=== PATIENT | female | born 1965 | race Caucasian/White ===

== ENCOUNTER → 2018-11-28 10:01 | Outpatient (CLI) | payer BC, SELFPAY ==
[2018-11-28 12:05] LABS: Hematocrit 43.1 % (37-47); Hemoglobin 14.2 g/dl (12.0-15.0); Mean Corp Hgb Conc 32.9 g/gl (32-36); Mean Corpuscular Hgb 28.4 pg (27.0-32.0); Mean Corpuscular Volume 86.2 fL (81-99); Platelet Count 450 K/mm3 (150-450); RBC Distribution Width CV 14.5 % (11.6-14.6); RBC Distribution Width SD 45.1 fl (35.1-43.9); White Blood Count 7.3 K/mm3 (4.4-11.0)
[2018-11-28 12:07] LABS: Scan Indicated on CBC? Y/N NO
[2018-11-28 12:13] LABS: Vitamin D,25 Hydroxy 22.5 ng/mL (29.95-100.01)
[2018-11-28 12:16] LABS: Anion Gap 9 (5-15); BUN 11 mg/dL (7-18); BUN/Creat Ratio 11.1 RATIO (10-20); Calcium,Total 8.6 mg/dL (8.5-10.1); Chloride 104 mmol/L (98-107); EST Glomerular Filtration Rate 62 mL/min (>60); Est Glom Filt Rate - Afr Amer 75 mL/min (>60); Glucose 98 mg/dL (74-106); Sodium Level 136 mmol/L (136-145)
--- OUTSIDE RECORDS SUMMARY | 2019-02-02 02:43 | XMS RPT_ITS ---
:1965 Author Organization OHIP Care Team Providers Name Role Phone CHAPARRITA GUTHRIE (INSURANCE PROCESSING CLERK) Attending Unavailable CHAPARRITA GTUHRIE (INSURANCE PROCESSING CLERK) Referring Unavailable CHAPARRITA GUTHRIE (INSURANCE PROCESSING CLERK) Referring Unavailable Tee Ramirez Attending Unavailable Tee Ramirez Referring Unavailable Tee Ramirez Primary Care Unavailable PROBLEMS PROBLEMS DATE TYPE CONDITION / CODE ATTENDING STATUS SOURCE 11/28/2018 Unknown 401.1 - Benign Tee Ramirez Active [place] essential [facility]ly [facility] hypertension / Hospital 401.1(ICD-9) Repository 11/28/2018 Unknown I10 - Essential Tee Ramirez Active [place] (primary) Formerly [facility] hypertension / Hospital I10(ICD-10) Repository 11/28/2018 Unknown 244.9 - Unspecified Tee Ramirez Active [place] acquired [facility] hypothyroidism / Hospital 244.9(ICD-9) Repository 11/28/2018 Unknown E03.9 - Tee Ramirez Active [place] Hypothyroidism, Community unspecified / Hospital E03.9(ICD-10) Repository 03/16/2018 Active Encounter for NA Active [place] screening [facility] Main for malignant [place] neoplasm of breast / Repository Z12.31(ICD-10) 03/16/2018 Active Unknown / CHAPARRITA GUTHRIE Active [place] UNK(Unknown) (INSURANCE PROCESSING CLERK) Clinic Main [place] Repository PROCEDURES PROCEDURES No Procedure Records FoundRESULTS RESULTS CBC-COMPLETE BLOOD CNT Collected: 11/28/2018 Status: F Source: [place] NO DIFF 10:05 AM [facility] HOSPITAL REPOSITORY TYPE CODE TESTS RESULT OUT OF RANGE REFERENCE UNITS LAB L100.1000 4.4-11.0 K/mm3 Normal WBC 7.3 LAB L100.1200 4.2-5.4 M/mm3 Normal RBC 5.00 LAB L100.1300 12.0-15.0 g/dl Normal HGB 14.2 LAB L100.1400 37-47 % Normal HCT 43.1 LAB L100.1500 81-99 fL Normal MCV 86.2 LAB L100.1600 27.0-32.0 pg Normal MCH 28.4 LAB L100.1700 32-36 g/gl Normal MCHC 32.9 LAB L100.1810 11.6-14.6 % Normal RDW CV 14.5 LAB L100.1820 35.1-43.9 fl High RDW SD 45.1 LAB L100.1900 150-450 K/mm3 Normal PLT 450 LAB L100.2000 6.2-12.0 fl Normal MPV 10.0 Performed By: #### L100.0500, L506.1000, L500.2500, L501.9520 #### [facility] [address] [place], [place], [id number] VITAMIN D,25 HYDROXY Collected: 11/28/2018 Status: F Source: [place] 10:05 AM [facility] TYPE CODE TESTS RESULT OUT OF REFERENCE UNITS RANGE LAB L506.1000 29.95-100.01 ng/mL Low Vitamin D 22.5 25-OH Result Comment: Vitamin D 25(OH) Status Range Deficiency <20 ng/mL (50nmol/L) Insuffciency 20 - 30 ng/mL (50 - 75 nmol/L) Sufficiency 30 - 100 ng/mL (75 - 250 nmol/L) Toxicity >100 ng/mL (>250 nmol/L) Performed By: #### L100.0500, L506.1000, L500.2500, L501.9520 #### [facility] [address] [place], [place], [address] BASIC METABOLIC Collected: 11/28/2018 Status: F Source: [place] PROFILE (BMP) 10:05 AM [facility] TYPE CODE TESTS RESULT OUT OF RANGE REFERENCE UNITS LAB L501.0100 74-106 mg/dL Normal GLU 98 Result Comment: Please note revised GLUCOSE reference range effective 2017. LAB L501.1000 7-18 mg/dL Normal BUN 11 LAB L501.1100 0.55-1.02 mg/dL Normal CREAT,SERUM 1.00 Result Comment: The validity of the calculated GFR AND GFRAA in patients over 70 years has not been determined. Clinical correlation is essential. LAB L501.1110 >60 mL/min Normal EST GFR 62 Result Comment: Non- GFR Calc LAB L501.1115 >60 mL/min Normal EST GFR - AA 75 Result Comment: GFR Calc LAB L501.1300 10-20 RATIO Normal BUN/CRE 11.1 LAB L501.2200 8.5-10.1 mg/dL CA Normal 8.6 LAB L501.5300 136-145 mmol/L NA Normal 136 LAB L501.5600 3.5-5.1 mmol/L K Normal 4.0 LAB L501.5900 98-107 mmol/L CL Normal 104 LAB L501.6100 21.0-32.0 mmol/L Normal CO2 23.0 LAB L501.6200 5-15 Normal GAP 9 Performed By: #### L100.0500, L506.1000, L500.2500, L501.9520 #### [facility] [address] [facility] [place], [place], [id number] THYROID STIM HORMONE Collected: 11/28/2018 Status: F Source: [place] (TSH) 10:05 AM [facility] [place] TYPE CODE TESTS RESULT OUT OF RANGE REFERENCE UNITS LAB L501.9520 0.358-3.74 uIU/mL Normal TSH 2.10 Performed By: #### L100.0500, L506.1000, L500.2500, L501.9520 #### [facility] [address] [facility] [place], [place], [address] PROGRESS Observed: 05/09/2018 Status: COMPLETED Source: PROSS[place] 3:31 PM [facility] REPOSITORY O ID: [id number] Author: Adamaris Lozoya Rt Service: (none) Author Type: (none) Type: Progress Notes Filed: 05/09/2018 3:32 PM Note Text: Radiology Service Progress Note PATIENT NAME: Selma Don DATE OF SERVICE: May 09, 2018 TIME: 3:31 PM PATIENT IDENTITY VERIFICATION COMPLETED USING TWO (2) METHODS: Patient confirmed name verbally and Date of . PATIENT GENDER DATA: Female. status: : No status: NO. PATIENT RELEVANT IMPLANT DATA REVIEWED: Not Applicable RADIOLOGY DEPARTMENT: [facility] bilateral diagnostic mammogram PERIPHERAL IV DATA: Not applicable SIGNED BY: Adamaris Lozoya May 09, 2018 3:31 PM [facility] Observed: 05/09/2018 Status: COMPLETED Source: PROSSER 3:29 PM [facility] REPOSITORY HNO ID: [id number] Author: Mammography Coordinator Service: (none) Author Type: Physician Type: Letter Filed: 05/10/2018 11:32 PM Note Text: May 09, 2018 PID: [id number] Selma Don [address] [place] [address] Dear Sis Don, We are pleased to inform you that the results of your recent breast imaging exam on 05/09/2018 are normal and we recommend that you return to your annual screening Mammography schedule. Early detection of cancer is very important. We also understand recommendations regarding breast cancer screening are controversial. Please discuss with your primary care provider which strategy is best for you and whether a mammogram is right for you. Your imaging studies and report will be kept on file at [facility] as part of your permanent medical record and are available for your continuing care. Thank you for allowing us to help in meeting your health care needs. Sincerely, Dr. Wesley Interpreting Radiologist [facility] (Return to Annual Mammogram schedule) [facility] DIAGNOSTIC NANI Observed: 05/09/2018 Status: F Source: PROSSER 3:22 PM [facility] REPOSITORY * * *Final Report* * * DATE OF EXAM: May 09 2018 3:22PM [facility] 0620 - [facility] DIAGNOSTIC NANI / PROCEDURE REASON: call back bilateral breast / abnormal mammogram * * * * Physician Interpretation * * * * RESULT: #[id number] - [facility] DIAGNOSTIC NANI BILATERAL DIGITAL DIAGNOSTIC MAMMOGRAM WITH CAD: 05/09/2018 HISTORY: Call Back Bilateral Breast / Abnormal Mammogram. RESULT: TECHNIQUE: The study was acquired using full field digital technology and interpreted from soft copy. Current study was also evaluated with a Computer Aided Detection (CAD). Comparison is made to exams dated: 03/16/2018 mammogram, 03/15/2017 mammogram - [facility], 04/12/2016 mammogram - [facility], 03/14/2016 mammogram, and 03/09/2015 mammogram - [facility]. The tissue of both breasts is heterogeneously dense. This may lower the sensitivity of mammography. The tiny left calcifications are widely scattered and appear stable since 2016. Additional imaging reveals area of interest in the right breast on prior exam is not reproduced and presumably represents superimposed breast tissue. The patient is status post reduction both breasts. No significant masses, calcifications, or other findings are seen in either breast. IMPRESSION: NEGATIVE There is no mammographic evidence of malignancy. Return to annual mammogram screening schedule is recommended. Marylou wiggins/jacy:05/09/2018 15:29:49 Event Planner: Adamaris ALVES (R)([place]), [facility] letter sent: Return to Annual Mammogram BI-RADS: 1 Negative Baggage Porter: Jacy Transcribe Date/Time: May 09 2018 2:54P Dictated by: MARYLOU WESLEY MD This examination was interpreted and the report reviewed and electronically signed by: MARYLOU WESLEY MD on May 09 2018 3:29PM EST [id number] [facility] Observed: 04/13/2018 Status: COMPLETED Source: PROSSER 12:00 AM [facility] REPOSITORY Letter Text [facility] [address] [address] Date: April 18, 2018 Sis Don [facility] [phone] Dear Ms. Don, Our records indicate that you are overdue for your diagnostic breast imaging exam as recommended from recent screening mammogram. Please call [phone], , or [phone] to schedule your additional imaging. If you've gone to an outside facility, please notify us. If you have already scheduled and appointment please disregard this letter. Thank you for choosing us for your health care needs. Sincerely, Dr. Flaca Quezada Interpreting Radiologist This is a copy of the letter sent to the patient through the Radiology Information System [facility] Observed: 03/19/2018 Status: COMPLETED Source: PROSS[place] 5:02 PM [facility] REPOSITORY HNO ID: [id number] Author: Coordinator, Mammography Service: (none) Author Type: Physician Type: Letter Filed: 03/20/2018 11:33 PM Note Text: March 19, 2018 PID: [id number] Selma Don [address] [place] [address] Dear Ms. Don, Your recent breast imaging exam on 03/16/2018 showed a possible finding that requires additional imaging studies for a complete evaluation. Most such findings are probably benign (not cancer). Please call [phone] or [phone] to schedule an appointment for your additional imaging if you have not already done so. Your mammogram demonstrates that you have dense breast tissue, which could hide abnormalities. Dense breast tissue, in and of itself, is a relatively common condition. Therefore, this information is not provided to cause undue concern; rather, it is to raise your awareness and promote discussion with your health care provider regarding the presence of dense breast tissue in addition to other risk factors. Your breast images and report will be kept on file here as part of your permanent medical record and are available for your continuing care. Thank you for allowing us to help in meeting your health care needs. Sincerely, Dr. Quezada Interpreting Radiologist [facility] (Additional imaging) [facility] SCREENING Observed: 03/16/2018 Status: F Source: PROSSER 4:18 PM [facility] REPOSITORY * * *Final Report* * * DATE OF EXAM: Mar 16 2018 4:18PM [facility] 0581 - [facility] SCREENING / PROCEDURE REASON: Encounter for screening mammogram for malignant neoplasm of breast * * * * Physician Interpretation * * * * RESULT: #[id number] - [facility] SCREENING BILATERAL DIGITAL SCREENING MAMMOGRAM WITH CAD: 03/16/2018 HISTORY: Screening Mammogram - patient reports NO breast symptoms /priors available for comparison. RESULT: TECHNIQUE: The study was acquired using full field digital technology and interpreted from soft copy. Current study was also evaluated with a Computer Aided Detection (CAD). Comparison is made to exams dated: 03/15/2017 mammogram - [facility], 04/12/2016 mammogram - [facility], 03/14/2016 mammogram, and 03/09/2015 mammogram - [facility]. The tissue of both breasts is heterogeneously dense. This may lower the sensitivity of mammography. Both breasts have post-operative findings. There is a focal asymmetry in the right breast. There are possible multiple calcifications in the left breast. There is a possible asymmetry associated with the calcifications. No other significant masses or calcifications are seen in either breast. IMPRESSION: INCOMPLETE: NEEDS ADDITIONAL IMAGING EVALUATION The focal asymmetry in the right breast is indeterminate. Additional views are recommended. The possible multiple calcifications in the left breast are indeterminate. There is a possible asymmetry associated with the calcifications. Spot magnification views are recommended. Flaca arthur/jacy:03/19/2018 17:02:08 Event Planner: Lacy SHAW)([place]), [facility] letter sent: Additional Imaging Needed Mammogram BI-RADS: 0 Incomplete: needs additional imaging evaluation Baggage Porter: Jacy Transcribe Date/Time: Mar 16 2018 3:43P Dictated by: FLACA QUEZADA MD This examination was interpreted and the report reviewed and electronically signed by: FLACA QUEZADA MD on Mar 19 2018 5:02PM EST [id number] Observed: 03/16/2018 Status: COMPLETED Source: PROSSER 3:05 PM [facility] REPOSITORY O ID: [id number] Author: Chaparrita Guthrie (Critical Care Physician Assistant) Service: (none) Author Type: Nurse Practitioner Type: Progress Notes Filed: 03/16/2018 3:38 PM Note Text: Mine Captain offered: Patient declines. Selma Don is a 53 year old who presents for her annual gynecologic exam without complaints. 10 yrs sober!!! Works at [employer] in [employer] Postmenopausal: Yes since 2007 HRT use: Yes, climara How lon. Last Pap: 2017 normal HPV: 2017 negative History of abnormal pap: No Last mammogram: 2018 pending History of abnormal mammogram: No Sexually active: Yes Pain with intercourse: No Postcoital bleeding: No Hot flashes: No Night sweats: No Vaginal dryness: No Obstetric History T2 L2 SAB0 TAB0 Ectopic0 Multiple0 Live Births0 PAST MEDICAL HISTORY Diagnosis Date - Depression - GERD (gastroesophageal reflux disease) - Hypertension - Hypothyroidism - Personal history of unspecified urinary disorder PAST SURGICAL HISTORY Procedure Laterality Date - PAST SURGICAL HISTORY OF 1992 Bladder suspension - PAST SURGICAL HISTORY OF 2011 Breast reduction - TOTAL ABDOM HYSTERECTOMY 09/25/2007 Hysterectomy, CARYL-BSO, cervix remains FAMILY HISTORY Problem Relation Age of Onset - Stroke Mother - Psychiatry Mother - Cancer Maternal Grandfather - Hypertension Paternal Grandfather - Heart Paternal Grandfather - Seizures Paternal Grandfather SOCIAL HISTORY Social History Substance Use Topics - Smoking status: Never Smoker - Smokeless tobacco: Never Used - Alcohol use No Comment: Recovering 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 No bloating, early satiety, indigestion, or increased flatulence. Bladder: No dysuria, gross hematuria, urinary frequency, urinary urgency. stress incontinence Breast: No breast lumps, nipple d/c, overlying skin changes, redness or skin retraction Allergies and current medication updated:Yes EXAM: BP 124/82 Ht 5' 2.598 (1.59m) Wt 220 lb (99.8kg) BMI 39.47 kg/(m2). GENERAL: pleasant, female in no apparent distress HEENT: Normocephalic, atraumatic, mucus membranes moist and no lesions NECK: Supple, full range of motion, no adenopathy and thyroid normal DERMATOLOGY: Normal, without lesions, non-icteric and non-hirsute BREAST: soft, non-tender, symmetric, no dominant mass, normal nipple-areolar complex, no lymphadenopathy and no nipple discharge CHEST: Normal inspiratory effort ABDOMEN: soft, non-tender and no masses PELVIC: external genitalia normal, normal Bartholin's glands, urethra, [place]'s glands, no cervical lesions, good vaginal support, physiologic discharge present, normal appearing perineal body and perianal region BIMANUAL: non-tender and uterus surgically absent RECTOVAGINAL: deferred. NEURO: alert and oriented x3,exam grossly non-focal EXTREMITIES: normal ASSESSMENT/PLAN: 1) Health maintenance: Pap/HPV up to date. Mammogram up to date Nutrition, exercise and routine health maintenance exams reviewed. Calcium/Vitamin D supplementation information provided. 2) Follow up one year or sooner as needed Chaparrita Guthrie) MARLON Observed: 03/16/2018 Status: COMPLETED Source: PROSSER 3:00 PM [facility] REPOSITORY Office Visit (WOOB) SELMA DON ([id number]) 1965 F Date Time Provider Department 03/16/18 3:00 PM CHAPARRITA GUTHRIE (JYOTSNA) WOOB During your visit today, we recorded the following information about you: Blood pressure Weight Height 124/82 99.8 kg 1.59 m Chaparrita Guthrie ([place]) 03/16/2018 3:38 PM Signed Mine Captain offered: Patient declines. Selma Don is a 53 year old who presents for her annual gynecologic exam without complaints. 10 yrs sober!!! Works at [employer] in [employer] Postmenopausal: Yes since 2007 HRT use: Yes, climara How lon. Last Pap: 2017 normal HPV: 2017 negative History of abnormal pap: No Last mammogram: 2018 pending History of abnormal mammogram: No Sexually active: Yes Pain with intercourse: No Postcoital bleeding: No Hot flashes: No Night sweats: No Vaginal dryness: No Obstetric History T2 L2 SAB0 TAB0 Ectopic0 Multiple0 Live Births0 PAST MEDICAL HISTORY Diagnosis Date - Depression - GERD (gastroesophageal reflux disease) - Hypertension - Hypothyroidism - Personal history of unspecified urinary disorder PAST SURGICAL HISTORY Procedure Laterality Date - PAST SURGICAL HISTORY OF 1992 Bladder suspension - PAST SURGICAL HISTORY OF 2011 Breast reduction - TOTAL ABDOM HYSTERECTOMY 09/25/2007 Hysterectomy, CARYL-BSO, cervix remains FAMILY HISTORY Problem Relation Age of Onset - Stroke Mother - Psychiatry Mother - Cancer Maternal Grandfather - Hypertension Paternal Grandfather - Heart Paternal Grandfather - Seizures Paternal Grandfather SOCIAL HISTORY Social History Substance Use Topics - Smoking status: Never Smoker - Smokeless tobacco: Never Used - Alcohol use No Comment: Recovering 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 No bloating, early satiety, indigestion, or increased flatulence. Bladder: No dysuria, gross hematuria, urinary frequency, urinary urgency. stress incontinence Breast: No breast lumps, nipple d/c, overlying skin changes, redness or skin retraction Allergies and current medication updated:Yes EXAM: BP 124/82 Ht 5' 2.598 (1.59m) Wt 220 lb (99.8kg) BMI 39.47 kg/(m2). GENERAL: pleasant, female in no apparent distress HEENT: Normocephalic, atraumatic, mucus membranes moist and no lesions NECK: Supple, full range of motion, no adenopathy and thyroid normal DERMATOLOGY: Normal, without lesions, non-icteric and non-hirsute BREAST: soft, non-tender, symmetric, no dominant mass, normal nipple-areolar complex, no lymphadenopathy and no nipple discharge CHEST: Normal inspiratory effort ABDOMEN: soft, non-tender and no masses PELVIC: external genitalia normal, normal Bartholin's glands, urethra, [place]'s glands, no cervical lesions, good vaginal support, physiologic discharge present, normal appearing perineal body and perianal region BIMANUAL: non-tender and uterus surgically absent RECTOVAGINAL: deferred. NEURO: alert and oriented x3,exam grossly non-focal EXTREMITIES: normal ASSESSMENT/PLAN: 1) Health maintenance: Pap/HPV up to date. Mammogram up to date Nutrition, exercise and routine health maintenance exams reviewed. Calcium/Vitamin D supplementation information provided. 2) Follow up one year or sooner as needed Chaparrita Guthrie ([facility]) Referring Provider: SELF [200] Allergies As of Date: 03/16/2018 Noted Allergy Reaction CODEINE 10/01/2007 SULFA (SULFONAMIDE ANTIBIOTICS) 10/01/2007 Date Reviewed: 03/16/2018 Reviewed by: Chaparrita Guthrie ([facility]) - Fully Assessed Primary Visit Diagnosis:Encounter for gynecological examination (general) (routine) without abnormal findings [Z01.419] Other Visit Diagnosis:Postmenopausal HRT (hormone replacement therapy) [Z79.890] Order(s):estradiol (CLIMARA) 0.05 mg/24 hrApply 1 Patch as directed once each week.Disp: 24 PatchRfl: 3 Prescriptions as of 03/16/2018 Sig: TRINTELLIX 10 MG TABLET ESTRADIOL 0.05 MG/24 HR WEEKL* Apply 1 Patch as directed onc* ARIPIPRAZOLE 5 MG TABLET Take 10 mg by mouth once althea* FUROSEMIDE 20 MG TABLET Take 20 mg by mouth once althea* LEVOTHYROXINE 50 MCG TABLET Take 50 mcg by mouth daily be* * PROTONIX ORAL Take by mouth once daily. * TRAZODONE 50 MG TABLET Take 1 tablet by mouth daily * * DAILY MULTIVITAMIN TABLET Take one(1) tablet daily. FLUOXETINE 40 MG CAPSULE Take 40 mg by mouth once althea* Problem List As Of Date 03/16/2018 Noted Resolved Internal hemorrhoids without mention of complic*INVALID FOR* H/O bilateral breast reduction surgery [Z98.890]INVALID FOR* Hypothyroid [E03.9] INVALID FOR* S/P subtotal hysterectomy [Z90.711] INVALID FOR* Prescriptions ordered this encounter Disp Refills Start End ESTRADIOL 0.05 MG/24 HR WEEKLY TRANS* 24 P* 3 03/16/2018 Route: TRANSDERM. Sig: Apply 1 Patch as directed once each week. Medications Discontinued During This Encounter estradiol (CLIMARA) 0.05 mg/24 hr 24 P* 3 03/15/2017 03/16/2018 Route: TRANSDERMAL Sig: Apply 1 Patch as directed once each week. Disc: Reason for discontinue is not on file. Disposition: Return in 1 year (on 03/16/2019) for Annual Exam. Follow-up and Disposition History Recorded Encounter Status:Closed by CHAPARRITA GUTHRIE on 03/16/18 PROGRESS Observed: 03/16/2018 Status: COMPLETED Source: PROSSER 2:58 PM [facility] REPOSITORY O ID: [id number] Author: Sera Neff Service: (none) Author Type: (none) Type: Progress Notes Filed: 03/16/2018 2:58 PM Note Text: Radiology Service Progress Note PATIENT NAME: Selma Don DATE OF SERVICE: March 16, 2018 TIME: 2:58 PM PATIENT IDENTITY VERIFICATION COMPLETED USING TWO (2) METHODS: Patient confirmed name verbally and Date of . PATIENT GENDER DATA: Female. status: : No status: NO. PATIENT RELEVANT IMPLANT DATA REVIEWED: Not Applicable RADIOLOGY DEPARTMENT: [facility] DATA: Not applicable SIGNED BY: Sera Alves March 16, 2018 2:58 PM ALLERGIES ALLERGIES DATE TYPE / CODE NAME / CODE REACTION SEVERITY SOURCE 10/01/2007 DRUG CODEINE [facility] INGREDI/[address] [place] [address](SNOMED Repository CT) 10/01/2007 Drug SULFA [facility] Class/853641 (SULFONAMIDE [address] [place] 003(SNOMED ANTIBIOTICS) Repository CT) ENCOUNTERS ENCOUNTERS ADMIT/DISCHARGE ACCOUNT ADMITTING ENCOUNTER LOCATION SOURCE NUMBER CLASS 11/28/2018 [id number] Ambulatory [facility] ing:[facility]LAB Repository 05/09/2018/05/09/20 [id number] Ambulatory [address] Repository 03/16/2018/03/16/20 [id number] Ambulatory [address] Repository 03/16/2018/03/20/20 [id number] Ambulatory [address] Repository PAYERS PAYERS ENCOUNTER GUARANTOR PAYER SUBSCRIBER SOURCE 11/28/2018 SELMA [id number] Primary SELMA MAY: Catrina GALINDO Insurance:[id number] Number: [place], [place] [id number] Repository [address]Ffx: [phone]) Date:[phone] () [id number], [place] [address]RZ: 11/28/2018 Secondary NOT GIVENUNK [place] Insurance:SELF PAY [facility] Number: Effective Repository Date:2018-11-28
== END ==
PROVIDERS: Family Provider Family Medicine; PCP Family Medicine; Referring Provider Family Medicine; Visit Provider Family Medicine
DX: I10 Essential (primary) hypertension (principal); E03.9 Hypothyroidism, unspecified
CPT/HCPCS: 36415; 80048; 82306; 84443; 85027

== ENCOUNTER → 2019-05-02 | Outpatient (CLI) | payer BC, SELFPAY ==
--- NOTE | 2019-05-02 11:32 | RAD_ITS ---
STUDY: X-RAY - ABDOMEN/PELVIS REASON FOR EXAM: Female, 54 years old. Constipation. TECHNIQUE: AP supine and upright views of the abdomen and pelvis. COMPARISON: None. FINDINGS: Normal visualized lung bases. There is a moderate amount of colonic fecal material. There is no demonstrated free abdominal air. The visualized liver, spleen and kidneys are grossly normal in size and morphology. Normal soft tissue structures. Normal visualized osseous structures. RAD/[employer] Decub and/or Erect IMPRESSION: Moderate amount of fecal material is seen in the colon. Electronically Signed: Eddie Aguila, at 12:12 EDT , Service support ,
[2019-05-02 14:36] LABS: Absolute Lymphocyte Count 2.01 X10^3/ul (0.83-4.51); Absolute Neutrophil Count 5.5 X10^3/uL (2.0-7.7); Basophil# 0.02 X10^3/uL; Basophil% 0.2 % (0-1); Eosinophil# 0.06 X10^3/uL; Eosinophils% 0.7 % (0-5); Hematocrit 44.3 % (37-47); Hemoglobin 14.6 g/dl (12.0-15.0); Lymphocyte # 2.01 X10^3/ul (4.0); Lymphocyte % 24.2 % (19-41); Mean Corpuscular Hgb 28.2 pg (27.0-32.0); Mean Corpuscular Volume 85.7 fL (81-99); Mean Platelet Vol. 9.6 fl (6.2-12.0); Monocyte# 0.72 X10^3/uL; Monocyte% 8.7 % (0-10); Neutrophil % 66.1 % (47-70); Platelet Count 423 K/mm3 (150-450); RBC Distribution Width CV 14.3 % (11.6-14.6); RBC Distribution Width SD 44.7 fl (35.1-43.9); Red Blood Count 5.17 M/mm3 (4.2-5.4); White Blood Count 8.3 K/mm3 (4.4-11.0)
[2019-05-02 14:38] LABS: POSITIVE COUNT NO; POSITIVE DIFFERENTIAL NO; POSITIVE MORPHOLOGY NO
[2019-05-02 14:41] LABS: ALB/GLOB Ratio 0.9 RATIO (0.9-2.4); AST(SGOT) 18 U/L (15-37); Alanine Aminotransfer ALT/SGPT 28 U/L (13-56); Albumin, Serum 3.9 g/dL (3.2-5.0); Alkaline Phosphatase 95 U/L (45-117); Amylase 67 U/L (25-115); Anion Gap 7 (5-15); BUN 14 mg/dL (7-18); BUN/Creat Ratio 14.8 RATIO (10-20); Calcium,Total 9.3 mg/dL (8.5-10.1); Chloride 104 mmol/L (98-107); Creatinine, Serum 0.95 mg/dL (0.55-1.02); EST Glomerular Filtration Rate 66 mL/min (>60); Est Glom Filt Rate - Afr Amer 79 mL/min (>60); Globulin 4.4 g/dL (2.2-4.2); Glucose 91 mg/dL (74-106); Lipase 76 U/L (73-393); Potassium 3.8 mmol/L (3.5-5.1); Protein, Total 8.3 g/dL (6.4-8.2); Sodium Level 136 mmol/L (136-145)
== END | disposition home or self-care (01) ==
LOC: MTLAB 11:30
PROVIDERS: Family Provider Family Medicine; PCP Family Medicine; Referring Provider Family Medicine; Visit Provider Family Medicine
DX: K59.00 Constipation, unspecified (principal); R10.10 Upper abdominal pain, unspecified
CPT/HCPCS: 36415; 74019; 80053; 82150; 83690; 85025

== ENCOUNTER → 2019-08-06 16:09 | Outpatient (CLI) | payer BC, SELFPAY ==
[2019-08-06 18:04] LABS: Thyroid Stim Hormone (TSH) 2.34 uIU/mL (0.358-3.74)
[2019-08-06 18:12] LABS: Vitamin D,25 Hydroxy 36.4 ng/mL (29.95-100.01)
== END ==
PROVIDERS: Family Provider Family Medicine; PCP Family Medicine; Referring Provider Family Medicine; Visit Provider Family Medicine
DX: E55.9 Vitamin D deficiency, unspecified (principal); E03.9 Hypothyroidism, unspecified
CPT/HCPCS: 36415; 82306; 84443

== ENCOUNTER 2019-08-22 09:00 | Outpatient (RCR) | payer BC, SELFPAY ==
--- NOTE | 2019-08-22 09:10 | BH.SGPN.GN ---
Behaviors/Verbalizations/Mental Status: [] Eye contact is poor. Motor activity is appropriate. Appearance is casual. Speech is Appropriate. Mood is depressed. Affect is flat. Thoughts are linear and logical. No evidence of psychosis. Reviewed daily check in sheet and no reports of suicidal ideations or intent Client Response/Progress/Benefit: [] Attentive. This was pt's first day in IOP and she only spoke when prompted. Shared that she is in IOP to work on her anxiety and depression. Sahred that she related to a great deal of what was said during the group discussion. Group was supportive and welcomed her to the program. Benefited from group support and encouragement. Will continue in [facility] to prevent decompensation, maintain safety, and increase healthy coping. Narrative Note: []
--- NOTE | 2019-08-22 10:10 | BH.SGPN.GN ---
Behaviors/Verbalizations/Mental Status: []Client alert and oriented, neatly dressed and groomed. Eye contact good. Motor activity appropriate. Speech within normal limits. Affect congruent, mood dysthymic, anxious. Thoughts linear, logical, no signs of hallucinations or delusions. Client Response/Progress/Benefit: []Client active participant as shown by client?s nodding during discussion and engagement in activity. Client agreed with peers that self-care is important because without it one cannot effectively give to others or function at baseline. Client agreed with peers that self-care is not always easy to do, but it is possible to make time for it. Client attentive in the discussion of the common myths about self-care including self-care is selfish, self-indulgent, take too much time, and is always fun. Client gave examples of self-care activities such as setting boundaries, taking medication, going to therapy, and admitting one needs help. Client engaged in activity and able to connect how sometimes to make self-care a priority, a person must set boundaries in other areas of their lives. Client seemed to benefit from increased awareness of the importance of self-care. Client?s first day in PHP. Will continue tx to prevent decompensation of depressive symptoms, increase daily functioning, and learn healthy coping skills.
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
--- NOTE | 2019-08-22 15:21 | BH.COMM ---
Communication Note - Communication with Client Communication Note: Completed intake paperwork with client today. Completed the [place] Suicide Severity Scale (CSSR-S) Lifetime Recent to assess for suicidal risk. Client has history of one suicide attempt via overdose 15 years ago. Client reported at the time she was very depressed and felt like a burden to her family. Client took ?a lot? of her pills and drank ?a bunch? of cough medicine. Client did not know an exact amount as it was many years ago. Client reported the squad was called to her house and they took her to the emergency room. Client?s stomach had to be pumped. Client denies any suicidal ideations, plan, or intent since this attempt. Client reported ?I felt so guilty after? and this made her realize how much she does not want to . Client reported in the past month she has had wishes of , but no thoughts of actually wanting to kill herself. Client reports in the past month she has wishes of about once a week, which is less frequent compared to her lifetime. Client reported her wishes of last less than an hour and she can control the thoughts. Client identified her family and wanting to get better as her reasons to live. Client denies current suicidal thoughts, intention and plan. Per the CSSR-S client is low to moderate risk for suicide as she currently does not present with any acute symptoms, but she has a history of one prior attempt. Client's suicidal lethality will continue to be monitored throughout the program. Client willing to plan for safety. Client reports her has guns, but they are locked up in a safe at home. Client feels able to maintain safety, agreeable to call 911 or go to nearest emergency room if feels unable to maintain safety.
--- NOTE | 2019-08-22 15:25 | BH.MDN ---
Multi-Disciplinary Note - Note 45-min Individual Time Started:: 12:15 Date: 08/22/19 Purpose of session/treatment goals addressed:: Purpose of session was to assess pt's current symptoms and stressors. Other topics included: identifying treatment goals while in [facility]. Eye Contact:: Good Motor Activity:: Appropriate Appearance:: Neat Speech:: Appropriate Mood:: Depressed Affect:: Full Thoughts:: Linear, Logical, No evidence of hallucinations/delusions noted Staff Interventions:: Therapist used open ended questions to elicit pt's curernt symptoms and stressors. Therapist explored what situations, stressors, and triggers led to pt seeking mental health treatment. Therapist collaborated with pt to identify treatment goals for [facility] level of care. Therapist provided psychoeducation about behavioral activation and skill of opposite action. Therapist provided support by using active listening and validating emotions. Client Response:: Pt reported she has been struggling with depressive and anxious symptoms over the past 6-9 months, but didn't realize she was doing so bad until she no longer could go to work due to her anxiety and depression. Pt shared she noticed she started to lose interest in her crafting, reading, and other hobbies about 6 months ago. Pt stated she hadn't realized that her loss of interest was a warning sign. Pt stated about 1-2 months ago is when she started isolating, not talking with friends, and starting to miss family events. Pt reported she hasn't been able to go to work in the past two weeks due to feeling anxious and difficulty getting out of bed. Pt shared while in [facility] she would like to foucs on getting back to myself. Pt elaborated that means she can manage her depressive symptoms, increase motivation, engage in activities she used to enjoy, and be social. Pt stated she'd also like to work on learning skills to be able to manage her anxious symptoms more effectively. Pt reported she could benefit from learning how to be assertive and setting boundaries with others. Pt connected with concept of behavioral activation, expressed understanding of how behavior, thoughts and emotions are all interconnected. Risks/Concerns:: Pt denies suicidal ideation, plan or intention to date. Progress Toward Goals/Plan:: No progress noted given this is pt's first day in PHP. Session focused on identifying treatment goals while in [facility] level of care. Pt to continue [facility] level of care to decrease depression, increase healthy coping, and prevent decompensation. Time Stopped:: 13:00
--- NOTE | 2019-08-22 18:47 | BH.MTP_ITS ---
Master Treatment Plan - Patient Information Program Physician:: Dr. Maya Primary Therapist:: Julia Carney - Psychiatric Diagnoses Psychiatric Diagnoses:: Bipolar 1 disorder most recent episode depressed, severe, without psychosis; alcohol use disorder in full remission for 11 years Diagnosis Code(s):: F 31.4 - Estimated LOS Estimated LOS (in weeks):: 2 Problem/Goal #1 - Problem/Goal #1 Stated Goal:: Client will reduce depression, feelings of hopelessness, and suicidal ideation due to Bipolar Disorder through Partial Hospitalization Program. Description of Barriers: Potential barriers could include distorted thought patterns, passive thoughts of , low motivation, desire to sleep throughout day, and anxious thought patterns. Functional Impact: Pt's depressive and anxious symptoms impacting pt socially and occupationally. Pt's mental healthy symptoms are impacting pt's desire to be around friends and family which has resulted in pt isolating herself from others. Pt's mental health symptoms are preventing pt from going to work for the past two weeks. Goal Relevant Strengths/Supports: Pt is intelligent, resilient, and expresses motivation to get better. Pt's and children serve as positive supports for pt to seek treatment. - Objectives Objective #1 Stated Objective: Work with client to develop a ?crisis plan? which includes emergency telephone numbers, 3-4 coping strategies for SI, lists of supports, positive aspects of life, and motivations. Work with client to identify 3-4 sources or triggers to suicidal ideations to increase insight. Identify 3 effe ctive thought-stopping skills to utilize. Interventions: Therapist will provide list of crisis phone numbers. Therapist will work with client to identify effective coping strategies and steps to take in time of mental health crisis. Discharge Criteria: Client will have achieved this goal once he completes his safety plan and is able to utilize coping and thought replacement strategies. Target Date: 09/05/19 Objective #2 Stated Objective: Client will learn and utilize 2-3 healthy coping strategies to manage depressive symptoms. Interventions: Through group and individual sessions, therapist will help client identify triggers and warning signs of depression and emotional dysregulation including emotional, physical, and behavioral changes. Therapist will teach client various coping skills to manage her symptoms and give client tangible resources to use to regulate emotions. Therapist will use cognitive restructuring techniques and help client gain awareness of negative thoughts that reinforce depressive cycles. Therapist will help client incorporate behav ioral activation and assist client in setting SMART goals. Discharge Criteria: Client will have achieved this goal when can verbalize and has consistently used at least 2 healthy coping strategies to help manage depressed symptoms. Target Date: 09/05/19 Problem/Goal #2 - Problem/Goal #2 Stated Goal:: Reduce overall frequency, intensity, and duration of the anxiety so that daily functioning is not impaired. Description of Barriers: Potential barriers could include distorted thought patterns, passive thoughts of , low motivation, desire to sleep throughout day, and anxious thought patterns. Functional Impact: Pt's depressive and anxious symptoms impacting pt socially and occupationally. Pt's mental healthy symptoms are impacting pt's desire to be around friends and family which has resulted in pt isolating herself from others. Pt's mental health symptoms are preventing pt from going to work for the past two weeks. Goal Relevant Strengths/Supports: Pt is intelligent, resilient, and expresses motivation to get better. Pt's and children serve as positive supports for pt to seek treatment. - Objectives Objective #1 Stated Objective: Client will identify 2-3 anxious thinking patterns and be able to challenge and replace anxious thoughts. Interventions: Therapist will assist client in identifying anxious thinking patterns and provide client with resources to help teach client strategies in defeating or reframing anxious thoughts. Discharge Criteria: Client will have met this objective when can identify at least two anxious thinking patterns and be able to defeat or reframe anxious thoughts. Target Date: 09/05/19
--- NOTE | 2019-08-23 09:02 | BH.SGPN.GN ---
Behaviors/Verbalizations/Mental Status: []Client alert and oriented, neatly dressed, hygiene tended to. Eye contact good. Motor activity appropriate. Speech within normal limits. Affect congruent, mood anxious and positive. Thoughts linear, logical, no signs of hallucinations or delusions. Reviewed client?s symptom tracker, no signs of suicidal ideation, plan, or intent as of today. Client Response/Progress/Benefit: []Pt was an engaged participant in group discussion, providing input and attentively to others. Emotion for today is hopeful. Pt stated her stressor was getting a text message from a co-worker this morning asking her work questions. Pt reported she initially became anxious when received the text because felt guilty she's not at work. 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 Pt noted progress as going home after IOP yesterday and didn't go back to bed. Pt stated instead of going to bed right away she chose to do chores outside, sit on the porch, and cafeteria cook with her . Additional positive as coming back to IOP today despite feeling anxious. Progress noted in application of behavior activation skills outside of treatment environment. Continued IOP tx recommended to increase healthy coping, decrease depressive symptoms, and prevent decompensation. Narrative Note: []
--- NOTE | 2019-08-23 11:15 | BH.SGPN.GN ---
Behaviors/Verbalizations/Mental Status: []Client alert and oriented, neatly dressed and groomed. Eye contact good. Motor activity appropriate. Speech within normal limits. Affect flat, mood depressed. Thoughts linear, logical, no signs of hallucinations or delusions. Client Response/Progress/Benefit: []Client responded well to session, attentive and participating in discussion. Group discussed the mental health benefits of recognizing strengths which included; improved self-esteem, better relationships, and increased resilience. Client reported knowing her strengths has helped client ?laugh instead of cry? and try different things. Group identified the barriers that have prevented them from acknowledging their strengths and successes. These barriers included; negative thoughts, self-depreciation, mistaken beliefs, and not feeling allowed to acknowledge strengths. Group identified strategies to overcome barriers that prevent them from seeing strengths. These strategies included; keeping track of progress, practicing self-compassion, and challenging distortions. Client able to identify personal strengths she possesses which included; kindness, flexibility, humor, and open-mindedness. Appeared to benefit from recognizing personal strengths and identifying strategies to overcome barriers. Will continue PHP tx to promote use of healthy coping skills and to further decrease intensity of mental health symptoms.
--- NOTE | 2019-08-23 13:36 | BH.MDN ---
Multi-Disciplinary Note - Note 30-min Individual Time Started:: 12:30 Date: 08/23/19 Purpose of session/treatment goals addressed:: Purpose of session was to assess pt's current symptoms and stressors. Other topics included: create weekend plan and identify strategies to decrease isolative behaviors. Eye Contact:: Fair Motor Activity:: Appropriate Appearance:: Casual Speech:: Appropriate Mood:: Anxious Affect:: Full Thoughts:: Linear, Logical, No evidence of hallucinations/delusions noted Staff Interventions:: Therapist used open ended questions to elicit pt's current symptoms and stressors. Therapist collaborated with pt to identify weekend plan to help decrease isolative behaviors, increase self-care, and prevent decompensation. Client Response:: Pt reported she had an overall good day yesterday after she left [facility]. Pt stated she had the desire to lay in bed and take a nap, but chose to do something different. Pt reported instead of napping or laying around she did chores around the house and sat outside to relax. Pt reported she noticed she felt more accomplished for being able to do things versus sleep. Pt stated she did have some racing thoughts yesterday about not being at work, but she was able to use positive self-talk to manage the thoughts. Pt reported for the weekend she plans to have lunch with her , try to read, watch halloween movies, and spend time with her sister. Pt stated on Monday she will make a homemade meal and she will call her best friend that lives in [place] to catch up. Pt reported she is going to focus on not taking any naps this weekend and increasing her socialization. Risks/Concerns:: Pt denies current suicidal ideation, plan or intention to date. Progress Toward Goals/Plan:: Progress noted with pt applying opposite action skill yesterday by doing chores and relaxing outside instead of taking a nap. Pt continues to struggle with anxious and negative thoughts. Pt to continue [facility] level of care to maintain safety, increase healthy coping, challenge negative thoughts and prevent decompensation. Time Stopped:: 13:04
--- NOTE | 2019-08-26 09:10 | BH.SGPN.GN ---
Behaviors/Verbalizations/Mental Status: [] Eye contact is good. Motor activity is appropriate. Appearance is casual. Speech is Appropriate. Mood is anxious. Affect is congruent. Thoughts are linear and logical. No evidence of psychosis. Reviewed daily check in sheet and no reports of suicidal ideations or intent. Client Response/Progress/Benefit: [] Pt was an active participant in group discussion. Reports that she is starting to feel more optimistic and hopeful due to PHP. Daily symptoms tracker shows 3/5 for anxiety and agitation. She had significant anxiety related to a family event this past weekend. She utilized skills such as thought challenging to combat cognitive distortions which helped her attend family event. Reports that the event was fun and she is glad that she went. Beginning to increase socialization as she responded to text which she had ignored from several weeks. Notes improved mood however continues to struggle with mood on a daily basis. Ruminations regarding work. Progress noted. Will continue in PHP to maintain safety, prevent decompensation, and increase functioning to return to work. Narrative Note: []
--- NOTE | 2019-08-26 10:07 | BH.SGPN.GN ---
Behaviors/Verbalizations/Mental Status: []Client alert and oriented, neatly dressed and groomed. Eye contact good. Motor activity appropriate. Speech within normal limits. Affect congruent, mood dysthymic. Thoughts linear, logical, no signs of hallucinations or delusions. Client Response/Progress/Benefit: []Client active participant during group discussion AEB client contributing to discussion. Client commented on the quote and shared ?safety nets help us bounce back, but we can?t live on the net.? Client reported one can have unrealistic expectations for their supports which can cause more distress and negative thinking. Client helped group brainstorm potential consequences of not having a support system. Group identified benefits of social support as building trust, less anxiety, less loneliness, different perspective, sense of purpose, resources, hope, and accountability. Client shared it is also important to have internal coping skills so one does not only rely on others. Client was engaged during the group activity and was providing positive encouragement. Appeared to benefit from gaining awareness of barriers that keep people from seeking social support as well as identifying the benefits of increasing support. Client progressing AEB her increased self-awareness and report of improved perspective. Will continue PHP to prevent decompensation of depressive symptoms and reduce negative thinking.
--- NOTE | 2019-08-26 11:08 | BH.SGPN.GN ---
Behaviors/Verbalizations/Mental Status: [Pt alert and oriented, eye contact good, neat and casually dressed, motor activity appropriate, speech normal rate and tone, mood anxious, euthymic, congruent affect, thoughts linear and intact, no evidence of delusions or hallucinations.] Client Response/Progress/Benefit: [Client active participant AEB client contributing to discussion, listened attentively to others, and taking notes. Client worked with the group to make connections between barriers faced in the challenge activity and strategies for managing these barriers with utilizing social supports in daily life. Client reflected that a personal barrier in using her current supports is shutting down when becoming agitated or overwhelmed. Client contributed to discussion about the different types of support and benefits different types of support can provide. Client worked with the group to identify strategies for improving development of new supports and better utilization of current supports. Client identified she would like to improve occupational support by finding ways to improve communication and set healthy boundaries in the work place because she would be able to decrease anxiety and depression as a result. Client seemed to benefit from identifying a type of support she would like to improve upon and creating actionable steps to promote follow-through. Client to continue IOP level of care to prevent decompensation, increase use of healthy supports, and improve anxiety management skills.] Narrative Note: []
--- NOTE | 2019-08-26 14:28 | BH.MDN_ITS ---
Multi-Disciplinary Note - Note 30-min Individual Time Started:: 12:15 Date: 08/26/19 Purpose of session/treatment goals addressed:: The purpose of this session was to address current symptoms, stressors, and experience with homework. Other topics included; behavioral activation, psychoeducation, and thought challenging. Eye Contact:: Good Motor Activity:: Appropriate Appearance:: Neat Speech:: Appropriate Mood:: Dysthymic Affect:: Congruent Thoughts:: Linear, Logical, No evidence of hallucinations/delusions noted Staff Interventions:: Therapist used active listening and open-ended questions to explore client's current symptoms and stressors. Therapist reviewed client's homework and processed it with client. Therapist provided further psychoeducation on maintenance cycles and how to break unhelpful cycles. Therapist used cognitive restructuring to combat distortions that reinforce anxiety and depression. Therapist used strengths perspective to empower client on her application of coping skills. Therapist gave client homework to practice verbally identifying mental health wins each day. Client Response:: Client responded well to session, open to meeting with therapist. Client completed homework over the weekend and reported it went well. Client shared keeping track of the things she does throughout the day helps client stay motivated and want to do more. Client reported she used opposite action over the weekend as well. Client stated she did not want to be social on Monday night, but she challenged herself to go to an event with her family and it was a blast. Client able to recognize that when she acts opposite of what her depression wants her to do she is able to break unhealthy maintenance cycles. Client filled out her personal vicious cycle and was able to identify behaviors and thoughts that keep her in a depressive cycle. Behaviors include; staying in bed, avoiding work, and avoiding supports. Client reported she wants to stop avoiding supports and she wants to get better with verbalizing she needs help. Client identified thoughts that could prevent her from reaching out to supports. Client challenged the thought of I shouldn't need help by writing down that she deserves the help she gives to others. Client reported she felt anxious one night over the weekend, but she was able to tell herself stop and use positive self-talk. Client was encouraged to journal her small mental health wins each day, but she reported ?I?m not a journaler.? Client willing to share her wins verbally with her daily. Client recognizes this will help client not mental filter and her will help remind client of wins when she has a bad day. Risks/Concerns:: Client denies any suicidal ideations, plan, or intent as of 08/26/19. Positive and future oriented throughout session. Progress Toward Goals/Plan:: Client is demonstrating progress towards her treatment goals as shown by her report of utilizing behavioral activation and op posite action over the weekend to prevent isolation. Client reported she has learned so much since starting the program and the accountability has helped client stay motivated with homework. Client shared over the weekend she started to ruminate which increased depression and anxiety, but it did not last as long as usual. Client continues to endorse a depressed mood, negative thinking, anhedonia, isolation, avoidance behaviors, and rumination. Will continue PHP level of care to promote utilization of coping skills, improve daily functioning, and further reduce intensity of symptoms. Time Stopped:: 12:46
--- NOTE | 2019-08-27 09:02 | BH.SGPN.GN ---
Behaviors/Verbalizations/Mental Status: []Client alert and oriented, neatly dressed and groomed. Eye contact good. Motor activity appropriate. Speech within normal limits. Affect congruent, mood euthymic. Thoughts linear, logical, no signs of hallucinations or delusions. Reviewed client?s symptom tracker, no risk for suicidal ideation, plan, or intent as of 08/27/19. Client Response/Progress/Benefit: []Client responded well to session, providing supportive statements to peers. Client reports feeling ?thankful? today. Client stated she is thankful to be in the PHP program because she continues to ?learn so much.? Client reported yesterday she was able to prevent herself from catastrophizing by using positive self-talk and calming skills. Client also did not isolate and sleep after group yesterday which was another mental health win for client. Client reported she is currently stressed about her insurance coverage and FMLA. Client stated she is trying to practice telling herself ?everything will work out? which helps client to calm down. Client appeared to benefit from connecting with peers and reflecting on her application of coping skills. Will continue PHP tx to promote generalization of healthy coping skills and to further decrease depressive symptoms.?
--- NOTE | 2019-08-27 10:10 | BH.SGPN.GN ---
Behaviors/Verbalizations/Mental Status: [] Eye contact is good. Motor activity is appropriate. Appearance is casual. Speech is Appropriate. Mood is anxious. Affect is congruent. Thoughts are linear and logical. No evidence of psychosis. Client Response/Progress/Benefit: [] Pt was an active participant in group activity and discussion. Provided insight on the quote of the day. Worked with peers to come up with a definition for coping which was how we deal with problems that we encounter. Group noted that coping skills can be healthy and unhealthy. Group worked together to identify unhealthy coping skills which included; substance abuse, avoiding, isolating, lashing out, self-harm, over-thinking, spending money, eating, and escaping reality through TV/games. Group began to identify ways to break the cycle of unhealthy coping skills which included; awareness, addressing issues, and learning healthy ways to cope. Pt was an active participant in her small group. Narrative Note: []
--- NOTE | 2019-08-27 11:15 | BH.SGPN.GN ---
Behaviors/Verbalizations/Mental Status: []Pt alert and oriented, eye contact good, casually dressed, motor activity appropriate, speech normal rate and tone, mood dysthymic, congruent affect, thoughts linear and intact, no evidence of delusions or hallucinations. Client Response/Progress/Benefit: []Client listened attentively to peers and contributed thoughts during discussion. Client appeared to connect with the activity from second group and helped the group identify benefits of having a strong foundation of internal and external coping skills. Client helped the group discuss the different categories of coping skills and provided examples. Client agreed with peers it's important to use variety of coping skills. Client created a coping skills ?menu? from the five categories of coping skills. Client selected dancing, self-love, and thought challenge as her coping skills to try. Client appeared to benefit from increasing her repertoire of healthy coping skills. Progress noted in client?s ability to challenge negative perspective. Will continue IOP to increase healthy coping, identify and challenge distorted thoughts and prevent decompensation. Narrative Note: []
--- NOTE | 2019-08-27 13:42 | BH.MDN ---
Multi-Disciplinary Note - Note 30-min Individual Time Started:: 12:28 Date: 08/27/19 Purpose of session/treatment goals addressed:: Purpose of session was to assess pt's current symptoms and stressors. Other topics included: reviewing homework from last individual session, psychoeducation about behavioral activation, and start discussion about personal values. Eye Contact:: Good Appearance:: Neat Speech:: Appropriate Mood:: Dysthymic Affect:: Congruent Thoughts:: Linear, Logical, No evidence of hallucinations/delusions noted Staff Interventions:: Therapist used open ended questions to elicit pt's current symptoms and stressors. Therapist reviewed homework from last individual session in which pt was to identify her first and second cycle of depression. Therapist educated pt about imporance of having awareness of personal values and ensuring pt is engaging in activities that match her values. Provided homework for pt to identify activites for the three values she believes are the most important to her. Client Response:: Pt stated she completed the first and second vicious cycles of depression. pt reported an event was not getting the promotion, which led pt to feel sad, embarassed, adn depressed. Pt stated she then shut down and isolated. Pt stated the her isolation in her first cycle reinforced her depressed and sad feelings and has maintained her depressed symptoms. Pt stated she recognizes the impact her behavior has on her mental health. Pt connected witht he concept of behavioral activiation in which she has to do the opposite action in order to elicit positive emotions. When reviewing various values, pt connected that she needs to be engaging in activities that are congruent with her values. Pt agreeable to complete homework of identifying values most important to her and identifying activites she can engage in to meet value. Risks/Concerns:: denies current suicidal ideation, plan or intention to date. Progress Toward Goals/Plan:: Pt progressing with decreased isolative behaviors, using oppositve action, and no longer napping. Pt continues to struggle with loss of interest, distorted thought patterns, and anxious thoughts. Pt to continue PHP level of care to increase healthy coping, challenge distorted thoughts, and prevent decompensation. Time Stopped:: 12:56
--- NOTE | 2019-08-28 09:03 | BH.SGPN.GN ---
Behaviors/Verbalizations/Mental Status: [Eye contact is fair to good. Motor activity is appropriate. Appearance is casual. Speech is Appropriate rate and tone. Mood is anxious. Affect is congruent. Thoughts are linear and logical. No evidence of psychosis. Reviewed daily check in sheet and pt denies any active SI, plan, or intent.] Client Response/Progress/Benefit: [Pt responded well to session, actively engaged throughout and providing supportive feedback. Pt indicated current emotion as ?anxious? and discussed various stressors contributing to her current anxiety such as physical health issues and meeting with the psychiatrist to discuss psychiatric needs. Noted feeling she is ?being sent to the principal office?. Appeared to benefit from the support of the group and identifying the progress she has made. Pt did well to identify mental health wins which included completing homework from individual session and practicing positive self-talk. Progress in reports of improving anxiety regulation. Pt recommended continued IOP tx to prevent decompensation, decrease anxiety, and promote ongoing application of healthy coping skills.] Narrative Note: []
--- NOTE | 2019-08-28 11:14 | BH.NA ---
Physical Data - Vital Signs Pulse Rate: 84 Respiratory Rate: 14 - Height/Weight Height: 1.6 m Weight:: 108.862 kg Weight in Pounds: 240.0 lbs Current Medication Compliance - Medication Compliance Do you take your medication as prescribed?: Yes Do you need assistance with taking medication?: No Have you had side effects from medication?: No Nutritional History - Appetite Nutritional Instructions:: If client shows signs of a swallowing problem, weight change of 10 pounds or more in the last month, or is on a diabetic diet, the physician will review and request a dietitian consult, as appropriate. All unintentional weight loss will be referred to the physician for decision on need for dietitian consult. Describe your appetite:: Good Have you noticed a change in your eating habits lately?: Yes - increased emotional eating with 100# weight gain in the past year Functional Assessment - Sleep Pattern Describe any problems with sleeping: Difficulty falling asleep related to rumination. - Activities Motor Activity:: Functional Sensory/Communication Assess - Hearing Problems Do you have any hearing problems?: Adequate - Communication Problems Do you have difficulty understanding what people are saying?: No Do you have trouble putting your thoughts into words or expressing what you want to say?: No Do people ever have trouble understanding what you say?: No What is your primary language?: Frisian Medical Problems/History - Pain Assessment Do you have acute or chronic pain?: No - Female Reproductive Do you think you may be ?: No Number of pregnancies:: 2 Number of children:: 2 Have you reached menopause?: No Do you have any history of breast disease?: No Surgical History - Surgical History Have you had any surgeries? If so, list type and date:: Yes - breast reduction, bladder suspention Substance Abuse - Substance Abuse Please describe substance abuse in the last 30 days:: Denies tobacco use. Former ETOH abuse, 11 years sober. Past marijuana use. Mental Status Summary - Mental Status Significant Findings/Observations on Appearance and Mood:: Selma is A&Ox4, cooperative with interview, and makes good eye contact. Grooming and hygiene appropriate, casually dressed. Speech is clear and of normal rate and volume. Mild anxiety and anhedonia. Appropriate affect. Logical associations. Normal process. No symptoms of delusions. Denies hallucinations, HI, and SI. Suicide Assessment - Suicidal Ideation Are you currently or have you been suicidal in the past?: Yes Suicidal Intentional Rating Scale (SIRS): Suicidal thoughts (past) Physician Notification: If Active suicidal thoughts/Will not contract for safety is checked, contact physician and document in the Physician Notification section below. Past Psychiatric History - MH Treatment Hx ECT Therapy Details:: N/A Fall Risk Assessment - Age Age: Less than 60 - Mental Status Mental Status: Willing & able to ask for assistance when needed - Physical Status Physical Status: No problems - Impairments Impairments: None - Elimination Elimination: Continent AND independent - Gait or Balance Gait or Balance: Walks independently - Hx of Falls History of falls in the past 6 months: No known history - Medications/Substances Psychotropics:: Antidepressants, Antipsychotics, Sedatives, Antihistamines (e.g. Benadryl) Others:: Antihypertensives, Diuretics Medications/substances used within the past 24 hours or ordered to administer: 3 or more of the medications/substances listed above - Total Score Total Points:: 2 RN Summary of Impressions - Impressions Recommendations: Include psychiatric and medical issues, treatment planning recommendations, and discharge planning needs. Impression: General Medical Conditions: hypothyroid, HTN, GERD Impressions: Discharge Planning Needs: has PCP - Dr. Denny. needs new community counselor - Level of Care How do the client's current symptoms and functional deficits support need for this level of care?: Selma notes a decompensation in her mental health symptoms for the last 3 weeks after being passed up for a promotion that she was promised at work. She endorses increased anxiety, panic attacks, isolation, fatigue, and depression. Client denies outright feelings of SI, but has had passive thoughts of and not caring if I wake up. IOP will provide social support and skills training to promote gains and prevent further decompensation.
--- NOTE | 2019-08-28 11:20 | BH.SGPN.GN ---
Behaviors/Verbalizations/Mental Status: []Client alert and oriented, neatly dressed and groomed. Eye contact good. Motor activity appropriate. Speech within normal limits. Affect congruent, mood anxious. Thoughts linear, logical, no signs of hallucinations or delusions. Client Response/Progress/Benefit: []Client responded well to session, providing to discussion and activity. Contributed to ongoing discussion of the different conflict resolution styles, drawbacks, and appropriate times of use. Client indicated connecting most with the ?avoiding? approach when dealing with conflict.? Client reported avoiding conflict has not had positive outcomes for client. Client shared when she avoids it leads to worse problems, isolation, and not getting her needs met. Client engaged in the activity and did well to practice using a collaborative approach as shown by her willingness to share ideas with peers rather than avoiding sharing her ideas. Client attentive during psychoeducation on effective conflict resolution strategies. Client appeared to benefit from increasing awareness of her personal conflict resolution style and from learning ways to increase healthy conflict resolution. Progress noted as client reports reduced duration of symptoms and generalization of coping skills. Will continue PHP tx to promote gains made in generalizing coping skills and to further decrease intensity of symptoms.
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
--- NOTE | 2019-08-28 12:05 | BH.DR.ITP ---
Initial Treatment Plan - Patient Information Visit Information: ADMISSION DATE: EXPECTED LOS: 4-6 weeks - Problems/Symptoms Problem #1:: Depression Symptom:: sadness, anhedonia, guilt, passive thoughts of Problem #2:: Anxiety Symptom:: Worry, jittery, panic attacks
--- NOTE | 2019-08-28 13:43 | BH.MDN ---
Multi-Disciplinary Note - Note 45-min Individual Time Started:: 12:28 Date: 08/28/19 Purpose of session/treatment goals addressed:: Purpose of session was to assess pt's current symptoms and stressors. Other topics included: reviewing homework from last individual session and working on a safety plan. Eye Contact:: Good Motor Activity:: Appropriate Appearance:: Neat Speech:: Appropriate Mood:: Euthymic Affect:: Full Thoughts:: Linear, Logical, No evidence of hallucinations/delusions noted Staff Interventions:: Therapist used open ended questions to elicit pt's current symptoms and stressors. Therapist reviewed homework from last session about most important values to pt. Therapist worked with pt to start safety plan assisting pt with identifying warning signs and coping skills. Provided homework for pt to complete safety plan. Client Response:: Pt reviewed her homework from last session reporting the values she identified as most important include: physical health, family relationships, intimate relationship, and mental health. Pt stated she would like to focus on engaging in an activity that meets her value of physical health. Pt reported her goal is to walk or ride stationary bike for one mile at least 3 times a week. Pt reported she believes she is meeting the values of mental health, family relationships and intimate relationships. Pt worked collaboratively with therapist to complete part of the safety plan. Pt identifeid avoiding people, ruminating, isolating, and negative self-talk to be warning signs that she is starting to struggle. Pt identified negative thoughts that she experiences when in crisis. Pt stated internal coping strategies she can use when struggling to include: relaxation, humor, calling a friend, getting out of house, doing something for at least 20 minutes, playing with her pet, taking a walk, and looking at IOP binder. Pt agreeable to finish rest of safety plan for homework. Risks/Concerns:: Pt denies current suicidal ideation, plan or intention to date. Progress Toward Goals/Plan:: Pt progressing with engaging in opposite action, reporting improved mood, and increased self-awareness of negative thought patterns. Pt continues to struggle with feelings of guilt for going on leave from work, anxious symptoms about returning to work, and distorted thought patterns. Pt to continue PHP to increase healthy coping, challenge distorted thoughts, and prevent decompensation. Time Stopped:: 13:06
--- NOTE | 2019-08-29 09:10 | BH.SGPN.GN ---
Behaviors/Verbalizations/Mental Status: [] Eye contact is good. Motor activity is appropriate. Appearance is neat. Speech is Appropriate. Mood is depressed. Affect is flat. Thoughts are linear and logical. No evidence of psychosis. Reviewed daily check in sheet and no reports of suicidal ideations or intent. Client Response/Progress/Benefit: [] Pt was an active participant in group discussion. Attentive. Emotion for today is sad. Noted decrease in motivation however is utilizing the skill of opposite-action which has been beneficial. Noted that she was feeling depression and had the urge to isolation however went out with a friend which was very fun. Pt reports that her MH symptoms have been slowly improving however she continues to struggle on a daily basis. Benefited from group support, encouragement, and feedback. Progress noted per pt report. Will continue in [facility] to maintain safety, prevent decompensation, and improve functioning to return to work. Narrative Note: []
--- NOTE | 2019-08-29 10:10 | BH.SGPN.GN ---
Behaviors/Verbalizations/Mental Status: []Client alert and oriented, neatly dressed and groomed. Eye contact good. Motor activity appropriate. Speech within normal limits. Affect congruent, mood dysthymic. Thoughts linear, logical, no signs of hallucinations or delusions. Client Response/Progress/Benefit: []Client responded well to session, active and providing good insight to discussion. Client connected with the group topic of crisis and did well to work with group to define crisis. Client identified examples of potential crisis to include emergencies, hardships, and . Connected with discussion on how coping with external crisis by using unhealthy coping skills could lead to personal crisis. Client shared ?you can?t control others, but you can control you.? Group identified unhealthy coping skills to include; substances, isolation, impulsive behaviors, yelling, and pushing people away. Client shared her typical crisis response is to sleep, but she now knows why that is not helpful. Group identified warning signs for crisis which included; increased sleep, irritability, decreased appetite, and negative thoughts. Client completed the personal warning signs worksheet and identified crisis warning signs to include; increased sleep, negative self-talk, and no pleasure in doing things. Benefited from group by increasing awareness of crisis and personal warning signs. Progress noted as client reports reduced isolative behaviors and she has been applying coping skills outside of group. Will continue PHP tx to promote gains and to further decrease the intensity of symptoms.? Narrative Note: []
--- NOTE | 2019-08-29 11:11 | BH.SGPN.GN ---
Behaviors/Verbalizations/Mental Status: []Client alert and oriented, neatly dressed and groomed. Eye contact good. Motor activity appropriate. Speech within normal limits. Affect congruent, mood dysthymic. Thoughts linear, logical, no signs of hallucinations or delusions. Client Response/Progress/Benefit: []Client responded well to session as evidenced by client listening attentively to others and sharing when prompted. Client identified her warning signs for crisis and gained further awareness of her earliest warning signs. Client recognized that awareness of these warning signs can prevent further crisis and help client utilize healthy coping skills to break the cycle. Client created a crisis action plan to help client better manage earliest warning signs for crisis of negative self-talk, loss of pleasure in activities, and sleeping more. Client?s personal crisis prevention plan included coping skills such as: opposite action, scheduling activities with others, journaling negative thoughts and challenging thoughts, yoga, and self-care. Client appeared to benefit from creating a crisis action plan and increasing self-awareness. Client to continue IOP level of care to stabilize moods, increase healthy coping, and prevent decompensation. Narrative Note: []
--- NOTE | 2019-08-29 12:12 | BH.NOTE ---
BH: Inpatient Note - Notes Behavioral Health Inpatient Note: Per written order from Dr. Marquis, the following prescription was called into [facility] pharmacy ([facility]) in [place], [place]: Prozac 20mg PO daily, #30, NO refills Zeina Mendoza, MSN, RN
--- NOTE | 2019-08-29 13:44 | BH.MDN_ITS ---
Multi-Disciplinary Note - Note 30-min Individual Time Started:: 12:25 Date: 08/29/19 Purpose of session/treatment goals addressed:: Purpose of session was to assess pt's current stressors and symptoms. Other topics: reviewed homework from last session, challenged distorted thoughts, and identified plan for rest of day. Eye Contact:: Good Motor Activity:: Appropriate Speech:: Appropriate Mood:: Anxious Affect:: Congruent Thoughts:: Linear, Logical, No evidence of hallucinations/delusions noted Staff Interventions:: Therapist used open ended questions to elicit pt's current symptoms and stressors. Therapist reviewed homework from last session of pt finishing safety plan. Therapist challenged pt's distorted thought patterns. Therapist worked with pt to identify plan for rest of day. Client Response:: Pt reported she just found out a family member that is in the hopsital has cancer. Pt stated she plans to drive herself to the hospital to visit her friend, but is feeling guility. Pt reported she is feeling guilty because she feels like if she is able to go visit a family member then she should be able to go to work. With assistance pt able to reframe distorted thought that she is on leave from work in order to take care of herself so by go ing to visit a sick family member she is decreasing isolation. Pt identified to reduce her feelings of being overwhelmed she is going to try the strategy of making a small to-do list for today. Pt stated after visiting her family member she will take a one mile walk, eat dinner with , read one chapter of her book, and pick out outfit at night for tomorrow. Risks/Concerns:: pt denies current suicidal ideation, plan or intention to date. Progress Toward Goals/Plan:: Progressing with utilizing healthy coping skills, using opposite action, increased awarenss of unhealthy thought patterns, and decreased isolative behaviors. Pt to continue PHP level of care to identify and challenge distorted thoughts, continue use of healthy coping skills, and prevent decompensation. Time Stopped:: 12:58
--- NOTE | 2019-08-30 09:03 | BH.SGPN.GN ---
Behaviors/Verbalizations/Mental Status: []Client alert and oriented, neatly dressed and groomed. Eye contact good. Motor activity appropriate. Speech within normal limits. Affect congruent, mood euthymic. Thoughts linear, logical, no signs of hallucinations or delusions. Reviewed client?s symptom tracker, no risk for suicidal ideation, plan, or intent as of 08/30/19. Client Response/Progress/Benefit: []Client responded well to session, providing supportive statements to peers. Client reports feeling ?excited? today as client shared, she has a friend coming to visit her this weekend. Client shared she used to keep her mental health from people, but she ?actually got deep? with her friend and they had a good conversation about client?s mental wellness. Client identified another mental health win today which was that client went to go visit a friend who was in the hospital. Client shared she motivated herself to go by reminding herself of how client would feel if she did not go visit. Client?s current stressor is that she continues to worry about insurance coverage. Client reported instead of ruminating, client has a plan to call her insurance copy today. Appeared to benefit from connecting with peers and reflecting on gains. Will continue PHP to further reduce depression and anxiety symptoms while increasing her ability to function at her baseline.
--- NOTE | 2019-08-30 10:17 | BH.SGPN.GN ---
Behaviors/Verbalizations/Mental Status: []Client alert and oriented, casually dressed and groomed. Eye contact fair. Motor activity appropriate. Speech within normal limits. Affect congruent to topic being discussed, mood euthymic. Thoughts linear, logical, no signs of hallucinations or delusions. Client Response/Progress/Benefit: []Client responded well to session, attentive and participating in small group discussion. Group identified the benefits to setting boundaries as well as the consequences of not setting healthy boundaries. Client stated not setting boundaries with others gives other permission it's okay to do certain things you don't really like. Client reported she believes it is hard to set boundaries if you don't love yourself because then start to believe others needs matter more than your own. Client engaged during discussion of the different types of boundaries and engaged in the self-assessment activity. Client seemed to benefit from increased awareness how poor boundaries can negatively impact mental health. Client to continue IOP tx to continue use of healthy coping skills, prevent decompensation, and challenge distorted thoughts. Narrative Note: []
--- NOTE | 2019-08-30 11:22 | BH.SGPN.GN ---
Behaviors/Verbalizations/Mental Status: [Client alert and oriented, neat and casual dress, hygiene appropriate. Eye contact good. Motor activity appropriate. Speech within normal limits. Affect congruent and bright, mood euthymic. Thoughts linear, logical, no signs of hallucinations or delusions. ] Client Response/Progress/Benefit: [Pt responded well to session, active participant and willing to provide insight throughout. Pt did well to engage in the boundary self-assessment activity and worked with group to further process. Pt discussed that she has been becoming much more aware of how fear and low self-esteem has impacted personal ability to set boundaries in the workplace. Pt appeared to benefit from group discussion on strategies for further improving personal boundaries. Identified wanting to improve her ability to set and maintain healthy professional and emotional boundaries, specifically in regard to being able to say ?no? to others requests in order to prevent burnout or compromising own needs. Progress noted in pt ability to identify impact of current boundaries on mental health progress and relationships. Client recommended to continue IOP treatment in order to maintain gains made, improve anxiety management, and continue to promote healthy change behaviors.] Narrative Note: []
--- NOTE | 2019-08-30 13:44 | BH.MDN ---
Multi-Disciplinary Note - Note 45-min Individual Time Started:: 12:33 Date: 08/30/19 Purpose of session/treatment goals addressed:: Purpose of session was to assess pt's current symptoms and stressors. Other topics include: reviewing use of behavioral activation skills, boundary setting, and plan for weekend. Eye Contact:: Good Motor Activity:: Appropriate Appearance:: Neat Speech:: Appropriate Mood:: Anxious Affect:: Full Thoughts:: Linear, Logical, No evidence of hallucinations/delusions noted Staff Interventions:: Therapist used open ended questions to elicit pt's current symptoms and stressors. Therapist reviewed pt's utilization of healthy coping skills and behavioral activation. Therapist further processed setting healthy emotional boundaries, discussing importance of verbalizing thoughts. Therapist assisted pt with challenging negative thoughts. Reviewed plan for weekend. Client Response:: Pt reported she has been focused on utilizing behavioral activation skills throughout the week by reminding herself sitting around or taking a nap is not going to make her feel any better. Pt stated she has noticed improved mood and feels more accomplished since no longer napping and laying around throughout the day. Pt stated she really enjoyed the group topic today about boundaries because she recognizes she has a hard time setting boundaries with others. Pt reported she doesn't want to upset others, which has prevented her from setting boundaries with others. Pt stated she wants to work on setting firm boundaries with others because she recognizes I am worth it. Pt reported this weekend her best friend is coming home from [place] and pt can practice setting boundareis with her friend. Pt stated sometimes her friend makes comments when they are in public together that make pt feel uncomfortable. Pt reported if her friend does that in public this weekend pt will set a boundary by communicatng how it makes her feel. Pt stated this weekend she plans to relax and spend majority of her time with her best friend to catch up. Risks/Concerns:: Denies current suicidal ideation, plan or intention to date. Progress Toward Goals/Plan:: Progressing with improved awareness of distorted thoughts, utilizing behavioral activiation skills, decreasing isolation, and applying healthy skills outside treatment environment. Continues to struggle with intense anxiety when talks about returning to work. Recommend continued PHP level of care to maintain gains, continue to utilize healthy coping skills, and prevent decompensation. Time Stopped:: 13:17
--- NOTE | 2019-09-02 09:03 | BH.SGPN.GN ---
Behaviors/Verbalizations/Mental Status: [Eye contact is good. Motor activity is appropriate. Appearance is neat and casual. Speech is Appropriate. Mood is anxious. Affect is congruent Thoughts are linear and logical. No evidence of psychosis. Reviewed daily check in sheet and no reports of suicidal ideations or intent.] Client Response/Progress/Benefit: [Pt was receptive of session, actively listening throughout, though remaining a mostly passive participant in group discussion. She provided some input and supportive feedback throughout. Emotion for today is ?anxious? and she indicated that this was due to beginning to worry about what people will say when she returns to work and whether she will be able to maintain gains made when doing so. Pt appeared to benefit from the supportive feedback and suggestions for coping provided by fellow participants. Pt shared that despite current anxiety, she has been able to experience some mental health wins. Identified current wins as: using positive self-talk to remind herself ?you need this and will feel so much better if you go? when wanting to remain in bed this morning. Additional win as reaching out to a support to discuss her mental health which has been difficult for her to do in the past. Indicated this had been a positive experience and that her support was able to relate to some of the stressors she is struggling with. Pt displaying progress in overall levels of engagement and willingness to actively practice utilizing anxiety management skills outside tx environment. Recommended continued tx to prevent decompensation, continue to increase healthy communication with supports, and further improve anxiety management.] Narrative Note: []
--- NOTE | 2019-09-02 10:20 | BH.SGPN.GN ---
Behaviors/Verbalizations/Mental Status: [] Eye contact is good. Motor activity is appropriate. Appearance is casual. Speech is Appropriate. Mood is anxious. Affect is congruent. Thoughts are linear and logical. No evidence of psychosis Client Response/Progress/Benefit: [] Pt was an active participant in group discussion and activity. Engaged and provided insight on today's quote. Worked with group to define pitfalls in mental health which group identified were; hidden or unsuspected obstacles, emotional traps, when we defeat ourselves, and unforeseen obstacles which impact progress. Group discussed the impacts of pitfalls which can cause one to; give up, revert back to unhealthy coping, isolate, define oneself as a failure. Group briefly discussed the emotions and pitfalls which occurred during the activity noting that it caused anxiety, anger, fear, and at times they wanted to give up. Pt was able to relate the activity to her own MH and emotions when she has encountered a pitfall which was beneficial in in terms of insight and awareness. Narrative Note: []
--- NOTE | 2019-09-02 11:21 | BH.SGPN.GN ---
Behaviors/Verbalizations/Mental Status: []Client alert and oriented, neatly dressed and groomed. Eye contact good. Motor activity appropriate. Speech within normal limits. Affect congruent, mood euthymic. Thoughts linear, logical, no signs of hallucinations or delusions. Client Response/Progress/Benefit: []Client receptive of session, engaged throughout AEB client providing positive input to group discussion. Processed activity with group and connected it to overcoming personal pitfalls in life. Client completed a worksheet where she identified personal pitfalls impacting mental health progress. Identified pitfalls as: ruminating, seeking reassurance from others, and self-sabotaging by sleeping too much. Client identified she wants to focus on taking small steps to reduce client?s vulnerability of falling into pitfalls. Client stated she will work on preventing pitfalls by spending more time each day self-reflecting. Client reported this will help because it gives her time to check in with her emotions, stress levels, and boundaries. Benefited from identifying personal pitfalls and strategies to overcome these pitfalls. Progress noted as client reports reduced intensity of anxiety symptoms and application of coping skills. Will continue PHP tx to promote gains and further reduce depressive symptoms. Narrative Note: []
--- NOTE | 2019-09-02 13:46 | BH.MDN ---
Multi-Disciplinary Note - Note 30-min Individual Time Started:: 12:25 Date: 09/02/19 Purpose of session/treatment goals addressed:: Purpose of session was to review current symptoms and stressors. Other topics included discussing PHP progress thus far, identifying tentative discharge plan from PHP, and increasing awareness of cognitive distortions. Eye Contact:: Good Motor Activity:: Appropriate Appearance:: Neat Speech:: Appropriate Mood:: Euthymic, Anxious Affect:: Congruent Thoughts:: Linear, Logical, No evidence of hallucinations/delusions noted Staff Interventions:: Therapist used open ended questions to elicit pt's current symptoms and stessors. Therapist elicited pt's thoughts about PHP treatment progress and discussed tomorrow as tentative day of PHP discharge and transitioning to IOP. Therpaist provided psychoedcuation about cognitive distortions and gave homework for pt to complete a thought log to increase awareness of negative and distorted thoughts. Client Response:: Pt reported she had an overall positive weekend spending time with her best friend. Pt stated she was able to set a boundary with her best friend over the weekend, explaining how some of her friends comments make pt feel uncomfortable. Pt reported her best friend was respectful of the boundary set. Pt stated since starting PHP she has made progress with decreased isolation, using opposite action, increased awareness of negative perspective, and setting small goals. Pt stated she feels ready to discharge from PHP level of care tomorrow and transition to IOP level of care on 09/04/19. Pt connected with review of cognitive distortions and willing to complete thought log. Risks/Concerns:: Denies current suicidal ideation, plan or intention to date. Progress Toward Goals/Plan:: Progressing with reporting decreased depressive symptoms, increased use of healthy skills, and decreased isolation. Continues to experience anxious thoughts and symptoms when thinks about returning to work. Recommend pt to continue PHP to maintani gains, continue use of healthy skills, and prevent decompensation. Time Stopped:: 12:55
--- NOTE | 2019-09-03 10:08 | BH.SGPN.GN ---
Behaviors/Verbalizations/Mental Status: []Client alert and oriented, neatly dressed and groomed. Eye contact good. Motor activity appropriate. Speech within normal limits. Affect congruent, mood euthymic. Thoughts linear, logical, no signs of hallucinations or delusions. Client Response/Progress/Benefit: []Client was an active participant and positively contributed to discussion. Client appeared to connect with the quote as evidenced by frequent nodding and statement that ?small baby steps are better than laying down flat.? Client worked together with group to define goals and identify the benefits of developing goals which included; improving self-confidence, gaining a sense of accomplishment, gaining a sense of purpose, increased motivated/productivity, and better mental health. Group also identified barriers to setting and accomplishing goals which include; fear, unrealistic expectations, lack of follow through, and not knowing where to start. Attentive during education on developing SMART goals. Benefited from increase awareness of goal-setting methods and practicing goal setting. Will discharge from [facility] today as she has made significant gains. Will drop down to IOP level of care to promote gains made in PHP and further improve symptom management. Narrative Note: []
--- NOTE | 2019-09-03 11:13 | BH.SGPN.GN ---
Behaviors/Verbalizations/Mental Status: [Client alert and oriented, casually dressed and neatly groomed. Eye contact good. Motor activity appropriate. Speech within normal limits. Affect congruent, mood anxious and euthymic. Thoughts linear, logical, no signs of hallucinations or delusions. ] Client Response/Progress/Benefit: [Pt attentive throughout and actively participated in discussion regarding SMART goal setting AEB providing input and taking notes throughout. Pt engaged in creating own mental health SMART goal. Identified goal as: ?Decrease negative self-talk by saying 2 positive affirmations out loud each day?. Pt reported this goal will benefit her by improving her positive outlook and decrease depression. Pt identified potential barriers to accomplishing goal to include: difficulties finding positives, forgetting to do so in the moment, lack of motivation, and lack of experience. Pt reported she will overcome barriers by ?referring to emotions and feelings list?, ?confirm goal each morning by saying it out loud?, ?use supports to encourage me?, and ?practicing daily?. Pt seemed to benefit from identifying a SMART goal and coming up with strategies to overcome potential barriers. Progress noted in pt ability to create a small relevant goal aimed at improving mental health symptoms and challenging negative perspective. Pt to continue IOP to increase healthy coping skills, improve self-esteem, and prevent decompensation.] Narrative Note: []
--- NOTE | 2019-09-03 14:36 | BH.MDN_ITS ---
Multi-Disciplinary Note - Note 45-min Individual Time Started:: 12:15 Date: 09/03/19 Purpose of session/treatment goals addressed:: Reviewed current symptoms and progress in IOP. Discussed discharge from [facility] and transition to IOP. Eye Contact:: Good Motor Activity:: Appropriate Appearance:: Casual Speech:: Appropriate Mood:: Euthymic Affect:: Full Thoughts:: Linear, Logical, No evidence of hallucinations/delusions noted Staff Interventions:: Utilized ID techniques to elicit change behaviors. Provided psychoeducation on cognitive distortions and thought-stopping. Client Response:: Pt reviewed homework assignments from last night. She discussed at length the importance of increased awareness of her thoughts as well as some strategies that she utilized to challenge or stop negative thoughts. Admits that isolation and sleep were unhealthy coping skills meant to escape. Currently she is challenging her desire to sleep or isolate by asking herself Do I want to sleep b/c I'm tired or b/c I'm depressed If sleeping to cope is doing opposite action. Recently set up boundaries with family. Insight that this is not selfish and reviewed the short and meterman consequences if she did not set up boundary. She also discussed progress in PHP noting that she took a depression scale this AM at her PCP her reported that her scores dropped over 50% since her last visit prior to [facility]. Support have also reported improvement. She is agreeable with dropping down to IOP. Risks/Concerns:: none noted. Progress Toward Goals/Plan:: Progress noted. Pt reports decreased intensity, severity, and duration of depression and anxiety. Reports being more hopeful. Denies suicidal ideations. Improved functioning. Treatment team discussed progress with plan to discharge from [facility] today. Plan to step-down to IOP. Refer to d/c summary for more information. Time Stopped:: 13:00
--- NOTE | 2019-09-03 15:20 | BH.DS_ITS ---
Discharge Summary - Demographics Date of Admission:: 08/22/19 Discharge Date: 09/03/19 Presenting Problems at Admission:: Patient was referred to [facility] program by her primary care doctor due to worsening depression anxiety and passive thoughts of . The patient has a history of bipolar disorder and anxiety. At admission pt?s depression was impacting her ability to go to work for 2 weeks. Patient?s symptoms were worsening for about 6 months and got tremendously worse one month prior to admission. She described her mood as very anxious and down. Metal health symptoms impacted ability to function at home and work. At admission struggled with anhedonia and has not enjoyed anything. Also reported isolation, panic attacks, rumination, decreased appetite, low energy, difficulty concentrating, and passive thoughts of . Discharge Diagnoses:: Bipolar 1 disorder most recent episode depressed, severe, without psychosis (F 31.4) ; alcohol use disorder in full remission for 11 years Reason for Discharge:: Pt made significant progress while in [facility] and is ready to step down to [facility] level of care. - Treatment Progress During Treatment & Response: Progress noted with decreased isolation, no longer reporting passive thoughts of , increased awareness of distorted thoughts, and increased use of healthy coping skills. Pt engaged throughout group and individual therapy sessions AEB pt sharing thoughts during discussions, engaging in activities, and completing homework given during individual sessions. Issues Still to be Addressed:: Pt could benefit from continued focus on decreasing distorted and negative thoughts, getting back involved in activities used to enjoy, maintaining progress, decreasing anxious symptoms and thoughts about returning to work, and preventing decompensation. Discharge Recommendations/Instructions:: Pt is to discharge from [facility] level of care today and start [facility] level of care tomorrow. Discharge Handout: Complete Discharge Handout with client on aftercare options and continuity of care.
[2019-10-15 15:08] VITALS: PULSE 84; RESP 14
== END 2019-09-03 14:37 | disposition home or self-care (01) ==
LOC: BHPHP 09:00
PROVIDERS: Family Provider Family Medicine; PCP Family Medicine; Referring Provider Psychiatry & Neurology Psychiatry; Visit Provider Psychiatry & Neurology Psychiatry
DX: F31.4 Bipolar disorder, current episode depressed, severe, without psychotic features (principal); Z72.89 Other problems related to lifestyle
CPT/HCPCS: H0035; 90832; 90834; G0410

== ENCOUNTER 2019-09-04 09:00 | Outpatient (RCR) | payer BC, SELFPAY ==
--- NOTE | 2019-08-22 11:15 | BH.SGPN.GN ---
Behaviors/Verbalizations/Mental Status: [Client alert and oriented, casually and neatly dressed and appropriately groomed. Eye contact good. Motor activity appropriate. Speech within normal limits. Affect congruent, mood anxious, euthymic. Thoughts linear, logical, no signs of hallucinations or delusions. ] Client Response/Progress/Benefit: [Pt responded well to session, actively listening and willing participant in both discussion and worksheet activity. Worked with the group to further process the activity and discussion on the importance of self-care in management mental health and preventing burnout. Pt engaged in the discussion and self-assessment of the different areas of self-care, noting she has struggled with recognizing when she is in need of self-care time. Pt reports connecting with discussion on the mental health effects of not making self-care a priority. Pt set a goal to improve in the area of professional self-care by increasing assertive communication and setting boundaries to prevent unnecessary responsibilities or stressors. Pt appeared to benefit from increasing awareness of how she can improve her self-care balance. Pt progress noted in her ability to identify impact current lack of self-care activities has had on mental health and maintaining anxiety. Recommended continued IOP to continue to reduce depression and anxiety, increase boundary setting and communication skills, and prevent decompensation.] Narrative Note: []
--- NOTE | 2019-08-23 10:18 | BH.SGPN.GN ---
Behaviors/Verbalizations/Mental Status: [Client alert and oriented, neat and casual dress, hygiene tended to. Eye contact good. Motor activity appropriate. Speech within normal limits. Affect congruent, mood euthymic. Thoughts linear, logical, no signs of hallucinations or delusions. ] Client Response/Progress/Benefit: [Pt receptive of session, engaged throughout. She did well to work with the group to reflect on the quote and discussed the ways in which perspective can impact mental health and ability to make personal progress in life. Pt indicated that ?if we are already feeling negative, we are more likely to pick out negative nuances rather than positive?. Shared this can lead to remaining stagnant.. Expressed that a positive perspective can reduce anxiety and promote personal growth. Pt did well to engage in the challenge activity and was an active participant in identifying how perspective impacted ability to complete the task at hand. Pt appeared to benefit from increasing understanding of mental health benefits of a positive perspective and potential consequences to progress when perspective is negative or pessimistic. Pt progress noted in her ability to better manage stressors and report of decreased depression. Recommended continued IOP tx to promote continued progress, further promote application of skills learned, and prevent decompensation.] Narrative Note: []
--- NOTE | 2019-09-04 09:10 | BH.SGPN.GN ---
Behaviors/Verbalizations/Mental Status: [] Eye contact is good. Motor activity is appropriate. Appearance is casual. Speech is Appropriate. Mood is depressed. Affect is congruent. Thoughts are linear and logical. No evidence of psychosis. Reviewed daily check in sheet and no reports of suicidal ideations or intent. Client Response/Progress/Benefit: [] Pt participated at time during group discussion. Emotion for today is molly. This morning she allotted time for self-reflection stating I have to me the one to make me happy. Discussed how relying on others is ineffective and can cause more distress. Talked at length on the importance of self-reflection for her and what is accomplishes. 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 Progress noted per pt report. Will continue in IOP to maintain gains, prevent decompensation, and transition back to work. Narrative Note: []
--- NOTE | 2019-09-04 10:20 | BH.SGPN.GN ---
Behaviors/Verbalizations/Mental Status: []Eye contact good. Motor activity is appropriate. Appearance is casual. Speech is appropriate rate and tone. Mood is euthymic. Affect is congruent with mood. Thoughts are linear and logical. No evidence of psychosis. Client Response/Progress/Benefit: []Client was an active participant in group activity and discussion, providing insight throughout. Client connected with the topic and worked with group to identify common internal barriers that keep people stuck. Client identified her current reality is coming out of a black hole of depression and is moving forward, but not where she wants to be yet. Client shared her realistic, desired reality would be using healthy coping skills, improved mood, being around people, and being able to manage stressors that arise. Benefited from group as client was able to identify current and desired mental health state. Will continue IOP to prevent decompensation, continue utilization of healthy coping skills, and challenge distorted thoughts. Narrative Note: []
--- NOTE | 2019-09-04 11:15 | BH.SGPN.GN ---
Behaviors/Verbalizations/Mental Status: [] Eye contact is good. Motor activity is appropriate. Appearance is casual. Speech is Appropriate. Mood is anxious. Affect is congruent. Thoughts are linear and logical. No evidence of psychosis. Client Response/Progress/Benefit: [] Pt was an active participant in group discussion and activity. Able to identify obstacles and challenges which are preventing her from achieving her desired reality which included; sleeping too much as an escape, isolating, avoiding, and poor boundaries. Active during activity. Pt along with peers identified 7 obstacles during the activity and developed 3 strategies to overcome those 7 obstacles to wellness and desired reality. Group wrote down the strategies and added them to their program binder. Benefited from group by identifying obstacles and solutions to desired reality. Narrative Note: []
--- NOTE | 2019-09-04 13:41 | PCM.BH.PN_ITS ---
Progress Note Progress Note: History of Present Illness/Interim History: [Patient is a 54-year-old female who is seen in follow-up at the [facility] PHP program. I last saw the patient 1 week ago when she was admitted to the PHP program. Patient has progressed in the staff and patient feels she is ready to be placed in IOP. The patient states that she has a better mood and her anxiety is better this week. She still is depressed but she feels she is improving slowly. She denies any panic attacks in the past week. She is forcing herself to ride bikes and is enjoying this with her . She is enjoying reading again. She feels the IOP is really benefiting her and she is learning helpful tools to help with managing her depression and anxiety. The patient will continue decreasing her Effexor and increasing her Prozac since she is tolerating the changes made well.] Current Psychiatric Medications: Abilify 10 mg p.o. daily, trazodone 50 mg p.o. nightly Effexor Exar 150 mg p.o. daily (decreased 1 week ago); Prozac 20 mg p.o. daily (x1 week). Mental Status Examination: [Patient is a 54-year-old female who appears normal for stated age. She is casually dressed and groomed with good hygiene. She is cooperative during the interview with no psychomotor agitation or retardation. Eye contact is good and speech is normal rate and rhythm with no pressure. Mood remains depressed but improved. Affect is constricted. Thought processes are organized and goal-directed. Thought content: She is having much rare or passive thoughts that she would not care if she . No evidence of suicidal or homicidal ideation. No evidence of hallucinations or delusions. Judgment is intact. Insight some present. Impulsivity low. Diagnoses: [] [place] I: [Bipolar 1 disorder most recent episode depressed, severe, without psychosis (F 31.4); alcohol use disorder in full remission for 11 years.] [place] II: [Deferred] [place]brook III: [] Hypothyroidism [place] IV:[] Work and primary support issues] Plan: [] The patient will step down to the IOP program at [facility] as the structure, education, support, group and individual therapy will continue to benefit the patient and prevent worsening of her condition. The risks options and possible complications and side effects of the medications were discussed with the patient and she understands and accepts these. She felt safe today during the interview and if any time she does not feel safe she will contact us at the [facility] or go to the emergency room. Patient is doing well in the weaning process. She will decrease her Effexor XR to 75 mg p.o. daily. She will increase her Prozac to 40 mg p.o. daily. The rest of her medication will stay the same. If she is unable to tolerate the weaning of the Effexor then she will go to 150 mg Effexor 1 day and every other day 75 mg of Effexor for a week or so and then go back to the current wean. I will see the patient in follow- up in 3 weeks
--- NOTE | 2019-09-04 13:47 | BH.DR.ITP ---
Initial Treatment Plan - Patient Information Visit Information: ADMISSION DATE: EXPECTED LOS: 4-6 weeks - Problems/Symptoms Problem #1:: Depression Symptom:: Sadness, guilt, anhedonia Problem #2:: Anxiety Symptom:: worry, jittery, panic attacks
--- NOTE | 2019-09-04 14:31 | BH.PSA ---
Source of Information - Presenting Problems/Circumstances Problems, Referral Source, Mental Status, Client: Refer to pt's complete psychosocial dated 08/22/19. This is an update to her 08/22/19 psychosocial. Pt completed Partial Hospitalization Program with improved mood, decreased suicidal ideation, and improved outlook on life. Pt is stepping down to Intensive Outpatient Program due to continued depressive symptoms, high anxiety about returning to work, and not functioning at baseline. Pt endorses depressed mood, poor concentration, anhedonia, low motivation, and anxiety about returning to work.
--- NOTE | 2019-09-04 16:01 | BH.MTP ---
Master Treatment Plan - Patient Information Program Physician:: Dr. Maya Primary Therapist:: Julia Carney, [facility] - Psychiatric Diagnoses Psychiatric Diagnoses:: Bipolar 1 disorder most recent episode depressed, severe, without psychosis; alcohol use disorder in full remission for 11 years Diagnosis Code(s):: F31.4 - Estimated LOS Estimated LOS (in weeks):: 6 Problem/Goal #1 - Problem/Goal #1 Stated Goal:: Client will reduce depression, feelings of hopelessness, and anhedonia due to Bipolar Disorder through Intensive Outpatient Program. Description of Barriers: Potential barriers could include distorted thought patterns, passive thoughts of , low motivation, desire to sleep throughout day, and anxious thought patterns. Functional Impact: Pt's depressive and anxious symptoms impacting pt socially and occupationally. Pt's mental healthy symptoms are impacting pt's desire to be around friends and family which has resulted in pt isolating herself from others. Pt's mental health symptoms have prevented pt from going to work and is currently on FMLA. Goal Relevant Strengths/Supports: Pt is intelligent, resilient, and expresses motivation to get better. Pt's and children serve as positive supports for pt to seek treatment. - Objectives Objective #1 Stated Objective: Identify and replace 3-4 distorted thought patterns that reinforce depressive symptoms. Interventions: Therapist will help client identify distorted, negative beliefs about self and world and replace those messages with positive, affirmative messages. Discharge Criteria: Client will have achieved this goal when can identify at least 3 distorted thoughts and replace those messages with rational affirmative messages. Target Date: 10/16/19 Review Date: 10/02/19 Objective #2 Stated Objective: Pt will decrease depressive symptoms AEB pt?s score on the DSM 5 cross-cutting measure and improve pt?s daily functioning. Interventions: Through groups and individual therapy, pt will be provided with education on cognitive distortions, mistaken beliefs, and identifying and combating negative self-talk. Therapist will assist pt with getting back into the activities she once enjoyed as well as increasing healthy coping strategies. Discharge Criteria: Pt will have met this goal when pt?s score on the DSM 5 cross cutting measure for depression has been decreased and per pt?s report daily functioning has improved Target Date: 10/16/19 Review Date: 10/02/19 Problem/Goal #2 - Problem/Goal #2 Stated Goal:: Reduce overall frequency, intensity, and duration of the anxiety so that daily functioning is not impaired. Description of Barriers: Potential barriers could include distorted thought patterns, passive thoughts of , low motivation, desire to sleep throughout day, and anxious thought patterns. Functional Impact: Pt's depressive and anxious symptoms impacting pt socially and occupationally. Pt's mental healthy symptoms are impacting pt's desire to be around friends and family which has resulted in pt isolating herself from others. Pt's mental health symptoms have prevented pt from going to work and is currently on FMLA. Goal Relevant Strengths/Supports: Pt is intelligent, resilient, and expresses motivation to get better. Pt's and children serve as positive supports for pt to seek treatment. - Objectives Objective #1 Stated Objective: Client will learn and utilize 2-3 healthy coping strategies to manage anxious symptoms. Interventions: Through group and individual sessions, therapist will help client identify triggers and warning signs of anxiety and emotional dysregulation including emotional, physical, and behavioral changes. Therapist will teach client various coping skills to manage her symptoms and give client tangible resources to use to regulate emotions. Therapist will use cognitive restructuring techniques and help client gain awareness of negative thoughts that reinforce depressive cycles. Therapist will help client incorporate behavioral activation and assist client in setting SMART goals. Discharge Criteria: Client will have achieved this goal when can verbalize and has consistently used at least 2 healthy coping strategies to help manage anxious symptoms. Target Date: 10/16/19 Review Date: 10/02/19 Objective #2 Stated Objective: Pt will decrease anxious symptoms AEB pt?s score on the DSM 5 cross-cutting measure improve pt?s daily functioning. Interventions: Through groups and individual therapy, pt will be provided education about anxiety?s impact on body and common physiological reaction to anxiety. Therapist will teach pt appropriate breathing techniques and build healthy coping skills to manage daily anxieties. Discharge Criteria: Pt will have met this goal when pt?s score on the DSM 5 cross cutting measure for anxiety has been decreased and per pt?s report daily functioning has improved. Target Date: 10/16/19 Review Date: 10/02/19
--- NOTE | 2019-09-05 09:06 | BH.SGPN.GN ---
Behaviors/Verbalizations/Mental Status: [Client alert and oriented, casual and neat dress, hygiene appropriate. Eye contact good. Motor activity appropriate. Speech within normal limits. Affect congruent, mood euthymic and anxious. Thoughts linear, logical, no signs of hallucinations or delusions. Reviewed client?s symptom tracker, no signs of suicidal ideation, plan, or intent as of today. ] Client Response/Progress/Benefit: [Pt was an active participant in group discussion, providing input and openly processing with the group. Emotion for today is apprehensive. Pt indicated that she has some anxiety about getting her short-term disability approved now that she is in the IOP rather than [facility] level of care. Able to challenge these thoughts with the group and identify ways to reduce anxiety as she completes steps necessary for approval. Did well to identify two mental health wins occurring over past day. Reports primary mental health win as allowing herself to engage in self-care following group on previous date. Shared taking a nap but that she made sure to set an alarm and check-in with herself so as to prevent her nap from turning into isolation and avoidance. Additional mental health win identified as setting a boundary on how much she is willing to take on responsibility [place] when asked for help by her sister. Discussed agreeing to one thing but not saying yes to it all which felt both empowering and reassuring. Progress noted in pt ability to actively apply self-advocacy and self-care skills outside of tx environment. Continued IOP tx recommended to improve anxiety management skills, increase consistent skill application, and prevent decompensation. ] Narrative Note: []
--- NOTE | 2019-09-05 10:12 | BH.SGPN.GN ---
Behaviors/Verbalizations/Mental Status: []Client alert and oriented, neatly dressed and groomed. Eye contact good. Motor activity appropriate. Speech within normal limits. Affect congruent, mood euthymic. Thoughts linear, logical, no signs of hallucinations or delusions. Client Response/Progress/Benefit: []Client was an active participant during session, connecting to the quote and peers. Group discussed the MH benefits to having open and clear communication with support and providers. Client reported effective communication positivity impacts one?s mental health and relationships. Client stated she has not been the best communicator, especially at work. Client reported she often holds in her emotions and then becomes angry and depressed. Group discussed the barriers that tend to impact clear and open communication which include: fear, negative thinking, unregulated emotions, poor body-language, and tone of voice. Client was attentive during psycho-education on communications styles (aggressive, passive, passive-aggressive, and assertive). Also contributed to the pros and cons to each communication style. Client seemed to benefit from increased insight on how the way she communicates impacts her mental health. Progress noted as client reports reduced isolative behaviors. Will continue IOP to decrease anxiety related to work. Narrative Note: []
--- NOTE | 2019-09-05 11:16 | BH.SGPN.GN ---
Behaviors/Verbalizations/Mental Status: []Client alert and oriented, neatly dressed and groomed. Eye contact good. Motor activity appropriate. Speech within normal limits. Affect congruent, mood euthymic. Thoughts linear, logical, no signs of hallucinations or delusions. Client Response/Progress/Benefit: []Client active participant AEB her attentiveness during discussion and engagement in activity. Client reported she is mostly a passive-aggressive communicator. Client reported this communication style causes negative consequences ?because I?m not clear and my needs don?t get met.? Client also acknowledges this style tends to make her problems worse. Client participating during the activity and able to connect how ineffective communication negatively impacts mental health and relationships. Client identified her communication goal which is to practice asserting her needs with her supports and employers rather than beating around the aguilar. Client seemed to benefit from increased insight into how her communication style impacts her mental health and relationships. Client progressing as shown by her report of reduced depression. Will continue IOP tx to further reduce anxiety symptoms to improve occupational functioning. Narrative Note: []
--- NOTE | 2019-09-05 13:01 | BH.MDN ---
Multi-Disciplinary Note - Note 45-min Individual Time Started:: 12:35 Date: 09/05/19 Purpose of session/treatment goals addressed:: Purpose of session was to assess pt's current symptoms and stressors. Other topics: return to work plan and establishing goals for IOP. Eye Contact:: Good Motor Activity:: Appropriate Appearance:: Neat Speech:: Appropriate Mood:: Anxious Affect:: Congruent Thoughts:: Linear, Logical, No evidence of hallucinations/delusions noted Staff Interventions:: Therapist used open ended qeustions to elicit pt's current symptoms and sterssors. Therapist worked with pt to identify return to work plan. Elicited pt's thoughts about treatment goals while in IOP. Provided support by using active listening and validating emotions. Client Response:: Pt reported she has been anxious because has to communicate with her short-term disability agency about when she will return to work. Pt stated she believes she could benefit from another week of not returning to work so she can reinforce skills she has learned in PHP and prepare to go back to work. Pt stated she will return to work starting September 09 and will go to work twice a week while attending IOP three times a week. Pt stated while in IOP she would like to focus on increasing assertiveness, setting boundaries with others, increasing positive self talk, improve ability to identify distorted thoughts and reframe thoughts, and increased engagement in activities she used to enjoy. Risks/Concerns:: Denies current suicidal ideation, plan or intention to date. Progress Toward Goals/Plan:: Pt's first day in IOP. Session focused on establishing goals while in IOP. Progress noted with continued use of healthy coping skills learned in PHP. Pt to continue IOP to continue use of healthy skills, challenge distorted thoughts, decrease anxiety, and prevent decompensation. Time Stopped:: 13:14
--- NOTE | 2019-09-06 09:05 | BH.SGPN.GN ---
Behaviors/Verbalizations/Mental Status: [Client alert and oriented, neat and casual dress, hygiene tended to. Eye contact good. Motor activity appropriate. Speech within normal limits. Affect congruent, mood euthymic and positive. Thoughts linear, logical, no signs of hallucinations or delusions. Reviewed client?s symptom tracker, no signs of suicidal ideation, plan, or intent as of today. ] Client Response/Progress/Benefit: [Pt was receptive of session, actively listening throughout and at times providing input to the group. Emotion for today is ?happy? as she has been continuing to challenge negative mindset and anxious thoughts which has resulted in an increased positive outlook. Reported current win as catching use of self-deprecation and challenging herself to reframe. Additional win noted as applying assertive communication to ask for what she needs to prepare for return to work. Expressed reduced rumination as a result, though indicated anticipation about returning to work continues ton be a stressor. Pt appeared to benefit from the supportive feedback and encouragement provided by the group. Pt progress noted in reported application of skills learned outside tx environment to further improve anxiety management. Recommended continued tx to prevent decompensation, continue to reduce anxiety and depression, as well as promote healthy change behaviors.] Narrative Note: []
--- NOTE | 2019-09-06 10:30 | BH.SGPN.GN ---
Behaviors/Verbalizations/Mental Status: []Client alert and oriented, casual dress, hygiene tended to. Eye contact good. Motor activity appropriate. Speech within normal limits. Affect congruent, mood euthymic. Thoughts linear, logical, no signs of hallucinations or delusions. Client Response/Progress/Benefit: []Pt receptive to session, provided input and remained an active listener throughout discussion on stress. Able to brainstorm with the group positive and negative aspects of stress on physical and mental health. She participated in identifying current stressors impacting mental health. Pt's current stressors include: work, relationship with brother, low self-esteem, weight gain, low motivation, negative thoughts, difficulty concentrating, and health issues. Appeared to benefit from gaining awareness of own current stressors and learning about the impact stress has on overall wellbeing. Progress noted in improved ability to identify impact of stressors on maintaining her mental health and wellbeing. Recommended continued IOP tx to improve healthy coping skills, improve boundary setting, and prevent decompensation. Narrative Note: []
--- NOTE | 2019-09-06 11:27 | BH.SGPN.GN ---
Behaviors/Verbalizations/Mental Status: []Client alert and oriented, neatly dressed and groomed. Eye contact good. Motor activity appropriate. Speech within normal limits. Affect congruent, mood euthymic. Thoughts linear, logical, no signs of hallucinations or delusions. Client Response/Progress/Benefit: []Client was an active participant throughout session, providing good feedback and encouragement during the activity. Client worked with the group to complete the challenge activity and was providing positive feedback. Client often reminded the group to be positive and ?use the full resource.? Client was able to identify barriers encountered that may also impact managing stress in daily life. Group identified barriers of stress management to include taking on the biggest stressor at once, not asking for help, and avoidance. Client actively listening and taking notes during discussion about the 4 A's of managing stress. Expressed wanting to increase awareness of which strategies would be best for improving each of her identified stressors. Client seemed to benefit from increased awareness of the impact of stress on mental health and increasing repertoire of stress management strategies. Progress noted as client reports generalizing healthy coping skills outside of IOP and states reduced isolation. Will continue IOP tx to promote gains in symptom management and improve daily functioning. Narrative Note: []
--- NOTE | 2019-09-09 09:02 | BH.SGPN.GN ---
Behaviors/Verbalizations/Mental Status: []Client alert and oriented, neatly dressed and groomed. Eye contact good. Motor activity appropriate. Speech within normal limits. Affect congruent, mood anxious. Thoughts linear, logical, no signs of hallucinations or delusions. Reviewed client?s symptom tracker, no risk for suicidal ideation, plan, or intent as of 09/09/19. Client Response/Progress/Benefit: []Client responded well to session, attentive and engaged throughout session. Client reports feeling ?apprehensive? today due to her plans to return to work this week. Client shared although she is anxious, she recognizes that she has made significant growth and now has the coping skills to benefit manage her symptoms at work. Client reported she and her individual IOP counselor created a return to work plan and client has been reminding herself ?no matter what happens I can do it.? Client reported her weekend was good and that client attended an AA meeting with her sister. Client receptive to supportive feedback from peers and additional ideas to help client cope with anxiety at work. Appeared to benefit from connecting with peers and reflecting on her personal strengths. Will continue IOP tx to promote gains and to further decrease anxiety symptoms to improve work-related functioning. Narrative Note: []
--- NOTE | 2019-09-09 10:16 | BH.SGPN.GN ---
Behaviors/Verbalizations/Mental Status: []Client alert and oriented, casually dressed and groomed. Eye contact good. Motor activity appropriate. Speech within normal limits. Affect congruent to topic being discussed, mood euthymic. Thoughts linear, logical, no signs of hallucinations or delusions. Client Response/Progress/Benefit: []Pt responded well to session, attentive and providing input throughout. Pt connected with discussion on different types of anxiety, as well as the difference between ?normal? anxiety and anxiety disorders. She helped the group identify examples of the various ways anxiety manifests and symptoms associated with thoughts, physical symptoms, and safety behaviors. Pt gained awareness of personal physical symptoms which included: headache, dry mouth, tense shoulders, and racing heart. Pt identified sleeping, isolation, and seeking reassurance as safety behaviors she has engaged in that provide short term relief but increase anxiety over time. Client appeared to benefit from gaining insight to safety behaviors and how anxiety manifests itself, as well as harmful impact of safety behaviors on mental health. Client appears to be progressing with increasing awareness of her symptoms and ability to use healthy coping skills in those moments. Will continue IOP to promote continued skill application, continue to challenge distorted thoughts, and prevent decompensation. Narrative Note: []
--- NOTE | 2019-09-09 11:22 | BH.SGPN.GN ---
Behaviors/Verbalizations/Mental Status: [Client alert and oriented, neat and casual in appearance. Eye contact good. Motor activity appropriate. Speech within normal limits. Affect congruent, mood euthymic. Thoughts linear, logical, no signs of hallucinations or delusions.] Client Response/Progress/Benefit: [Pt attentive and actively engaged during discussion, taking notes and providing supportive feedback throughout. Pt able to connect with the discussion reviewing three categories of skills for managing anxiety which included mind-based, body-based, and self-soothing. Pt did well to brainstorm with the group various skills within the different categories. She expressed interest in learning how to correctly use diaphragmic breathing . Pt completed worksheet identifying what relaxation skills she currently uses to manage anxiety and identified what skills she would be willing to begin trying to help manage symptoms of anxiety. Pt identified she is willing to try the following relaxation skills: slowing her responses down, positive affirmations, yoga, and diaphragmic breathing. Pt seemed to benefit from increased awareness of healthy skills to manage anxious symptoms and identifying skills she is willing to practice outside treatment environment. Pt progress continues to increase in her ability to apply emotion regulation and healthy coping skills outside tx environment. Recommended to continue IOP level of care to continue to promote use of healthy coping skills, reduce mental health sx, as well as prevent decompensation.] Narrative Note: []
--- NOTE | 2019-09-11 09:06 | BH.SGPN.GN ---
Behaviors/Verbalizations/Mental Status: [Client alert and oriented, casual and neat dress, hygiene tended to. Eye contact good. Motor activity appropriate. Speech within normal limits. Affect congruent, mood anxious and dysthymic. Thoughts linear, logical, no signs of hallucinations or delusions. Reviewed client?s symptom tracker, no signs of suicidal ideation, plan, or intent as of today.?] Client Response/Progress/Benefit: [Pt was an active participant in group discussion, providing input and willing to process with the group. Emotion for today is heavy as she noted struggling with the thought of having to return to work and decrease days she attends the IOP program. Pt able to reframe and identify this as a positive as it means she is making progress. Able to identify two current mental health ?wins? or positives which included advocating for herself by saying no to taking on an additional responsibility. Additional win identified as challenging ?what if? thoughts and referring back to her binder to remind herself of skills she has learned. Pt noted that she has been struggling to maintain positive when thinking about returning to work, however continues to apply positive self-talk in those moments. She was receptive of supportive feedback provided by the group and appeared to benefit from the structured environment. Progress noted in pt ability to begin applying CBT skills for reducing distorted thought patterns. Pt recommended continued IOP tx to continue to promote change behaviors, increase consistent skill application and anxiety management, as well as prevent decompensation.] Narrative Note: []
--- NOTE | 2019-09-11 10:20 | BH.SGPN.GN ---
Behaviors/Verbalizations/Mental Status: []Eye contact is good. Motor activity is appropriate. Appearance is casual. Speech is Appropriate. Mood is euthymic, affect is congruent. Thoughts are linear and logical. No evidence of psychosis. Client Response/Progress/Benefit: []Participated throughout group discussions providing input and listening attentively to peers comments. Pt connected with quote reporting she has been able to see more opportunities in her life because she has been challenging her negative mindset. Attentive during psychoeducation about fixed mindset. Worked with group to identify how a fixed mindset can impact our mental health which included: not trying new things, believing can't get better, keeping us stuck, decreasing motivation, and avoiding challenges. Pt identified one fixed thought she has had is,This is as good as it gets, which pt stated resulted in her quitting. Pt reported another fixed thought she has is I'm worthless, which pt stated resulted in her not trying because didn't see a point. Benefited from group by increasing awareness of how one's mindset impacts our mental health. Pt to continue IOP level of care to continue use of healthy coping skills, continue challenging distorted thoughts, and prevent decompensation. Narrative Note: []
--- NOTE | 2019-09-11 11:23 | BH.SGPN.GN ---
Behaviors/Verbalizations/Mental Status: []Client alert and oriented, neatly dressed and groomed. Eye contact good. Motor activity appropriate. Speech within normal limits. Affect congruent, mood euthymic. Thoughts linear, logical, no signs of hallucinations or delusions Client Response/Progress/Benefit: []Client attentive, engaged during discussion and activity. Contributed to discussion on how the group was successful in the activity because they were encouraging and had growth-mindset thoughts. Client did well to apply cognitive restructuring to reframe previously identified fixed thoughts, transforming her fixed thought from previous group to a growth thought of ?the best is yet to come and I?m open to growth.? Client shared she has been trying to be more positive with her thinking which helps client move forward. Client participated as the group brainstormed strategies to promote growth-mindset thinking. Client selected the strategy of not seeking approval from others to improve her growth-mindset thinking. Benefitted from discussing benefits of growth mindset and brainstorming strategies for prompting growth-mindset. Client displaying progress as her mood has improved and she reports less avoidance behaviors. Will continue IOP tx to promote gains and to reduce anxiety related to work. Narrative Note: []
--- NOTE | 2019-09-11 15:05 | BH.MDN_ITS ---
Multi-Disciplinary Note - Note 30-min Individual Time Started:: 12:24 Date: 09/12/19 Purpose of session/treatment goals addressed:: Purpose of session was to assess pt's current symptoms and stressors. Other topics included: return to work plan and addressing worries about going back to work on a reduced schedule. Eye Contact:: Good Motor Activity:: Appropriate Appearance:: Neat Speech:: Appropriate Mood:: Euthymic Affect:: Congruent Thoughts:: Linear, Logical, No evidence of hallucinations/delusions noted Staff Interventions:: Therapist used open questions to elicit pt's current symptoms and stressors. Therapist processed pt's current worries about returning to work next week. Assisted pt with challenging her worries. Identified self- care plan for tomorrow while she is not at IOP tomorrow. Provided support by using active listening and validating emotions. Client Response:: Pt reported yesterday she had a good day spending time with her grandson and getting other tasks and chores done around the house. Pt stated she has been experiencing increased anxiety the past couple of days because she knows next week is when she returns to work. Pt reported she is worrying about what people will say to her on her first day back. Stated she is also worried about a certain co-worker's comments because in the past this specific co-worker has made insensitive comments to her. Pt reported another worry she has is what if they don't need me anymore? With assistance from therapist pt able to challenge her anxious thoughts. Pt stated she knows that she is hardworking and adds value to her workplace. Pt reported she will come up with a structured statement to tell others if they ask where she has been. Pt worked with therapist to identify strategies on how to communicate with the co-worker who makes insensitive comments. Pt reported tomorrow her self-care plan is to spend time reading a book, getting her nails done, and pick out a piece of furniture she can refinish. Risks/Concerns:: denies current suicidal ideation, plan or intention to date. future focused. Progress Toward Goals/Plan:: Progress noted with pt's increased awareness of distorted thought patterns, increased use of healthy coping skills, engaging in self-care activities, and improved mood. Pt reporting increased anxious symptoms due to returning to work next week. Pt to continue IOP to maintain gains, decrease anxiety, and prevent decompensation. Time Stopped:: 12:52
== END 2019-09-12 23:59 ==
LOC: BHIOP 09:00
PROVIDERS: Family Provider Family Medicine; PCP Family Medicine; Referring Provider Psychiatry & Neurology Psychiatry; Visit Provider Psychiatry & Neurology Psychiatry
DX: F31.4 Bipolar disorder, current episode depressed, severe, without psychotic features (principal); F10.11 Alcohol abuse, in remission
CPT/HCPCS: H0035; 90832; 90834; 90853

== ENCOUNTER 2019-09-13 09:00 | Outpatient (RCR) | payer BC, SELFPAY ==
--- NOTE | 2019-09-13 09:05 | BH.SGPN.GN ---
Behaviors/Verbalizations/Mental Status: []Client alert and oriented, casually dressed and groomed. Eye contact good. Motor activity appropriate. Speech within normal limits. Affect full, mood euthymic. Thoughts linear, logical, no signs of hallucinations or delusions. Reviewed client?s symptom tracker, no risk for suicidal ideation, plan, or intent as of today. Client Response/Progress/Benefit: []Pt was an engaged participant in group discussion, providing input and openly processing with the group. Emotion for today is quiet. Pt identified a mental health positive as taking time to engage in self-care by going to get her nails done and completing errands. Pt identified additional positive as managing her anxiety yesterday after she received a work phone call yesterday from [employer]. Pt stated she used positive self-talk to help manage her anxious symptoms by telling herself this is okay and I'm getting the help I need. Pt identified current stressor is returning to work next week. Pt stated she is feeling anxious, but is starting to feel more ready to go back to work on a reduced schedule. Progress noted in pt ability to actively using healthy coping skills to manage emotions in the moment. Continued IOP tx recommended to continue application of healthy coping skills, reframe distorted thought patterns, and prevent decompensation. Narrative Note: []
--- NOTE | 2019-09-13 10:15 | BH.SGPN.GN ---
Behaviors/Verbalizations/Mental Status: [Client alert and oriented, neat and casually dressed and appropriately groomed. Eye contact good. Motor activity appropriate. Speech within normal limits. Affect congruent, mood anxious and euthymic. Thoughts linear, logical, no signs of hallucinations or delusions] Client Response/Progress/Benefit: [Client active participant in group AEB providing some input and nodding in agreement as fellow participants shared, actively listening, as well as taking notes throughout. Group worked together to identify barriers to making changes or taking action in their lives which included: fear of the unknown, guilt, catastrophizing, shame, fear of leaving comfort zone, denial of need to change, and lack of motivation. Group also identified the benefits of change which included; improved relationships, hope, increased confidence, improved ability to manage anxiety, and personal growth. Client identified areas she would like to take back control over to include: anxiety management, advocating for herself, increased confidence, and setting personal boundaries. Benefited from group through increased awareness of personal areas she wants to improve and benefits to taking action towards mental wellness. Progress noted in personal reflection of areas she would benefit from making changes for her mental health. Pt is recommended continued IOP level of care to improve anxiety management and ability to cope with work related stressors, promote effective communication and boundary setting skills, and prevent decompensation.] Narrative Note: []
--- NOTE | 2019-09-13 11:18 | BH.SGPN.GN ---
Behaviors/Verbalizations/Mental Status: []Client alert and oriented, neatly dressed and groomed. Eye contact good. Motor activity appropriate. Speech within normal limits. Affect congruent, mood euthymic. Thoughts linear, logical, no signs of hallucinations or delusions. Client Response/Progress/Benefit: []Client was an active participant AEB client participating in discussion and working well in her small group. Client attentive and providing input to discussion of the different zones of taking action as well as the pros and cons of each. Client agreed with peers that it best to push oneself, but to have unrealistic expectations for oneself. Client completed worksheet in which she identified a problem area to focus on, a SMART goal to help work on problem area, and identify additional supports needed to be successful. Client identified she wants to work on reducing guilt she has about past mistakes. Client identified a small goal which is to write down two things she has forgiven herself for before and to read them out loud once a day. Client stated additional supports needed to be successful with goal include: setting aside specific time and setting a reminder. Appeared to benefit from creating a small goal to help client overcome her guilt about past mistakes. Will continue IOP tx to promote mood stability and to further increase the use of healthy coping skills. Narrative Note: []
--- NOTE | 2019-09-13 14:25 | BH.MDN_ITS ---
Multi-Disciplinary Note - Note 30-min Individual Time Started:: 12:30 Date: 09/13/19 Purpose of session/treatment goals addressed:: Purpose of session was to assess pt's current symptoms and stressors. also reviewed homework from last session, addressed worries about returning to work next week and reviewed healthy coping skills. Eye Contact:: Good Motor Activity:: Appropriate Appearance:: Neat Speech:: Appropriate Mood:: Anxious Affect:: Full Thoughts:: Linear, Logical, No evidence of hallucinations/delusions noted Staff Interventions:: Therapist used open ended questions to elicit pt's current symptoms and stressors. Therapist reviewed homework from last session about pt engaging in self-care activities. Therapist assisted pt with challenge distorted and anxious thoughts about returning to work. Reviewed healthy coping skills to help pt manage anxiety while at work. Client Response:: Pt reported she was able to complete her homework yesterday by engaging in self-care activities. Pt stated she spent time reading a book, got her nails done, and picked out a table for her [employer] project. Pt stated it was really nice to have a day to focus on caring for self. Pt reported feeling anxious about returning to work on Monday, but yesterday she was able to catch her anxious and negative thoughts and challenge the thoughts. Pt stated she is little worried about returning to work because some of her co-workers can be a little bossy. Pt challenged her worry that she will focus on what she needs to get accomplished and not allow the behavior of others to ruin her mood. Pt reported on Monday morning she plans to spend time her , eat a good breakfast, and listen to uplifting music while she drives into work. Pt stated she will focus on getting through certain chunks of her day and recognize her positives. Pt reported although she is anxious about going to work she is confident she can get through the day. Risks/Concerns:: denies suicidal ideation, plan or intention to date. future focused. Progress Toward Goals/Plan:: Progress noted with pt engaging in self-care activities, challenging her anxious thought patterns, utilizing healthy coping s kills, and plans to return to work next week. Pt cotninues to struggle with anxious thoughts and negative self-talk. Pt to continue IOP to continue using healthy coping skills, identify and challenge distorted thoughts, and prevent decompensation. Time Stopped:: 12:55
--- NOTE | 2019-09-16 09:06 | BH.SGPN.GN ---
Behaviors/Verbalizations/Mental Status: [Client alert and oriented, neat and casual dress, hygiene tended to. Eye contact good. Motor activity appropriate. Speech within normal limits. Affect congruent, mood euthymic and anxious. Thoughts linear, logical, no signs of hallucinations or delusions. Reviewed client?s symptom tracker, no signs of suicidal ideation, plan, or intent as of today.?] Client Response/Progress/Benefit: [Pt receptive of session, engaged in group discussion and willing to process with the group. Emotion for today is optimistic, as Pt explained she has been able to see the progress she is making and had a positive weekend as a result of increased focus on battling negative thoughts. She went on to describe this as a mental health ?win? and area in which she plans to continue to focus on. Additional win identified as maintaining a boundary with her sister by asserting her need to attend AA despite her sister wanting her to do otherwise. Pt reflected that this actually encouraged her sister to respect the boundary and go to the AA meeting with pt. Noted current stressor as the upcoming return to work on Monday. Pt appeared to benefit from the support of the group and did well to identify positive self-talk statements to help better prepare herself. Pt recommended continued IOP tx to continue to promote change behaviors, increase consistent skill application to anxiety management, and prevent decompensation.] Narrative Note: []
--- NOTE | 2019-09-16 10:20 | BH.SGPN.GN ---
Behaviors/Verbalizations/Mental Status: []Client alert and oriented, neatly dressed and groomed. Eye contact good. Motor activity appropriate. Speech within normal limits. Affect full, mood euthymic. Thoughts linear, logical, no signs of hallucinations or delusions. Client Response/Progress/Benefit: []Client was an active participant in group discussion and activity. Attentive during psychoeducation and commenting on the quote. Client shared in order to change, ?you have to take your poop-stained glasses off.? Worked with the group to identify benefits to making changes in our lives which included: improving one?s mental health, increasing confidence, breaking out of one?s comfort zone, and reducing unhealthy coping skills. Group then identified barriers to change or what keeps us from making changes which included: it is easier to not change, lack of trust, lack of resources, lack of courage to change, lack follow through, negative thinking, and fear. Client participated along with group in activity where they identified and discussed the emotions related to change. Client was attentive during psychoeducation on the change process. Benefited from increased awareness and understating of emotions, benefits, and barriers related to change. Progress noted as shown by client?s plan to return to work this week. Will continue IOP tx to promote gains and reinforce healthy coping skills. Narrative Note: []
--- NOTE | 2019-09-16 11:20 | BH.SGPN.GN ---
Behaviors/Verbalizations/Mental Status: []Client alert and oriented, casually dressed and groomed. Eye contact good. Motor activity appropriate. Speech within normal limits. Affect congruent, mood euthymic. Thoughts linear, logical, no signs of hallucinations or delusions. Client Response/Progress/Benefit: []Client engaged participant AEB pt listening attentively to others, provided input during discussion and engaging in group activity. Client participated in the activity and processed emotions and barriers associated with making change. Client appeared to connect with discussion on weighing the pros and cons associated with change and benefited from learning to do so through use of decisional balance sheet. Identified she is currently in action stage of change. Pt stated she has been making positive changes with challenging distorted thoughts, using healthy coping skills, and increasing socialization. Progress noted in ability to identify which stage of change she is currently in. Recommended continued IOP to promote gains, continue to challenge distorted thoughts and prevent decompensation. Narrative Note: []
--- NOTE | 2019-09-17 09:07 | BH.SGPN.GN ---
Behaviors/Verbalizations/Mental Status: []Client alert and oriented, neatly dressed and groomed. Eye contact good. Motor activity appropriate. Speech within normal limits. Affect constricted, mood anxious. Thoughts linear, logical, no signs of hallucinations or delusions. Reviewed client?s symptom tracker, no risk for suicidal ideation, plan, or intent as of 09/17/19. Client Response/Progress/Benefit: []Client responded well to session, receptive to feedback and attentive throughout session. Client reports feeling ?scared? today as client returns to work this week. Client shared although she is anxious, she has been able to stop herself when having anxious thoughts and challenge them. Client stated she has been reminding herself that she can get through this and that ?I can only control my emotions.? Client reported the support she has received from peers has helped client feel more confident in her ability to return to work. Client reported her mental health win today is that she got a lot out of group yesterday and she has been reflecting on how she can implement it into her daily life. Client also shared she has been communicating with her about what she learns in group. Appeared to benefit from reflecting on coping skills she has that will help client cope during work tomorrow. Progress noted as shown by client?s reduced depressive symptoms. Will continue IOP tx to promote gains and further decrease intensity of symptoms. Narrative Note: []
--- NOTE | 2019-09-17 10:20 | BH.SGPN.GN ---
Behaviors/Verbalizations/Mental Status: []Client alert and oriented, casually dressed and groomed. Eye contact good. Motor activity appropriate. Speech within normal limits. Affect congruent to topic being discussed, mood euthymic, anxious, positive. Thoughts linear, logical, no signs of hallucinations or delusions. Client Response/Progress/Benefit: []Pt engaged participant AEB pt providing input during discussion and appeared to listen attentively to peers. Pt appeared to connect with others comments about the negative impact of defining self by mental illness. Group identified social stigma can come from how the media, society, and upbringing portray mental illness. Group identified media and society portray mental health as: dangerous, negative, not good enough, abnormal, and romanticize it. Pt stated societal stigma has made her hide her mental illness to others. Pt reported she has been working on being more open about her mental health because hiding her mental illness increases her feelings of shame. Pt seemed to benefit from increased awareness of how societal and internal mental health stigma can impact functioning. Pt progressing with reporting decreased depression and improved utilization of healthy coping skills outside treatment environment. Pt to continue IOP level of care to maintain gains, continue use of healthy skills and prevent decompensation. Narrative Note: []
--- NOTE | 2019-09-17 11:25 | BH.SGPN.GN ---
Behaviors/Verbalizations/Mental Status: [Client alert and oriented, casually and neatly dressed and appropriately groomed. Eye contact good. Motor activity appropriate. Speech within normal limits. Affect congruent, mood euthymic. Thoughts linear, logical, no signs of hallucinations or delusions.] Client Response/Progress/Benefit: [Client responded well to session, engaged in activity and actively listening as well as providing input to discussion. Group identified the benefits of addressing stigma which included; increased self-confidence, decreasing anxiety, increasing self-acceptance and willingness to ask for help improved relationships, and less self-deprecation. Client helped the group identify thoughts and behaviors people engage in that reinforce stigma. Client reported she has struggled with using self-deprecating talk and labeling language which reinforces stigma in her life. Group brainstormed strategies to combat social and perceived stigma which included; changing personal language used, sharing positive mental health related media, communicating with supports, and increasing psychoeducation of self and others to reduce labeling behaviors. Client reported she will practice increasing self-awareness and replacing negative self-talk which reinforce shame regarding her mental health as a means to combat stigma. Appeared to benefit from increasing awareness of ways he reinforces stigma and how to combat stigma. Will continue IOP tx to further reduce anxiety and use of avoidance behaviors, as well as increase the use of calming skills.] Narrative Note: []
--- NOTE | 2019-09-19 09:10 | BH.SGPN.GN ---
Behaviors/Verbalizations/Mental Status: [] Eye contact is good. Motor activity is appropriate. Appearance is neat. Speech is Appropriate. Mood is euthymic. Affect is congruent. Thoughts are linear and logical. No evidence of psychosis. Reviewed daily check in sheet and no reports of suicidal ideations or intent. Client Response/Progress/Benefit: [] Pt participated at times during group discussion. Emotion for today is relieved. Notes that she returned to work yesterday which was a very emotional day. Stated that she would not been able to make it through without utilizing her skills. Talked about the skills and thought challenging she utilized throughout the day. Feels proud and accomplished. Progress noted. Group provided support, encouragement, and praise for her efforts which was beneficial. Will continue in IOP to prevent decompensation, maintain gains, and provide support during transition back to full-time work. Narrative Note: []
--- NOTE | 2019-09-19 10:20 | BH.SGPN.GN ---
Behaviors/Verbalizations/Mental Status: []Client alert and oriented, neatly dressed and groomed. Eye contact good. Motor activity appropriate. Speech within normal limits. Affect congruent, mood euthymic. Thoughts linear, logical, no signs of hallucinations or delusions. Client Response/Progress/Benefit: []Client responded well to session, attentive and participating in discussion. Client commented on quote and shared certain ?pal? in life are placed by external circumstances or by one?s upbringing, while other ?pal? are put up by how one duong with those circumstances. Participated in discussion of things that can keep people feeling trapped or stuck in life including; fixed thinking, not letting people in, alcohol and drugs, lack support, and lack of confidence. Group discussed the connection between thoughts, emotions, and behaviors as well as how negative thinking can keep a person stuck. Client reported being stuck in ?poop-stained glasses? keeps one?s pal up. Client attentive during psychoeducation on maintenance cycles and reports relating to the maintenance cycles. Client able to identify negative thoughts that have reinforced depression and kept client feeling trapped. Client shared negative thoughts that have kept her stuck which included: ?I am worthless, I am a burden, I am a failure, I deserve what I get.? Appeared to benefit from gaining awareness of how negative thoughts reinforce mental health symptoms and keep people stuck. Progress noted in client?s report of improved mood and ability to return to work this week. Client will continue IOP tx to promote gains and help with client?s transition back to work. Narrative Note: []
--- NOTE | 2019-09-19 11:22 | BH.SGPN.GN ---
Behaviors/Verbalizations/Mental Status: []Client alert and oriented, neat in appearance. Eye contact good. Motor activity appropriate. Speech within normal limits. Affect congruent, mood euthymic. Thoughts linear, logical, no signs of hallucinations or delusions. Client Response/Progress/Benefit: []Client responded well to session, quiet, participating when prompted. Client appeared to connect with how negative thinking can keep a person stuck. Client identified a negative thought that has kept her stuck. Client?s thought was ?I am worthless.? Client stated when she has these thoughts she isolates, shuts down, and feels more lonely. Client able to reframe the thought to ?I am worthwhile because I have things to bring to the libertarian like humor and positivity.? Client shared this thought would improve her mental health because she would be more willing to ask for help, decrease isolation, and increase self-esteem. Client appeared to benefit from practicing challenging negative thinking. Client progressing with decreased anxious symptoms, improved awareness of unhealthy thought patterns and applying healthy skills outside treatment environment. Client to continue IOP to maintain gains, continue utilization of healthy coping, and prevent decompensation. Narrative Note: []
--- NOTE | 2019-09-19 13:46 | BH.MDN ---
Multi-Disciplinary Note - Note 30-min Individual Time Started:: 12:29 Date: 09/19/19 Purpose of session/treatment goals addressed:: Purpose of session was to review and process first day back to work and create weekend plan to help maintain treatment progress. Eye Contact:: Good Motor Activity:: Appropriate Appearance:: Neat Speech:: Appropriate Mood:: Euthymic, Anxious Affect:: Congruent Thoughts:: Linear, Logical, No evidence of hallucinations/delusions noted Staff Interventions:: Therapist used open ended questions to elicit pt's thoughts and emotions about her first day back to work yesterday. Therapist assisted pt with identifying skills utilized to overcome various small stressors throughout work day. Therapist reviewed skill to help pt manage anxiety while at work tomorrow. Therapist collaborated with pt to discuss weekend plans to help pt maintain treatment progress. Assisted pt with making a goal to help pt continue to focus on incorporating self-care activities in her life. Client Response:: Pt reported she is feeling relieved that her first day back to work is finally over. Pt stated work did not go as bad as she had expected it would go. Pt reported she reconnected with several co-workers who were happy to see her back at work. Pt stated she focused on completing her task of clearing out her e-mails. Pt reported she used her healthy skills of thought challenge, positive self-talk, breathing, and focusing on what is in her control. Pt reported she asked two friends to go to lunch, but both people were busy. Pt stated in the past she would have slept in her car, but instead went and at lunch then talked with people once she got back to the office. Pt reported she is feeling less anxious about returning to work tomorrow and is confident she will do okay tomorrow. Pt stated over the weekend she plans to hang out with her best friend at a birthday constitution party and will hang out with her . 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 Risks/Concerns:: Pt denies suicidal ideation, plan or intention to date. Progress Toward Goals/Plan:: Pt demonstrating treatment progress AEB pt returning back to work successfully yesterday. Pt reporting decrease in depression and anxious symptoms. Pt able to recognize and challenge anxious and depressed thoughts. Utilizing healthy coping skills outside treatment environment. Denies suicidal ideations. Time Stopped:: 12:46
--- NOTE | 2019-09-23 09:08 | BH.SGPN.GN ---
Behaviors/Verbalizations/Mental Status: [Client alert and oriented, casual dress, hygiene tended to. Eye contact good. Motor activity appropriate. Speech within normal limits. Affect congruent, mood euthymic. Thoughts linear, logical, no signs of hallucinations or delusions. Reviewed client?s symptom tracker, no signs of suicidal ideation, plan, or intent as of today. ] Client Response/Progress/Benefit: [Pt was an attentive participant in group discussion, providing some input to discussion and appearing to connect with fellow participants in group. Emotion for today is comfortable as pt indicated having a personal victory at work on Monday when she was able to catch herself when becoming negative and intentionally find positives to focus on instead. Additional mental health win identified as taking the initiative to step outside her comfort zone and spend the weekend with friends and family rather than isolate and stay at home. She discussed that she has been able to progress in her levels of confidence and is more capable of challenging herself to use the skills she has learned to effectively manage stressors as they arise. Identified work as an ongoing stressor, however pt did well to identify small things throughout the workday that she can look forward to rather than focusing on frustrations. Pt appeared to benefit from identifying progress, as well as receiving supportive feedback from the group. Continued IOP tx recommended to improve consistent use of anxiety management skills, continue to promote healthy change behaviors, and prevent decompensation.?] Narrative Note: []
--- NOTE | 2019-09-23 10:25 | BH.SGPN.GN ---
Behaviors/Verbalizations/Mental Status: []Client alert and oriented, neat in appearance. Eye contact good. Motor activity appropriate. Speech within normal limits. Affect congruent, mood euthymic. Thoughts linear, logical, no signs of hallucinations or delusions. Client Response/Progress/Benefit: []Client active participant as evidenced by client providing input throughout discussion and appeared to listen attentively to others. Client agreed with others that she experiences automatic negative thoughts. Client connected with the discussion about how distorted thought patterns can reinforce mental health symptoms. Client stated when she catastrophizes situations I feel more on edge. Client reported she can also use mental filter by solely focusing on the negatives of a situation, which client stated she now realizes how much distortions have impacted her mental health. Appeared to benefit from increasing awareness of cognitive distortions and how they can impact emotions and behaviors. Client to continue IOP to maintain gains, continue to identify and challenge negative thoughts, and prevent decompensation. Narrative Note: []
--- NOTE | 2019-09-23 11:25 | BH.SGPN.GN ---
Behaviors/Verbalizations/Mental Status: []Client alert and oriented, neatly dressed and groomed. Eye contact good. Motor activity appropriate. Speech within normal limits. Affect congruent, mood euthymic. Thoughts linear, logical, no signs of hallucinations or delusions. Client Response/Progress/Benefit: []Client responded well to session AEB participating in activity and contributing in group discussion. Client connected with the discussion about how distorted thought patterns can reinforce mental health symptoms. Client did well to work with the group on defining the various types of cognitive distortions and identifying how each distortion can negatively impact mental health. Client reported that she struggles most with catastrophizing which increases her anxiety. Client worked with her small group as they practiced thought challenging by identifying distortions and replacing them with more realistic statements. Client attentive during psychoeducation on strategies to combat distortions. Client selected using the strategy [id number] to help client challenge negative thoughts. Progress noted as client continues to report applying coping skills and improved mood. Appeared to benefit from increasing awareness of cognitive distortions and practicing thought challenging. Client to continue IOP to further improve work-related functioning by reducing anxiety. Narrative Note: []
--- NOTE | 2019-09-23 14:31 | BH.MDN ---
Multi-Disciplinary Note - Note 30-min Individual Time Started:: 12:30 Date: 09/23/19 Purpose of session/treatment goals addressed:: Purpose of session was to assess pt's current symptoms and stressors. Processed second day back to work. Identified healthy coping skills that have helped manage mental health symptoms. Eye Contact:: Good Motor Activity:: Appropriate Appearance:: Neat Speech:: Appropriate Mood:: Euthymic, Anxious Affect:: Congruent Thoughts:: Linear, Logical, No evidence of hallucinations/delusions noted Staff Interventions:: Therapist used open ended questions to elicit pt's currrent symptoms and stressors. Processed second day back to work. Assisted pt with identifying healthy coping skills to used during work day to help manage emotions. Identified plan for weekend. Assisted with identifying and challenging distorted thoughts. Client Response:: Pt reported her second day back to work was overwhelming because her boss called off work and several other staff members were off work as well. Pt stated when she first found out her boss called off work she thought Thanks for your help, which made her feel annoyed and irriated. Pt reported she recognized that thought was unhelpful so she reframed the thought to I can do the best I can do. Pt stated she also reminded herself she doesn't have to go above and beyond because other people took off the day. Pt reported she recognized by reframing and challenge her negative thought she was able to have improved attitude throughout the work day. Pt stated she did not freak out while at work and completed the work she could get done. Pt reported she had a positive weekend spending time with friends and family. Pt stated she feels anxious about upcoming performance review this . Pt reported she is reminding herself that she is good at her job and in the past has always recieved great reviews. Pt stated she feels ready to address her issues about how her bosses handled not following through with the promise of her promotion 6 months ago. Pt reported she doesn't expect anything to change, but believes it's important for her to express her feelings. Risks/Concerns:: Pt denies suicidal ideation, plan or intention to date. Progress Toward Goals/Plan:: Pt progressing with reporting decreased anxious and depressed symptoms. Pt albe to identify and challenge distorted and negative thoughts more consistently. Pt has successfully made it back to work two times and has managed her mental health symptoms while at work. Pt continues to struggle with worries that she won't be able to maintain her treatment progress once discharges from IOP. Pt to continue IOP level of care to maintain gains, continue to utilize healthy coping skills and prevent decompensation. Time Stopped:: 13:00
--- NOTE | 2019-09-25 09:04 | BH.SGPN.GN ---
Behaviors/Verbalizations/Mental Status: []Client alert and oriented, neatly dressed and groomed. Eye contact good. Motor activity appropriate. Speech within normal limits. Affect congruent, mood euthymic. Thoughts linear, logical, no signs of hallucinations or delusions. Reviewed client?s symptom tracker, no risk for suicidal ideation, plan, or intent as of 09/25/19. Client Response/Progress/Benefit: []Client responded well to session, attentive and providing supportive statements. Client reports feeling ?happy? today. Client shared she went to work yesterday and ?it wasn?t half bad.? Client stated ?taking off the poop-stained glasses? has helped client respond better at work and have an optimistic mindset. Client reported after work she did not isolate, and she has been setting boundaries at work as well. Client stated she is proud of herself for being able to manage her emotions at work and client reported she does not have any major stressors. Client appeared to benefit from reflecting on her progress and ability to manage stress at work. Will continue IOP tx to promote gains and further decrease the intensity and duration of her symptoms.? Narrative Note: []
--- NOTE | 2019-09-25 10:08 | BH.SGPN.GN ---
Behaviors/Verbalizations/Mental Status: []Eye contact is good. Motor activity is appropriate. Appearance is casual. Speech is Appropriate. Mood is anxious. Affect is full. Thoughts are linear and logical. No evidence of psychosis. Client Response/Progress/Benefit: []Pt was an active participant in activity as evidenced by pt providing input throughout and attentively listened to others. Group worked together to come up with common negative forces in their lives which can hold them back from growth. Negative forces included: toxic relationships, negative thoughts, low motivation, and unhealthy environment. Group then worked together to identify common positive forces which help us grow. Theses included: Healthy coping skills, positive support, self-care, patience, realistic and positive thinking, and following treatment suggestions. Pt stated personal growth takes a lot of work and you have to use your skills and supports. Pt stated she has been working on challenging her negative thoughts. Pt was attentive during psychoeducation on the importance of utilizing many aspects of positive forces to help one grow. Benefited from group with increased insight and awareness on the impact of negative and positive forces on mental wellness. Narrative Note: []
--- NOTE | 2019-09-25 11:07 | BH.SGPN.GN ---
Behaviors/Verbalizations/Mental Status: [Client alert and oriented, casually and neatly dressed and groomed. Eye contact good. Motor activity appropriate. Speech within normal limits. Affect congruent and mood euthymic. Thoughts linear, logical, no signs of hallucinations or delusions.] Client Response/Progress/Benefit: [Client willing to participate in activity, provided input at during discussion, and listened attentively to peers. Client completed reflection worksheet identifying positive and negative forces impacting life and mental wellness. Client identified positive forces that aid in progressing toward mental health goals include: willingness to ask for help, flexibility, determination, positive self-talk, and reframing negative thoughts. Client indicated negative forces include: self-doubt, negative self-talk, isolating, fear of unknown, and being ?stuck in old ways?. Client reported she believes she is moving forward towards her goals. Identified positive self-talk and reframing negative thoughts as most influential positive forces. Client seemed to benefit from increased awareness of personal positive and negative forces in life and impact they have on mental health and wellness. Client to continue IOP level of care to maintain gains, continue to challenge distorted thought patterns and prevent decompensation.] Narrative Note: []
--- NOTE | 2019-09-27 09:10 | BH.SGPN.GN ---
Behaviors/Verbalizations/Mental Status: [] Eye contact is good. Motor activity is appropriate. Appearance is casual. Speech is Appropriate. Mood is euthymic. Affect is full. Thoughts are linear and logical. No evidence of psychosis. Reviewed daily check in sheet and no reports of suicidal ideations or intent. Client Response/Progress/Benefit: [] Pt participated at times during group discussion. Emotion for today is empowered. Talked at length about being assertive at work. States I stuck up for myself. She called a meeting with her supervisors and communicated assertively regarding her concerns. 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 Believes that she was firm and fair. Co-workers responded well and verbalized that they understood. Notes that this was a huge stress relief. Progress noted. Will continue in IOP to maintain gains, prevent decompensation, and provided support during transition back to full-time work. Narrative Note: []
--- NOTE | 2019-09-27 10:18 | BH.SGPN.GN ---
Behaviors/Verbalizations/Mental Status: [Client alert and oriented, neatly dressed and groomed. Eye contact good. Motor activity appropriate. Speech within normal limits. Affect congruent, mood euthymic. Thoughts linear, logical, no signs of hallucinations or delusions. ] Client Response/Progress/Benefit: [Client active semi-participant AEB active engagement in group activity, taking notes, and listening attentively to peers; however, remained passive during discussion portion of session. Client reported agreement with group definition of resilience as the ?ability to bounce back from difficulties?. She shared that resilience can be hard when we are too rigid in thinking. Client attentive during discussion on connections between activity and barriers/supports to development of a resilient lifestyle. Client agreed with peers that one can learn to become more resilient throughout life. Client benefitted from brainstorming benefits of being resilient which included: increased self-confidence and motivation, willingness to keep trying, and increased ability to find different solutions to setbacks. Client is progressing with increased application of internal coping skills to manage sx of anxiety outside treatment environment and continues to apply positive self-talk in moments she would benefit from reminding herself of own personal resilience. Recommended continued IOP tx to promote healthy change behaviors, improve self-care skills and anxiety management, as well as maintain gains.] Narrative Note: []
--- NOTE | 2019-09-27 11:20 | BH.SGPN.GN ---
Behaviors/Verbalizations/Mental Status: []Client alert and oriented, neatly dressed and groomed. Eye contact good. Motor activity appropriate. Speech within normal limits. Affect congruent to topic being discussed, mood euthymic, positive. Thoughts linear, logical, no signs of hallucinations or delusions. Client Response/Progress/Benefit: []Client engaged participant as evidenced by client providing input throughout discussion and listening attentively to peers. Client worked cooperatively with peers to identify how each resiliency factor can help increase personal resiliency. Client reported she wants to work on the resiliency component of taking care of herself. Client stated she will work on increasing personal resilience by improving her self-awareness. Client stated she will work on improving self-awareness by reviewing her warning signs of personal crisis. Client appeared to benefit from identifying goal to improve personal resilience factors. Client to continue IOP to continue use of healthy coping skills, continue to identify and challenge distorted thoughts and prevent decompensation. Narrative Note: []
--- NOTE | 2019-09-27 21:21 | BH.MDN ---
Multi-Disciplinary Note - Note 30-min Individual Time Started:: 09:01 Date: 09/27/19 Purpose of session/treatment goals addressed:: Purpose of session was to assess pt's current symptoms and stressors. Other topics included: Process work review meeting, Review healthy coping skills, and create weekend plan. Eye Contact:: Good Motor Activity:: Appropriate Appearance:: Neat Speech:: Appropriate Mood:: Euthymic Affect:: Full, Bright Thoughts:: Linear, Logical, No evidence of hallucinations/delusions noted Staff Interventions:: Therapist utilized open ended questions to elicit pt's current symptoms and stressors. Processed work meeting, eliciting what skills pt utilized to help manage her anxious symptoms. Reviewed healthy coping skills and assisted with thought challenge. Elicited pt's thoughts about treatment progress. Identified weekend plan to help with maintainence of progress. Client Response:: Pt reported her work review meeting went great. 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 Pt stated she told her bosses how she felt like they treated her like a number and not a person. Pt reported her bosses responded positively to the feedback she provided about how the situation was handled six months ago. Pt stated she felt like a big weight was lifted off my chest following the meeting. Pt reported she is so proud of herself for being open and honest with her bosses instead of stuffing how she has been feeling. Pt reported she used thought challenge and positive self-talk to help her manage anxiety prior to the meeting at work. Pt stated this weekend she has plans to spend time wtih friends and family. Pt reported she will work on her [employer] project so the table will be ready for a craft show in two weeks. Pt stated she can note treatment progress with overall reduction in depressive and anxious symptoms. Pt stated she is more social and has increased awareness of her distorted thought pattenrs. Pt reported she continues to struggle with anxious thoughts, anhedonia, and poor concentration. Pt reported she believes she is positively progressing with her treatment and finds it helpful to have combination of work and IOP so she has a safe place to go after work to process how the day went. Risks/Concerns:: Pt denies current suicidal ideation, plan or intention to date. Progress Toward Goals/Plan:: Progress noted with pt reporting overall reduction in anxious and depressive symptoms. Pt has increased awareness of distorted thought pattenrs, able to reframe thoughts, increase use of healthy coping, and decrease in isolative behavior. Pt continues to struggle with anxious thought patterns, loss of pleasure, and poor concentration. Pt to continue IOP level of care to maintain gains, continue use of healthy coping skills and prevent decompensation. Time Stopped:: 09:28
--- NOTE | 2019-09-30 09:02 | BH.SGPN.GN ---
Behaviors/Verbalizations/Mental Status: []Client alert and oriented, neatly dressed and groomed. Eye contact good. Motor activity appropriate. Speech within normal limits. Affect constricted, mood dysthymic. Thoughts linear, logical, no signs of hallucinations or delusions. Reviewed client?s symptom tracker, no risk for suicidal ideation, plan, or intent as of 09/30/19. Client Response/Progress/Benefit: []Client responded well to session, attentive and engaged throughout. Client reports feeling ?melancholy? today. Client shared she had a full weekend which was positive, but it was also exhausting. Client was unable to identify at first what was making her feel more down today, but with further exploration client recognized that even positive stress can make one feel overwhelmed. Client stated she can help herself today by focusing on self-care and continuing to ?suit up and show up.? Client shared she got coffee with a friend over the weekend and attended an AA meeting with her sister which were both mental health wins. Appeared to benefit from processing her stressor and reflecting on her positives. Progress noted as client reports reduced anxiety and depression on a daily basis. Will continue IOP to promote gains and further decrease work-related anxiety. Narrative Note: []
--- NOTE | 2019-09-30 10:14 | BH.SGPN.GN ---
Behaviors/Verbalizations/Mental Status: []Client alert and oriented, neatly dressed and groomed. Eye contact good. Motor activity appropriate. Speech within normal limits. Affect constricted, mood dysthymic. Thoughts linear, logical, no signs of hallucinations or delusions. Client Response/Progress/Benefit: []Pt was an active participant in group discussion and listened attentively to peers. Pt stated effective communication is mcmillan to have connected and healthy relationships. Group discussed the MH benefits to having open and clear communication with support and providers. Group discussed the barriers that tend to impact clear and open communication which include: making assumptions, communicating with behavior, non-verbal communication, tone of voice, and misinterpretation. Pt stated another barrier to effective communication is not asking for clarification which can lead to making assumptions. Pt was attentive during psycho-education on communications styles (aggressive, passive, passive-aggressive, and assertive). Also provided input on the pros and cons to each communication style. Pt seemed to benefit from increased insight on how the way she communicates impacts her mental health. Pt to continue IOP level of care to continue utilization of healthy coping skills, challenge distorted thoughts and prevent decompensation. Narrative Note: []
--- NOTE | 2019-09-30 11:17 | BH.SGPN.GN ---
Behaviors/Verbalizations/Mental Status: [Client alert and oriented, casually and neatly dressed and appropriately groomed. Eye contact good. Motor activity appropriate. Speech within normal limits. Affect congruent, mood euthymic. Thoughts linear, logical, no signs of hallucinations or delusions] Client Response/Progress/Benefit: [Client active participant AEB her positive contributions and engagement throughout, nodding throughout discussion. Client reported she can range from passive to passive-aggressive communication styles depending on the person and situation. She discussed that this is often due to wanting to avoid conflict or not hurt someone else?s feelings. Noted a desire to begin moving closer towards assertive communication styles. Agreed with fellow participants that ineffective communication can result in misinterpretations and relationship tension as a result. Client took an active role during the discussion reviewing different communication styles and why each may be used, as well as how ineffective communication negatively impacts mental health and relationships. Client identified her communication goal which is to practice ?delay, distract, decide? prior to responding to a situation so as to ensure she is thinking calm and rationally. Client seemed to benefit from increased insight into how her communication style impacts mental health and identifying strategies for increasing effective communication skills. Client progressing as shown by her report of improved use of anxiety management skills and increased self-confidence. Will continue IOP tx to promote mood stability and anxiety management, further improve daily functioning, and prevent decompensation.] Narrative Note: []
--- NOTE | 2019-10-02 09:07 | BH.SGPN.GN ---
Behaviors/Verbalizations/Mental Status: [Client alert and oriented, neat and casual dress, hygiene tended to. Eye contact good. Motor activity appropriate. Speech within normal limits. Affect congruent, mood euthymic, positive, and anxious. Thoughts linear, logical, no signs of hallucinations or delusions. Reviewed client?s symptom tracker, no signs of suicidal ideation, plan, or intent as of today. ] Client Response/Progress/Benefit: [Pt receptive of session and actively engaged throughout. She did well to provide supportive feedback to the group as well as openly discuss her own thoughts, feelings, and stressors. Pt reports her current emotion is ?encouraged? as she has been spending more time focusing on positives at work which has made the transition back more bearable for her. She went on to indicate that her current mental health wins include meeting with her boss to discuss priorities and expectations for her role in the workplace as well as setting a boundary regarding how much she is able to take on at once. Pt went on to share that this had been an empowering and positive experience as her boss was receptive of the suggested adjustments. Shared that work continues to be a stressor but that she continues to feel more capable of coping with the work environment each day. Pt progress noted in her ability to use anxiety management skills during times of increased stress as she readjusts to transition back to work. Pt recommended continued IOP tx to continue to prevent decompensation, continue to decrease anxiety, and promote healthy change behaviors.] Narrative Note: []
--- NOTE | 2019-10-02 10:25 | BH.SGPN.GN ---
Behaviors/Verbalizations/Mental Status: []Client alert and oriented, neatly dressed and groomed. Eye contact good. Motor activity appropriate. Speech within normal limits. Affect congruent, mood euthymic. Thoughts linear, logical, no signs of hallucinations or delusions. Client Response/Progress/Benefit: []Client attentive and engaged throughout session. Worked together with the group to define and identify differences between internal and external conflict. Client stated despite conflict being difficult it can be positive because it helps one get their needs met and improves self-esteem. Group identified and discussed consequences of not address conflict in healthy ways which included: guilt, negative consequences, poor relationships, worsening problems, and rumination. Client stated avoiding conflict is unhelpful because ?if we stuff and stuff then we blow up.? Attentive during psychoeducation on different conflict styles such as avoiding, accommodating, competing, and collaborative. Client took notes and provided input during the discussion of the different types. Benefited as she was able to identify and define conflict as well as increase awareness of how conflict style impacts mental health. Will continue IOP tx to promote gains and further improve mood stability. Narrative Note: []
--- NOTE | 2019-10-02 12:25 | BH.SGPN.GN ---
Behaviors/Verbalizations/Mental Status: []Client alert and oriented, casually dressed and groomed. Eye contact good. Motor activity appropriate. Speech within normal limits. Affect constricted, mood euthymic. Thoughts linear, logical, no signs of hallucinations or delusions. Client Response/Progress/Benefit: []Client responded well to session, providing to discussion and activity. Contributed to ongoing discussion of the different conflict resolution styles, drawbacks, and appropriate times of use. Client indicated when she first started the program her conflict resolution style was avoidance. pt stated having an avoidance conflict resolution style resulted in her needs not getting met because didn't convey her thoughts and feelings. Client reported she has moved towards a more collaborative conflict resolution style. Client stated she now is able to get her needs met because she is using direct and assertive communication. Client attentive during psychoeducation on effective conflict resolution strategies. Client appeared to benefit from increasing awareness of her personal conflict resolution style and from learning ways to increase healthy conflict resolution. Progress noted as client is able to note progress with making positive changes in her conflict resolution style when compared to when she started PHP. Will continue IOP tx to maintain gains, continue use of healthy coping skills and prevent decompensation. Narrative Note: []
--- NOTE | 2019-10-02 12:48 | PCM.BH.PN ---
Progress Note Progress Note: History of Present Illness/Interim History: [] It is a 54-year-old female who is seen in follow-up at the [facility] IOP program. I last saw the patient 3 weeks ago and at that time we continue to slowly wean her Effexor XR down to 75 mg p.o. daily. We also increased her Prozac to 40 mg p.o. daily at that time. Patient states that she feels she is doing quite well. She says she has had a few down moods but they do not last very long and are few and far between now. She has not had any panic attacks since I last saw her. She feels her anxiety and her depression have really improved greatly. He is back at work and functioning well at work. Her sleep is good. She denies any thoughts of , suicidal or homicidal thoughts. She feels she has really learned useful skills in the IOP program. She is interested in continuing to wean off of the Effexor XR. Current Psychiatric Medications: [] Abilify 10 mg p.o. daily, trazodone 50 mg p.o. nightly, Effexor XR 75 mg p.o. daily (decreased 3 weeks ago), Prozac 40 mg p.o. daily (increased 3 weeks ago). Mental Status Examination: [] Patient is a 54-year-old female who appears normal for stated age and is casually dressed and groomed with good hygiene. She is cooperative and pleasant during the interview. She has no psychomotor agitation or retardation. Eye contact is good and speech is normal rate and rhythm with no pressure. Mood is euthymic today. Affect is full and normal and consistent with euthymia. Thought processes are organized and goal-directed. Thought content: No evidence of suicidal or homicidal ideation. No evidence of any thoughts of . Judgment is intact. Insight is good. Impulsivity low. Diagnoses: [] [place] I: [] Bipolar 1 disorder most recent episode depressed, severe, without psychosis (F 31.4), resolving. Alcohol use disorder in full remission for 11 years [place] II: [] Deferred [place] III: [] What is [place] IV:[]] Primary support issues Plan: [] The patient will continue the IOP program and will be discharged soon if she continues to make progress. She felt safe during the interview and if it any time she does not feel safe she will let us know or go to the emergency room. She agrees to continue to wean the Effexor XR by going to 75 mg every other day for 1 week and then stopping it. She will continue her Prozac at 40 mg p.o. daily and her other medications at their current doses. She has an appointment with her outpatient provider in 2 weeks and they will be able to assess how she is doing after being off the Effexor for 1 week at that time. Patient understands it during a weaning you can experience many symptoms that have been discussed with her during this wean. She has tolerated the weaning of Effexor quite well and has not experienced any adverse side effects. If she does she will contact us or her outpatient provider.
--- NOTE | 2019-10-04 09:05 | BH.SGPN.GN ---
Behaviors/Verbalizations/Mental Status: [] Eye contact is good. Motor activity is appropriate. Appearance is neat. Speech is Appropriate. Mood is euthymic. Affect is full. Thoughts are linear and logical. No evidence of psychosis. Reviewed daily check in sheet and no reports of suicidal ideations or intent. Client Response/Progress/Benefit: [] Pt participated at times during group discussion. Emotion for today is pleased. Shared that she continues to transition well back to work. She was [id number] on her work life previous to IOP program and the extreme difficulties she had managing her stress as well as her negative thoughts and poor perception. More assertive, different and more beneficial perspective of her job and its role in her life, decreased stress as the result of improved coping skills. Progress noted. Benefited from group support, feedback, and encouragement. Provided appropriate feedback to peers. Will continue in IOP to prevent decompensation. Narrative Note: []
--- NOTE | 2019-10-04 11:25 | BH.SGPN.GN ---
Behaviors/Verbalizations/Mental Status: []Client alert and oriented, neatly dressed and groomed. Eye contact good. Motor activity appropriate. Speech within normal limits. Affect full, mood euthymic. Thoughts linear, logical, no signs of hallucinations or delusions. Client Response/Progress/Benefit: []Client responded well to session, engaged throughout and providing ideas during group brainstorming. Client appeared to connect with the activity from second group and helped the group identify benefits of having a strong foundation of internal and external coping skills. Client shared she came to IOP because her internal coping skills ?were not working? and she needed external support. Client helped the group discuss the different categories of coping skills and provided examples. Client reported it is important to have a variety of coping skills. Client created a coping skills ?menu? for the five categories of coping skills. Client selected crafts and spending time on hobbies, singing and dancing, walking her dog and being outside, positive self-talk, and using opposite action. Client appeared to benefit from increasing her repertoire of healthy coping skills. Progress noted in client?s improved mood and report of reduced intensity of symptoms. Client to continue IOP to promote gains and improve work-related functioning. Narrative Note: []
--- NOTE | 2019-10-04 15:43 | BH.TPR ---
Treatment Plan Review Date of Admission:: 09/04/19 Date of Treatment Plan Review:: 10/04/19 Admitting Diagnoses:: Bipolar 1 disorder most recent episode depressed, severe, without psychosis; alcohol use disorder in full remission for 11 years. Diagnosis Code(s):: F31.4 Current Diagnoses:: Bipolar 1 disorder most recent episode depressed, severe, without psychosis; alcohol use disorder in full remission for 11 years. Diagnosis Code(s):: F31.4 Patient's Response to Treatment:: Attending program consistently. Active participant. Completed DSM-5 cross cutting scales which indicates a 50% reduction in symptoms since starting the program. Notes 50% reduction in depression scores and 64% reduction in anxiety scores. She continues to utilize skills. Significant progress noted. DSM5 cross-cutting scales indicate reduced symptoms at 4 weeks. Utilizing skills. Continues with AA. Work transition has been going well. We discussed discharge. Plan is to discharge in 2 weeks. Encouraged pt to set up appointment with her outpatient MH therapist and PCP for medication management the week after discharge. Will continue in IOP to maintain gains and prevent decompensation. Treatment plan goals still left to accomplish Status of Current Problems and Symptoms: Struggles at times with work anxiety, anhedonia and dysthymia however much improved. Problem #1 Problem Name:: Depression Status of Goals:: Pt is making progress on objectives 1 and 2. Obj 1- Able to identify a couple negative self-talk messages however struggles to replace w/o guidance. Obj 2- Notes 50% reduction in depression in DSM5 questionnaire. Team Recommendations:: continue with IOP as she has been responding well. Problem #2 Problem Name:: Anxiety Status of Goals:: Obj1- Pt is able to identify several healthy coping skills to manage anxious symptoms. Could benefit from continuing to reinforce healthy coping skills. obj2- 64% reduction in anxiety scores on DSM 5 questionnaire. Will maintain goal to keep current reduction of anxiety or decrease anxiety further. Team Recommendations:: Continue with IOP as she is responding well. Plan to discharge in 2 weeks.
--- NOTE | 2019-10-04 20:00 | BH.SGPN.GN ---
Behaviors/Verbalizations/Mental Status: [] Eye contact is good. Motor activity is appropriate. Appearance is neat. Speech is Appropriate. Mood is anxious. Affect is congruent. Thoughts are linear and logical. No evidence of psychosis. Client Response/Progress/Benefit: [] Pt was an active participant in group activity and discussion.. Attentive during psycho-education. Worked with peers to define coping skills which included; skills to use to get us through difficult times, techniques to manage emotions, and reactions to lessen an emotional state. Group also worked together to identify how we learn our coping skills through up-bringing, habits, watching our support, trial/error, TV, and counseling. Group discussed that not all coping skills are healthy and identified common unhealthy coping skills such as; isolating, avoidance, substance abuse, using anger as a release, self-harm, reassurance-seeking, sleep, eating, and negative self-talk. Pt participated in group activity with peers. After the group they related the activity to coping skills stating that when developing coping skills it is important to have both internal and external coping skills to help. Pt benefited from increased insight and education on healthy vs unhealthy coping and internal vs external coping skills. Narrative Note: []
--- NOTE | 2019-10-09 09:00 | BH.SGPN.GN ---
Behaviors/Verbalizations/Mental Status: [] Eye contact is good. Motor activity is appropriate. Appearance is neat. Speech is Appropriate. Mood is euthymic. Affect is full. Thoughts are linear and logical. No evidence of psychosis. Reviewed daily check in sheet and no reports of suicidal ideations or intent. Client Response/Progress/Benefit: [] Pt participated at time during group discussion. Noted some stressors at work this week in which she felt herself getting overwhelmed. Began to utilize skills and then set some boundaries. Admits that she is anxious about d/c from IOP and is fearful that she will regress. Group was able to reframe her thoughts and pt was able to verbalize that she has a strong base of skills and a strong aftercare plan. Benefited from group support, encouragement, and feedback. Will continue in IOP to prevent decompensation, maintain gains, and transition back to full-time work. Narrative Note: []
--- NOTE | 2019-10-09 10:02 | BH.SGPN.GN ---
Behaviors/Verbalizations/Mental Status: []Client alert and oriented, casually dressed and groomed. Eye contact good. Motor activity appropriate. Speech within normal limits. Affect congruent to topic being discussed, mood euthymic, positive. Thoughts linear, logical, no signs of hallucinations or delusions. Client Response/Progress/Benefit: []Pt receptive of session, engaged throughout. She did well to work with the group to reflect on the quote and discussed the ways in which perspective can impact mental health and ability to make personal progress in life. Pt worked with group to identify how negative perspective can impact mental health which included: unrealistic expectations, self-sabotage, maintain depression and anxiety, overgeneralizing, increased distorted thoughts, and decreased self-confidence. Pt did well to engage in the challenge activity. Pt stated if have a negative perspective then all you will is the negative in situations. Pt reported she has been able to challenge her negative perspective which has helped her when she goes to work. Pt appeared to benefit from increasing understanding of mental health benefits of a positive perspective and potential consequences to progress when perspective is negative. Progress noted with improved mood and ability to challenge negative thought patterns. Recommended continued IOP tx to maintain gains and prevent decompensation. Narrative Note: []
--- NOTE | 2019-10-09 11:00 | BH.SGPN.GN ---
Behaviors/Verbalizations/Mental Status: []Client alert and oriented, neatly dressed and groomed. Eye contact good. Motor activity appropriate. Speech within normal limits. Affect congruent, mood euthymic. Thoughts linear, logical, no signs of hallucinations or delusions. Client Response/Progress/Benefit: []Client responded well to session, attentive and contributing positively to discussion. Group discussed the mental health benefits of recognizing strengths which included; improved self-esteem, better coping skills, more willingness to change, and increased resilience. Group identified the barriers that have prevented them from acknowledging their strengths and successes. These barriers included; negative thoughts, minimization, invalidation, and a negative environment. Group identified strategies to overcome barriers that prevent them from seeing strengths. These strategies included; keeping track of progress, practicing self-reflection, practicing self-compassion, and challenging distortions. Client able to identify personal strengths she possesses which included; discipline, flexibility, forgiveness, persistence, and optimism. Client shared she did this group previously, and she can now identify more strengths. Appeared to benefit from recognizing personal strengths and identifying strategies to overcome barriers. Client will continue IOP tx to promote gains and further improve work-related functioning. Narrative Note: []
--- NOTE | 2019-10-11 09:05 | BH.SGPN.GN ---
Behaviors/Verbalizations/Mental Status: []Client alert and oriented, neatly dressed and groomed. Eye contact good. Motor activity appropriate. Speech within normal limits. Affect congruent, mood euthymic. Thoughts linear, logical, no signs of hallucinations or delusions. Reviewed client?s symptom tracker, no risk for suicidal ideation, plan, or intent as of 10/11/19. Client Response/Progress/Benefit: []Client responded well to session, providing supportive statements to peers. Client reports feeling ?comfortable? today. Client shared she had a good Thanksgiving yesterday with her family. Client reported she set boundaries with her sister which is something she would not have been able to do in the past. Client shared she finds herself actively using coping skills more habitually now and reported her gratitude for IOP tx. Client?s stressor today is that next week is her last week in the program and part of client feels anxious about leaving. Client able to challenge her anxious thoughts and remind herself that she does know the coping skills and she has the internal resources available to maintain progress. Client appeared to benefit from reflecting on her growth and reduction of mental health symptoms. Will continue IOP tx and discharge next week. Client can benefit from one more IOP session to reinforce healthy coping skills and establish aftercare. Narrative Note: []
--- NOTE | 2019-10-11 10:10 | BH.SGPN.GN ---
Behaviors/Verbalizations/Mental Status: []Client alert and oriented, neatly dressed and groomed. Eye contact good. Motor activity appropriate. Speech within normal limits. Affect congruent, affect euthymic, positive. Thoughts linear, logical, no signs of hallucinations or delusions. Client Response/Progress/Benefit: []Pt was an active participant in group activity and discussion. Shared insight on quote of the day. Group worked together to define goals and identify the benefits of developing goals which included: sense of purpose, can measure progress, learn from goals, keeps you moving forward, increases confidence, and increases motivation. Group also identified barriers to setting and accomplishing goals which include: no motivation, self-doubt, depression, feeling lost, and unrealistic expectations. Attentive during education on developing SMART goals. Pt stated she believes goals are important because without goals you have nothing to look forward to, which can result in decreased motivation. Benefited from increase awareness of goal-setting methods. Will continue in IOP to prevent decompensation, maintain gains, and continuing using healthy coping skills. Narrative Note: []
--- NOTE | 2019-10-11 11:11 | BH.SGPN.GN ---
Behaviors/Verbalizations/Mental Status: [Client alert and oriented, neat and casually dressed and groomed. Eye contact good. Motor activity appropriate. Speech within normal limits. Affect congruent, mood euthymic. Thoughts linear, logical, no signs of hallucinations or delusions. ] Client Response/Progress/Benefit: [Pt attentive throughout, contributed thoughts to discussion at times and willing to ask for clarification when needed. Engaged in creating own mental health SMART goal. Pt identified goal is to decrease negative thoughts by using opposite action and gratitude lists daily over the next week. Pt reported this goal will benefit her by increasing self-worth, positivity, and confidence. Pt identified potential barriers to accomplishing goal to include: intrusive thoughts, old maladaptive habits, and limited time. Pt reported she will overcome barriers by setting a reminder alarm, scheduling ahead, continued practice, and challenging perspective. Seemed to benefit from identifying a SMART goal and coming up with strategies to overcome potential barriers. Pt to continue IOP to increase consistent application of healthy coping skills, decrease anxiety, and prevent decompensation.] Narrative Note: []
== END 2019-10-12 23:59 ==
LOC: BHIOP 09:00
PROVIDERS: Family Provider Family Medicine; PCP Family Medicine; Referring Provider Psychiatry & Neurology Psychiatry; Visit Provider Psychiatry & Neurology Psychiatry
DX: F31.4 Bipolar disorder, current episode depressed, severe, without psychotic features (principal); Z72.89 Other problems related to lifestyle; Z79.899 Other long term (current) drug therapy
CPT/HCPCS: H0035; 90832; 90853

== ENCOUNTER 2019-10-14 09:00 | Outpatient (RCR) | payer BC, SELFPAY ==
--- NOTE | 2019-10-14 09:04 | BH.SGPN.GN ---
Behaviors/Verbalizations/Mental Status: [Eye contact is good. Motor activity is appropriate. Appearance is casual and neat. Speech is Appropriate rate and tone. Mood is euthymic. Affect is congruent, bright. Thoughts are linear and logical. No evidence of psychosis. Reviewed daily check in sheet and pt denies any active SI, plan, or intent. ] Client Response/Progress/Benefit: [Pt responded well to session, actively engaged throughout and open to processing with the group. Pt indicated current emotion as ?excited but nervous? and discussed that this is due to being excited about her last day in IOP program but nervous about ability to sustain progress. Pt did well to identify mental health wins which included using continuing to use healthy boundary setting skills to ensure she has time for self-care. Went on to express this will continue to be important for her to maintain gains following IOP discharge. Receptive of feedback provided by group and appearing to benefit from support and structure of group environment. Additional win identified as practicing saying her two mental health wins and one stressor outside of tx environment as a means of focusing on a positive perspective. Receptive of feedback provided by group and appearing to benefit from support and structure of group environment. Pt has made significant progress in IOP AEB self-report of decreased anxiety, returning to work, and improved ability to challenge anxious thoughts. Given stability and progress, pt is to discharge from IOP tx on this date and recommended continued outpatient therapy to maintain gains and prevent decompensation.] Narrative Note: []
--- NOTE | 2019-10-14 10:15 | BH.SGPN.GN ---
Behaviors/Verbalizations/Mental Status: [] Eye contact is good. Motor activity is appropriate. Appearance is casual. Speech is Appropriate. Mood is euthymic. Affect is full. Thoughts are linear and logical. No evidence of psychosis. Client Response/Progress/Benefit: [] Pt was an active participant in group discussion and activity. Worked with peers to identify and define pitfalls in mental health. Group identified several definitions which included; something that you continuously fall into, engaging in choices that keep us stuck, unexpected dangers, and unforeseen difficulty. Attentive on psycho-education on the impact of how one duong with or manages pitfalls in regards to mental health. Group worked together to identify what keeps us stuck or vulnerable to pitfalls which included; decreased self-awareness, poor self-esteem, unhealthy coping, negative thoughts, being comfortable in the pitfall, fear of change, and self-sabotage. Benefited from increased awareness on the impact that pitfalls can have on mental health. Narrative Note: []
--- NOTE | 2019-10-14 11:18 | BH.SGPN.GN ---
Behaviors/Verbalizations/Mental Status: []Client alert and oriented, neatly dressed and groomed. Eye contact good. Motor activity appropriate. Speech within normal limits. Affect congruent, mood euthymic, anxious. Thoughts linear, logical, no signs of hallucinations or delusions. Client Response/Progress/Benefit: []Client receptive of session, engaged throughout AEB client contributing to discussion and providing coping strategies. Processed activity with group and connected it to overcoming personal pitfalls in life. Client completed a worksheet where she identified personal pitfalls impacting mental health progress. Identified pitfalls as: isolation, avoidance, negative self-talk, and sleeping. Client reflected on her growth and reported she has been able to overcome ?so many? pitfalls that now she no longer struggles with isolation or avoidance. Client shared it takes awareness and self-reflection in order to overcome pitfalls. Attentive during psychoeducation on strategies to overcome pitfalls. Client stated she will work on preventing pitfalls by continuing to practice opposite action. Benefited from identifying personal pitfalls and strategies to overcome these pitfalls. Progress noted as client reports a significant reduction in mental health symptoms and increased self-confidence. Will discharge from [facility] as she has made significant progress and no longer meets criteria for IOP level of care. Narrative Note: []
--- NOTE | 2019-10-14 14:02 | BH.DS ---
Discharge Summary - Demographics Date of Admission:: 09/04/19 Discharge Date: 10/14/19 Presenting Problems at Admission:: Patient just completed [facility] program and is stepping down to [facility] level of care. Pt was orginially referred for treatment by her primary care doctor due to worsening depression anxiety and passive thoughts of . The patient has a history of bipolar disorder and anxiety. At admission pt?s depression was impacting her ability to go to work for 2 weeks. Patient?s symptoms were worsening for about 6 months and got tremendously worse one month prior to admission. She described her mood as very anxious and down. Metal health symptoms impacted ability to function at home and work. At admission struggled with anhedonia and has not enjoyed anything. Also reported isolation, panic attacks, rumination, decreased appetite, low energy, difficulty concentrating, and passive thoughts of . Discharge Diagnoses:: Bipolar 1 disorder most recent episode depressed, severe, without psychosis (F 31.4), resolving. Alcohol use disorder in full remission for 11 years Reason for Discharge:: Pt has made significant treatment progress since starting [facility] and no longer meets criteria for this level of care. - Treatment Progress During Treatment & Response: Pt has made significant tratment progress since starting IOP. According to pt's self-report scores on DSM 5 cross-cutting measure pt has made an overall 82% symptom reduction compared to intake scores. Pt also make a 75% decrease in depressive symptoms and 91% reduction in anxious symptoms. Pt also has shown a decrease in negative thoughts, increased awareness of triggers and warning signs and improved mood. Pt responded well to treatment AEB pt providing input during group sessions, being open to discussion during sessions and consistently completing assigned homework. Issues Still to be Addressed:: Pt could benefit from continued reinforcement of healthy coping skills, challenging negative thoughts and engaging in self-care activities. Pt also would benefit from focusing on setting firm boundaries with others. Discharge Recommendations/Instructions:: 1. October 23 with Chloe Larose. 2. December 05 with PCP for medication management Discharge Handout: Complete Discharge Handout with client on aftercare options and continuity of care.
--- NOTE | 2019-10-14 15:02 | BH.IGGP_ITS ---
Aftercare Plan - Demographics Treatment End Date:: 10/14/19 Psychiatrist:: Chloe Marquis Psychiatrist Office #:: [phone] [facility]/IOP Therapist:: Julia Carney Therapist Phone #:: [phone] - Medications Home Medications: Home Medications Aripiprazole [Abilify] 10 mg PO DAILY 08/28/19 Estradiol/Levonorgestrel [Climara Pro Patch] 1 patch.wk TD QWEEK 08/28/19 Furosemide [Lasix] 40 mg PO DAILY 08/28/19 Pantoprazole Sodium [Protonix] 40 mg PO DAILY 08/28/19 busPIRone [Buspar] 15 mg PO DAILY 08/28/19 hydrOXYzine pamoate capsule [Vistaril pamoate capsule] 25 mg PO TID PRN PRN 08/28/19 traZODone [Desyrel] 50 mg PO QHS 08/28/19 Fluoxetine [Prozac] 40 mg PO DAILY 30 Days #60 cap 09/25/19 - Plan Details Progress/Aftercare Plan Details:: Pt has made significant tratment progress since starting IOP. According to pt's self-report scores on DSM 5 cross-cutting measure pt has made an overall 82% symptom reduction compared to intake scores. Pt also make a 75% decrease in depressive symptoms and 91% reduction in anxious symptoms. Pt also has shown a decrease in negative thoughts, increased awareness of triggers and warning signs and improved mood. Pt's plan is to follow up with outpatient therapist Chloe Larose and her PCP for medication management. Strategies for Success:: 1. Opposite Action!!! ? do what will help you, even when your brain is saying don?t do it. 2. Setting and following through with boundaries ? no more ?door mat [place]?. 3. Challenge negative and distorted thought patterns. 4. Daily and weekly SMART goal setting. 5. Continue to craft. 6. Reading. 7. Self-care is mcmillan! 8. Get out of the house and be a social. 9. Identify 2 mental health positives every night. 10. Follow through with aftercare, even when feeling ?good? - Appointments Appointments/Referrals to Other Services:: 1. October 23 with Chloe Larose. 2. December 05 with PCP for medication management
== END 2019-10-14 13:00 | disposition home or self-care (01) ==
LOC: BHIOP 09:00
PROVIDERS: Family Provider Family Medicine; PCP Family Medicine; Referring Provider Psychiatry & Neurology Psychiatry; Visit Provider Psychiatry & Neurology Psychiatry
DX: F31.4 Bipolar disorder, current episode depressed, severe, without psychotic features (principal); Z72.89 Other problems related to lifestyle
CPT/HCPCS: H0035; 90853

== ENCOUNTER → 2020-05-22 08:07 | Outpatient (CLI) | payer OTHER, SELFPAY ==
[2020-05-22 09:57] LABS: Absolute Lymphocyte Count 1.39 X10^3/uL (0.83-4.51); Absolute Neutrophil Count 4.3 X10^3/uL (2.0-7.7); Basophil# 0.03 X10^3/uL; Basophil% 0.5 % (0-1); Eosinophil# 0.08 X10^3/uL; Eosinophils% 1.3 % (0-5); Hematocrit 43.2 % (37-47); Hemoglobin 13.5 g/dL (12.0-15.0); Lymphocyte # 1.39 X10^3/ul (4.0); Lymphocyte % 21.8 % (19-41); Mean Corp Hgb Conc 31.3 g/dL (32-36); Mean Corpuscular Hgb 27.5 pg (27.0-32.0); Mean Platelet Vol. 10.2 fl (6.2-12.0); Monocyte% 9.4 % (0-10); NRBC Flagged by Analyzer 0 % (0-5); Neutrophil # 4.25 X10^3/uL (2.7-7.7); Neutrophil % 66.7 % (47-70); Platelet Count 430 K/mm3 (150-450); RBC Distribution Width CV 14.4 % (11.6-14.6); Red Blood Count 4.91 M/mm3 (4.2-5.4); White Blood Count 6.4 K/mm3 (4.4-11.0)
[2020-05-22 10:25] LABS: ALB/GLOB Ratio 0.9 RATIO (0.9-2.4); AST(SGOT) 15 U/L (15-37); Alanine Aminotransfer ALT/SGPT 25 U/L (13-56); Albumin, Serum 3.7 g/dL (3.2-5.0); Alkaline Phosphatase 89 U/L (45-117); Anion Gap 7 (5-15); BUN 10 mg/dL (7-18); BUN/Creat Ratio 10.2 RATIO (10-20); Calcium,Total 8.7 mg/dL (8.5-10.1); Chloride 106 mmol/L (98-107); Cholesterol 240 mg/dL (200); Creatinine, Serum 0.98 mg/dL (0.55-1.02); EST Glomerular Filtration Rate 63 mL/min (>60); Est Glom Filt Rate - Afr Amer 76 mL/min (>60); Globulin 3.9 g/dL (2.2-4.2); Glucose 106 mg/dL (74-106); High Density Lipoprotein 53 mg/dL; Potassium 3.8 mmol/L (3.5-5.1); Protein, Total 7.6 g/dL (6.4-8.2); Sodium Level 138 mmol/L (136-145); Thyroid Stim Hormone (TSH) 1.79 uIU/mL (0.358-3.74); Triglycerides 132 mg/dL; Very Low Density Lipoprotein 26 mg/dL (5-40)
== END ==
PROVIDERS: PCP Family Medicine; Referring Provider Family Medicine; Visit Provider Family Medicine
DX: E78.00 Pure hypercholesterolemia, unspecified (principal); E03.9 Hypothyroidism, unspecified; Z79.899 Other long term (current) drug therapy
CPT/HCPCS: 36415; 80053; 80061; 84443; 85025

== ENCOUNTER → 2020-10-01 15:49 | Outpatient (CLI) | payer OTHER, SELFPAY | PROVIDERS: PCP Family Medicine; Visit Provider Family Medicine | DX: Z20.828 Contact with and (suspected) exposure to other viral communicable diseases (principal) | CPT/HCPCS: 87635; U0003 ==

== ENCOUNTER 2021-01-29 08:43 | Outpatient (RCR) | payer OTHER, SELFPAY ==
[2021-01-29] MEDS: COVID-19 VACC, MRNA(PFIZER)/PF 30 MCG/0.3 ML SYRINGE IM (12:00)
[2021-02-19] MEDS: COVID-19 VACC, MRNA(PFIZER)/PF 30 MCG/0.3 ML SYRINGE IM (13:16)
== END 2021-04-20 23:59 ==
LOC: IMMUN 08:43
PROVIDERS: PCP Family Medicine; Referring Provider Family Medicine; Visit Provider Family Medicine
DX: Z23 Encounter for immunization (principal)
CPT/HCPCS: 0001A; 0002A; 91300

== ENCOUNTER → 2021-06-18 08:10 | Outpatient (CLI) | payer OTHER, SELFPAY ==
[2021-06-18 10:18] LABS: Absolute Lymphocyte Count 1.72 X10^3/uL (0.83-4.51); Absolute Neutrophil Count 4.2 X10^3/uL (2.0-7.7); Basophil# 0.03 X10^3/uL; Basophil% 0.5 % (0-1); Eosinophil# 0.11 X10^3/uL; Eosinophils% 1.7 % (0-5); Hematocrit 44.2 % (37-47); Hemoglobin 14.2 g/dL (12.0-15.0); Lymphocyte # 1.72 X10^3/ul (0.83-4.51); Lymphocyte % 26.2 % (19-41); Mean Corp Hgb Conc 32.1 g/dL (32-36); Mean Corpuscular Hgb 27.4 pg (27.0-32.0); Mean Corpuscular Volume 85.3 fL (81-99); Monocyte# 0.51 X10^3/uL; Monocyte% 7.8 % (0-10); NRBC Flagged by Analyzer 0 % (0-5); Neutrophil # 4.18 X10^3/uL (2.7-7.7); Neutrophil % 63.6 % (47-70); Platelet Count 462 K/mm3 (150-450); RBC Distribution Width CV 14.4 % (11.6-14.6); RBC Distribution Width SD 45.1 fl (35.1-43.9); Red Blood Count 5.18 M/mm3 (4.2-5.4); White Blood Count 6.6 K/mm3 (4.4-11.0)
[2021-06-18 10:45] LABS: ALB/GLOB Ratio 0.9 RATIO (0.9-2.4); AST(SGOT) 21 U/L (15-37); Alanine Aminotransfer ALT/SGPT 34 U/L (13-56); Albumin, Serum 3.6 g/dL (3.2-5.0); Alkaline Phosphatase 91 U/L (45-117); Anion Gap 4 (5-15); BUN 15 mg/dL (7-18); BUN/Creat Ratio 15.1 RATIO (10-20); Chloride 107 mmol/L (98-107); Cholesterol 245 mg/dL (200); Creatinine, Serum 0.99 mg/dL (0.55-1.02); EST Glomerular Filtration Rate 62 mL/min (>60); Est Glom Filt Rate - Afr Amer 74 mL/min (>60); Globulin 4.1 g/dL (2.2-4.2); Glucose 101 mg/dL (74-106); High Density Lipoprotein 62 mg/dL; Potassium 4.2 mmol/L (3.5-5.1); Protein, Total 7.7 g/dL (6.4-8.2); Sodium Level 138 mmol/L (136-145); Triglycerides 127 mg/dL; Very Low Density Lipoprotein 25 mg/dL (5-40)
== END ==
PROVIDERS: PCP Family Medicine; Visit Provider Family Medicine
DX: E78.00 Pure hypercholesterolemia, unspecified (principal); E03.9 Hypothyroidism, unspecified; I10 Essential (primary) hypertension
CPT/HCPCS: 36415; 80053; 80061; 84443; 85025

== ENCOUNTER 2021-12-31 09:21 | Outpatient (CLI) | payer OTHER, SELFPAY ==
[2021-12-31 10:01] LABS: Absolute Lymphocyte Count 1.95 X10^3/uL (0.83-4.51); Absolute Neutrophil Count 4.8 X10^3/uL (2.0-7.7); Basophil# 0.04 X10^3/uL; Basophil% 0.5 % (0-1); Eosinophils% 1.3 % (0-5); Hematocrit 45.3 % (37-47); Hemoglobin 14.6 g/dL (12.0-15.0); Lymphocyte # 1.95 X10^3/ul (0.83-4.51); Mean Corp Hgb Conc 32.2 g/dL (32-36); Mean Corpuscular Hgb 27.2 pg (27.0-32.0); Mean Corpuscular Volume 84.5 fL (81-99); Mean Platelet Vol. 9.5 fl (6.2-12.0); Monocyte# 0.57 X10^3/uL; Monocyte% 7.6 % (0-10); NRBC Flagged by Analyzer 0 % (0-5); Neutrophil # 4.83 X10^3/uL (2.7-7.7); Neutrophil % 64.3 % (47-70); Platelet Count 440 K/mm3 (150-450); RBC Distribution Width CV 14.4 % (11.6-14.6); RBC Distribution Width SD 43.9 fl (35.1-43.9); Red Blood Count 5.36 M/mm3 (4.2-5.4); White Blood Count 7.5 K/mm3 (4.4-11.0)
[2021-12-31 10:48] LABS: ALB/GLOB Ratio 0.9 RATIO (0.9-2.4); AST(SGOT) 24 U/L (15-37); Alanine Aminotransfer ALT/SGPT 37 U/L (13-56); Albumin, Serum 3.8 g/dL (3.2-5.0); Alkaline Phosphatase 102 U/L (45-117); Anion Gap 6 (5-15); BUN 12 mg/dL (7-18); BUN/Creat Ratio 10.4 RATIO (10-20); Calcium,Total 9.3 mg/dL (8.5-10.1); Chloride 105 mmol/L (98-107); Cholesterol 278 mg/dL (200); Creatinine, Serum 1.15 mg/dL (0.55-1.02); EST Glomerular Filtration Rate 52 mL/min (>60); Est Glom Filt Rate - Afr Amer 63 mL/min (>60); Globulin 4.3 g/dL (2.2-4.2); Glucose 103 mg/dL (74-106); High Density Lipoprotein 70 mg/dL; Potassium 3.7 mmol/L (3.5-5.1); Protein, Total 8.1 g/dL (6.4-8.2); Sodium Level 138 mmol/L (136-145); T4 Free Direct 1.33 ng/dL (0.76-1.46); Thyroid Stim Hormone (TSH) 1.52 uIU/mL (0.358-3.74); Triglycerides 132 mg/dL; Very Low Density Lipoprotein 26 mg/dL (5-40); Vitamin B12 406 pg/mL (211-911); Vitamin D,25 Hydroxy 57.7 ng/mL
[2021-12-31 15:33] LABS: Hemoglobin A1c 5.6 % (3.8-5.6)
[2022-01-03 16:09] LABS: Thyroid Stim Immunoglob <0.10 IU/L (0.00-0.55)
[2022-01-03 18:02] LABS: Anti-Thyroglobulin AB < 1.0 IU/mL (0.0-0.9); Thyroglobulin, Serum Qt. 10.1 ng/mL (1.5-38.5); Thyroid Peroxidase AB < 8 IU/mL (0-34)
== END 2021-12-31 23:59 | disposition home or self-care (01) ==
LOC: MFPLAB 09:22
PROVIDERS: PCP Family Medicine; Referring Provider Family Medicine; Visit Provider Family Medicine
DX: R53.83 Other fatigue (principal); E78.00 Pure hypercholesterolemia, unspecified; E55.9 Vitamin D deficiency, unspecified; E01.0 Iodine-deficiency related diffuse (endemic) goiter; R73.09 Other abnormal glucose
CPT/HCPCS: 36415; 80053; 80061; 82306; 82607; 83036; 84432; 84439; 84443; 84445; 85025; 86376; 86800

== ENCOUNTER 2022-01-07 10:06 | Outpatient (CLI) | payer OTHER, SELFPAY ==
[2022-01-07 12:42] LABS: Anion Gap 6 (5-15); BUN 11 mg/dL (7-18); BUN/Creat Ratio 10.7 RATIO (10-20); Calcium,Total 9.4 mg/dL (8.5-10.1); Chloride 107 mmol/L (98-107); Creatinine, Serum 1.03 mg/dL (0.55-1.02); EST Glomerular Filtration Rate 59 mL/min (>60); Est Glom Filt Rate - Afr Amer 71 mL/min (>60); Glucose 99 mg/dL (74-106); Potassium 4.1 mmol/L (3.5-5.1); Sodium Level 138 mmol/L (136-145)
== END 2022-01-07 23:59 | disposition home or self-care (01) ==
LOC: MFPLAB 10:08
PROVIDERS: PCP Family Medicine; Referring Provider Family Medicine; Visit Provider Family Medicine
DX: R94.4 Abnormal results of kidney function studies (principal)
CPT/HCPCS: 36415; 80048

== ENCOUNTER 2022-01-07 11:05 | Outpatient (CLI) | payer OTHER, SELFPAY ==
--- NOTE | 2022-01-07 11:10 | US_ITS ---
INDICATION: THYROMEGALY EXAMINATION: Ultrasound US Thyroid (eg thyroid, parathyroid, parotid) TECHNIQUE: Escalante scale and color doppler imaging was performed of the thyroid gland. COMPARISON: None. FINDINGS: RIGHT THYROID LOBE: 4.6 x 1.2 x 1.4 cm. Homogeneous echotexture with normal vascularity. [4 x 3 x 3 mm nodule with dense peripheral calcifications resulting in shadowing and limited assessment of the nodule. LEFT THYROID LOBE: 4.5 x 1.2 x 1.2 cm. Homogeneous echotexture with normal vascularity. [No thyroid nodules are present. ISTHMUS: 0.2 cm in thickness. No thyroid nodules are present. US/Thyroid IMPRESSION: Normal size thyroid gland. Dense peripheral calcification, 4 mm nodule right thyroid lobe, benign finding. Electronically Signed: Mynor Lopez DO at 0:20 EST ,
== END 2022-01-07 23:59 | disposition home or self-care (01) ==
LOC: US 11:10
PROVIDERS: PCP Family Medicine; Referring Provider Family Medicine; Visit Provider Family Medicine
DX: E01.0 Iodine-deficiency related diffuse (endemic) goiter (principal)
CPT/HCPCS: 76536

== ENCOUNTER 2022-02-10 10:32 | Outpatient (CLI) | payer OTHER, SELFPAY ==
[2022-02-10 12:43] LABS: Anion Gap 6 (5-15); BUN 11 mg/dL (7-18); BUN/Creat Ratio 9.9 RATIO (10-20); Calcium,Total 9.5 mg/dL (8.5-10.1); Chloride 107 mmol/L (98-107); Creatinine, Serum 1.11 mg/dL (0.55-1.02); EST Glomerular Filtration Rate 54 mL/min (>60); Est Glom Filt Rate - Afr Amer 65 mL/min (>60); Glucose 90 mg/dL (74-106); Potassium 4.4 mmol/L (3.5-5.1); Sodium Level 140 mmol/L (136-145)
== END 2022-02-10 23:59 | disposition home or self-care (01) ==
LOC: MFPLAB 10:34
PROVIDERS: PCP Family Medicine; Referring Provider Family Medicine; Visit Provider Family Medicine
DX: R94.4 Abnormal results of kidney function studies (principal)
CPT/HCPCS: 36415; 80048

== ENCOUNTER 2022-03-03 10:13 | Outpatient (CLI) | payer OTHER, SELFPAY ==
[2022-03-03 12:46] LABS: Anion Gap 5 (5-15); BUN 13 mg/dL (7-18); BUN/Creat Ratio 12.4 RATIO (10-20); Calcium,Total 8.9 mg/dL (8.5-10.1); Chloride 105 mmol/L (98-107); Creatinine, Serum 1.05 mg/dL (0.55-1.02); EST Glomerular Filtration Rate 58 mL/min (>60); Est Glom Filt Rate - Afr Amer 70 mL/min (>60); Glucose 91 mg/dL (74-106); Potassium 4.5 mmol/L (3.5-5.1); Sodium Level 137 mmol/L (136-145)
== END 2022-03-03 23:59 | disposition home or self-care (01) ==
LOC: MFPLAB 10:16
PROVIDERS: PCP Family Medicine; Referring Provider Family Medicine; Visit Provider Family Medicine
DX: R94.4 Abnormal results of kidney function studies (principal)
CPT/HCPCS: 36415; 80048

== ENCOUNTER → 2022-05-06 | Outpatient (CLI) | payer OTHER, SELFPAY ==
[2022-05-06 09:58] LABS: Absolute Lymphocyte Count 1.63 X10^3/uL (0.83-4.51); Absolute Neutrophil Count 4.4 X10^3/uL (2.0-7.7); Basophil# 0.04 X10^3/uL; Basophil% 0.6 % (0-1); Eosinophil# 0.11 X10^3/uL; Eosinophils% 1.6 % (0-5); Hematocrit 40.7 % (37-47); Hemoglobin 13.3 g/dL (12.0-15.0); Lymphocyte # 1.63 X10^3/ul (0.83-4.51); Lymphocyte % 23.7 % (19-41); Mean Corp Hgb Conc 32.7 g/dL (32-36); Mean Corpuscular Hgb 27.8 pg (27.0-32.0); Monocyte# 0.65 X10^3/uL; Monocyte% 9.5 % (0-10); NRBC Flagged by Analyzer 0 % (0-5); Neutrophil # 4.41 X10^3/uL (2.7-7.7); Neutrophil % 64.2 % (47-70); Platelet Count 409 K/mm3 (150-450); RBC Distribution Width CV 14.8 % (11.6-14.6); RBC Distribution Width SD 45.9 fl (35.1-43.9); Red Blood Count 4.79 M/mm3 (4.2-5.4); White Blood Count 6.9 K/mm3 (4.4-11.0)
[2022-05-06 10:16] LABS: ALB/GLOB Ratio 0.8 RATIO (0.9-2.4); AST(SGOT) 15 U/L (15-37); Alanine Aminotransfer ALT/SGPT 22 U/L (13-56); Albumin, Serum 3.3 g/dL (3.2-5.0); Alkaline Phosphatase 95 U/L (45-117); Anion Gap 7 (5-15); BUN 16 mg/dL (7-18); BUN/Creat Ratio 15.2 RATIO (10-20); Chloride 107 mmol/L (98-107); Cholesterol 232 mg/dL (200); Creatinine, Serum 1.05 mg/dL (0.55-1.02); EST Glomerular Filtration Rate 58 mL/min (>60); Est Glom Filt Rate - Afr Amer 70 mL/min (>60); Globulin 3.9 g/dL (2.2-4.2); Glucose 99 mg/dL (74-106); High Density Lipoprotein 67 mg/dL; Potassium 4.2 mmol/L (3.5-5.1); Protein, Total 7.2 g/dL (6.4-8.2); Sodium Level 137 mmol/L (136-145); T4 Free Direct 1.21 ng/dL (0.76-1.46); Thyroid Stim Hormone (TSH) 1.36 uIU/mL (0.358-3.74); Triglycerides 85 mg/dL; Very Low Density Lipoprotein 17 mg/dL (5-40)
== END | disposition home or self-care (01) ==
LOC: MFPLAB 08:06
PROVIDERS: PCP Family Medicine; Referring Provider Family Medicine; Visit Provider Family Medicine
DX: K21.9 Gastro-esophageal reflux disease without esophagitis (principal); E03.9 Hypothyroidism, unspecified; E78.5 Hyperlipidemia, unspecified
CPT/HCPCS: 36415; 80053; 80061; 84439; 84443; 85025

== ENCOUNTER 2022-07-07 07:20 | Outpatient (RCR) | payer SELFPAY | END 2022-07-13 23:59 | LOC: NS 07:20 | PROVIDERS: PCP Family Medicine; Referring Provider Family Medicine; Visit Provider Family Medicine | DX: Z71.3 Dietary counseling and surveillance (principal); N18.30 Chronic kidney disease, stage 3 unspecified; E03.9 Hypothyroidism, unspecified; E78.5 Hyperlipidemia, unspecified; Z68.42 Body mass index [BMI] 45.0-49.9, adult | CPT/HCPCS: 97802 ==

== ENCOUNTER 2022-08-11 10:30 | Outpatient (RCR) | payer SELFPAY | END 2022-08-12 23:59 | LOC: NS 10:30 | PROVIDERS: PCP Family Medicine; Referring Provider Family Medicine; Visit Provider Family Medicine | DX: Z71.3 Dietary counseling and surveillance (principal); N18.30 Chronic kidney disease, stage 3 unspecified; E03.9 Hypothyroidism, unspecified; E78.5 Hyperlipidemia, unspecified | CPT/HCPCS: 97803 ==

== ENCOUNTER 2022-09-01 07:49 | Outpatient (RCR) | payer SELFPAY | END 2022-09-12 23:59 | LOC: NS 07:49 | PROVIDERS: PCP Family Medicine; Referring Provider Family Medicine; Visit Provider Family Medicine | DX: Z71.3 Dietary counseling and surveillance (principal); N18.30 Chronic kidney disease, stage 3 unspecified; E03.9 Hypothyroidism, unspecified; E78.5 Hyperlipidemia, unspecified | CPT/HCPCS: 97803 ==

== ENCOUNTER → 2022-09-02 | Outpatient (CLI) | payer OTHER, SELFPAY ==
[2022-09-02 09:58] LABS: Absolute Lymphocyte Count 1.71 X10^3/uL (0.83-4.51); Absolute Neutrophil Count 3.4 X10^3/uL (2.0-7.7); Basophil# 0.05 X10^3/uL; Basophil% 0.9 % (0-1); Eosinophils% 1.7 % (0-5); Hematocrit 44.7 % (37-47); Hemoglobin 13.8 g/dL (12.0-15.0); Lymphocyte # 1.71 X10^3/ul (0.83-4.51); Lymphocyte % 29.5 % (19-41); Mean Corp Hgb Conc 30.9 g/dL (32-36); Mean Corpuscular Hgb 26.6 pg (27.0-32.0); Mean Corpuscular Volume 86.1 fL (81-99); Mean Platelet Vol. 10.3 fl (6.2-12.0); Monocyte# 0.55 X10^3/uL; Monocyte% 9.5 % (0-10); NRBC Flagged by Analyzer 0 % (0-5); Neutrophil # 3.37 X10^3/uL (2.7-7.7); Neutrophil % 58.1 % (47-70); Platelet Count 438 K/mm3 (150-450); RBC Distribution Width CV 14.3 % (11.6-14.6); RBC Distribution Width SD 45.1 fl (35.1-43.9); Red Blood Count 5.19 M/mm3 (4.2-5.4); White Blood Count 5.8 K/mm3 (4.4-11.0)
[2022-09-02 10:21] LABS: PTHIN 92.8 pg/mL (18.4-80.1)
[2022-09-02 10:47] LABS: ALB/GLOB Ratio 0.9 RATIO (0.9-2.4); AST(SGOT) 23 U/L (15-37); Alanine Aminotransfer ALT/SGPT 32 U/L (13-56); Albumin, Serum 3.8 g/dL (3.2-5.0); Alkaline Phosphatase 84 U/L (45-117); Anion Gap 8 (5-15); BUN 11 mg/dL (7-18); BUN/Creat Ratio 11.2 RATIO (10-20); Calcium,Total 9.3 mg/dL (8.5-10.1); Chloride 104 mmol/L (98-107); Creatinine, Serum 0.98 mg/dL (0.55-1.02); EST Glomerular Filtration Rate 62 mL/min (>60); Est Glom Filt Rate - Afr Amer 75 mL/min (>60); Globulin 4.2 g/dL (2.2-4.2); Glucose 99 mg/dL (74-106); Phosphorus 3.1 mg/dL (2.5-4.9); Potassium 4.5 mmol/L (3.5-5.1); Sodium Level 136 mmol/L (136-145); T4 Free Direct 1.31 ng/dL (0.76-1.46); Thyroid Stim Hormone (TSH) 1.84 uIU/mL (0.358-3.74)
== END | disposition home or self-care (01) ==
LOC: MFPLAB 08:25
PROVIDERS: PCP Family Medicine; Referring Provider Family Medicine; Visit Provider Family Medicine
DX: N18.30 Chronic kidney disease, stage 3 unspecified (principal); E03.9 Hypothyroidism, unspecified
CPT/HCPCS: 36415; 80053; 83970; 84100; 84439; 84443; 85025

== ENCOUNTER 2022-09-29 12:09 | Outpatient (RCR) | payer SELFPAY | END 2022-10-12 23:59 | LOC: NS 12:09 | PROVIDERS: PCP Family Medicine; Visit Provider Family Medicine | DX: Z71.3 Dietary counseling and surveillance (principal); E66.01 Morbid (severe) obesity due to excess calories | CPT/HCPCS: 97803 ==

== ENCOUNTER 2022-10-25 13:45 | Outpatient (RCR) | payer SELFPAY | END 2022-11-12 23:59 | LOC: NS 13:45 | PROVIDERS: PCP Family Medicine; Visit Provider Family Medicine | DX: Z71.3 Dietary counseling and surveillance (principal); E66.01 Morbid (severe) obesity due to excess calories | CPT/HCPCS: 97803 ==

== ENCOUNTER 2022-11-18 06:28 | Day surgery (SDC) | payer OTHER, SELFPAY ==
[2022-11-18 06:56] VITALS: BP 150/87; PULSE 81; RESP 16; TEMP 36.6; O2SAT 98; BMI 42.0
--- NOTE | 2022-11-18 06:58 | PCM.HP.BLA ---
History and Physical Date of Admission: 11/18/22 Visit Reasons:?ENDOSCOPY Chief Complaint: GERD/EGD [employer] Required: No Is patient in pain?: No Allergies codeine Allergy (Verified 09/29/22 13:44) HivesSulfa (Sulfonamide Antibiotics) Allergy (Verified 09/29/22 13:44) Nausea/Vom/Diarrhea Medications hydroxyzine pamoate 25 mg capsule 25 mg PO TID PRN PRN Anxiety/Agitation 08/28/19 [History Confirmed 09/29/22] trazodone 50 mg tablet 50 mg PO QHS 08/28/19 [History Confirmed 09/29/22] fluoxetine 20 mg capsule 40 mg PO DAILY 30 days #60 caps 09/25/19 [Rx Confirmed 09/29/22] levothyroxine 75 mcg tablet (Synthroid) 75 mcg PO DAILY 09/29/22 [History Confirmed 09/29/22] multivitamin 1 tab PO DAILY 09/29/22 [History Confirmed 09/29/22] oxybutynin chloride 5 mg tablet 15 mg PO DAILY 09/29/22 [History Confirmed 09/29/22] pantoprazole 40 mg tablet,delayed release 20 mg PO DAILY 09/29/22 [History Confirmed 09/29/22] PFSH Medical History? Alcohol dependence in sustained full remission Bipolar 1 disorder, depressed, moderate GERD (gastroesophageal reflux disease) HTN (hypertension) Hypothyroid Surgical History?(Updated 09/29/22 @ 13:39 by Luna Millard) History of bilateral breast reduction surgery History of bladder suspension procedure History of hysterectomy Family History?(Updated 09/29/22 @ 13:42 by Luna Millard) Grandfather Heart disease Hypertension High blood cholesterol Cancer ?? ? skin cancerBrother DiabetesSon SeizuresMother CVA (cerebral vascular accident) Stomach ulcerGrandmother Thyroid disorder Social History Smoking Status:? Never smoker HPI HPI HPI: 57-year-old female who is referred by Dr Tee Bernstein for surgical consultation regarding gastroesophageal reflux disease.? A written copy of my surgical consult recommendations will return to Dr. Bernstein.? By report her GERD symptoms started approximately the year 1999.? Complains of epigastric and retrosternal burning feeling of regurgitation and sour brash.? An attempt was made to taper her omeprazole from 20 mg daily to every other day but her symptoms recurred.? She has had a remote upper endoscopy.? By report the patient struggles with obesity.? Current recorded weight is 240 pounds with a BMI of 43.2.? This is a complicating factor for her reflux symptoms.? The patient CBC and complete metabolic profile of September 02, 2022 was generally within normal limits except for PTH intact at 92.8 with high normal being 80 The patient apparently has had reflux for no less than 17 years.? She thinks that is when she had a previous upper endoscopy.? She is medication dependent.? She has had no previous abdominal operations.? She has what sounds like a superficial thrombophlebitis of a leg remotely but never had to be on anticoagulation. Under the direction of Dr Tee Bernstein the patient has recently been dieting and taking advantage of [facility] dietitian.? She has been able to lose approximately 18 pounds in weight over 3 months.? She is feeling very good about herself.? She states she has been able to have several of her medications ceased. ROS General General: Yes weight change; No appetite, fatigue, colon cancer, breast cancer or weakness HEENT HEENT: No difficulty swallowing, eye injury, eye surgery, swollen glands or hoarseness Endo Endocrine: Yes thyroid disease; No diabetes mellitus, thyroid cancer, Hair loss, heat intolerance or cold intolerance Skin Skin: No rash or changing moles Breast Breast: No left breast lump, right breast lump, nipple discharge, breast pain, abnormal mammogram, abnormal US or breast enlargement Musc Musculoskeletal: Yes back problems and gout; No arthritis, rheumatoid arthritis or joint pain Cardio Cardiovascular: No murmur, pacemaker, heart disease, atrial fibrillation, high blood pressure, heart attack, heart stent, palpitations, shortness of breat with exertion or chest pain Psych Psychiatric: Yes depression and anxiety; No hearing voices Resp Respiratory: No shortness of breath, No sleep apnea, No cough, No COPD, No asthma, No emphysema and No wheezing Gastro Gastrointestinal: No abdominal pain, No nausea or vomiting, No diarrhea, No constipation, No blood in stool, Yes acid reflux, No hemorrhoids, Yes ulcers, No gallbladder problem and No black,tarry stools Te Hematologic: No blood thinners, No blood disorders, No bleeding, No anemia and No blood clots Neuro Neurologic: No system reviewed and no additional complaints, except as documented, No as per HPI, No abnormal gait, No abnormal hearing, No abnormal movements, No abnormal speech, No behavioral changes, No burning sensations, No confusion, No convulsions, No disequilibrium, No dizziness, No localized weakness, No frequent falls, No headache(s), No lack of coordination, No loss of vision, No memory loss, No numbness, No other visual disturbances, No radicular pain, No restless legs, No sensory deficit, No syncope, No tingling, No tremor(s), No weakness and No other Exam Const General: cooperative, healthy appearing, comfortable and no acute distress HENAL Head: normal to inspection Eyes General: appearance normal, both eyes and all related structures Neck Neck: normal visual inspection Chest Chest palpation & inspection: normal inspection of the chest Resp Effort & Inspection: normal respiratory effort Auscultation: clear to auscultation bilaterally Cardio Rate: regular rate Rhythm: regular rhythm GI Inspection: normal to inspection Palpation: no hepatosplenomegaly Auscultation: normal bowel sounds Musc Cervical Spine: normal cervical lordosis Skin Hair: normal Neuro General: patient alert, patient awake and patient oriented x3 Extrem General: no calf tenderness Psych Appearance: grossly normal Assessment and Plan Assessment and Plan (1) GERD (gastroesophageal reflux disease): ?Status:?Acute ?Plan: I recommended the patient a esophagogastroduodenoscopy with possible biopsy or polypectomy as indicated.? Very careful inspection for the potential for Orr's esophagus will be pursued.? She is aware of the technique, benefit, risk, alternatives. I congratulated her on her dieting and weight loss.? I did describe to her that her current body habitus would preclude simple traditional reflux surgery.? I suggested that if she continues to be proactive with her dieting weight loss she may actually get to the point where she could be converted from a proton pump inhibitor to an H2 candida.? If that is not feasible then she could benefit from future referral to bariatrics for gastric bypass procedure for control of weight and reflux simultaneously. She has had an opportunity to ask and have questions answered.? I very much appreciate the kind opportunity of assisting with the surgical care.? We will schedule and expedite her care. Copy: Dr Tee Mulligan M.D., F.A.C.S. I have examined the patient and the H&P has been reviewed. There are no clinical changes since date of exam. Benson Mulligan M.D., F.A.C.S.
[2022-11-18] MEDS: Lactated Ringers 1,000 ML 15 ML IV (07:03)
--- NOTE | 2022-11-18 07:30 | EGD_PTH ---
PATIENT: LISE DON LOC: EN U#:[id number] AGE/SX: 57/F ROOM: RE11/18/[address]: Dr. Benson Mulligan MD : 1965 BED: DIS: 11/18/2022 SPEC #: [id number] RECD: 11/18/22 11:20 STATUS: FELIZ RICH #: [id number] MARTI: 11/18/22 07:[address]: Benson Mulligan DEPT: SURGICAL PATHOLOGY RECD BY: Apryl Roger ENTERED: 11/18/22 13:42 SP TYPE: EGD BIOPSY OT DR: Dr. Tee Bernstein MD Tissues: A - Gastric mucous membrane B - Esophagus, NOS C - Esophagus, NOS D - Esophagus, NOS Procedures: Surgery Specimen Level IV HEADER OPERATION: EGD ([facility] [place]) and biopsy PRE-OP DIAGNOSIS: GERD TISSUE SUBMITTED: A ? Antral biopsy, H. pylori, B ? Greater curvature polyp, C ? Distal esophagus biopsy, D ? Mid esophagus biopsy MICROSCOPIC DIAGNOSIS A. Gastric antrum, biopsy: Chronic gastritis. See comment. B. Greater curvature of stomach polyp, biopsy: Consistent with fundic gland polyp. C. Distal esophagus, biopsy: Fragments of benign squamous mucosa with focal changes of reflux. D. Mid esophagus, biopsy: Fragments of benign squamous mucosa. AM:shubham 11/21/2022 COMMENT A. The results of immunohistochemistry for Helicobacter pylori will be reported separately ([id number]). MICROSCOPIC DESCRIPTION Slides are reviewed. GROSS DESCRIPTION A - Received in fixative is one container labeled with the patient's name and designated antrum biopsy. The specimen consists of one irregular fragment of light teran soft tissue that measures 0.5 x 0.3 x 0.1 cm. The specimen is totally submitted in one cassette. B - Received in fixative is one container labeled with the patient's name and designated greater curvature polyp. The specimen consists of one irregular fragment of light teran soft tissue that measures 0.6 x 0.5 x 0.1 cm. The specimen is totally submitted in one cassette. C - Received in fixative is one container labeled with the patient's name and designated distal esophagus biopsy. The specimen consists of two irregular fragments of light teran soft tissue that in aggregate measure 1 x 0.5 x 0.1 cm. The specimen is totally submitted in one cassette. D - Received in fixative is one container labeled with the patient's name and designated mid esophagus biopsy. The specimen consists of one irregular fragment of light teran soft tissue that measures 0.5 x 0.3 x 0.1 cm. The specimen is totally submitted in one cassette. / AM:shubham 11/18/2022 TC:3 CPT: 62953 x4
--- NOTE | 2022-11-18 07:30 | IMM_PTH ---
PATIENT: LISE DON LOC: EN U#:[id number] AGE/SX: 57/F ROOM: RE11/18/[address]: Dr. Benson Mulligan MD : 1965 BED: DIS: 11/18/2022 SPEC #: [id number] RECD: 11/18/22 14:18 STATUS: FELIZ REQ #: [id number] MARTI: 11/18/22 07:[address]: Benson Mulligan DEPT: IMMUNOHISTOCHEMISTRY RECD BY: Colleen Leary ENTERED: 11/18/22 14:18 SP TYPE: IMMUNO OTHR DR: Dr. Tee Bernstein MD Tissues: A - Stomach, NOS Procedures: H Pylori (initial) PHYSICIAN & INSTITUTION [place] [id number] SPECIMEN INFORMATION: Tissue Source: A ? Antral biopsy Clinical Info: GERD Specimen Number: [id number] CPT code: 93645 METHODOLOGY: Deparaffinized sections of prefer/formalin-fixed tissue or PAP/DQ stained slides are incubated with monoclonal/polyclonal antibodies/oligonucleotide probes. Localization is made via biotin free immunoperoxidase method. Appropriate controls are performed and reacted as expected. Results on target cell population are indicated in the following table: RESULTS: ANTIBODY / CLONE RESULT Block A H Pylori (polyclonal) negative These tests were developed and their performance characteristics determined by [facility]. They may not have been cleared or approved by the [place]. Food and Drug Administration. The FDA has determined that such clearance or approval is not necessary. The above immunohistochemical/dualISH markers are ordered and reviewed by the Pathologist. INTERPRETATION: A. Antral biopsy: Negative for Helicobacter pylori organisms. AM:shubham 11/21/2022
--- NOTE | 2022-11-18 08:03 | OP.EGD_ITS ---
Patient Name: Selma Pittman Procedure Date: 11/18/2022 7:44 AM Date of : 1965 Age: 57 Procedure: Upper GI endoscopy Indications: Indigestion Providers: Benson Mulligan MD Referring MD: Benson Mulligan MD Medicines: See the Anesthesia note for documentation of the administered medications Complications: No immediate complications. Procedure: Pre-Anesthesia Assessment: - Prior to the procedure, a History and Physical was performed, and patient medications and allergies were reviewed. The patient's tolerance of previous anesthesia was also reviewed. The risks and benefits of the procedure and the sedation options and risks were discussed with the patient. All questions were answered, and informed consent was obtained. Prior Anticoagulants: The patient has taken no previous anticoagulant or antiplatelet agents. ASA Grade Assessment: III - A patient with severe systemic disease. After reviewing the risks and benefits, the patient was deemed in satisfactory condition to undergo the procedure. After obtaining informed consent, the endoscope was passed under direct vision. Throughout the procedure, the patient's blood pressure, pulse, and oxygen saturations were monitored continuously. The Endoscope was introduced through the mouth, and advanced to the second part of duodenum. The upper GI endoscopy was accomplished without difficulty. The patient tolerated the procedure well. Scope In: 7:51:30 AM Scope Out: 7:57:03 AM Total Procedure Duration Time 0 hours 5 minutes 33 seconds Findings: A 1 cm hiatal hernia was present. The middle third of the esophagus was normal. Biopsies were taken with a cold forceps for histology. The distal esophagus was normal. Biopsies were taken with a cold forceps for histology. Multiple pedunculated and sessile polyps with no bleeding and no stigmata of recent bleeding were found on the greater curvature of the stomach. The polyp was removed with a cold biopsy forceps. Resection and retrieval were complete. Diffuse mildly erythematous mucosa without bleeding was found in the gastric antrum. Biopsies were taken with a cold forceps for histology. The examined duodenum was normal. Impression: - 1 cm hiatal hernia. - Normal middle third of esophagus. Biopsied. - Normal distal esophagus. Biopsied. - Multiple gastric polyps. Resected and retrieved. - Erythematous mucosa in the antrum. Biopsied. - Normal examined duodenum. Recommendation: - Discharge patient to home. - Resume previous diet. - Continue present medications. - Telephone my office for pathology results in 1 week. Procedure Code(s): --- Professional --- 50100, Esophagogastroduodenoscopy, flexible, transoral; with biopsy, single or multiple Diagnosis Code(s): --- Professional --- K44.9, Diaphragmatic hernia without obstruction or gangrene K31.7, Polyp of stomach and duodenum K31.89, Other diseases of stomach and duodenum K30, Functional dyspepsia CPT copyright 2017 [employer]. All rights reserved. The codes documented in this report are preliminary and upon wire mesh filter fabricator review may be revised to meet current compliance requirements. Benson Mulligan MD 11/18/2022 8:02:37 AM This report has been signed electronically. Number of Addenda: 0 Note Initiated On: 11/18/2022 7:44 AM
[2022-11-18 08:04] VITALS: BP 128/83; BP 150/87; PULSE 68; RESP 18; TEMP 36.2; O2SAT 98
--- NOTE | 2022-11-18 08:04 | OP.CCLET_ITS ---
11/18/2022 Tee Bernstein [address] [place] [address] Re : Upper GI endoscopy procedure for Selma Pittman Dear Dr. Bernstein This procedure was performed on Friday, November 18, 2022. My impressions and recommendations are as follows: Impressions : - 1 cm hiatal hernia. - Normal middle third of esophagus. Biopsied. - Normal distal esophagus. Biopsied. - Multiple gastric polyps. Resected and retrieved. - Erythematous mucosa in the antrum. Biopsied. - Normal examined duodenum. Recommendations : - Discharge patient to home. - Resume previous diet. - Continue present medications. - Telephone my office for pathology results in 1 week. My findings are described in the full procedure note, which is enclosed. If I can be of further assistance, please feel free to contact me at Doctor phone number(s): Work: . Sincerely, Benson Mulligan MD 11/18/2022 8:02:37 AM This report has been signed electronically.
[2022-11-18 08:05] VITALS: BP 125/92; BP 150/87; PULSE 69; RESP 18; O2SAT 100
[2022-11-18 08:10] VITALS: BP 131/78; BP 150/87; PULSE 57; RESP 18; O2SAT 99
[2022-11-18 08:16] VITALS: BP 141/84; BP 150/87; PULSE 66; RESP 18; TEMP 36.8; O2SAT 98
[2022-11-18 08:29] VITALS: BP 150/87
== END 2022-11-18 08:40 | disposition home or self-care (01) ==
LOC: EN 06:29 → AC 06:33
PROVIDERS: PCP Family Medicine; Referring Provider Surgery; Visit Provider Surgery
PROC: 0DJ08ZZ Inspection of Upper Intestinal Tract, Via Natural or Artificial Opening Endoscopic (ICD-10-PCS; CPT 43235; principal; 2022-11-18 07:25)
DX: K29.50 Unspecified chronic gastritis without bleeding (principal); Z68.41 Body mass index [BMI] 40.0-44.9, adult; K44.9 Diaphragmatic hernia without obstruction or gangrene; K31.7 Polyp of stomach and duodenum; K31.89 Other diseases of stomach and duodenum; E66.9 Obesity, unspecified; K21.00 Gastro-esophageal reflux disease with esophagitis, without bleeding; F41.9 Anxiety disorder, unspecified; F32.A Depression, unspecified; E03.9 Hypothyroidism, unspecified; Z79.899 Other long term (current) drug therapy
CPT/HCPCS: 43239; 88305; 88342; J7120; J2405

== ENCOUNTER 2022-11-24 13:24 | Outpatient (RCR) | payer SELFPAY | END 2022-12-13 23:59 | LOC: NS 13:24 | PROVIDERS: PCP Family Medicine; Visit Provider Family Medicine | DX: R69 Illness, unspecified (principal) ==

== ENCOUNTER → 2022-11-28 | Outpatient (CLI) | payer OTHER, SELFPAY ==
[2022-11-28 10:31] LABS: ALB/GLOB Ratio 1.1 RATIO (0.9-2.4); AST(SGOT) 17 U/L (15-37); Alanine Aminotransfer ALT/SGPT 23 U/L (13-56); Albumin, Serum 3.8 g/dL (3.2-5.0); Alkaline Phosphatase 90 U/L (45-117); BUN 15 mg/dL (7-18); BUN/Creat Ratio 15.5 RATIO (10-20); Calcium,Total 9.3 mg/dL (8.5-10.1); Chloride 104 mmol/L (98-107); Creatinine, Serum 0.96 mg/dL (0.55-1.02); EST Glomerular Filtration Rate 63 mL/min (>60); Est Glom Filt Rate - Afr Amer 77 mL/min (>60); Globulin 3.5 g/dL (2.2-4.2); Glucose 94 mg/dL (74-106); Potassium 4.5 mmol/L (3.5-5.1); Protein, Total 7.3 g/dL (6.4-8.2); Sodium Level 138 mmol/L (136-145)
[2022-11-28 10:32] LABS: Anion Gap 7 (5-15)
== END | disposition home or self-care (01) ==
LOC: MFPLAB 08:05
PROVIDERS: PCP Family Medicine; Visit Provider Family Medicine
DX: B35.1 Tinea unguium (principal)
CPT/HCPCS: 36415; 80053

== ENCOUNTER → 2023-01-05 | Outpatient (CLI) | payer OTHER, SELFPAY ==
[2023-01-05 08:50] LABS: Mucous, Urine 0 SEEN /hpf (<or=2+); Red Blood Cells-Urine 0 SEEN /hpf (0-5)
[2023-01-05 10:33] LABS: Absolute Lymphocyte Count 1.65 X10^3/uL (0.83-4.51); Absolute Neutrophil Count 3.5 X10^3/uL (2.0-7.7); Basophil# 0.03 X10^3/uL; Basophil% 0.5 % (0-1); Eosinophil# 0.08 X10^3/uL; Eosinophils% 1.4 % (0-5); Hematocrit 41.8 % (37-47); Lymphocyte # 1.65 X10^3/ul (0.83-4.51); Lymphocyte % 28.9 % (19-41); Mean Corp Hgb Conc 31.1 g/dL (32-36); Mean Corpuscular Hgb 26.7 pg (27.0-32.0); Mean Platelet Vol. 9.9 fl (6.2-12.0); Monocyte# 0.47 X10^3/uL; Monocyte% 8.2 % (0-10); NRBC Flagged by Analyzer 0 % (0-5); Neutrophil # 3.45 X10^3/uL (2.7-7.7); Neutrophil % 60.6 % (47-70); Platelet Count 428 K/mm3 (150-450); RBC Distribution Width CV 14.7 % (11.6-14.6); RBC Distribution Width SD 46.5 fl (35.1-43.9); Red Blood Count 4.86 M/mm3 (4.2-5.4); White Blood Count 5.7 K/mm3 (4.4-11.0)
[2023-01-05 10:38] LABS: Color, Urine Yellow (Yellow); Glucose, Dipstick Normal (Normal); Ketone-Dipstick Negative (Negative); Leukocyte Esterase-Dipstick 100 /ul (Negative); Nitrite-Dipstick Negative (Negative); Occult Blood-Urine Negative /ul (Negative); Protein-Dipstick Negative (Negative); Urine Bilirubin Dipstick Negative (Negative); Urine Clarity Sl. Cloudy (Clear); Urine Urobilinogen Normal (Normal); Urine pH 6.5 (5.0 - 8.0)
[2023-01-05 10:49] LABS: Bacteria 1+ /hpf (None Seen); Squamous Epithelial Cells - UA 10-25 SEEN /hpf (5-10); White Blood Cells 0-5 SEEN /hpf (0-5)
[2023-01-05 10:55] LABS: PTHIN 68.3 pg/mL (18.4-80.1)
[2023-01-05 11:19] LABS: ALB/GLOB Ratio 0.9 RATIO (0.9-2.4); AST(SGOT) 19 U/L (15-37); Alanine Aminotransfer ALT/SGPT 23 U/L (13-56); Albumin, Serum 3.7 g/dL (3.2-5.0); Alkaline Phosphatase 87 U/L (45-117); Anion Gap 8 (5-15); BUN 12 mg/dL (7-18); BUN/Creat Ratio 12.7 RATIO (10-20); Calcium,Total 9.2 mg/dL (8.5-10.1); Chloride 106 mmol/L (98-107); Cholesterol 239 mg/dL (200); Creatinine, Serum 0.94 mg/dL (0.55-1.02); EST Glomerular Filtration Rate 65 mL/min (>60); Est Glom Filt Rate - Afr Amer 79 mL/min (>60); Globulin 3.9 g/dL (2.2-4.2); Glucose 83 mg/dL (74-106); High Density Lipoprotein 67 mg/dL; Potassium 4.2 mmol/L (3.5-5.1); Protein, Total 7.6 g/dL (6.4-8.2); Sodium Level 138 mmol/L (136-145); T4 Free Direct 1.29 ng/dL (0.76-1.46); Thyroid Stim Hormone (TSH) 1.62 uIU/mL (0.358-3.74); Triglycerides 93 mg/dL; Very Low Density Lipoprotein 19 mg/dL (5-40)
[2023-01-05 11:25] LABS: Protein, Urine (Random) 14.2 mg/dL (<11.9); Protein:Creat Ratio 118 mg/g CRE (0-200)
[2023-01-05 13:55] LABS: Vitamin D,25 Hydroxy 71.5 ng/mL
== END | disposition home or self-care (01) ==
LOC: MFPLAB 08:48
PROVIDERS: PCP Family Medicine; Referring Provider Family Medicine; Visit Provider Family Medicine
DX: K21.9 Gastro-esophageal reflux disease without esophagitis (principal); N18.30 Chronic kidney disease, stage 3 unspecified; E03.9 Hypothyroidism, unspecified; E78.00 Pure hypercholesterolemia, unspecified
CPT/HCPCS: 36415; 80053; 80061; 81001; 82306; 82570; 83970; 84156; 84439; 84443; 85025

== ENCOUNTER → 2023-03-07 | Outpatient (CLI) | payer OTHER, SELFPAY ==
[2023-03-07 10:22] LABS: AST(SGOT) 18 U/L (15-37); Alanine Aminotransfer ALT/SGPT 26 U/L (13-56); Albumin, Serum 3.6 g/dL (3.2-5.0); Alkaline Phosphatase 94 U/L (45-117); Anion Gap 5 (5-15); BUN 16 mg/dL (7-18); BUN/Creat Ratio 16.9 RATIO (10-20); Calcium,Total 9.1 mg/dL (8.5-10.1); Chloride 105 mmol/L (98-107); Creatinine, Serum 0.95 mg/dL (0.55-1.02); EST Glomerular Filtration Rate 65 mL/min (>60); Est Glom Filt Rate - Afr Amer 78 mL/min (>60); Globulin 3.6 g/dL (2.2-4.2); Glucose 91 mg/dL (74-106); Potassium 4.4 mmol/L (3.5-5.1); Protein, Total 7.2 g/dL (6.4-8.2); Sodium Level 135 mmol/L (136-145)
== END | disposition home or self-care (01) ==
LOC: MFPLAB 08:49
PROVIDERS: PCP Family Medicine; Referring Provider Family Medicine; Visit Provider Family Medicine
DX: B35.1 Tinea unguium (principal)
CPT/HCPCS: 36415; 80053

== ENCOUNTER → 2023-05-11 | Outpatient (CLI) | payer OTHER, SELFPAY ==
[2023-05-11 12:24] LABS: Absolute Lymphocyte Count 1.51 X10^3/uL (0.83-4.51); Absolute Neutrophil Count 3.3 X10^3/uL (2.0-7.7); Basophil# 0.04 X10^3/uL; Basophil% 0.7 % (0-1); Eosinophils% 1.8 % (0-5); Hematocrit 42.4 % (37-47); Hemoglobin 13.5 g/dL (12.0-15.0); Lymphocyte # 1.51 X10^3/ul (0.83-4.51); Lymphocyte % 27.4 % (19-41); Mean Corp Hgb Conc 31.8 g/dL (32-36); Mean Corpuscular Hgb 27.7 pg (27.0-32.0); Mean Corpuscular Volume 87.1 fL (81-99); Mean Platelet Vol. 9.9 fl (6.2-12.0); Monocyte# 0.56 X10^3/uL; Monocyte% 10.1 % (0-10); NRBC Flagged by Analyzer 0 % (0-5); Neutrophil % 59.8 % (47-70); Platelet Count 418 K/mm3 (150-450); RBC Distribution Width CV 14.7 % (11.6-14.6); RBC Distribution Width SD 47.5 fl (35.1-43.9); Red Blood Count 4.87 M/mm3 (4.2-5.4); White Blood Count 5.5 K/mm3 (4.4-11.0)
[2023-05-11 12:45] LABS: Protein, Urine (Random) 17.1 mg/dL (<11.9); Protein:Creat Ratio 133 mg/g CRE (0-200)
[2023-05-11 12:48] LABS: PTHIN 52.9 pg/mL (18.4-80.1)
[2023-05-11 13:01] LABS: ALB/GLOB Ratio 0.9 RATIO (0.9-2.4); AST(SGOT) 20 U/L (15-37); Alanine Aminotransfer ALT/SGPT 26 U/L (13-56); Albumin, Serum 3.5 g/dL (3.2-5.0); Alkaline Phosphatase 88 U/L (45-117); Anion Gap 6 (5-15); BUN 12 mg/dL (7-18); BUN/Creat Ratio 12.6 RATIO (10-20); Calcium,Total 9.1 mg/dL (8.5-10.1); Chloride 104 mmol/L (98-107); Creatinine, Serum 0.95 mg/dL (0.55-1.02); EST Glomerular Filtration Rate 65 mL/min (>60); Est Glom Filt Rate - Afr Amer 78 mL/min (>60); Globulin 3.9 g/dL (2.2-4.2); Glucose 83 mg/dL (74-106); Phosphorus 3.1 mg/dL (2.5-4.9); Potassium 4.6 mmol/L (3.5-5.1); Protein, Total 7.4 g/dL (6.4-8.2); Sodium Level 135 mmol/L (136-145); T4 Free Direct 1.12 ng/dL (0.76-1.46); Thyroid Stim Hormone (TSH) 1.82 uIU/mL (0.358-3.74)
== END | disposition home or self-care (01) ==
LOC: MFPLAB 09:36
PROVIDERS: PCP Family Medicine; Visit Provider Family Medicine
DX: E03.9 Hypothyroidism, unspecified (principal); N18.30 Chronic kidney disease, stage 3 unspecified
CPT/HCPCS: 36415; 80053; 82570; 83970; 84100; 84156; 84439; 84443; 85025

== ENCOUNTER → 2023-05-18 | Outpatient (CLI) | payer OTHER, SELFPAY ==
--- NOTE | 2023-05-18 08:56 | RAD_ITS ---
STUDY: X-RAY - SOFT TISSUE NECK REASON FOR EXAM: Female, 58 years old. Headache, neck pain TECHNIQUE: 2 view(s) of the neck were obtained. COMPARISON: None. FINDINGS: Normal visualized nasopharynx, oropharynx, hypopharynx. Normal epiglottis. Normal visualized subglottic tracheal air column. Normal prevertebral soft tissue structures. Mild degree of spondylosis at the C4-C5 and C5-C6 levels. The soft tissue structures are unremarkable. RAD/Neck for Soft Tissue IMPRESSION: Mild degree of spondylosis at the C4-C5 and C5-C6 levels. Electronically Signed: Eddie Aguila MD at 12:44 EDT ,
== END | disposition home or self-care (01) ==
LOC: MTRAD 08:37
PROVIDERS: PCP Family Medicine; Referring Provider Family Medicine; Visit Provider Family Medicine
DX: G44.86 Cervicogenic headache (principal); M54.2 Cervicalgia
CPT/HCPCS: 70360

== ENCOUNTER → 2023-06-01 | Outpatient (CLI) | payer OTHER, SELFPAY ==
[2023-06-01 13:00] LABS: ALB/GLOB Ratio 0.9 RATIO (0.9-2.4); AST(SGOT) 18 U/L (15-37); Alanine Aminotransfer ALT/SGPT 21 U/L (13-56); Albumin, Serum 3.5 g/dL (3.2-5.0); Alkaline Phosphatase 97 U/L (45-117); Anion Gap 4 (5-15); BUN 10 mg/dL (7-18); BUN/Creat Ratio 11.2 RATIO (10-20); Calcium,Total 8.9 mg/dL (8.5-10.1); Chloride 104 mmol/L (98-107); Creatinine, Serum 0.89 mg/dL (0.55-1.02); EST Glomerular Filtration Rate 69 mL/min (>60); Est Glom Filt Rate - Afr Amer 84 mL/min (>60); Globulin 3.8 g/dL (2.2-4.2); Glucose 99 mg/dL (74-106); Magnesium 2.4 mg/dL (1.6-2.6); Potassium 4.3 mmol/L (3.5-5.1); Protein, Total 7.3 g/dL (6.4-8.2); Sodium Level 134 mmol/L (136-145)
== END | disposition home or self-care (01) ==
LOC: MFPLAB 11:10
PROVIDERS: PCP Family Medicine; Visit Provider Family Medicine
DX: R19.7 Diarrhea, unspecified (principal)
CPT/HCPCS: 36415; 80053; 83735

== ENCOUNTER → 2023-06-09 | Outpatient (CLI) | payer OTHER, SELFPAY ==
--- NOTE | 2023-06-09 09:49 | US_ITS ---
EXAM: US SOFT TISSUES HEAD AND NECK, THYROID CLINICAL INDICATION: THYROID NODULE TECHNIQUE: Escalante scale and color doppler imaging was performed of the thyroid gland. COMPARISON: US Thyroid dated 01/07/2022 FINDINGS: LEFT THYROID LOBE: Left thyroid lobe measures 3.8 x 1.2 x 1.3 cm. Normal echogenicity. No thyroid nodules are present. RIGHT THYROID LOBE: Right thyroid lobe measures 4.1 x 1.1 x 1.4 cm. 3.5 mm focus of calcification with acoustic shadowing again seen, unchanged from prior exam. Echogenicity is otherwise normal and homogeneous. ISTHMUS: Isthmus measures 3.0 mm in AP dimension. No thyroid nodules are present. US/Thyroid IMPRESSION: Stable thyroid ultrasound. Stable 3.5 mm right thyroid calcification Electronically Signed: Stef Benitez MD at 15:14 EDT ,
== END | disposition home or self-care (01) ==
PROVIDERS: PCP Family Medicine; Referring Provider Family Medicine; Visit Provider Family Medicine
DX: E04.1 Nontoxic single thyroid nodule (principal)
CPT/HCPCS: 76536

== ENCOUNTER → 2023-06-30 | Outpatient (CLI) | payer OTHER, SELFPAY ==
[2023-06-30 12:55] LABS: ALB/GLOB Ratio 1.1 RATIO (0.9-2.4); AST(SGOT) 18 U/L (15-37); Alanine Aminotransfer ALT/SGPT 23 U/L (13-56); Albumin, Serum 3.8 g/dL (3.2-5.0); Alkaline Phosphatase 89 U/L (45-117); Anion Gap 8 (5-15); BUN 13 mg/dL (7-18); BUN/Creat Ratio 15.3 RATIO (10-20); Calcium,Total 8.8 mg/dL (8.5-10.1); Chloride 103 mmol/L (98-107); Creatinine, Serum 0.85 mg/dL (0.55-1.02); EST Glomerular Filtration Rate 73 mL/min (>60); Est Glom Filt Rate - Afr Amer 88 mL/min (>60); Globulin 3.4 g/dL (2.2-4.2); Glucose 81 mg/dL (74-106); Magnesium 2.3 mg/dL (1.6-2.6); Potassium 4.4 mmol/L (3.5-5.1); Protein, Total 7.2 g/dL (6.4-8.2); Sodium Level 137 mmol/L (136-145)
== END | disposition home or self-care (01) ==
LOC: MFPLAB 11:14
PROVIDERS: PCP Family Medicine; Visit Provider Family Medicine
DX: R19.7 Diarrhea, unspecified (principal)
CPT/HCPCS: 36415; 80053; 83630; 83735; 87177; 87209; 87506

== ENCOUNTER 2023-08-22 14:26 | Outpatient (CLI) | payer OTHER, SELFPAY ==
[2023-08-22 17:26] LABS: Absolute Lymphocyte Count 2.34 X10^3/uL (0.83-4.51); Absolute Neutrophil Count 4.7 X10^3/uL (2.0-7.7); Basophil# 0.04 X10^3/uL; Basophil% 0.5 % (0-1); Eosinophils% 1.3 % (0-5); Hematocrit 42.9 % (37-47); Hemoglobin 13.1 g/dL (12.0-15.0); Lymphocyte # 2.34 X10^3/ul (0.83-4.51); Lymphocyte % 30.1 % (19-41); Mean Corp Hgb Conc 30.5 g/dL (32-36); Mean Corpuscular Volume 88.3 fL (81-99); Monocyte# 0.64 X10^3/uL; Monocyte% 8.2 % (0-10); NRBC Flagged by Analyzer 0 % (0-5); Neutrophil # 4.65 X10^3/uL (2.7-7.7); Neutrophil % 59.8 % (47-70); Platelet Count 449 K/mm3 (150-450); RBC Distribution Width CV 13.9 % (11.6-14.6); RBC Distribution Width SD 44.8 fl (35.1-43.9); Red Blood Count 4.86 M/mm3 (4.2-5.4); White Blood Count 7.8 K/mm3 (4.4-11.0)
[2023-08-22 18:02] LABS: ALB/GLOB Ratio 0.9 RATIO (0.9-2.4); AST(SGOT) 14 U/L (15-37); Alanine Aminotransfer ALT/SGPT 24 U/L (13-56); Albumin, Serum 3.7 g/dL (3.2-5.0); Alkaline Phosphatase 97 U/L (45-117); Anion Gap 7 (5-15); BUN 13 mg/dL (7-18); BUN/Creat Ratio 13.4 RATIO (10-20); Chloride 103 mmol/L (98-107); Creatinine, Serum 0.97 mg/dL (0.55-1.02); EST Glomerular Filtration Rate 63 mL/min (>60); Est Glom Filt Rate - Afr Amer 76 mL/min (>60); Globulin 3.9 g/dL (2.2-4.2); Glucose 99 mg/dL (74-106); Protein, Total 7.6 g/dL (6.4-8.2); Sodium Level 134 mmol/L (136-145)
[2023-08-27 18:07] LABS: Serotonin, Serum 9 ng/mL (31-207)
== END 2023-08-22 23:59 | disposition home or self-care (01) ==
LOC: MFPLAB 14:26
PROVIDERS: PCP Family Medicine; Visit Provider Family Medicine
DX: R19.7 Diarrhea, unspecified (principal)
CPT/HCPCS: 36415; 80053; 84260; 85025

== ENCOUNTER → 2023-09-28 | Outpatient (CLI) | payer OTHER, SELFPAY ==
[2023-09-28 10:51] LABS: Bacteria 0 SEEN /hpf (None Seen); Mucous, Urine 0 SEEN /hpf (<or=2+); Red Blood Cells-Urine 0 SEEN /hpf (0-5); Squamous Epithelial Cells - UA 0 SEEN /hpf (5-10)
[2023-09-28 12:18] LABS: Color, Urine Yellow (Yellow); Glucose, Dipstick Normal (Normal); Ketone-Dipstick Negative (Negative); Leukocyte Esterase-Dipstick 25 /ul (Negative); Nitrite-Dipstick Negative (Negative); Occult Blood-Urine Negative /ul (Negative); Protein-Dipstick Negative (Negative); Urine Bilirubin Dipstick Negative (Negative); Urine Clarity Clear (Clear); Urine Urobilinogen Normal (Normal)
[2023-09-28 12:21] LABS: Absolute Lymphocyte Count 1.82 X10^3/uL (0.83-4.51); Basophil# 0.04 X10^3/uL; Basophil% 0.6 % (0-1); Eosinophil# 0.12 X10^3/uL; Eosinophils% 1.8 % (0-5); Hemoglobin 12.7 g/dL (12.0-15.0); Lymphocyte # 1.82 X10^3/ul (0.83-4.51); Lymphocyte % 27.9 % (19-41); Mean Corp Hgb Conc 30.2 g/dL (32-36); Mean Corpuscular Hgb 26.8 pg (27.0-32.0); Mean Corpuscular Volume 88.8 fL (81-99); Mean Platelet Vol. 10.1 fl (6.2-12.0); Monocyte# 0.48 X10^3/uL; Monocyte% 7.4 % (0-10); NRBC Flagged by Analyzer 0 % (0-5); Neutrophil # 4.03 X10^3/uL (2.7-7.7); Neutrophil % 61.8 % (47-70); Platelet Count 418 K/mm3 (150-450); RBC Distribution Width CV 14.3 % (11.6-14.6); Red Blood Count 4.73 M/mm3 (4.2-5.4); White Blood Count 6.5 K/mm3 (4.4-11.0)
[2023-09-28 12:33] LABS: White Blood Cells 0-5 SEEN /hpf (0-5)
[2023-09-28 12:40] LABS: Protein:Creat Ratio 123 mg/g CRE (0-200)
[2023-09-28 12:42] LABS: ALB/GLOB Ratio 0.8 RATIO (0.9-2.4); AST(SGOT) 23 U/L (15-37); Alanine Aminotransfer ALT/SGPT 28 U/L (13-56); Albumin, Serum 3.4 g/dL (3.2-5.0); Alkaline Phosphatase 96 U/L (45-117); Anion Gap 5 (5-15); BUN 15 mg/dL (7-18); BUN/Creat Ratio 16.9 RATIO (10-20); Chloride 105 mmol/L (98-107); Cholesterol 234 mg/dL (200); Creatinine, Serum 0.89 mg/dL (0.55-1.02); EST Glomerular Filtration Rate 70 mL/min (>60); Est Glom Filt Rate - Afr Amer 84 mL/min (>60); Glucose 90 mg/dL (74-106); High Density Lipoprotein 64 mg/dL; Phosphorus 3.3 mg/dL (2.5-4.9); Potassium 4.4 mmol/L (3.5-5.1); Protein, Total 7.4 g/dL (6.4-8.2); Sodium Level 136 mmol/L (136-145); T4 Free Direct 1.06 ng/dL (0.76-1.46); Thyroid Stim Hormone (TSH) 1.64 uIU/mL (0.358-3.74); Triglycerides 98 mg/dL; Very Low Density Lipoprotein 20 mg/dL (5-40)
[2023-09-28 13:08] LABS: PTHIN 63.6 pg/mL (18.4-80.1)
== END | disposition home or self-care (01) ==
LOC: MFPLAB 10:45
PROVIDERS: PCP Family Medicine; Visit Provider Family Medicine
DX: N18.30 Chronic kidney disease, stage 3 unspecified (principal); E03.9 Hypothyroidism, unspecified
CPT/HCPCS: 36415; 80053; 80061; 81001; 82306; 82570; 83970; 84100; 84156; 84439; 84443; 85025

== ENCOUNTER → 2023-10-11 | Outpatient (CLI) | payer OTHER, SELFPAY ==
[2023-10-11 10:32] LABS: Erythrocyte Sedimentation Rate 23 mm/hr (0-30)
[2023-10-11 10:34] LABS: Rheumatoid Factor < 10.0 IU/mL (<15)
[2023-10-12 14:09] LABS: ANTINUCLEAR ANTIBODIES DIRECT Negative (Negative)
== END | disposition home or self-care (01) ==
LOC: MFPLAB 08:52
PROVIDERS: PCP Family Medicine; Visit Provider Family Medicine
DX: M25.50 Pain in unspecified joint (principal)
CPT/HCPCS: 36415; 85652; 86038; 86431

== ENCOUNTER → 2023-12-29 | Outpatient (CLI) | payer OTHER, SELFPAY ==
[2023-12-29 10:08] LABS: Absolute Lymphocyte Count 1.66 X10^3/uL (0.83-4.51); Absolute Neutrophil Count 3.2 X10^3/uL (2.0-7.7); Basophil# 0.02 X10^3/uL; Basophil% 0.4 % (0-1); Eosinophil# 0.11 X10^3/uL; Hematocrit 40.9 % (37-47); Hemoglobin 12.7 g/dL (12.0-15.0); Lymphocyte # 1.66 X10^3/ul (0.83-4.51); Lymphocyte % 29.9 % (19-41); Mean Corp Hgb Conc 31.1 g/dL (32-36); Mean Corpuscular Hgb 26.9 pg (27.0-32.0); Mean Corpuscular Volume 86.7 fL (81-99); Mean Platelet Vol. 10.5 fl (6.2-12.0); Monocyte# 0.53 X10^3/uL; Monocyte% 9.5 % (0-10); NRBC Flagged by Analyzer 0 % (0-5); Neutrophil # 3.22 X10^3/uL (2.7-7.7); Neutrophil % 57.8 % (47-70); Platelet Count 337 K/mm3 (150-450); RBC Distribution Width CV 14.2 % (11.6-14.6); RBC Distribution Width SD 45.2 fl (35.1-43.9); Red Blood Count 4.72 M/mm3 (4.2-5.4); White Blood Count 5.6 K/mm3 (4.4-11.0)
[2023-12-29 11:08] LABS: ALB/GLOB Ratio 0.9 RATIO (0.9-2.4); AST(SGOT) 19 U/L (15-37); Alanine Aminotransfer ALT/SGPT 19 U/L (13-56); Albumin, Serum 3.5 g/dL (3.2-5.0); Alkaline Phosphatase 96 U/L (45-117); Anion Gap 5 (5-15); BUN 13 mg/dL (7-18); BUN/Creat Ratio 14.1 RATIO (10-20); Calcium,Total 9.2 mg/dL (8.5-10.1); Chloride 110 mmol/L (98-107); Creatinine, Serum 0.92 mg/dL (0.55-1.02); EST Glomerular Filtration Rate 67 mL/min (>60); Est Glom Filt Rate - Afr Amer 81 mL/min (>60); Globulin 3.8 g/dL (2.2-4.2); Glucose 99 mg/dL (74-106); Potassium 4.2 mmol/L (3.5-5.1); Protein, Total 7.3 g/dL (6.4-8.2); Sodium Level 140 mmol/L (136-145)
[2024-01-03 05:07] LABS: Serotonin, Serum 69 ng/mL (31-207)
== END | disposition home or self-care (01) ==
PROVIDERS: PCP Family Medicine; Visit Provider Family Medicine
DX: R19.7 Diarrhea, unspecified (principal)
CPT/HCPCS: 36415; 80053; 84260; 85025

== ENCOUNTER → 2024-01-22 | Outpatient (CLI) | payer OTHER, SELFPAY ==
--- OUTSIDE RECORDS SUMMARY | 2024-01-22 08:47 | XMS RPT_ITS | CCD ---
Author Name Unknown Address [id number] [place] [address] Organization [facility] Care Team Providers Care Fermenter Champagne Name Role Phone LEDA MIRANDA Unavailable Unavailable LEDA MIRANDA Unavailable Unavailable VIRY GARCIA Unavailable Viry Bhatia MD Primary Care Provider [phone] PHYSICIAN, NOT RECORDED Primary Care Physician U navailable PHYSICIAN, PATIENT UNSURE Primary Care UnaELIAS Morris MD Attending Unavailable PHYSICIAN, NOT RECORDED Primary Care Unavailalie DALTON MD, DR CHETNA Rothman Attending UnavailViry Lake MD Primary Care Provider VIRY GARCIA Primary Care Unavailable CHAPARRITA GUTHREI Referring Unavailable CHAPARRITA GUTHRIE Attending Unavailable VIRY GARCIA Primary Care Unavailable CHAPARRITA GUTHRIE Referring Unavailable Allergies Allergy Classification Reported Allergen(s) Allergy Type Date of Onset Reaction(s) Facility (8 sources) Codeine; Translations: [codeine] Drug Allergy 7 [facility] Work Phone: (8 sources) Sulfonamides (Antibiotic); Translations: [sulfa drugs] Propensity to adverse reactions 7 [facility] Work Phone: Medications Current Medications Medication Drug Class(es) Dates Sig (Normalized) Sig (Original) acetaminophen 325 mg / HYDROcodone bitartrate 5 mg oral tablet (1 source) Opioid Agonist Start: 11-24-2022 End: 11-27-2022 take 1 tablet by mouth every six hours as needed for pain Mobile 325- 5 mg oral tablet Dose = 1 tab(s), Oral, q6h, PRN for pain, # 12 tab(s), 0 Refill(s), Wrist sprain, 109.1 Start Date: 11/24/22 Stop Date: 11/27/22 Status: Ordered ARIPiprazole 10 mg oral tablet (2 sources) Atypical Antipsychotic Start: 05-12-2017 Abilify 10 mg oral tablet Dose : 10 mg = 1 tab(s), Oral, qDay, 0 Refill(s) Start Date: 05/12/17 Status: Ordered Completed/Discontinued Medications Medication Drug Class(es) Dates Sig (Normalized) Sig (Original) cholecalciferol 0.125 mg oral tablet (2 sources) Vitamin D take 1 tablet by mouth once daily cholecalciferol (VITAMIN D-3) 5,000 unit tab Take 5,000 Units by mouth once daily. 0 Active Problems Active Problems Problem Classification Problem Date Documented Date Episodic/Chronic Chronic kidney disease (3 sources) Chronic kidney disease stage 3; Translations: [Stage 3 chronic kidney disease] Onset: 09-13-2022 09-08-2023 Chronic Esophageal disorders (4 sources) Acid reflux; Translations: [Gastroesophageal reflux disease] Onset: 01-12-2023 02-04-2015 Chronic Essential hypertension (1 source) Hypertensive disorder 02-04-2015 Chronic Immunizations and screening for infectious disease (6 sources) Patient encounter status; Translations: [Encounter for screening for human papillomavirus (HPV)] Episodic Mood disorders (1 source) Depressive disorder 02-04-2015 Chronic Other screening for suspected conditions (not mental disorders or infectious disease) (1 source) Encounter for screening mammogram for malignant neoplasm of breast; Translations: [Encounter for screening mammogram for breast cancer] Onset: 09-08-2023 Episodic Sprains and strains (2 sources) Sprain of wrist; Translations: [Unspecified sprain of unspecified wrist, initial encounter] Onset: 11-24-2022 Episodic Thyroid disorders (6 sources) Hypothyroidism; Translations: [Hypothyroidism, unspecified] Onset: 01-21-2013 01-21-2013 Chronic Unclassified (1 source) Unknown / UNK(Unknown) Onset: 05-15-2017 Past or Other Problems Problem Classification Problem Date Documented Da te Episodic/Chronic Hemorrhoids (6 sources) Internal hemorrhoids; Translations: [Other hemorrhoids] Onset: 07-23-2012 07-23-2012 Episodic Unclassified (1 source) SCREENING Onset: 05-15-2017 Results Test Name Value Interpretation Reference Range Facil ity Vital Signs Date Time Vital Sign Value Performing Clinician Erwin banks 09-08-2023 07:37-0400 Body height 159.4 cm Chaparrita Jerri PROCESS ARTIST.MIDDLE SCHOOL ASSISTANT PRINCIPAL Work Phone: [facility] 09-08-2023 07:37-0400 Body weight 110.5 kg Chaparrita Jerri PROCESS ARTIST.MIDDLE SCHOOL ASSISTANT PRINCIPAL Work Phone: [facility] 09-08-2023 07:37-0400 Diastolic blood pressure 70 mm[Hg] Chaparrita Frankewing PROCESS ARTIST.MIDDLE SCHOOL ASSISTANT PRINCIPAL Work Phone: [facility] 09-08-2023 07:37-0400 Systolic blood pressure 130 mm[Hg] Chaparrita Frankewing PROCESS ARTIST.MIDDLE SCHOOL ASSISTANT PRINCIPAL Work Phone: [facility] 11-24-2022 15:50-0500 Body temperature 98.6 [degF] DR CHETNA DALTON MD [place] 11-24-2022 15:50-0500 Diastolic Blood Pressure Non-Invasive [address] CHETNA DALTON MD [place] 11-24-2022 15:50-0500 Heart rate 87 /min DR CHETNA DALTON MD [place] 11-24-2022 15:50-0500 Respiratory rate 16 /min DR CHETNA DALTON MD [place] 11-24-2022 15:50-0500 Systolic Blood Pressure Non-Invasive [address] CHETNA DALTON MD [place] 09-02-2022 07:09-0400 Body height 160 cm Chaparrita Jerri PROCESS ARTIST.MIDDLE SCHOOL ASSISTANT PRINCIPAL Work Phone: [facility] 09-02-2022 07:09-0400 Body weight 108.86 kg Chaparrita Jerri PROCESS ARTIST.MIDDLE SCHOOL ASSISTANT PRINCIPAL Work Phone: [facility] 09-02-2022 07:09-0400 Diastolic blood pressure 80 mm[Hg] Chaparrita Frankewing PROCESS ARTIST.MIDDLE SCHOOL ASSISTANT PRINCIPAL Work Phone: [facility] 09-02-2022 07:09-0400 Systolic blood pressure 132 mm[Hg] Chaparrita Jerri PROCESS ARTIST.MIDDLE SCHOOL ASSISTANT PRINCIPAL Work Phone: [facility] Encounters Encounter Date Encounter Type Care Provider Facility Start: 09-11-2023 Documentation procedure Mammog john Coordinator [facility] Start: 09-11-2023 Letter encounter Mammography Coordinator [facility] Department Start: 09-08-2023 End: 09-08-2023 ambulatory [facility] Facility:[facility] Start: 09-08-2023 End: 09-08-2023 Patient encounter procedure Chaparrita Jerri PROCESS ARTIST.M[employer] SCHO[employer] ASSISTANT PRINCIPAL Work Phone: OB/Gynecology Procedures Date Procedure Procedure Detail Performing Clinician Start: 09-08-2023 Screening mammography bi 2-view breast inc cad Chaparrita Frankewing PROCESS ARTIST.MIDDLE SCHOOL ASSISTANT PRINCIPAL Work Phone: Start: 09-02-2022 End: 09-02-2022 Screening mammography bi 2-view breast inc cad Chaparrita Jerri PROCESS ARTIST.MIDD[employer] SCHOOL ASSISTANT PRINCIPAL Work Phone: Start: 08-06-2021 Mammography Chaparrita Jerri PROCESS ARTIST.MIDDLE SCHOOL ASSISTANT PRINCIPAL Work Phone: Start: 03-15-2017 Colonoscopy Chaparrita Jerri PROCESS ARTIST.M[employer] SCHOOL ASSISTANT PRINCIPAL Work Phone: Start: 03-09-2015 Lipid 1996 panel - Serum or Plasma Chaparrita Jerri PROCESS ARTIST.MIDDLE SCHOOL ASSISTANT PRINCIPAL Work Phone: Start: 01-21-2013 H/O: hysterectomy S/P subtotal hysterectomy Chaparrita Jerri PROCESS ARTIST.MIDD[employer] SCHOOL ASSISTANT PRINCIPAL Work Phone: Start: 01-21-2013 History of reduction of breast H/O bilateral breast reduction surgery Chaparrita Jerri PROCESS ARTIST.MIDDLE SCHOOL ASSISTANT PRINCIPAL Work Phone: Start: 11-13-[address] CHETNA DALTON MD Abdominal hysterectomy DR KYLE DALTON MD Colonoscopy DR CHETNA DALTON MD Plan of Treatment Date Care Activity Detail Author Start: 07-03-2030 Urine microalbumin profile DTaP,Tdap,Td Vaccine (2 - Td or Tdap) [facility] Start: 09-02-2027 HPV Testing HPV Testing [facility] Start: 09-02-2027 Pap Testing Pap Testing [facility] Start: 09-08-2024 Mammography Mammogram Screening [facility] Start: 09-02-2023 Mammography [facility] Start: 07-14-2023 Covid-19 Vaccine () Covid-19 Vaccine () [facility] Start: 07-14-2023 Influenza vaccination Influenza Vaccine (#1) [facility] Start: 11-25-2022 Shingrix Vaccine (2 of 2) Shingrix Vaccine (2 of 2) [facility] Start: 11-13-2022 Depression Assessment Depression Assessment [facility] Start: 08-06-2022 Mammography MAMMOGRAM [facility] Start: 03-15-2022 HPV TESTING HPV TESTING [facility] Start: 03-15-2022 PAP TESTING PAP TESTING [facility] Start: 12-07-2021 COVID-19 VACCINE (4 - Booster for Pfizer series) COVID-19 VACCINE (4 - Booster for Pfizer series) [facility] Start: 11-13-2021 DEPRESSION ASSESSMENT DEPRESSION ASSESSMENT [facility] Start: 03-09-2020 Lipid 1996 panel - Serum or Plasma Lipid Screening [facility] Start: 03-09-2020 LIPID SCREEN LIPID SCREEN [facility] Start: 03-15-2018 Colonoscopy COLONOSCOPY [facility] Start: 03-15-2018 COLORECTAL CANCER SCREENING COLORECTAL CANCER SCREENING [facility] Start: 01-27-2016 SHINGRIX VACCINE (1 of 2) SHINGRIX VACCINE (1 of 2) [facility] Start: 05-11-2015 DIABETES SCREEN DIABETES SCREEN [facility] Start: 05-11-2015 Diabetes Screening Diabetes Screening [facility] Start: 05-11-2013 Hemoglobin/Hematocrit Hemoglobin/Hematocrit [facility] Start: 05-11-2013 Serum Creatinine Serum Creatinine [facility] Start: 2011 COLOGUARD (FIT-DNA) COLOGUARD (FIT-DNA) [facility] Start: [address] COLONOGRAPHY [facility] Start: 2011 FECAL OCCULT BLOOD FECAL OCCULT BLOOD [facility] Start: 2011 SIGMOIDOSCOPY SIGMOIDOSCOPY [facility] Start: 1985 Urine microalbumin profile DTAP,TDAP,TD (1 - Tdap) [facility] Start: 01-27-1984 ANNUAL PCP TEAM CHRONIC DISEASE VISIT ANNUAL PCP TEAM CHRONIC DISEASE VISIT [facility] Start: 01-27-1984 HEPATITIS C SCREENING HEPATITIS C SCREENING [facility] Start: 01-27-1984 HIV SCREENING HIV SCREENING [facility] Start: 1966 HEPATITIS B (1 of 3 - 3-dose series) HEPATITIS B (1 of 3 - 3-dose series) [facility] Start: 1966 Hepatitis B Vaccine (1 of 3 - 3-dose series) Hepatitis B Vaccine (1 of 3 - 3-dose series) [facility] End: 10-07-2024 RYLEE SCREENING RYLEE SCREENING Radiology Routine Encounter for screening mammogram for breast cancer 1 Occurrences starting 09/08/2023 until 10/07/2024 [facility] Work Phone: Immunizations Immunization Date Immunization Notes Care Provider Pura quevedo 07-07-2022 influenza virus vacc ine, unspecified formulation Chaparrita Guthrie APRN.CNP Work Phone: [facility] Payers Date Payer Category Payer Unknown [employer] PPO [id number] 2020-Present [phone] [address] [place] [address] PPO [id number] 2020 Unknown [id number] 2017 Unknown [id number] 1966 Unknown [id number] 1966 Unknown [id number] Social History Date Type Detail Facility Start: 09-02-2022 End: 09-08-2023 Tobacco smoking status NHIS Never smoked tobacco [facility] Work Phone: Start: 09-02-2022 End: 09-08-2023 Tobacco use and exposure Smokeless tobacco non-user [facility] Work Phone: Start: 09-02-2022 End: 09-08-2023 Alcohol intake Current non-drinker of alcohol (finding) [facility] Start: 05-29-2020 History SDOH Social Connections Phone 5 [facility] Start: 05-29-2020 History SDOH Social Connections Get Together 2 [facility] Start: 05-29-2020 History SDOH Social Connections [facility] 3 [facility] Start: 05-29-2020 History SDOH Social Connections Meetings 1 [facility] Start: 05-29-2020 History SDOH Physica l Activity DPW 0 [facility] Start: 05-29-2020 Education 21 [facility] Start: 07-23-2012 Alcohol Comment Recovering ETO H abuse- last drink 12/25/2007 - None since [facility] Start: 1965 Sex Assigned At Female [facility] Start: 07-25-2022 End: 09-02-2022 Exposure to SARS-CoV-2 (event) Not sure [facility] Sex Assigned At Sex [facility] Start: 05-29-2020 End: 12-08-2022 History of Social function [facility] Work Phone: Start: 05-29-2020 End: 12-08-2022 Social connection and isolation panel [facility] Work Phone: Do you belong to any clubs or organizations such as yarsani groups, unions, fraternal or athletic groups, or school groups? No [facility] Work Phone: Are you now , , , , never or living with a partner? [facility] Work Phone: How hard is it for y ou to pay for the very basics like food, housing, medical care, and heating Not hard at all [facility] Work Phone: Do you feel stress - tense, restless, nervous, or anxious, or unable to sleep at night because your mind is troubled all the time - these days [OSQ] Only a little [facility] Work Phone: (I/We) worried tracy er (my/our) food would run out before (I/we) got money to buy more. Never true [facility] Work Phone: Start: 09-01-2022 Gender identity Identifies as female gender (finding) [facility] Start: 09-01-2022 Sexual orientation Heterosexual (khushi brionna) [facility] NEGATED: Highlighted rowStart: NINF History of tobacco use Passive smoker [facility] Work Phone: Functional Status Date Assessment Result Facility 11-24-2022 Functional Status Activity Roxana ellis Independent [place] 11-24-2022 Functional Status Standard Safet y ID band on, Call device within reach, Bed in low position, Wheels locked, Upper/Half-Length side-rails up, Bedside Cart Locked, Visitor at bedside, Safety level maintained [place] Mental Status Date Assessment Result Facility 11-24-2022 Mental Status Orientation Oriented x 4 [facility] 11-24-2022 Mental Status [facility] Clinical Notes 09-02-2022 to 09-11-2023 Letter - Coordinator, Mammography - 09/11/2023 7:52 AM Chaparrita Fajardo APRN.MIDDLE SCHOOL ASSISTANT PRINCIPAL - 09/08/2023 7:37 AM Isabell Mayes Mammo Tech - 09/08/2023 7:30 AM EDT Note Date & Type Note Facility 09-11-2023 Miscellaneous Notes September 11, 2023 PID: [id number] Selma Don [address] [place] [address] Dear Ms. Don, We are pleased to inform you that the results of your recent breast imaging exam on 09/08/2023 are normal. Early detection of cancer is very important. We also understand recommendations regarding breast cancer screening are controversial. Please discuss with your primary care provider which strategy is best for you and whether a mammogram is right for you. Your imaging studies and report will be kept on file at [facility] as part of your permanent medical record and are available for your continuing care. Thank you for allowing us to help in meeting your health care needs. Sincerely, Dr. Lobo Interpreting Radiologist [facility] (Normal over 40) documented in this encounter [facility] 09-08-2023 Note HNO ID: [id number] Author: Chaparrita Guthrie APRN.MIDDLE SCHOOL ASSISTANT PRINCIPAL Service: ? Author Type: Nurse Practitioner Type: Progress Notes Filed: 09/08/2023 8:29 AM Note Text: Selma is a 58 year old who presents for an annual gynecologic exam without complaints. 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 History Comments: Sexual Activity: Yes; Male; Pt has had a hysterectomy Contraception: Surgical PAST MEDICAL HISTORY Diagnosis Date Depression GERD (gastroesophageal reflux disease) Hypothyroidism Personal history of unspecified urinary disorder PAST SURGICAL HISTORY Procedure Laterality Date CYSTOSCOPY 02/19/2019 PAST SURGICAL HISTORY OF 1993 Bladder suspension PAST SURGICAL HISTORY OF 2011 Breast reduction TOTAL ABDOMINAL HYSTERECT W/WO RMVL TUBE OVARY 09/25/2007 Hysterectomy, CARYL-BSO, cervix remains FAMILY HISTORY Problem Relation Age of Onset Stroke Mother Psychiatry Mother Cancer Father Stomach No Known Problems Sister Diabetes Brother No Known Problems Brother No Known Problems Maternal Grandmother Cancer Maternal Grandfather No Known Problems Paternal Grandmother Hypertension Paternal Grandfather Heart Paternal Grandfather Seizures Paternal Grandfather other (Epilepsy) Son SOCIAL HISTORY Social History Tobacco Use Smoking status: Never Passive exposure: Never Smokeless tobacco: Never Vaping Use Vaping Use: Never used Substance Use Topics Alcohol use: No Comment: Recovering 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 No bloating, early satiety, indigestion, or increased flatulence. Bladder: No dysuria, gross hematuria, urinary frequency, urinary urgency, or incontinence Breast: No breast lumps, nipple d/c, overlying skin changes, redness or skin retraction Allergies and current medication updated:Yes EXAM: Ht 5' 2.75 (1.59m) Wt 243 lb 9.6 oz (110.5kg) BMI 43.49 kg/(m2). GENERAL: pleasant, female in no apparent distress HEENT: Normocephalic, atraumatic, mucus membranes moist, and no lesions NECK: Supple, full range of motion, no adenopathy, and thyroid normal DERMATOLOGY: Normal, without lesions, non-icteric, and non-hirsute BREAST: soft, non-tender, symmetric, no dominant mass, normal nipple-areolar complex, no lymphadenopathy, and no nipple discharge CHEST: Normal inspiratory effort ABDOMEN: soft, non-tender, and no masses PELVIC: external genitalia normal, normal Bartholin's glands, urethra, Pettus's glands, no vulvar lesions, no cervical lesions, physiologic discharge present, normal appearing perineal body and perianal region BIMANUAL: no adnexal masses, non-tender, and uterus surgically absent RECTOVAGINAL: deferred. NEURO: alert and oriented x3,exam grossly non-focal EXTREMITIES: normal ASSESSMENT/PLAN: 1) Health maintenance: Pap/HPV up to date. Mammogram ordered Mammogram up to date Nutrition, exercise and routine health maintenance exams reviewed. Calcium/Vitamin D supplementation information provided. Colon cancer screening: up to date with screening due at 60 2) Follow up one year or sooner as needed Chaparrita Guthrie APRN.[facility] 09-08-2023 Note HNO ID: [id number] Author: Isabell Willoughby [employer] Service: ? Author Type: Extrusion Manager Type: Progress Notes Filed: 09/08/2023 7:36 AM Note Text: Radiology Service Progress Note PATIENT NAME: Selma Don DATE OF SERVICE: September 08, 2023 TIME: 7:21 AM PATIENT IDENTITY VERIFICATION COMPLETED USING TWO (2) IDENTIFIERS: Name and Date of confirmed by patient verbally. FALL SCREENING: Has the patient had 2 falls in the last year or 1 fall with injury or currently using an Ambulatory Assistive Device (Walker, Cane, Wheelchair, Crutches, etc.)? No PATIENT GENDER DATA: Female. status: : No status: NO. PATIENT RELEVANT IMPLANT DATA REVIEWED: Not Applicable RADIOLOGY DEPARTMENT: Mammography PERIPHERAL IV DATA: Not applicable SIGNED BY: Isabell Willoughby [employer] September 08, 2023 7:21 AM [facility] 09-08-2023 History of Presen t illness Narrative Selma is a 58 year old who presents for an annual gynecologic exam without complaints. 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 History Comments: Sexual Activity: Yes; Male; Pt has had a hysterectomy Contraception: Surgical PAST MEDICAL HISTORY Diagnosis Date Depression GERD (gastroesophageal reflux disease) Hypothyroidism Personal history of unspecified urinary disorder PAST SURGICAL HISTORY Procedure Laterality Date CYSTOSCOPY 02/19/2019 PAST SURGICAL HISTORY OF 1993 Bladder suspension PAST SURGICAL HISTORY OF 2011 Breast reduction TOTAL ABDOMINAL HYSTERECT W/WO RMVL TUBE OVARY 09/25/2007 Hysterectomy, CARYL-BSO, cervix remains FAMILY HISTORY Problem Relation Age of Onset Stroke Mother Psychiatry Mother Cancer Father Stomach No Known Problems Sister Diabetes Brother No Known Problems Brother No Known Problems Maternal Grandmother Cancer Maternal Grandfather No Known Problems Paternal Grandmother Hypertension Paternal Grandfather Heart Paternal Grandfather Seizures Paternal Grandfather other (Epilepsy) Son SOCIAL HISTORY Social History Tobacco Use Smoking status: Never Passive exposure: Never Smokeless tobacco: Never Vaping Use Vaping Use: Never used Substance Use Topics Alcohol use: No Comment: Recovering 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 No bloating, early satiety, indigestion, or increased flatulence. Bladder: No dysuria, gross hematuria, urinary frequency, urinary urgency, or incontinence Breast: No breast lumps, nipple d/c, overlying skin changes, redness or skin retraction Allergies and current medication updated:Yes EXAM: Ht 5' 2.75 (1.59m) Wt 243 lb 9.6 oz (110.5kg) BMI 43.49 kg/(m^2). GENERAL: pleasant, female in no apparent distress HEENT: Normocephalic, atraumatic, mucus membranes moist, and no lesions NECK: Supple, full range of motion, no adenopathy, and thyroid normal DERMATOLOGY: Normal, without lesions, non-icteric, and non-hirsute BREAST: soft, non-tender, symmetric, no dominant mass, normal nipple-areolar complex, no lymphadenopathy, and no nipple discharge CHEST: Normal inspiratory effort ABDOMEN: soft, non-tender, and no masses PELVIC: external genitalia normal, normal Bartholin's glands, urethra, Pettus's glands, no vulvar lesions, no cervical lesions, physiologic discharge present, normal appearing perineal body and perianal region BIMANUAL: no adnexal masses, non-tender, and uterus surgically absent RECTOVAGINAL: deferred. NEURO: alert and oriented x3,exam grossly non-focal EXTREMITIES: normal ASSESSMENT/PLAN: 1) Health maintenance: Pap/HPV up to date. Mammogram ordered Mammogram up to date Nutrition, exercise and routine health maintenance exams reviewed. Calcium/Vitamin D supplementation information provided. Colon cancer screening: up to date with screening due at 60 2) Follow up one year or sooner as needed Chaparrita Guthrie APRN.CNP documented in this encounter [facility] 09-08-2023 History of Presen t illness Narrative Radiology Service Progress Note PATIENT NAME: Selma Don DATE OF SERVICE: September 08, 2023 TIME: 7:21 AM PATIENT IDENTITY VERIFICATION COMPLETED USING TWO (2) IDENTIFIERS: Name and Date of confirmed by patient verbally. FALL SCREENING: Has the patient had 2 falls in the last year or 1 fall with injury or currently using an Ambulatory Assistive Device (Walker, Cane, Wheelchair, Crutches, etc.)? No PATIENT GENDER DATA: Female. status: : No status: NO. PATIENT RELEVANT IMPLANT DATA REVIEWED: Not Applicable RADIOLOGY DEPARTMENT: Mammography PERIPHERAL IV DATA: Not applicable SIGNED BY: Yong Díaz September 08, 2023 7:21 AM documented in this encounter [facility] 11-24-2022 Hospital Discharg e instructions Patient Education 11/24/2022 17:15:44 Wrist Sprain Wrist Sprain A sprain is an injury to the ligaments or capsule that holds a joint together. There are no broken bones. Most sprains take about 3 to 6 weeks to heal. If it a severe sprain where the ligament is completely torn, it can take months to recover. Most wrist sprains are treated with a splint, wrist brace, or elastic wrap for support. Severe sprains may require surgery. Home care Keep your arm elevated to reduce pain and swelling. This is very important during the first 48 hours. Apply an ice pack over the injured area for 15 to 20 minutes every 3 to 6 hours. You should do this for the first 24 to 48 hours. You can make an ice pack by filling a plastic bag that seals at the top with ice cubes and then wrapping it with a thin towel. Continue to use ice packs for relief of pain and swelling as needed. As the ice melts, be careful to avoid getting your wrap, splint, or cast wet. After 48 hours, apply heat (warm shower or warm bath) for 15 to 20 minutes several times a day, or alternate ice and heat. You may use xamf-qvx-zdyyqoz pain medicine to control pain, unless another pain medicine was prescribed. If you have chronic liver or kidney disease or ever had a stomach ulcer or gastrointestinal bleeding, talk with your doctor before using these medicines. If you were given a splint or brace, wear it for the time advised by your doctor. Follow-up care Follow up with your healthcare provider, or as advised. Any X-rays you had today don t show any broken bones, breaks, or fractures. Sometimes fractures don t show up on the first X-ray. Bruises and sprains can sometimes hurt as much as a fracture. These injuries can take time to heal completely. If your symptoms don t improve or they get worse, talk with your doctor. You may need a repeat X-ray. If X-rays were taken, you will be told of any new findings that may affect your care. When to seek medical advice Call your healthcare provider right away if any of these occur: Pain or swelling increases Fingers or hand becomes cold, blue, numb, or tingly [phone] [employer]. [address] [place] [address]. All rights reserved. This information is not intended as a substitute for professional medical care. Always follow your healthcare professional's instructions. Follow Up Care 11/24/2022 15:46:36 With:DO WON SMILEY DO Address: [address] [place] [address] [address] [place] [address] When:2-4 days [place] 11-24-2022 Emergency department Discharge summary Discharge Instructions Thank you for allowing [facility] to assist you with your healthcare needs. The following is important discharge information regarding your hospital visit. Diagnosis from Today's Visit Wrist sprain Wrist pain-swelling What to Do Next Instructions from Your Care Team Discharge Home Equipment - Ordered -- Splint, wrist & thumb, 99 month(s), 11/24/22 17:13:00 EST Post Acute Orders No qualifying data available. You Need to Schedule the Following Appointments Follow Up with DO WON SMILEY DO When Within 2-4 days Where: [address] [place] [address] [address] [place] [address] Allergies codeine sulfa drug Medications Please ask your primary doctor or pharmacist before taking any other medication not listed, including over the counter drugs, herbal medications, vitamins and or supplements as they may interact with your home medications. What How Much When Why Instructions Last Dose New acetaminophen-hydrocodone (Mobile 325- 5 mg oral tablet) 1 tab(s) by mouth Every 6 hours as needed for for pain Wrist sprain Duration: 3 Days Printed Prescription Unchanged ARIPiprazole (Abilify 10 mg oral tablet) 1 tab(s) by mouth Once a day Unchanged busPIRone (busPIRone 7.5 mg oral tablet) 1 tab(s) take 1 tablet by mouth twice a day Unchanged estradiol (Estradiol Patch) Topical 2 times a week Unchanged famotidine (Pepcid 20 mg oral tablet) 1 tab(s) by mouth Two (2) times a day Duration: 14 Days Unchanged furosemide (Lasix 40 mg oral tablet) 1 tab(s) by mouth Once a day Unchanged hydrOXYzine (Vistaril 25 mg oral capsule) 1 cap by mouth Four (4) times a day Unchanged levothyroxine (levothyroxine 75 mcg (0.075 mg) oral tablet) 1 tab(s) by mouth Once a day Unchanged oxybutynin (oxybutynin 10 mg/ 24 hr oral tablet, extended release) 1 tab(s) take 1 tablet by mouth once daily Unchanged pantoprazole (Protonix 40 mg oral enteric coated tablet) 1 tab(s) by mouth Once a day before a meal Unchanged promethazine (promethazine 25 mg oral tablet) 1 tab(s) by mouth Every 6 hours as needed for Nausea Duration: 5 Days Unchanged traZODone (traZODone 50 mg oral tablet) 1 tab(s) by mouth Three (3) times a day Unchanged venlafaxine (Effexor use venlafaxine) by mouth Please take this list to your next doctor s visit. Bring all medications you take, including over the counter medications, herbals and other supplements with you to your doctor s visit. Patients and families are reminded to discard old lists and to update any records with all medication providers or retail pharmacies. Education Materials Wrist Sprain A sprain is an injury to the ligaments or capsule that holds a joint together. There are no broken bones. Most sprains take about 3 to 6 weeks to heal. If it a severe sprain where the ligament is completely torn, it can take months to recover. Most wrist sprains are treated with a splint, wrist brace, or elastic wrap for support. Severe sprains may require surgery. Home care Keep your arm elevated to reduce pain and swelling. This is very important during the first 48 hours. Apply an ice pack over the injured area for 15 to 20 minutes every 3 to 6 hours. You should do this for the first 24 to 48 hours. You can make an ice pack by filling a plastic bag that seals at the top with ice cubes and then wrapping it with a thin towel. Continue to use ice packs for relief of pain and swelling as needed. As the ice melts, be careful to avoid getting your wrap, splint, or cast wet. After 48 hours, apply heat (warm shower or warm bath) for 15 to 20 minutes several times a day, or alternate ice and heat. You may use dhlb-jyx-mtozqfp pain medicine to control pain, unless another pain medicine was prescribed. If you have chronic liver or kidney disease or ever had a stomach ulcer or gastrointestinal bleeding, talk with your doctor before using these medicines. If you were given a splint or brace, wear it for the time advised by your doctor. Follow-up care Follow up with your healthcare provider, or as advised. Any X-rays you had today don t show any broken bones, breaks, or fractures. Sometimes fractures don t show up on the first X-ray. Bruises and sprains can sometimes hurt as much as a fracture. These injuries can take time to heal completely. If your symptoms don t improve or they get worse, talk with your doctor. You may need a repeat X-ray. If X-rays were taken, you will be told of any new findings that may affect your care. When to seek medical advice Call your healthcare provider right away if any of these occur: Pain or swelling increases Fingers or hand becomes cold, blue, numb, or tingly [phone] [employer]. [address] [place] [address]. All rights reserved. This information is not intended as a substitute for professional medical care. Always follow your healthcare professional's instructions. Additional Information VACCINATE! IT SAVES LIVES! Members of the community who have not yet received the COVID-19 vaccine and would like to receive it can visit one of [facility] vaccine clinics. There are many vaccine clinic locations within the [facility]. For locations and available times, please visit [email or web address]. It is important to note that some COVID mobile vaccine clinics are held outdoors and may be canceled in rainy or stormy conditions. To learn more about pediatric vaccinations (ages 5-11), we invite you to visit the [facility] webpage. [email or web address]-[email or web address]-Freq [email or web address].[email or web address] To learn more about the COVID-19 vaccine, we invite you to visit the [facility] website for a list of frequently asked questions. [email or web address] [facility] Patient [facility] Access Instructions: Stay connected with your healthcare team and access your personal medical information anytime with the [facility] Patient Portal. If you would like a full copy of your medical records please contact the [facility] Medical Records Department Monday through Monday between 8a.m. and 4:30p.m. Please follow the directions below to access the portal: 1.Access the email account you provided upon registration to the [facility].2.Look for an invitation email from [facility].3.Open the email and access the invitation link: Accept Invitation to [facility].Fill in the required fontaine to create your account. Sign into [email or web address] with your username and password that you created in the above steps to stay up to date. You can then view a summary of results, a summary of your visits, and the ability to download your summaries to your computer or send the information securely to a physician. Remember that your healthcare information is confidential, so carefully consider who you will allow to register on the [facility] Patient Portal for access to your information. You can also access the [employer] Patient Portal on the [employer]. Simply click on Health Records under Health Data and then click on the [employer] logo. HOW TO SAFELY DISPOSE OF PRESCRIPTION MEDICATIONS Please use one of the following methods to safely dispose of your unused medications. 1.Use a drug disposal kit: the drug disposal pouch allows you to safely discard your old and unused drugs. Ask your nurse to give you one when you are discharged.2.Visit a local take-back location: Many local pharmacies and police departments have programs that collect old and unwanted prescription drugs. Call your local pharmacy or go to http://WebEvents.[employer]/1A4Pc9a to find one close to you.3.Make use of household items: Use cat litter or old coffee grounds to dispose medications if other options are not available. Mix your drugs with these household products, seal them in an airtight container and throw it into the garbage. Call [facility]: [phone] to be sure your drugs can be disposed of in this way. Some medicines may require a different approach.4.Never flush your medications down the toilet. IF YOU HAVE BEEN PRESCRIBED AN OPIOIDS FOR PAIN If you have been prescribed an opioid (such as hydrocodone, oxycodone or morphine), it is critical to understand the possible side effects and risks of opioid pain medications. Even when taken as directed, opioids can have several side effects including: Tolerance, meaning you might need to take more of a medication for the same pain relief. Nausea, vomiting and/or constipation. Sleepiness, dizziness, dry mouth, confusion, depression or itching. Physical dependence, meaning you have withdrawal symptoms when a medication is stopped ? this can develop within a few days. KNOW YOUR RESPONSIBILITIES It is important to know exactly how much and how often to take the opioid pain medications you are prescribed. Never take opioids in higher amounts or more often than prescribed. Do not combine opioids with alcohol or other drugs that cause drowsiness, such as benzodiazepines, also known as benzos, including diazepam and alprazolam, muscle relaxants or sleep aids. Never sell or share prescription opioids. This is illegal. Store opioids in a secure place and out of reach of others (including children, family, friends and visitors). The last page(s) of this document has been signed and retained as a CHART COPY Signatures Patient Education Materials Wrist Sprain Medication Leaflets My discharge plan and instructions have been reviewed and explained to me and I,SELMA DON understand my current condition and have read and understand these discharge instructions. I have received a written copy of the plan/instructions. If I have questions, I am aware that I should contact my doctor. 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 HISTORY: ORDERING SYSTEM PROVIDED HISTORY: Reason for Exam: fall FINDINGS: No acute fracture or dislocation. An os lunula is identified adjacent to the styloid process. Carpal arcs are maintained. No retained radiopaque foreign body. IMPRESSION: No acute osseous abnormality I have personally reviewed the images of this examination and agree with the resident's findings and interpretation. Interpreted by: Adrian Rhoades MD Preliminary Report By: Garo Palmer Electronically signed By Adrian Rhoades MD Dictated Date: 11/24/2022 4:38:30 PM Prelim Date: 11/24/2022 4:42:41 PM Sign Date: 11/24/2022 4:53:49 PM Ordering Provider: [facility] 11-24-2022 Note ORIGINAL EXAMINATION: 4 XRAY VIEWS OF THE RIGHT WRIST 11/24/2022 4:32 pm COMPARISON: None. HISTORY: ORDERING SYSTEM PROVIDED HISTORY: Reason for Exam: fall FINDINGS: No acute fracture or dislocation. An os lunula is identified adjacent to the styloid process. Carpal arcs are maintained. No retained radiopaque foreign body. IMPRESSION: No acute osseous abnormality I have personally reviewed the images of this examination and agree with the resident's findings and interpretation. Interpreted by: Adrian Rhoades MD Preliminary Report By: Garo Palmer Electronically signed By Adrian Rhoades MD Dictated Date: 11/24/2022 4:38:30 PM Prelim Date: 11/24/2022 4:42:41 PM Sign Date: 11/24/2022 4:53:49 PM Ordering Provider: [facility] 09-02-2022 Miscellaneous Notes September 02, 2022 PID: [id number] Selma Don [address] [place] [address] Dear Ms. Don, We are pleased to inform you that the results of your recent breast imaging exam on 09/02/2022 are normal. Early detection of cancer is very important. We also understand recommendations regarding breast cancer screening are controversial. Please discuss with your primary care provider which strategy is best for you and whether a mammogram is right for you. Your imaging studies and report will be kept on file at [facility] as part of your permanent medical record and are available for your continuing care. Thank you for allowing us to help in meeting your health care needs. Sincerely, Dr. Russell Interpreting Radiologist [facility] (Normal over 40) documented in this encounter [facility] 09-02-2022 History of Presen t illness Narrative Radiology Service Progress Note PATIENT NAME: Selma Don DATE OF SERVICE: September 02, 2022 TIME: 7:54 AM PATIENT IDENTITY VERIFICATION COMPLETED USING TWO (2) IDENTIFIERS: Name and Date of confirmed by patient verbally. FALL SCREENING: Has the patient had 2 falls in the last year or 1 fall with injury or currently using an Ambulatory Assistive Device (Walker, Cane, Wheelchair, Crutches, etc.)? No PATIENT GENDER DATA: Female. status: : No status: NO. 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 Selma is a 57 year old who presents for an annual gynecologic exam without complaints. Postmenopausal: Yes since 2007-hysterectomy cervix remains HRT use: Yes, climara How [id number] Last Pap: 2016 normal HPV: 2017 negative History of abnormal pap: No Last mammogram: 2021 pending History of abnormal mammogram: Yes benign Sexually active: Yes Patient concerns for STD exposure: No. 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 History Comments: Sexual Activity: Yes; Male; Pt has had a hysterectomy Contraception: Surgical PAST MEDICAL HISTORY Diagnosis Date Depression GERD (gastroesophageal reflux disease) Hypertension Hypothyroidism Personal history of unspecified urinary disorder PAST SURGICAL HISTORY Procedure Laterality Date CYSTOSCOPY 02/19/2019 PAST SURGICAL HISTORY OF 1992 Bladder suspension PAST SURGICAL HISTORY OF 2011 Breast reduction TOTAL ABDOM HYSTERECTOMY 09/25/2007 Hysterectomy, CARYL-BSO, cervix remains FAMILY HISTORY Problem Relation Age of Onset Stroke Mother Psychiatry Mother Cancer Father Stomach No Known Problems Sister No Known Problems Brother No Known Problems Brother No Known Problems Maternal Grandmother No Known Problems Paternal Grandmother Cancer Maternal Grandfather Hypertension Paternal Grandfather Heart Paternal Grandfather Seizures Paternal Grandfather other (Epilepsy) Son SOCIAL HISTORY Social History Tobacco Use Smoking status: Never Smokeless tobacco: Never Vaping Use Vaping Use: Never used Substance Use Topics Alcohol use: No Comment: Recovering 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 No bloating, early satiety, indigestion, or increased flatulence. Bladder: No dysuria, gross hematuria, urinary frequency, urinary urgency, or incontinence Breast: No breast lumps, nipple d/c, overlying skin changes, redness or skin retraction Allergies and current medication updated:Yes EXAM: There were no vitals taken for this visit. GENERAL: pleasant, female in no apparent distress HEENT: Normocephalic, atraumatic, mucus membranes moist, and no lesions NECK: Supple, full range of motion, no adenopathy, and thyroid normal DERMATOLOGY: Normal, without lesions, non-icteric, and non-hirsute BREAST: soft, non-tender, symmetric, no dominant mass, normal nipple-areolar complex, no lymphadenopathy, and no nipple discharge CHEST: Normal inspiratory effort ABDOMEN: soft, non-tender, and no masses PELVIC: external genitalia normal, normal Bartholin's glands, urethra, Pettus's glands, no vulvar lesions, no cervical lesions, physiologic discharge present, normal appearing perineal body and perianal region BIMANUAL: no adnexal masses, non-tender, and uterus surgically absent RECTOVAGINAL: deferred. NEURO: alert and oriented x3,exam grossly non-focal EXTREMITIES: normal ASSESSMENT/PLAN: 1) Health maintenance: Pap done with HPV. Mammogram ordered Mammogram up to date Nutrition, exercise and routine health maintenance exams reviewed. Calcium/Vitamin D supplementation information provided. Colon cancer screening: up to date with screening due at age 60 2) Follow up one year or sooner as needed Chaparrita Guthrie APRN.CNP documented in this encounter [facility] Evaluation + Plan note No data available for this section [place] [facility] Diagnosis Encounter for screening mammogram for breast cancer documented in this encounter [facility] note* Diagnosis Encounter for gynecological examination (general) (routine) without abnormal findings- Primary Encounter for screening mammogram for breast cancer [facility] Diagnosis Encounter for screening mammogram for breast cancer [facility] Diagnostic Procedure Only (Routine) - Pending Review Specialty Diagnoses / Procedures Referred By Geoffrey negron Referred To Contact [facility] Diagnoses Encounter for screening mammogram for breast cancer Procedures RYLEE SCREENING SCREENING MAMMOGRAPHY BI 2-VIEW BREAST INC Chaparrita More APRN.M[employer]DLE SCHO[employer] ASSISTANT PRINCIPAL [address] [place] [address] [facility] [address] [place] [id number] Referral ID Status Reason Start Date Expiration Date Visits Requested Visits Authorized [id number] Pending Review Auto-Generat ed Referral 2 10/02/2023 1 1 [facility] Diagnostic Procedure Only (Routine) - Closed Specialty Diagnoses / Procedures Referred By Geoffrey negron Referred To Contact [facility] Diagnoses Encounter for screening mammogram for breast cancer Procedures RYLEE SCREENING SCREENING MAMMOGRAPHY BI 2-VIEW BREAST INC CAD Chaparrita Guthrie APRN.CNP [address] [place] [address] [facility] [address] [place] [address] Referral ID Status Reason Start Date Expiration Date V isits Requested Visits Authorized Closed Auto-Generate d Referral 11/13/2021 09/05/2022 1 1 [facility] for referral (narrative)* Diagnostic Procedure Only (Routine) - Pending Review Specialty Diagnoses / Procedures Referred By Contac t Referred To Contact [facility] Diagnoses Encounter for screening mammogram for breast cancer Procedures RYLEE SCREENING SCREENING MAMMOGRAPHY BI 2-VIEW BREAST INC CAD Chaparrita Guhtrie APRN.[employer] ASSISTANT PRINCIPAL [address] [place] [address] [facility] [address] [place] [address] Referral ID Status Reason Start Date Expiration Date Visits Requested Visits Authorized [id number] Pending Review Auto-Generat ed Referral 10/07/2024 1 1 [facility] for visit Narrative* Diagnostic Procedure Only (Routine) - Closed Specialty Diagnoses / Procedures Referred By Contac t Referred To Contact [facility] Diagnoses Encounter for screening mammogram for breast cancer Procedures RYLEE SCREENING SCREENING MAMMOGRAPHY BI 2-VIEW BREAST INC CAD Chaparrita Guthrie APRN.MIDD[employer] SCHO[employer] ASSISTANT PRINCIPAL [address] [place] [address] [facility] [address] [place] [address] Referral ID Status Reason Start Date Expiration Date V isits Requested Visits Authorized Closed Auto-Generate d Referral 11/13/2021 09/05/2022 1 1 [facility] Summary Purpose Family History No Family History Records FoundNo Family History Records FoundNo Family History Records Found Advance Directives No Advanced Directives Records FoundNo Advanced Directives Records FoundNo Advanced Directives Records Found Reason for Referral Specialty Diagnoses / Procedures Referred By Contac t Referred To Contact [facility] Diagnoses Encounter for screening mammogram for breast cancer Procedures RYLEE SCREENING SCREENING MAMMOGRAPHY BI 2-VIEW BREAST INC Chaparrita More, JEROME.MIDDLE SCHOOL ASSISTANT PRINCIPAL [address] [place] [address] [facility] [address] [place] [address] Referral ID Status Reason Start Date Expiration Date V isits Requested Visits Authorized [id number] Closed Auto-Generate d Referral 09/08/2023 11/12/2023 1 1 Additional Source Comments INFORMATION SOURCE (unrecogn ized section and content) DATE CREATED AUTHOR AUTHOR'S ORGANIZ ATION 05/27/2023 [facility] ([place]) DATE CREATED AUTHOR AUTHOR'S ORGANIZ ATION 09/14/2023 [facility] Source Comments (unrecognize d section and content) In the event this informatio n is protected by the Federal Confidentiality of Alcohol and Drug Abuse Patient Records regulations: The Federal rules restrict any use of the information to criminally investigate or prosecute any alcohol or drug abuse patient.[facility] Center[facility] the event this information is protected by the Federal Confidentiality of Alcohol and Drug Abuse Patient Records regulations: The Federal rules restrict any use of the information to criminally investigate or prosecute any alcohol or drug abuse patient.[facility] CenterIn the event this information is protected by the Federal Confidentiality of Alcohol and Drug Abuse Patient Records regulations: The Federal rules restrict any use of the information to criminally investigate or prosecute any alcohol or drug abuse patient.[facility] Center[facility] the event this information is protected by the Federal Confidentiality of Alcohol and Drug Abuse Patient Records regulations: The Federal rules restrict any use of the information to criminally investigate or prosecute any alcohol or drug abuse patient.[facility] CenterIn the event this information is protected by the Federal Confidentiality of Alcohol and Drug Abuse Patient Records regulations: The Federal rules restrict any use of the information to criminally investigate or prosecute any alcohol or drug abuse patient.[facility] CenterIn the event this information is protected by the Federal Confidentiality of Alcohol and Drug Abuse Patient Records regulations: The Federal rules restrict any use of the information to criminally investigate or prosecute any alcohol or drug abuse patient.[facility] Reason for Visit (unrecogniz ed section and content) Specialty Diagnoses / Procedures Referred By Geoffrey t Referred To Contact Gynecology / 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 [address] Referral ID Status Reason Start Date Expiration Date Visits Re quested Visits Authorized [id number] Closed 11/13/2021 11/12/2022 1 1 Reason Comments Yearly Exam Specialty Diagnoses / Procedures Referred By Geoffrey t Referred To Contact [facility] Diagnoses Encounter for screening mammogram for breast cancer Procedures RYLEE SCREENING SCREENING MAMMOGRAPHY BI 2-VIEW BREAST INC CAD Chaparrita Guthrie, PROCESS ARTIST.[employer] ASSIST[employer]INCIPAL [address] [place] [address] [facility] [address] [place] [address] Referral ID Status Reason Start Date Expiration Date V isits Requested Visits Authorized [id number] Closed Auto-Generate d Referral 09/08/2023 11/12/2023 1 1 Care Teams (unrecognized sec tion and content) [employer] Relationship Specialty Start Date End Date Viry Garcia MD PCP - General 09/28/07 Fer[employer]er Champagne Relationship Specialty Start Date End Date Viry Garcia MD PCP - General 09/28/07 Fer[employer]er [employer] Relationship Specialty Start Date End Date Viry aGrcia MD PCP - General 09/28/07 [employer] Relationship Specialty Start Date End Date Viry Garcia MD PCP - General 09/28/07 Fer[employer]er [employer]agne Relationship Specialty Start Date End Date Viry Garcia MD PCP - General 09/28/07 Care Team (unrecognized sect ion and content) Care Team Personnel Name: PHYSICIAN, NOT RECORDED Member Role: Primary Care Physician Care Team Related Persons Name: ADRIAN DON Address: Home [address] FOR RECORDS PERTAINING TO PATIENTS WHO ARE OR HAVE BEEN ENROLLED IN A CHEMICAL DEPENDENCY/SUBSTANCEABUSE PROGRAM, SOME INFORMATION MAY BE OMITTED. This clinical summary was aggregated from multiple sources. Caution should be exercised in using it in the provision of clinical care. This summary normalizes information from multiple sources, and as a consequence, information in this document may materially change the coding, format and clinical context of patient data. In addition, data may be omitted in some cases. CLINICAL DECISIONS SHOULD BE BASED ON THE PRIMARY CLINICAL RECORDS. [facility] [employer] [facility]. provides no warranty or guarantee of the accuracy or completeness of information in this document.
== END | disposition home or self-care (01) ==
LOC: MFPLAB 08:22
PROVIDERS: PCP Family Medicine; Visit Provider Family Medicine
DX: Z00.00 Encounter for general adult medical examination without abnormal findings (principal)

== ENCOUNTER → 2024-01-30 | Outpatient (CLI) | payer OTHER, SELFPAY ==
[2024-01-30 08:36] LABS: Mucous, Urine 0 SEEN /hpf (<or=2+); Red Blood Cells-Urine 0 SEEN /hpf (0-5)
[2024-01-30 10:01] LABS: Color, Urine Yellow (Yellow); Glucose, Dipstick Normal (Normal); Ketone-Dipstick Negative (Negative); Leukocyte Esterase-Dipstick 25 /ul (Negative); Nitrite-Dipstick Negative (Negative); Occult Blood-Urine Negative /ul (Negative); Protein-Dipstick Negative (Negative); Urine Bilirubin Dipstick Negative (Negative); Urine Clarity Sl. Cloudy (Clear); Urine Urobilinogen Normal (Normal)
[2024-01-30 10:02] LABS: Absolute Lymphocyte Count 1.34 X10^3/uL (0.83-4.51); Absolute Neutrophil Count 4.3 X10^3/uL (2.0-7.7); Basophil# 0.04 X10^3/uL; Basophil% 0.6 % (0-1); Eosinophil# 0.21 X10^3/uL; Eosinophils% 3.2 % (0-5); Hematocrit 41.5 % (37-47); Hemoglobin 13.3 g/dL (12.0-15.0); Lymphocyte # 1.34 X10^3/ul (0.83-4.51); Lymphocyte % 20.4 % (19-41); Mean Corpuscular Hgb 27.1 pg (27.0-32.0); Mean Corpuscular Volume 84.7 fL (81-99); Monocyte# 0.63 X10^3/uL; Monocyte% 9.6 % (0-10); NRBC Flagged by Analyzer 0 % (0-5); Neutrophil # 4.34 X10^3/uL (2.7-7.7); Neutrophil % 65.9 % (47-70); Platelet Count 403 K/mm3 (150-450); RBC Distribution Width CV 14.3 % (11.6-14.6); RBC Distribution Width SD 44.1 fl (35.1-43.9); White Blood Count 6.6 K/mm3 (4.4-11.0)
[2024-01-30 10:16] LABS: Bacteria RARE /hpf (None Seen); Squamous Epithelial Cells - UA 5-10 SEEN /hpf (5-10); White Blood Cells 0-5 SEEN /hpf (0-5)
[2024-01-30 10:20] LABS: Protein, Urine (Random) < 6.0 mg/dL (<11.9)
[2024-01-30 10:29] LABS: PTHIN 45.2 pg/mL (18.4-80.1)
[2024-01-30 10:31] LABS: Vitamin D,25 Hydroxy 81.1 ng/mL
[2024-01-30 10:44] LABS: ALB/GLOB Ratio 0.9 RATIO (0.9-2.4); AST(SGOT) 23 U/L (15-37); Alanine Aminotransfer ALT/SGPT 25 U/L (13-56); Albumin, Serum 3.7 g/dL (3.2-5.0); Alkaline Phosphatase 93 U/L (45-117); Anion Gap 5 (5-15); BUN 13 mg/dL (7-18); BUN/Creat Ratio 14.9 RATIO (10-20); Calcium,Total 9.2 mg/dL (8.5-10.1); Chloride 108 mmol/L (98-107); Cholesterol 251 mg/dL (200); Creatinine, Serum 0.87 mg/dL (0.55-1.02); EST Glomerular Filtration Rate 71 mL/min (>60); Est Glom Filt Rate - Afr Amer 86 mL/min (>60); Globulin 4.1 g/dL (2.2-4.2); Glucose 99 mg/dL (74-106); High Density Lipoprotein 58 mg/dL; Phosphorus 2.8 mg/dL (2.5-4.9); Potassium 4.2 mmol/L (3.5-5.1); Protein, Total 7.8 g/dL (6.4-8.2); Sodium Level 137 mmol/L (136-145); T4 Free Direct 1.12 ng/dL (0.76-1.46); Thyroid Stim Hormone (TSH) 2.22 uIU/mL (0.358-3.74); Triglycerides 155 mg/dL; Very Low Density Lipoprotein 31 mg/dL (5-40)
== END | disposition home or self-care (01) ==
LOC: MFPLAB 08:35
PROVIDERS: PCP Family Medicine; Visit Provider Family Medicine
DX: E03.9 Hypothyroidism, unspecified (principal); E55.9 Vitamin D deficiency, unspecified
CPT/HCPCS: 36415; 80053; 80061; 81001; 82306; 82570; 83970; 84100; 84156; 84439; 84443; 85025

== ENCOUNTER → 2024-03-22 | Outpatient (CLI) | payer OTHER, SELFPAY ==
--- NOTE | 2024-03-22 12:41 | ECHOCS_ITS ---
Reason For Study: SOB Procedure This was a 2D Doppler, Color Flow transthoracic echocardiogram. Contrast injection was performed. Exam performed in department. Left Ventricle Mild concentric left ventricular hypertrophy. Normal LV size. Left ventricular systolic function is hyperdynamic. The left ventricular ejection fraction is 70 %. Diastolic function is indeterminate. Right Ventricle Normal right ventricle. Atria The left and right atria are normal. Mitral Valve Trivial mitral valve insufficiency. Tricuspid Valve Trivial tricuspid valve insufficiency. Unable to estimate RV systolic pressure due to insufficient tricuspid regurgitant envelope. Aortic Valve Trisinus/trileaflet aortic valve. Pulmonic Valve The pulmonic valve is not well visualized. Trivial pulmonic valve insufficiency. Great Vessels Mildly dilated aortic root. Pericardium/Pleural No pericardial effusion. Medication 22 gauge I.V. with prn adaptor inserted into right arm. Diluted definity 2ml given slow IV push to enhance endocardial definition. MMode/2D Measurements & Calculations LVIDd: 4.1 cm IVSd: 1.3 cm Ao root diam: 3.8 cm LVIDs: 2.4 cm LVPWd: 0.79 cm LA dimension: 3.7 cm RVDd: 3.4 cm FS: 41.4 % LAV(MOD-bp): 44.1 ml LVAd ap4: 32.5 cm2 SV(MOD-sp4): 67.8 ml LAV(MOD-bp) Indexed: 20.7 ml/m2 LVLd ap4: 8.7 cm LAV(MOD-sp2): 47.3 ml EDV(MOD-sp4): 100.9 ml LAV(MOD-sp4): 35.1 ml EDV(sp4-el): 103.6 ml LVAs ap4: 16.0 cm2 LVLs ap4: 6.8 cm ESV(MOD-sp4): 33.0 ml ESV(sp4-el): 32.2 ml EF(MOD-sp4): 67.3 % EF(sp4-el): 69.0 % SV(sp4-el): 71.5 ml LA A4 area: 14.1 cm2 RA A4 area: 14.1 cm2 Time Measurements MV dec time: 0.21 sec Doppler Measurements & Calculations MV E max vaibhav: 70.3 cm/sec Lat Peak E' Vaibhav: 7.4 cm/sec Med Peak E' Vaibhav: 5.6 cm/sec MV A max vaibhav: 103.7 cm/sec E/E' lat: 9.5 E/E' med: 12.6 MV E/A: 0.68 MV V2 max: 128.6 cm/sec MV P1/2t max vaibhav: 101.8 cm/sec Ao V2 max: 153.0 cm/sec MV max P.6 mmHg MV P1/2t: 81.4 msec Ao max P.4 mmHg MV V2 mean: 69.7 cm/sec MV mean P.4 mmHg MV dec slope: 366.1 cm/sec2 MV V2 VTI: 25.3 cm MVA(P1/2t): 2.7 cm2 LV V1 max: 136.5 cm/sec PA V2 max: 100.9 cm/sec LV V1 max P.5 mmHg PA V2 mean: 75.4 cm/sec ECHO/Echo Complete W/ Contrast Interpretation Summary Mild concentric left ventricular hypertrophy. The left ventricular ejection fraction is 70 %. Mildly dilated aortic root. Ordering Physician: Tee Bernstein Referring Physician: Tee Bernstein Performed By: Kar Russell RCS
== END | disposition home or self-care (01) ==
LOC: CVS 12:40
PROVIDERS: PCP Family Medicine; Referring Provider Family Medicine; Visit Provider Family Medicine
DX: R06.02 Shortness of breath (principal)
CPT/HCPCS: 93306; Q9957; A4216; C8929

== ENCOUNTER 2024-08-05 08:13 | Emergency (ER) | payer OTHER, SELFPAY ==
[2024-08-05 08:14] VITALS: BP 160/93; PULSE 73; RESP 20; TEMP 36.7; O2SAT 99; BMI 44.6
--- NOTE | 2024-08-05 08:46 | EKG12_ITS ---
Test Reason : Blood Pressure : / mmHG Vent. Rate : 073 BPM Atrial Rate : 073 BPM P-R Int : 174 ms QRS Dur : 086 ms QT Int : 420 ms P-R-T Axes : 005 -08 041 degrees QTc Int : 462 ms Normal sinus rhythm Normal ECG Confirmed by Mynor Dumont ([id number]), associate editor AGUSTO RODRIGUEZ ([id number]) on 08/06/2024 10:06:10 AM Referred By: Confirmed By:Mynor Dumont
--- NOTE | 2024-08-05 08:50 | NURSING ---
NO OLD EKGS
--- NOTE | 2024-08-05 09:03 | EDS_ITS ---
HPI History of Present Illness Chief Complaint: Anxiety Informant: patient and spouse/S.O. Narrative Narrative: 59-year-old female presenting to the emergency room with panic attack. Patient states that for years she has battled with anxiety. She states I cannot do this anymore. She states that she is going crazy. In the past couple weeks she has seen primary care, emergency at outside facility, and psychiatry. She has had her medications adjusted. She notes problems in the past with alcohol and benzodiazepines. She notes that she just wants to go to sleep and to make it stop but she does not wish to commit suicide. She states she is not eating and has lost 11 pounds in the past month. She states that she cannot function in her normal life currently particularly over the weekend was very difficult for her. She has had recent increase in her buspirone and started on Prozac. She has been taking hydroxyzine. She notes a history of hypothyroidism. She states she has done an IOP program in the past. She has recently saw a nurse practitioner through [facility] last . [facility] Medical History Wears glasses Depression Anxiety History of renal disease Low iron Superfic phlebitis-leg Back pain Injury of back History of ulceration Gastric reflux Non-smoker Shortness of breath on exertion History of stress test Alcohol dependence in sustained full remission GERD (gastroesophageal reflux disease) HTN (hypertension) Hypothyroid Bipolar 1 disorder, depressed, moderate Home Medications ?Medication ?Instructions ?Recorded ?Last Taken ?Type levothyroxine 75 mcg tablet 75 mcg PO DAILY 09/29/22 Unknown History (Synthroid) pantoprazole 40 mg tablet,delayed 20 mg PO DAILY 09/29/22 Unknown History release buspirone 7.5 mg tablet 7.5 mg PO TID #90 tabs 08/01/24 Unknown Rx fluoxetine 20 mg capsule 20 mg PO QDAY #30 caps 08/01/24 Unknown Rx hydroxyzine HCl 25 mg tablet 25 mg PO TID PRN 08/01/24 Unknown History losartan 50 mg tablet 50 mg PO QDAY 08/01/24 Unknown History trazodone 50 mg tablet 100 mg PO QHS PRN 08/01/24 Unknown History Allergy/AdvReac Type Severity Reaction Status Date / Time codeine Allergy Hives Verified 08/05/24 08:17 Sulfa (Sulfonamide Allergy Nausea/Vom/ Verified 08/05/24 08:17 Antibiotics) Diarrhea Family History Grandfather Heart disease Hypertension High blood cholesterol Cancer skin cancer Brother Diabetes Son Seizures Mother CVA (cerebral vascular accident) Stomach ulcer Grandmother Thyroid disorder Surgical History History of bladder suspension procedure History of bilateral breast reduction surgery History of hysterectomy Social History Smoking Status: Never smoker ROS ROS ED ROS Narrative Difficulty performing ADLs due to anxiety Constitutional Constitutional ED: Reports weight loss; Denies chills or fever(s) Eyes Eyes: Denies change in vision or diplopia ENT ENT ED: Denies ear pain, rhinorrhea or sore throat Cardiovascular Cardiovascular: Denies chest pain, orthopnea, palpitations or racing heartbeat Respiratory/Chest Respiratory/Chest: Reports dyspnea; Denies cough or orthopnea Gastrointestinal Gastrointestinal: Reports other Details: Lack of appetite ; Denies abdominal pain, diarrhea, nausea or vomiting Genitourinary Genitourinary ED: Denies dysuria, hematuria or urinary frequency Musculoskeletal Musculoskeletal: Denies arthralgias or myalgias Integumentary Denies abscess or rash Neurologic Neurologic: Reports paresthesias; Denies headache(s) or weakness Psychiatric Psychiatric: Reports anxiety and depression; Denies suicidal ideation or s uicidal thoughts Endocrine Endocrinology: Denies polydipsia, polyphagia or polyuria Allergic/Immunologic Allergic/Immunologic ED: Denies mouth swelling, tongue swelling or urticaria EXAM Physical Exam Const Vital Signs: 08/05/24 08:14 08/05/24 10:14 08/05/24 12:00 Temperature 98.1 F Temperature Source Oral Pulse Rate 73 73 72 Respiratory Rate 20 H 16 16 Blood Pressure 160/93 H 158/88 H 150/84 H Blood Pressure Mean 115 111 106 Pulse Ox 99 99 99 Oxygen Delivery Method Room Air Room Air Room Air 08/05/24 14:00 Temperature Temperature Source Pulse Rate 82 Respiratory Rate 17 Blood Pressure Blood Pressure Mean Pulse Ox 96 Oxygen Delivery Method Room Air Positive well nourished, well developed and obese General Appearance ED: well developed Nutritional Appearance: obese HEENT Reports normocephalic, head/scalp atraumatic and moist mucous membranes Eyes PERRL and EOMs intact bilaterally Neck no lymphadenopathy, supple and no JVD Resp normal respiratory effort and clear to auscultation bilaterally Cardio regular rate, regular rhythm and no murmurs GI normal to inspection, nondistended, normoactive bowel sounds and non-tender Palpation: soft Back/Spine no CVA tenderness and normal ROM Extremity normal to inspection General Extremety ED: Negative for edema General Extremity: Negative for edema Neuro oriented x3 and CN's II-XII intact bilaterally Sensorium / Orientation: alert Motor Exam: strength 5/5 throughout Psych Psych Narrative: Patient appears very anxious and intermittently panicky. She is tearful at times. Mood & Affect: anxious and tearful; Negative for depressed Skin no rashes or lesions noted and no wounds MDM MDM MDM Narrative Medical decision making narrative: Differential diagnosis includes but to anxiety disorder depression schizophrenia suicidality thyroid disorder electrolyte abnormality ingestion Basic blood work was obtained essentially negative TSH 1.02. Glucose is normal at 104. Toxicology is negative. Patient received a dose of Geodon and has been resting and feels significantly better. I asked social work to evaluate the patient. She is due to start IOP tomorrow. She is comfortable going home and doing self techniques and continuing her medications. Please see their notes for further details plan. History & Record Review Discussion w/independent historian: Patient Lab Data Attestation: I reviewed the patient's lab results. Labs: Laboratory Results - last 24 hr 08/05/24 08/05/24 09:00 09:05 WBC 8.5 RBC 5.18 Hgb 13.7 Hct 42.6 MCV 82.2 MCH 26.4 L MCHC 32.2 RDW Std Deviation 42.7 RDW Coeff of Aaliyah 14.3 Plt Count 413 MPV 9.5 Immature Gran % (Auto) 0.400 Neut % (Auto) 72.2 H Lymph % (Auto) 20.6 [place] % (Auto) 6.4 Eos % (Auto) 0.2 Baso % (Auto) 0.2 Absolute Neuts (auto) 6.2 Absolute Lymphs (auto) 1.76 Nucleated RBC % 0 Sodium 140 Potassium 3.8 Chloride 109 H Carbon Dioxide 20.0 L Anion Gap 11 BUN 6 L Creatinine 0.97 Estim Creat Clear Calc 77.06 Est GFR (MDRD) Af Amer 76 Est GFR (MDRD) Non-Af 63 BUN/Creatinine Ratio 6.2 L Glucose 104 Calcium 9.9 Total Bilirubin 0.60 AST 22 ALT 34 Alkaline Phosphatase 93 Total Protein 7.6 Albumin 3.9 Globulin 3.7 Albumin/Globulin Ratio 1.1 TSH 1.020 Urine Color Yellow Urine Clarity Clear Urine pH 7.0 Ur Specific Alfred 1.005 Urine Protein Negative Urine Glucose (UA) Normal Urine Ketones 15 H Urine Occult Blood Negative Urine Nitrite Negative Urine Bilirubin Negative Urine Urobilinogen Normal Ur Leukocyte Esterase Negative Urine RBC 0 SEEN Urine WBC 0-5 SEEN Ur Squamous Epith Cells 0-5 SEEN Urine Bacteria RARE Urine Mucus 0 SEEN Urine Opiates Screen NEGATIVE Urine Methadone Screen NEGATIVE Ur Barbiturates Screen NEGATIVE Ur Phencyclidine Scrn NEGATIVE Ur Amphetamines Screen NEGATIVE MDMA (Ecstasy) Screen NEGATIVE U Benzodiazepines Scrn NEGATIVE Urine Cocaine Screen NEGATIVE U Cannabinoids Screen NEGATIVE Ur Drug Screen Comment Ethyl Alcohol < 3.0 EKG Initial EKG: Attestation: I personally reviewed and interpreted this EKG as follows: Comments: Normal sinus rhythm ventricular rate of 73 bpm Discharge Plan Triage Chief Complaint: Anxiety ED Provider: Jae Cazares Dx/Rx/DC Orders Clinical Impression: Generalized anxiety disorder Instructions: ED Anxiety Reaction Prescriptions: No Action levothyroxine [Synthroid] 75 mcg tablet 75 mcg PO DAILY losartan 50 mg tablet 50 mg PO QDAY trazodone 50 mg tablet 100 mg PO QHS PRN hydroxyzine HCl 25 mg tablet 25 mg PO TID PRN fluoxetine 20 mg capsule 20 mg PO QDAY Qty: 30 1RF buspirone 7.5 mg tablet 7.5 mg PO TID Qty: 90 1RF pantoprazole 40 mg tablet,delayed release (DR/EC) 20 mg PO DAILY Primary Care Provider: Tee Bernstein Referrals: Tee Bernstein MD [Primary Care Provider] - Keep Josse appointment Activity Restrictions/Additional Instructions: Please keep your IOP appointment tomorrow as well as follow-up with primary care and psychiatry. Print Language: Greenlandic Disposition Disposition: Home, Self Care
[2024-08-05 09:18] LABS: Absolute Lymphocyte Count 1.76 X10^3/uL (0.83-4.51); Absolute Neutrophil Count 6.2 X10^3/uL (2.0-7.7); Basophil# 0.02 X10^3/uL; Basophil% 0.2 % (0-1); Eosinophil# 0.02 X10^3/uL; Eosinophils% 0.2 % (0-5); Hematocrit 42.6 % (37-47); Hemoglobin 13.7 g/dL (12.0-15.0); Lymphocyte # 1.76 X10^3/ul (0.83-4.51); Lymphocyte % 20.6 % (19-41); Mean Corp Hgb Conc 32.2 g/dL (32-36); Mean Corpuscular Hgb 26.4 pg (27.0-32.0); Mean Corpuscular Volume 82.2 fL (81-99); Mean Platelet Vol. 9.5 fl (6.2-12.0); Monocyte# 0.55 X10^3/uL; Monocyte% 6.4 % (0-10); NRBC Flagged by Analyzer 0 % (0-5); Neutrophil # 6.15 X10^3/uL (2.7-7.7); Neutrophil % 72.2 % (47-70); Platelet Count 413 K/mm3 (150-450); RBC Distribution Width CV 14.3 % (11.6-14.6); RBC Distribution Width SD 42.7 fl (35.1-43.9); Red Blood Count 5.18 M/mm3 (4.2-5.4); White Blood Count 8.5 K/mm3 (4.4-11.0)
[2024-08-05 09:33] LABS: ALB/GLOB Ratio 1.1 RATIO (0.9-2.4); AST(SGOT) 22 U/L (15-37); Alanine Aminotransfer ALT/SGPT 34 U/L (13-56); Albumin, Serum 3.9 g/dL (3.2-5.0); Alkaline Phosphatase 93 U/L (45-117); Anion Gap 11 (5-15); BUN 6 mg/dL (7-18); BUN/Creat Ratio 6.2 RATIO (10-20); Calcium,Total 9.9 mg/dL (8.5-10.1); Chloride 109 mmol/L (98-107); Creatinine, Serum 0.97 mg/dL (0.55-1.02); EST Glomerular Filtration Rate 63 mL/min (>60); Est Glom Filt Rate - Afr Amer 76 mL/min (>60); Estimated Creatinine Clearance 77.06 ml/min; Globulin 3.7 g/dL (2.2-4.2); Glucose 104 mg/dL (74-106); Potassium 3.8 mmol/L (3.5-5.1); Protein, Total 7.6 g/dL (6.4-8.2); Sodium Level 140 mmol/L (136-145)
[2024-08-05 09:37] LABS: Alcohol, Blood (Medical)-Serum < 3.0 mg/dL
--- NOTE | 2024-08-05 09:48 | NURSING ---
FAXED CHART TO CRISIS
[2024-08-05] MEDS: Ziprasidone IM 20 MG/ML VIAL 10 MG IM (09:50)
[2024-08-05 09:51] LABS: Amphetamine Urine VISTA NEGATIVE (<1000 ng/mL); Barbiturate Urine VISTA NEGATIVE (< 200 ng/mL); Benzodiazepine Urine VISTA NEGATIVE (< 200 ng/mL); Cocaine Urine VISTA NEGATIVE (< 300 ng/mL); Ecstacy Urine VISTA NEGATIVE (< 500 ng/mL); Methadone Urine VISTA NEGATIVE (< 300 ng/mL); PCP Urine VISTA NEGATIVE (< 25 ng/mL); THC Urine VISTA NEGATIVE (< 50 ng/mL); Vista UDS pH Range 6
[2024-08-05 10:06] LABS: Mucous, Urine 0 SEEN /hpf (<or=2+); Red Blood Cells-Urine 0 SEEN /hpf (0-5)
[2024-08-05 10:14] VITALS: BP 158/88; PULSE 73; RESP 16; O2SAT 99
[2024-08-05 10:14] LABS: Color, Urine Yellow (Yellow); Glucose, Dipstick Normal (Normal); Ketone-Dipstick 15 mg/dl (Negative); Leukocyte Esterase-Dipstick Negative /ul (Negative); Nitrite-Dipstick Negative (Negative); Occult Blood-Urine Negative /ul (Negative); Protein-Dipstick Negative (Negative); Specific Gravity, Urine 1.005 (1.002-1.030); Urine Bilirubin Dipstick Negative (Negative); Urine Clarity Clear (Clear); Urine Urobilinogen Normal (Normal)
[2024-08-05 11:30] LABS: Squamous Epithelial Cells - UA 0-5 SEEN /hpf (5-10); White Blood Cells 0-5 SEEN /hpf (0-5)
[2024-08-05 11:34] LABS: Bacteria RARE /hpf (None Seen)
[2024-08-05 12:00] VITALS: BP 150/84; PULSE 72; RESP 16; O2SAT 99
[2024-08-05 14:00] VITALS: PULSE 82; RESP 17; O2SAT 96
== END 2024-08-05 15:19 | disposition home or self-care (01) ==
PROVIDERS: Emergency Provider Emergency Medicine; PCP Family Medicine; Visit Provider Emergency Medicine
DX: F41.1 Generalized anxiety disorder (principal); E66.9 Obesity, unspecified
CPT/HCPCS: 80053; 80307; 81001; 82077; 84443; 85025; 93005; 96372; 99283; A4216; J3486

== ENCOUNTER 2024-08-06 08:00 | Outpatient (RCR) | payer OTHER, SELFPAY ==
--- NOTE | 2024-08-06 09:00 | BH.SGPN.GN ---
Behaviors/Verbalizations/Mental Status: [] Eye contact is good. Motor activity is appropriate. Appearance is casual. Speech is Appropriate. Mood is anxious. Affect is congruent. Thoughts are linear and logical. No evidence of psychosis. Reviewed daily check in sheet and no reports of suicidal ideations or intent. Client Response/Progress/Benefit: [] Pt participated at times during the group discussion. Attentive. Daily symptom tracker notes 01/15 for anxiety and 11/17 for depression. This was her first day in [facility] level of care and she discussed her reasons for entering IOP. Reports crippling anxiety for the past several weeks which has resulted in several panic attacks and a recent visit to the ER. Reports constant ruminations and negative automatic thoughts which she has difficulty managing. Also reports constant feelings of dread as if something bad is going to happen. Benefited from group support and encouragement. Group provided advice and suggestions for her first day/week in IOP which was also beneficial. Will continue in IOP to prevent decompensation, stabilize mood, and improve functioning. Narrative Note: []
--- NOTE | 2024-08-06 10:10 | BH.SGPN.GN ---
Behaviors/Verbalizations/Mental Status: [] Eye contact is good. Motor activity is appropriate. Appearance is neat. Speech is Appropriate. Mood is euthymic and anxious. Affect is congruent. Thoughts are linear and logical. No evidence of psychosis. Client Response/Progress/Benefit: [] Pt did well to participate in activity and was engaged and attentive during psychoeducation and interactive discussion on coping skills, why people use unhealthy coping skills, how to replace unhealthy coping skills, and internal vs external coping skills. Attentive as peers came up with list of negative coping skills including not asking for help, avoidance, isolating, sleeping, shopping, substance use, and several others. Pt reported in the past she had used alcohol as an unhealthy coping skill to deal with life stressors, but stopped many years ago after admitting the negative impact it had on her life. Group discussed the effects of how negative coping skills can impact mental health in a negative way. Benefited from increased understanding of unhealthy coping skills and the need for developing healthy internal and external coping skills. Will continue in IOP to decrease anxious avoidance, increase healthy coping skills, and prevent decompensation.
--- NOTE | 2024-08-06 12:11 | BH.MTP ---
Master Treatment Plan Patient Information Program Physician:: Dr. Maya Primary Therapist:: Julia Carney, [facility] Psychiatric Diagnoses Psychiatric Diagnoses:: 1. Major depressive disorder, recurrent, moderate F33.1 2. Panic disorder 3. PTSD 4. Generalized anxiety disorder Diagnosis Code(s):: F33.1 Estimated LOS Estimated LOS (in weeks):: 6 Problem/Goal #1 Problem/Goal #1 Stated Goal:: Client will reduce overall frequency, intensity, and duration of the anxiety so that daily functioning is not impaired.? Description of Barriers: Potential barriers include: negative thoughts, anxious avoidance, distorted thoughts, and low motivation. Functional Impact: Pt reported being referred to [facility] by her outpatient nurse practitioner, Rosemary Mondragon, due to worsening anxiety, depression, and almost daily panic attacks. Pt stated she's been struggling off and on since she changed her medications about two years ago. Pt shared at one point she was on no medications and went into a rage state for about a month. Pt stated during this time she would have several days of feeling enraged in which she would cuss at others, be snappy, and pushed others away. Pt reported once she was put on Vraylar about 6 months ago is when her rage went away. Pt stated she had to get off Vraylar 6 weeks ago because was having issues with breathing. Pt reported she her anxiety has significantly worsened in the last six weeks. Pt stated she has almost daily panic attacks. Pt stated she went to the ER last Monday after having the worst panic attack ever. Pt reported she also went to the ER yesterday because of another bad panic attack. In addition to daily anxiety pt endorses poor concentration, depressed mood, low motivation, low energy, poor appetite, memory issues, sleeping too much, avoidance, feelings of hopelessness, and worthlessness. 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 Pt reports passive thoughts of like I wouldn't care if I didn't wake up. Pt denies active suicidal ideation, plan, or intention to date. Objectives Objective #1: Stated Objective: Client will learn and implement 2-3 calming skills to reduce overall anxiety and manage anxiety symptoms. Interventions: Therapist and group sessions will help client identify physiological warning signs of anxiety, increase awareness of thoughts that increase anxiety, and identify behaviors that reinforce anxious symptoms. Group and individual counseling will teach client calming skills to help manage anxious symptoms. Discharge Criteria: Client will have achieved this goal when can verbalize at least 2 calming skills and reports skills successfully help reduce anxious symptoms. Target Date: 09/17/24 Review Date: 09/03/24 Objective #2: Stated Objective: Client will identify 2-3 anxiety triggers and 2 coping skills to use when feeling anxious. Interventions: Therapist and group therapy will assist client in exploring what triggers anxiety and teach client coping strategies to effectively manage anxiety symptoms. Discharge Criteria: Client will have met this goal when can identify at least 2 triggers to anxiety and verbalize two healthy ways to cope with feelings of anxiety. Target Date: 09/17/24 Review Date: 09/03/24 Problem/Goal #2 Problem/Goal #2 Stated Goal:: Client will decrease depressive symptoms, isolation, and agitation due to Major Depressive Disorder through Intensive Outpatient Program.? Description of Barriers: Potential barriers include: negative thoughts, anxious avoidance, distorted thoughts, and low motivation. Functional Impact: Pt reported being referred to IOP by her outpatient nurse practitioner, Rosemary Mondragon, due to worsening anxiety, depression, and almost daily panic attacks. Pt stated she's been struggling off and on since she changed her medications about two years ago. Pt shared at one point she was on no medications and went into a rage state for about a month. Pt stated during this time she would have several days of feeling enraged in which she would cuss at others, be snappy, and pushed others away. Pt reported once she was put on Vraylar about 6 months ago is when her rage went away. Pt stated she had to get off Vraylar 6 weeks ago because was having issues with breathing. Pt reported she her anxiety has significantly worsened in the last six weeks. Pt stated she has almost daily panic attacks. Pt stated she went to the ER last Monday after having the worst panic attack ever. Pt reported she also went to the ER yesterday because of another bad panic attack. In addition to daily anxiety pt endorses poor concentration, depressed mood, low motivation, low energy, poor appetite, memory issues, sleeping too much, avoidance, feelings of hopelessness, and worthlessness. 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 Pt reports passive thoughts of like I wouldn't care if I didn't wake up. Pt denies active suicidal ideation, plan, or intention to date. Objectives Objective #1: Stated Objective: Client will learn and utilize 2-3 healthy coping strategies to manage depressive symptoms. Interventions: Therapist will utilize CBT techniques to assist client with understanding the connection between thoughts, feelings and behaviors. Education will be provided on behavioral activation. Therapist will assist client in learning internal coping strategies to manage depressive symptoms, along with helping client identify triggers. Discharge Criteria: Client will have achieved this goal when can verbalize and has practiced at least 2 healthy coping strategies that successfully manage depressive symptoms. Target Date: 09/17/24 Review Date: 09/03/24 Objective #2: Stated Objective: Identify and replace 3-4 negative self-talk messages that reinforce depressive symptoms. Interventions: Therapist will help client identify distorted, negative beliefs about self and world and replace those messages with positive, affirmative messages. Discharge Criteria: Client will have achieved this goal when can identify at least 3 negative self-talk messages and replace those messages with positive, affirmative messages. Target Date: 09/17/24 Review Date: 09/03/24
--- NOTE | 2024-08-06 15:19 | BH.MDN_ITS ---
Multi-Disciplinary Note Note 45-min Individual: Time Started:: 11:10 Date: 08/06/24 Purpose of session/treatment goals addressed:: Purpose of session was to build rapport, gather background information, and identify treatment goals. Eye Contact:: Good Motor Activity:: Restless Appearance:: Neat Speech:: Appropriate Mood:: Anxious Affect:: Constricted Thoughts:: Linear, Logical and No evidence of hallucinations/delusions noted Staff Interventions:: thought challenging, psychoeducation on: (anxiety), CBT techniques, mindfulness skills, rapport building, strengths perspective, treatment planning and taught coping skills (belly breathing and grounding tools) Client Response:: Pt reported being referred to [facility] by her outpatient nurse practitioner, Rosemary Mondragon, due to worsening anxiety, depression, and almost daily panic attacks. Pt stated she's been struggling off and on since she changed her medications about two years ago. Pt shared at one point she was on no medications and went into a rage state for about a month. Pt stated during this time she would have several days of feeling enraged in which she would cuss at others, be snappy, and pushed others away. Pt reported once she was put on Vraylar about 6 months ago is when her rage went away. Pt stated she had to get off Vraylar 6 weeks ago because was having issues with breathing. Pt reported she her anxiety has significantly worsened in the last six weeks. Pt stated she has almost daily panic attacks. Pt stated she went to the ER last Monday after having the worst panic attack ever. Pt reported she also went to the ER yesterday because of another bad panic attack. In addition to daily anxiety pt endorses poor concentration, depressed mood, low motivation, low energy, poor appetite, memory issues, sleeping too much, avoidance, feelings of hopelessness, and worthlessness. 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 Pt reports passive thoughts of like I wouldn't care if I didn't wake up. Pt denies active suicidal ideation, plan, or intention to date. Patient reported she is try to use some of the skills she learned last time she was in [facility] 5 years ago but has noticed that similar skills are not helping with her anxiety. Patient stated she mostly isolates which then can impact a depressed mood. Patient reported she has difficulty going to the grocery store and only goes at this point with her . 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 Patient shared while she is in IOP she like to learn healthy coping skills and how to manage the anxiety part of what she is experiencing along with the refreshing skills to help with feelings of depression. Patient responded well to psychoeducation about anxiety and the impact avoidance of anxious situations can actually make things worse. Patient responded well to psychoeducation and being taught how to use guided meditation as a way to manage anxious thoughts and help her body relax. Also reviewed belly breathing and additional grounding techniques. Patient was provided with information on how to belly breathe and different grounding tools. Patient stated for homework she will start practicing using guided meditation since something that she has never tried before. Risks/Concerns:: Denies active suicidal ideation, plan, intention. Future oriented. Progress Toward Goals/Plan:: Progress limited as patient just started program. Patient expresses feeling hopeful because in the past she knows this program has helped her significantly. Patient stated her anxiety is making it hard for her to function because she feels it very physically along with having racing thoughts. Plan is for patient to continue IOP to improve daily functioning, increase healthy calming skills, and prevent decompensation. Time Stopped:: 12:00
--- NOTE | 2024-08-06 15:52 | BH.PSA_ITS ---
Source of Information Presenting Problems/Circumstances Problems, Referral Source, Mental Status, Client: This is an update to pt's previous psychosocial assessment. Refer to pt's full psychosocial dated 08/22/19 for past history information. Pt reported being referred to [facility] by her outpatient nurse practitioner, Rosemary Mondragon, due to worsening anxiety, depression, and almost daily panic attacks. Pt stated she's been struggling off and on since she changed her medications about two years ago. Pt shared at one point she was on no medications and went into a rage state for about a month. Pt stated during this time she would have several days of feeling enraged in which she would cuss at others, be snappy, and pushed others away. Pt reported once she was put on Vraylar about 6 months ago is when her rage went away. Pt stated she had to get off Vraylar 6 weeks ago because was having issues with breathing. Pt reported she her anxiety has significantly worsened in the last six weeks. Pt stated she has almost daily panic attacks. Pt stated she went to the ER last Monday after having the worst panic attack ever. Pt reported she also went to the ER yesterday because of another bad panic attack. In addition to daily anxiety pt endorses poor concentration, depressed mood, low motivation, low energy, poor appetite, memory issues, sleeping too much, avoidance, feelings of hopelessness, and worthlessness. 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 Pt reports passive thoughts of like I wouldn't care if I didn't wake up. Pt denies active suicidal ideation, plan, or intention to date. Psychiatric Presentation Psych Issues & Need for Admission Psychiatric Issues:: Panic disorder, major depressive disorder, generalized anxiety disorder, and post traumatic disorder. Past Psychiatric History MH Treatment Hx Current providers for mental health treatment (counselor, psychiatrist, field case manager, etc.): No current counselor. Established with Rosemary Mondragon last week for medication management. Development & Family of Origin Family Who currently lives in your home?: Currently lives with her . Describe family composition:: Client states she is the oldest of 6 siblings. Client has a relationship with one of her brothers and one of her sisters. Client does not see much of her family due to past trauma. Client's step-dad two years ago from cancer and client stated she was close to him. Client is on her third marriage and has been for 10 years. Client states relationship has been good. However, about two years ago after a conflict with client's step-children there has been a negative impact in their relationship. Family History Family History Grandfather Heart disease Hypertension High blood cholesterol Cancer skin cancer Brother Diabetes Son Seizures Mother CVA (cerebral vascular accident) Stomach ulcer Grandmother Thyroid disorder Mental Status Memory Recent Memory: Poor Remote Memory: Fair Concentration Concentration: Poor Eye Contact Eye Contact: Good Speech Speech: Articulate and Congruent Thought Process Thought Process: Logical and Ruminations Insight: Fair Judgment: Fair Behavior: Anxious Orientation Orientation: Time, Person, Place and Situation Appearance Appearance: Neat/clean Mood Mood: Anxious and Depressed Affect Affect: Appropriate/calm Suicide Assessment Suicidal Ideation Have you ever felt like hurting yourself?: Yes Please explain:: Pt has hx of 3 previous psychiatric hospitalizations due to suicidal thoughts and an attempt. Pt's most recent hospitalization was over 15 years ago. Pt stated she hasn't had any recent active suicidal thoughts, plan, or intention in several years. Pt states recently she has had thoughts of not caring if she didn't wake up, but stated she does not want to take her own life. Were you using ETOH/drugs at the time?: Yes (Struggled with alcoholism for 20 years. Sober since 2007.) Suicidal Intentional Rating Scale (SIRS): Suicidal thoughts (past) Physician Notification Violent Behavior/Abuse History Homicidal Ideation Do you have any homicidal thoughts? If so, explain:: No Is there a known potential victim? If yes, who:: No Life Events Are there any other significant life events?: (step-dad two years ago) and Hardships (Conflict with step-son and step-daugther two years ago has led to increased stress within her marriage and daily stress. ) Safety Do you ever feel threatened in your home? If yes, describe:: No Adult Social History Age 19 to Present Describe your current support system:: Sister, daughter, and her is trying to be more understanding. Substance Use Specific Drugs What specific drugs have you used?: Pt stated she was an alcoholic for about 20 years and has been sober since 2007. In the past she reported abusing benzodiazepines and marijuana. Sober from those since 2008 as well. Pt reports no history of nicotine use. States drinks some caffeine. 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 Pt stated she worked at [employer] for 12 years and quit in October 2019. Pt has been working for her 's company for the last 5 years. Service Service Have you ever been in the ?: No Legal History Records Have you had any past legal charges?: No Do you have any current legal charges?: No Have you ever been incarcerated? If yes, describe:: No Court Orders Have you had any past court orders for psychiatric treatment?: No Do you have a present court order for psychiatric treatment?: No Problem Checklist Current Problem Areas Problem List: Nutritional/Eating pattern changes, Depressed mood/sad, Anxiety, Inattention, Sleep problems and Additional psychosocial stressors (family conflict) Discharge Planning Needs Anticipated Follow-Up Primary Care Physician: Tee Bernstein Associate Professor Of [employer]'s Assessment Client's Needs What are the client's feelings about the program?: Client is excited to be back in [facility] because she knows it helped her so much last time. What are the client's goals?: Client reported she would like to learn skills that can help her manage anxiety more effectively, get back to enjoying activities, and improve daily functioning. What are the client's strengths?: Resilient, hardworking, and motivated to get better. Diagnoses Diagnoses Diagnosis #1:: MDD, recurrent, moderate F33.1 Diagnosis #2:: Panic Disorder F41.0 Diagnosis #3:: PTSD Diagnosis #4:: ALEXY Interpretive Summary Interpretive Summary Interpretive Summary: The patient is a 59-year-old, , female with a history of anxiety and depression who self-referred to the [facility] behavioral health IOP due to her symptoms impacting her function and causing suicidal thoughts. She is known to the IOP as she first participated here in 2019. She feels the last 2 years she has been roman with significant mental health issues and involving worrying, negative rumination and panic attacks. She discontinued her Abilify and Prozac because she felt she was overmedicated but after this she had fits of rage for hours. Her outpatient provider then placed her on Vraylar which helped her control the rage but made her depressed. She has been feeling overwhelmed for the past 3 months due to a conflict with her stepson, struggles in her marriage, and financial stressors. She has been isolating herself in losing friends. She started Prozac 1 week ago and is tolerating it well but did have 1 panic attack last Monday that caused her to go to the emergency room on and 1 on August 05, 2024 which also caused her to go to the emergency room. She was given IM Geodon in the ER 2 days ago and this helped calm her down she said. She feels her panic attacks have increased recently in intensity. She has 2-3 panic attacks a week. She has lost 11 pounds unintentionally in the last 4 weeks as her appetite is decreased she feels secondary to anxiety. She feels like a burden and thinks and ruminates over stressors. For primary support she has her sister, daughter and . She is sleeping 6 hours a night but wakes up at times and does take naps during the day but never feels rested. She endorses hopelessness, worthlessness, low energy, anhedonia, low concentration and guilt. She drinks less than 1 cup of coffee a day. She has intermittent passive thoughts of . She denies suicidal ideation, self-harm, plans for suicide, homicidal ideation, hallucinations, delusions or symptoms of bell. She also denies OCD, history of eating disorders, head trauma or seizures. She is a worrier by nature. She has been sober from alcohol since 2007. She has been having nightmares in the last few months about past traumas and some flashbacks several days a week. She also avoids situations due to her past trauma. Treatment Plan Recommendations Recommendations Guidelines Recommendations:: The patient will start the IOP and behavioral health at [facility] as the structure, support, education and group therapy will hopefully prevent worsening of the patient's symptoms which could r equire hospitalization.
--- NOTE | 2024-08-07 10:40 | BH.NA ---
Physical Data Vital Signs Pulse Rate: 88 Blood Pressure: 153/88 Height/Weight Height: 1.6 m Weight:: 113.398 kg Weight in Pounds: 250.0 lbs Current Medication Compliance Medication Compliance Do you take your medication as prescribed?: Yes Nutritional History Appetite Nutritional Instructions: Describe your appetite:: Fair Additional nutritional information:: Client reports a decreased appetite and reports losing 11lbs in the last 5 weeks unintentionally. Functional Assessment Sleep Pattern Describe any problems with sleeping: Client states she sleeps about 4-5 hours per night. Sensory/Communication Assess Vision Problems Do you have any vision problems?: Glasses Communication Problems Do you have difficulty understanding what people are saying?: No Medical Problems/History Cardiac Conditions Cardiovascular: Hypertension Metabolic Conditions Metabolic: Hypothyroidism Gastrointestinal Conditions Gastrointestinal: Other (See comments) (GERD) Pain Assessment Do you have acute or chronic pain?: No Family History Family History Grandfather Heart disease Hypertension High blood cholesterol Cancer skin cancer Brother Diabetes Son Seizures Mother CVA (cerebral vascular accident) Stomach ulcer Grandmother Thyroid disorder Surgical History Surgical History Have you had any surgeries? If so, list type and date:: Yes (hysterectomy, bladder suspension, breast reduction) Substance Abuse Substance Abuse Please describe substance abuse in the last 30 days:: Client reports being sober from alcohol for 16 years. Client also reports she in the past had used Ativan with alcohol while she was drinking heavily, which she also has not used in 16 years. Client reports past marijuana use that was also stopped 16 years ago. Client denies tobacco use. Client drinks 1/2 cup of coffee per day with caffeine. Mental Status Summary Mental Status Significant Findings/Observations on Appearance and Mood:: Client is alert and oriented x 4. Client is casually groomed with good hygiene. Client is cooperative with assessment. Client makes good eye contact. Client's voice has normal rate and volume. Client has a somewhat restricted affect. Client makes logical associations and has normal processing. Client denies delusions/hallucinations. Client denies SI, but does report some passive thoughts of when she is feeling very anxious like I wish I could just go to sleep and this would all go away. Suicide Assessment Suicidal Ideation Are you currently or have you been suicidal in the past?: Yes Suicidal Intentional Rating Scale (SIRS): Suicidal thoughts (past) Physician Notification Past Psychiatric History MH Treatment Hx Past Psychiatric Medications:: Vraylar (made anxiety worse), Abilify, Trintellix, Rinard, Lexapro Age of first mental health symptoms: Client states she first felt depressed and anxious around age 10-11. Client states she was first on medication for mental health in her 30's. Client states she was diagnosed as bipolar around age 36, but states she was heavily drinking and taking psychiatric medication at that time and her current PCP does not think she is bipolar. Describe (age, circumstance, etc) any past hospitalizations: x3- last was 15 years ago. One suicide attempt over 20 years ago. Current providers for mental health treatment (counselor, psychiatrist, top case assembler, etc.): Rose[facility] Mondr[facility] at [facility]. Fall Risk Assessment Age Age: Less than 60 Mental Status Mental Status: Willing & able to ask for assistance when needed Physical Status Physical Status: No problems Impairments Impairments: None Elimination Elimination: Continent AND independent Gait or Balance Gait or Balance: Walks independently Hx of Falls History of falls in the past 6 months: No known history Medications/Substances Psychotropics:: Antidepressants and Antihistamines (e.g. Benadryl) Others:: Antihypertensives Medications/substances used within the past 24 hours or ordered to administer: 3 or more of the medications/substances listed above Total Score Total Points:: 2 RN Summary of Impressions Impressions Recommendations Impressions: Psychiatric Issues: 1. Major depressive disorder, recurrent, moderate 2. Panic disorder 3. PTSD 4. Generalized anxiety disorder 5. Primary support and financial issues. Level of Care How do the client's current symptoms and functional deficits support need for this level of care?: Client was in IOP in August 2019 and returns at this time due to anxiety severely impacting her life. Client states she has been to the ER two times in the past week for anxiety due to panic attacks. Client states she feels constant anxiety and states I feel like I'm shaking from the inside. Client reports excessive worry, intrusive thoughts, and feeling constantly overwhelmed. Client reports I'm just constantly waiting for the other shoe to drop, like I know something bad is going to happen. Client reports frequent anxiety attacks the last several weeks. Client denies active SI. IOP will promote gains and prevent further decompensation while providing social support and skills training.
--- NOTE | 2024-08-07 11:15 | BH.SGPN.GN ---
Behaviors/Verbalizations/Mental Status: []Eye contact is good. Motor activity is appropriate. Appearance is casual. Speech is Appropriate. Mood is depressed and anxious. Affect is congruent. Thoughts are linear and logical. No evidence of psychosis. Client Response/Progress/Benefit: [] Pt was an active participant in group discussions and activity. Engaged with peers in activity and identifying healthy ways to approach each conflict scenario. Group discussed various conflict resolution skills that can be useful in addressing conflict outside of IOP. Benefited from practicing and learning conflict resolution skills during group activity. Able to identify areas pt wants to work on to improve how pt manages conflict both internally and externally. Expressed wanting to work on advocating for their needs and boundaries more consistently. Will continue in IOP to stabilize mood, improve healthy coping skills, and prevent decompensation. Narrative Note: []
[2024-08-07 11:17] VITALS: BP 153/88; PULSE 88
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
--- NOTE | 2024-08-07 12:40 | BH.DR.ITP ---
Initial Treatment Plan Patient Information Visit Information: ADMISSION DATE: EXPECTED LOS: 4-6 weeks Problems/Symptoms Problem #1:: Anxiety Symptom:: Worry, rumination, panic attacks, flashbacks, nightmares, avoidance Problem #2:: Depression Symptom:: Sadness, hopelessness, worthlessness, anhedonia, low energy, decreased concentration, guilt, passive thoughts of
--- NOTE | 2024-08-12 09:00 | BH.SGPN.GN ---
Behaviors/Verbalizations/Mental Status: [] Eye contact is good. Motor activity is appropriate. Appearance is casual. Speech is Appropriate. Mood is anxious. Affect is congruent. Thoughts are linear and logical. No evidence of psychosis. Reviewed daily check in sheet and no reports of suicidal ideations or intent. Client Response/Progress/Benefit: [] Pt participated at times during the group discussion. Attentive. Daily symptom tracker notes 02/15 for anxiety. Shared with the group that her had a possible TIA or stroke last week which led to his hospitalization. She reports that this occurred the day they were scheduled to move into their new house. Reports significant stressors however was able to manage her anxiety and focus on her . She also realized that she needed to ask for help from her family. I let people help us. Despite the stressors she reports that she was proud of how she managed her anxiety and panic. According to pt she is actually functioning better this week than the previous month. Believes that recent medication change was helpful. According to pt she took half the amount of PRN medications she had been taking. Feeling optimistic about her mental health. Benefited from group support, encouragement, and feedback. Will continue in IOP to prevent decompensation, stabilize mood, and improve functioning. Narrative Note: []
--- NOTE | 2024-08-12 11:10 | BH.SGPN.GN ---
Behaviors/Verbalizations/Mental Status: []Pt alert and oriented, casually dressed and groomed. Eye contact good. Motor activity appropriate. Speech within normal limits. Affect congruent, mood euthymic, anxious. Thoughts linear, logical, no signs of hallucinations or delusions. Client Response/Progress/Benefit: [] Pt responded well to session AEB taking notes and contributing to discussion throughout. Pt engaged as group continued discussion on acceptance and the mental health benefits of practicing acceptance. Pt and peers identified what makes acceptance challenging and pt completed a self-reflection exercise on what is hard to accept in pt's life. Pt identified what is hard to accept in their life that they would like to work on is the need for daily psychiatric medications. Group identified strategies to increase acceptance and pt wants to practice utilizing dialectics to increase acceptance. Pt appeared to benefit from gaining insight and learning strategies to increase acceptance. Pt will continue IOP tx to prevent decompensation, promote skill application, improve mood stability. Narrative Note: []
--- NOTE | 2024-08-12 12:43 | BH.MDN ---
Multi-Disciplinary Note Note 45-min Individual: Time Started:: 10:05 Date: 08/12/24 Purpose of session/treatment goals addressed:: Purpose of session was to address goals 1 and 2 from MTP. Eye Contact:: Good Motor Activity:: Appropriate Appearance:: Neat Speech:: Appropriate Mood:: Anxious Affect:: Full Thoughts:: Linear, Logical and No evidence of hallucinations/delusions noted Staff Interventions:: thought challenging, psychoeducation on: (Panic attacks, physiological anxiety symptoms, and impact avoidance has on anxiety.), CBT techniques, mindfulness skills, strengths perspective, goal setting and taught coping skills Client Response:: Client stated she is doing considerably better compared to last week and doing well despite her having a medical scare end of last week. Client reported she took her to the hospital for possible stroke on and felt like she was able to manage her anxiety pretty well despite everything going on. Client stated she was able to take care of getting the move to their new house on and Monday and she asked for help. Client reported her was released on Monday with a suspected TIA. Client stated on Monday she was able to get a lot done with the help of others with unpacking from their move. Client reported she took a rest day yesterday which she said was very helpful. Client stated she also was able to go to the grocery store which is something that she has not been able to do for a while. Client identified things that used to be her baseline like cooking 5 times a week, meal planning, showering every other day, getting things done around the house, not napping, socializing, and leaving the house. Client reported for the last several months she really has not been doing any of those things or to a much lesser degree. Client stated she would like to focus on getting back to cooking at least 3 times this week, taking showers every other day, and started to think about how to be more social again. Client agreed there are some people in her life that she pushed away when she is feeling rage during her time with no medications that she could reach out to to repair the relationship. Client stated there are some people that she did push away that she thinks was probably a good thing for her own mental health. Client states she also has a desire to try to make amends and rebuild relationship with her stepson. Client reported unfortunately she recognizes she cannot rebuild their relationship if he does not want to do the same so is trying to accept his place and viewpoint. Client responded well to psychoeducation about anxiety and the impact avoidance can have on functioning. Client stated prior to starting IOP she was barely leaving the house besides to go to work a couple times a week and occasionally going to one of her family members houses. Client reported her anxiety really made her world small because she felt too anxious to go anywhere or do much. Client agreed this week it could be helpful for her to make plans with either her sister or her daughter that will help her get out of the house because she recognizes staying home has not been helpful for her mental health. Client reported since starting IOP she has worked on decreasing her napping because she knows that can worsen her feelings of depression. Risks/Concerns:: Denies suicidal ideation, plan, intention. Future oriented. Progress Toward Goals/Plan:: Progress noted with client being able to manage stressful situation with her 's health last by using breathing skills and grounding tools. Client also was able to manage her anxiety when moving to her new house and asked for help. Client stated feeling like she is responding well to the new medication and is feeling less overwhelmed with her anxiety. Client noted her anxiety still makes it difficult to do things outside the home but has been trying to practice opposite action and exposure goal. Plan is for client to continue IOP to promote use of healthy coping skills, challenge negative and distorted thoughts, and prevent decompensation. Time Stopped:: 10:50
== END 2024-08-12 23:59 ==
LOC: BHIOP 08:00
PROVIDERS: PCP Family Medicine; Referring Provider Psychiatry & Neurology Psychiatry; Visit Provider Psychiatry & Neurology Psychiatry
DX: F33.1 Major depressive disorder, recurrent, moderate (principal); F41.0 Panic disorder [episodic paroxysmal anxiety]; F43.10 Post-traumatic stress disorder, unspecified; F41.1 Generalized anxiety disorder
CPT/HCPCS: S9480; 90834; 90853

== ENCOUNTER 2024-08-13 08:05 | Outpatient (RCR) | payer OTHER, SELFPAY ==
[2024-08-13 00:27] VITALS: BP 153/88; PULSE 88
--- NOTE | 2024-08-14 09:00 | BH.SGPN.GN ---
Behaviors/Verbalizations/Mental Status: []Pt alert and oriented, neatly dressed and groomed. Eye contact good. Motor activity appropriate. Speech within normal limits. Affect congruent, mood anxious and tired. Thoughts linear, logical, no signs of hallucinations or delusions. Reviewed pt?s symptom tracker, no risk for suicidal ideation, plan, or intent 08/14/24 Client Response/Progress/Benefit: []Pt was an active participant in group discussions. Attentive. Able to identify mental health wins including making it into IOP today and trying to give myself some kendy and challenging some of her distorted thoughts. Pt's stressor today is that she had a rough afternoon yesterday and pt feels physically exhausted. Pt stated pt is feeling heavy this morning. Pt receptive to feedback from peers which pt reported was helpful. Progress noted. Benefited from group support, encouragement, and feedback. Will continue in IOP to prevent decompensation, improve daily functioning, and combat distortions. Narrative Note: []
--- NOTE | 2024-08-14 10:10 | BH.SGPN.GN ---
Behaviors/Verbalizations/Mental Status: [] Eye contact is good. Motor activity is appropriate. Appearance is casual. Speech is Appropriate. Mood is anxious. Affect is congruent. Thoughts are linear and logical. No evidence of psychosis Client Response/Progress/Benefit: [] Pt responded well to session AEB contributing to small group discussion, taking notes, and listening attentively to others. Group defined anger and discussed the benefits of managed anger and anger as a secondary emotion. Pt shared perspective on personal benefits of anger as advocating for self and getting needs met. Pt completed worksheet on anger triggers and personal warning signs of anger. Pt identified a common trigger as people being disrespectful and lying. Appeared to benefit from increased knowledge of the anger cycle as well as personal triggers. Will continue IOP to increase healthy coping for anxiety, prevent decompensation, and improve functioning. Narrative Note: []
--- NOTE | 2024-08-14 11:10 | BH.SGPN.GN ---
Behaviors/Verbalizations/Mental Status: []Client alert and oriented, casually dressed and groomed. Eye contact good. Motor activity appropriate. Speech within normal limits. Affect congruent, mood anxious. Thoughts linear, logical, no signs of hallucinations or delusions. Client Response/Progress/Benefit: []Pt was engaged throughout AEB contributing to group discussion and activity. Group processed how they each responded to the intentionally difficult task they were asked to completed and described the physical and emotional anger cues experienced throughout, as well as strategies used for managing these frustrations. Pt contributed as group brainstormed healthy coping skills for better managing anger which included: music, walking/exercise, taking a break, healthy venting, avoiding unnecessary stressors, reflection, and journaling. Pt cooperative with working in small groups to identify what strategy wants to work on to help interrupt personal anger cycle. Pt to continue IOP to challenge distortions, continue use of healthy calming skills to manage anxiety, and prevent decompensation.
--- NOTE | 2024-08-15 09:05 | BH.SGPN.GN ---
Behaviors/Verbalizations/Mental Status: [] Pt alert and oriented, casually dressed and groomed. Eye contact good. Motor activity appropriate. Speech within normal limits. Affect congruent, mood depressed and anxious. Thoughts linear, logical, no signs of hallucinations or delusions. Reviewed pt?s symptom tracker, no risk for suicidal ideation, plan, or intent 08/14/24 Client Response/Progress/Benefit: []Pt was an active participant in group discussions. Attentive. Able to identify mental health wins including reaching out to her individual therapist for support this morning when feeling overwhelmed and anxious, rather than minimizing and trying to push through. Reports they were able to guide pt in a meditation practice and deep breathing which helped with reducing in the moment anxiety. Did well to recognize continued use of breathing and trying to stay present in group as wins. Noted this is helping to keep herself out of her own head and prevent engaging with thought distortions reinforcing anxiety. Stressor noted as ongoing issues with daily anxiety impacting her functioning. Benefited from group support, encouragement, and feedback. Will continue in IOP to prevent decompensation, improve daily functioning, and increase distress tolerance/anxiety management skills. Narrative Note: []
--- NOTE | 2024-08-15 10:10 | BH.SGPN.GN ---
Behaviors/Verbalizations/Mental Status: [] Eye contact is good. Motor activity is appropriate. Appearance is casual. Speech is Appropriate. Mood is anxious. Affect is congruent. Thoughts are linear and logical. No evidence of psychosis. Client Response/Progress/Benefit: [] Pt was an active participate AEB listening attentively to others, participating in group discussions, and taking notes throughout. Participated as the group defined emotion dysregulation and identified ways we can hurt others or sabotage self by not regulating our emotions. Participated with peers to identified ways emotions impact communication which included; shutting down, being irritable/short with others, difficulty focusing/staying on topic, confusion, zone out, and being aggressive or dismissive to others. Participated during group activity. Pt benefited from session by gaining an increased understanding on the importance of managing emotions to improve daily functioning. Will continue IOP tx to prevent decompensation, stabilize anxiety, and improve functioning. Narrative Note: []
--- NOTE | 2024-08-15 11:15 | BH.SGPN.GN ---
Behaviors/Verbalizations/Mental Status: []Pt alert and oriented, casually dressed and appropriately groomed. Eye contact good. Motor activity appropriate. Speech within normal limits. Affect congruent, mood euthymic. Thoughts linear, logical, no signs of hallucinations or delusions. Client Response/Progress/Benefit: [] Pt engaged in session AEB Pt listening attentively to peers and providing input. Attentive during psychoeducation on 4 zones of regulation. Pt able to identify feelings and behaviors for each zone. Pt identified coping skills one can use to support self in each zone. Pt stated she often is in the blue and yellow zones. Pt reported healthy coping skills she wants to work on to help manage emotions in each zone include: getting out of the house, setting goals, and belly breathing. Benefited from increased education on zones of regulation or stages of alertness for emotions and healthy coping skills to use for each zone. Will continue IOP tx to challenge anxious thoughts, increase consistent use of healthy coping skills, and prevent decompensation.
--- NOTE | 2024-08-19 09:00 | BH.SGPN.GN ---
Behaviors/Verbalizations/Mental Status: []Pt alert and oriented, neatly dressed and groomed. Eye contact good. Motor activity appropriate. Speech within normal limits. Affect congruent, mood euthymic. Thoughts linear, logical, no signs of hallucinations or delusions. Reviewed pt?s symptom tracker, no risk for suicidal ideation, plan, or intent 08/19/24. Client Response/Progress/Benefit: []Pt was an active participant in group discussions. Attentive. Able to identify mental health wins including having a really good weekend with much less anxiety and getting to spend time with her sister. Pt stated she also was able to focus on work for about two hours on Monday and pt felt accomplished. Pt stated she is going back into the office tomorrow which makes pt feel some anxiety, but pt also feels comfortable this morning. Pt receptive to feedback from peers which pt reported was helpful. Progress noted. Benefited from group support, encouragement, and feedback. Will continue in IOP to promote mood stability, increase self-confidence, and improve daily functioning. Narrative Note: []
--- NOTE | 2024-08-19 10:15 | BH.SGPN.GN ---
Behaviors/Verbalizations/Mental Status: []Pt alert and oriented, casually dressed and groomed. Eye contact good. Motor activity appropriate. Speech within normal limits. Affect congruent, mood calm. Thoughts linear, logical, no signs of hallucinations or delusions. Client Response/Progress/Benefit: [] Pt was attentive during psychoeducation and participated in group activity. Group discussed what contributes to a person?s perspective and how perspective can positively or negatively impact mental health treatment. Pt reflected on their perspective today and how it is impacting them. Pt shared their perspective today is being mostly positive. Pt shared she is ?so hopeful about therapy and I know I?ll get better even if it?s taking a little longer.? Pt appeared to benefit from increasing awareness of different perspectives and how they can affect mental health. Pt will continue IOP tx to promote mood stability, improve self-confidence, and reduce negative thinking patterns. Narrative Note: []
--- NOTE | 2024-08-19 11:10 | BH.SGPN.GN ---
Behaviors/Verbalizations/Mental Status: []Pt alert and oriented, casually dressed and groomed. Eye contact good. Motor activity appropriate. Speech within normal limits. Affect congruent, mood content. Thoughts linear, logical, no signs of hallucinations or delusions. Client Response/Progress/Benefit: []Pt was attentive and contributed to group discussion. Pt worked with group to identify strategies that can help with challenging negative perspective. Pt stated she can remind herself that things take time as a way to challenge negative perspective. Pt completed strengths exploration worksheet, identifying her personal strengths. Pt able to acknowledge how these strengths are helping pt and can continue to help pt in mental health journey. Pt identified wanting to work on leaning on strength of optimism to continue to see the good. Benefited from identifying personal strengths and strategies for enhancing use of identified strengths. Pt will continue IOP tx to continue use of healthy coping skills, challenge distortions, and prevent decompensation.
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
--- NOTE | 2024-08-21 10:10 | BH.SGPN.GN ---
Behaviors/Verbalizations/Mental Status: [] Eye contact is good. Motor activity is appropriate. Appearance is casual. Speech is Appropriate. Mood is anxious. Affect is congruent. Thoughts are linear and logical. No evidence of psychosis. Client Response/Progress/Benefit: [] Pt was an active participant during interactive group discussions.Along with peers contributed to interactive discussion on defining what a boundary is in mental health. Pt along with peers identified challenges to setting boundaries which included; people pleasing, fear of rejection, fear of loss, fear people won't respect the boundary, etc. Pt along with peers identified the benefits to setting boundaries such as reduces assumptions, can reduce stress, improve communication/relationships, and can keep us safe. Attentive during psychoeducation on types of boundaries (rigid, porous, flexible). Pt benefited from increased awareness and insight on the importance/benefit to setting health boundaries. Will continue in IOP to prevent decompensation, decrease anxious thoughts, and increase healthy coping. Narrative Note: []
--- NOTE | 2024-08-21 11:05 | BH.SGPN.GN ---
Behaviors/Verbalizations/Mental Status: []Eye contact is good. Motor activity is appropriate. Appearance is casual. Speech is Appropriate. Mood is calm. Affect is congruent. Thoughts are linear and logical. No evidence of psychosis. Client Response/Progress/Benefit: []Pt responded well to session AEB listening attentively to peers and taking notes throughout. Reports connecting most with rigid boundaries when it comes to emotions, and that is normally not like pt. Participated in group discussion brainstorming various strategies for improving healthy boundary setting. Pt reports wanting to work on being less vague with her responses and asking herself ?what does saying no say yes to?? Seemed to benefit from increased awareness of how different boundary styles can impact mental health. Will continue IOP tx to promote mood stability, increase self-confidence, and improve daily functioning. Narrative Note: []
--- NOTE | 2024-08-21 12:08 | PCM.BH.PN ---
Progress Note Progress Note: History of Present Illness/Interim History: The patient is a 59-year-old , female with a history of anxiety and depression who is seen in follow-up at the [facility] behavioral health [facility]. I last saw the patient 2 weeks ago and at that time due to her severe anxiety, nausea, weight loss and panic attacks Zyprexa was added to help with her anxiety and while the Prozac needs time to start taking effect. The patient had had 2 ER visits recently for panic attacks. The patient states that she is feeling much better. She did not require any Vistaril yesterday for anxiety. Her last panic attack was 4 days ago and she is having them about every other day lately. Nausea is much less than it was before and it is much easier for her to eat now although she may still be losing weight. She has lost 17 pounds total when she saw her PCP last week. She states she is no longer hopeless and she is not having any passive thoughts of now. She also denies anhedonia. She denies suicidal ideation, self-harm, plan for suicide, homicidal ideation, hallucinations or delusions. 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 She has some avoidance due to her past trauma and occasional flashbacks and nightmares. Current Psychiatric Medications: [] Prozac 20 mg p.o. daily (x 3 weeks now); hydroxyzine 25 mg p.o. as needed for panic attacks; Zyprexa 2.5 mg p.o. at bedtime; propranolol 10 mg p.o. twice daily; trazodone 50 to 100 mg at bedtime as needed for sleep. Mental Status Examination: [] The patient is a 59-year-old obese female who appears normal for stated age and is casually dressed and groomed with good hygiene. She is ambulatory with a normal gait and has no psychomotor agitation or retardation. She is cooperative during the interview. Speech is normal rate and rhythm and fluent with no pressure and eye contact is good. Mood is anxious. Affect is mildly constricted. Thought process is goal-directed and organized. Thought content: The patient feels much better although anxiety persists. There is no evidence of passive thoughts of , suicidal ideation, plan for suicide, homicidal ideation, hallucinations or delusions. Reality testing is intact. Judgment is intact. Insight is good. Impulsivity is moderate. Diagnoses: [] 1. Major depressive disorder, recurrent, moderate 2. Panic disorder 3. PTSD 4. Generalized anxiety disorder 5. Primary support and financial issues Plan: [] The patient will continue the IOP in behavioral health at [facility] as the structure, support, education and group therapy will hopefully prevent worsening of the patient's symptoms which could require hospitalization. She felt safe during the interview and if it anytime she does not feel safe she agrees to let us know or go to the emergency room. The risks, options, possible complications and side effects of the medications were again discussed with the patient and she understands and accepts these. The patient agrees to increase her Prozac to 40 mg p.o. daily and prescription is sent in for this. She will continue her other medications unchanged. I will see the patient in follow-up in 2 weeks and we may start weaning her discontinue the Zyprexa at the next visit in the hopes that the Prozac dose will be adequate to handle her anxiety including nausea. She will continue to follow-up with her outpatient providers and I will see the patient in follow-up in 2 weeks.
--- NOTE | 2024-08-22 09:00 | BH.SGPN.GN ---
Behaviors/Verbalizations/Mental Status: [] Eye contact is good. Motor activity is appropriate. Appearance is casual. Speech is Appropriate. Mood is anxious. Affect is congruent. Thoughts are linear and logical. No evidence of psychosis. Reviewed daily check in sheet and no reports of suicidal ideations or intent. Client Response/Progress/Benefit: [] Pt participated a times during the group discussions. Attentive. According to pt she is ?setting boundaries with herself and others?. Elaborated on how this is beneficial to her mental health. Emotion for today is ?worried?. She is able to identify small improvements stating ? my anxious brain in subsiding? as she is more consistently using skills and reframing thoughts. Progress noted. Benefited from group support, encouragement, and feedback. Will continue in IOP to prevent decompensation, stabilize anxiety, and increase healthy coping.? Narrative Note: []
--- NOTE | 2024-08-22 10:15 | BH.SGPN.GN ---
Behaviors/Verbalizations/Mental Status: [] Pt alert and oriented, appropriate grooming/appearance. Eye contact good. Motor activity appropriate. Speech within normal limits. Affect congruent, mood anxious and content. Thoughts linear, logical, no signs of hallucinations or delusions. Client Response/Progress/Benefit: [] Pt was an active participant in group discussions. Attentive during psychoeducation. Contributed during interactive discussions in which peers attempted to define crisis. Group identified examples of potential crisis. Group also worked together to identify unhealthy responses to crisis which included lashing out, isolation, self-harm, and distraction. Pt identified personal warning signs for crisis as isolating, increased sleep, and lack of self-care. Benefited from increased understanding of crisis and awareness of personal responses to crisis. Pt will continue IOP tx to increase functioning and prevent decompensation. Narrative Note: []
--- NOTE | 2024-08-22 11:15 | BH.SGPN.GN ---
Behaviors/Verbalizations/Mental Status: []Pt alert and oriented, appropriate grooming/appearance. Eye contact good. Motor activity appropriate. Speech within normal limits. Affect congruent, mood calm and positive. Thoughts linear, logical, no signs of hallucinations or delusions. Client Response/Progress/Benefit: []Pt was an active participant in group discussions. Attentive during psychoeducation. In small group pt along with peers developed an active plan for their crisis warning signs. Pt identified three crisis warning signs as well as an action plan for each. One crisis warning sign was sleeping a lot. Pt identified coping skills to help with this such as: opposite action - no nap, taking dog for a walk, scheduling plans with someone, calling a support person, completing chores around the house, and doing hair. ?Benefited from increased awareness of crisis warning signs and by developing crisis intervention strategies. Will continue in IOP to promote use of healthy coping skills, challenge distortions, and prevent decompensation.
--- NOTE | 2024-08-23 10:10 | BH.SGPN.GN ---
Behaviors/Verbalizations/Mental Status: [] Pt alert and oriented, casually dressed and groomed. Eye contact good. Motor activity appropriate. Speech within normal limits. Affect congruent, mood anxious. Thoughts linear, logical, no signs of hallucinations or delusions. Client Response/Progress/Benefit: [] Pt participated during small group discussions. Attentive during psychoeducation about defense mechanisms. Showed engagement during small group discussions and helped group identify which defense mechanisms were maladaptive, adaptive, or ?somewhere in the [place].? Noted she struggles with anticipation and humor defense mechanisms. Pt worked with small group on identifying how each defense mechanism can impact mental health and gave examples. ?Seemed to benefit from gaining awareness about the different defense mechanisms. Pt to continue IOP tx to prevent decompensation, stabilize mood, and improve functioning. Narrative Note: []
--- NOTE | 2024-08-23 11:10 | BH.SGPN.GN ---
Behaviors/Verbalizations/Mental Status: []Pt alert and oriented, casually dressed and groomed. Eye contact good. Motor activity appropriate. Speech within normal limits. Affect congruent, mood euthymic. Thoughts linear, logical, no signs of hallucinations or delusions. Client Response/Progress/Benefit: []Pt responded well to session, participating in activity and small group discussion. Group reviewed the rest of the defense mechanisms and discussed how these are adaptive, maladaptive, or somewhere in the [place]. Pt participated in the experiential activity which encouraged pts to draw a castle that portrayed their different defense mechanisms. Pt's defense mechanisms included suppression, anticipation, and humor. Pt shared wanting to work on her anticipation as this used to be helpful, but now it causes pt to overthink. Pt listened to medical technologist prn teach different skills to help pt?s cope with or change their defense mechanisms. Pt appeared to benefit from gaining insight to the different defense mechanisms and learning coping skills. Pt will continue IOP tx to prevent decompensation, improve daily functioning, and increase self-compassion. Narrative Note: []
--- NOTE | 2024-08-23 14:30 | BH.MDN_ITS ---
Multi-Disciplinary Note Note 45-min Individual: Time Started:: 08:57 Date: 08/23/24 Purpose of session/treatment goals addressed:: Purpose of session was to address goals 1 and 2 from MTP. Eye Contact:: Good Motor Activity:: Appropriate Appearance:: Neat Speech:: Appropriate Mood:: Euthymic and Other (Hopeful) Affect:: Full Thoughts:: Linear, Logical and No evidence of hallucinations/delusions noted Staff Interventions:: thought challenging, CBT techniques, mindfulness skills, strengths perspective, goal setting and taught coping skills Client Response:: Client reported she is feeling so much better starting a few days ago. Client stated couple of the group topics in IOP this week really helped put things into perspective for her especially when talking about perspective and crisis. Client reported she recognizes that a lot of what has transpired in the last at least 6 months was a result of some of her unhealthy decision making. Client stated she also has been trying to challenge her perspective recognizing that she does have a lot of good in her life and her anxious and depressed thinking patterns are often just worse case scenarios and irrational. Client reported on Monday of this week she was able to go into the work office for the first time in a while and felt like she was very productive. Client stated she also was able to interact with her stepson who she has a complicated relationship with since having a big argument 2 years ago. Client reported she usually avoids interacting with him but was able to do so and it went well. Client stated she is hopeful that as she continues to work on herself there can be a moment where she apologizes for her part of their complicated relationship and they can come to some sort of resolution which would make the family and work environment less anxiety provoking. Client stated she has been doing better this week with decreased avoidance of anxiety provoking situations, was able to cook to meals, and yesterday went to the store by herself while her waited in the car to get two items. Client reported she felt slightly anxious when she went to the grocery store on her own but remind herself that she was safe and that she could do it. Client stated she has been utilizing the guided meditation every evening and night. Client reports she feels like this has really helped Decrease her anxiety drastically. Her client reported over the weekend she did follow through with goal of being social by going to a store with her sister and hang out with her sister afterwards. Client reported she really started to feel more like herself when she was with her sister and felt very connected. Client stated this weekend she has plans for her sister to come over tomorrow to help organize and unpack some of the boxes from the move. Client reported she started to feel more like herself recently but recognizes she still has a long way to go. Client stated she still struggles with all or nothing thinking, what if anxiety thoughts, and some physical internal shaking sensations when anxious. Client noted goals are to continue identifying daily intentions of self-care, daily responsibility, and a connection intention. Client stated this weekend she also plans to spend time with her meal plan prepping and go to the grocery store together. Client reported she really has found to be helpful this week to have a menu for the week so that they stop eating out or eating frozen meals. Client reported when she was struggling that was all they are doing but now has the motivation and desire to get back to home cooking. Risks/Concerns:: Denies suicide ideation, plan, or intention. Future oriented. Progress Toward Goals/Plan:: Progress noted with client reporting improved daily functioning, ability to return to in person work for 1 day this week, starting to face her anxiety by going to the grocery store, reporting improved mood, and improved outlook. Client stated she has been really working on challenging her negative and anxious thoughts. Client is to continue IOP to promote use of healthy coping skills, challenge distortions, and prevent d ecompensation. Time Stopped:: 09:42
--- NOTE | 2024-08-27 09:00 | BH.SGPN.GN ---
Behaviors/Verbalizations/Mental Status: [] Pt alert and oriented, neatly dressed and groomed. Eye contact good. Motor activity appropriate. Speech within normal limits. Affect congruent, mood depressed. Thoughts linear, logical, no signs of hallucinations or delusions. Reviewed pt?s symptom tracker, no risk for suicidal ideation, plan, or intent 08/27/24 Client Response/Progress/Benefit: []Pt was an active participant in group discussions. Attentive. Able to identify mental health wins including spending time with her sister recently and pushing herself to get more things done. Pt's stressor today is that she has been sick which triggered more stinking thinking and depression. Pt stated she is feeling discouraged this morning due to her recent setback in mood. Pt receptive to feedback from peers which pt reported was helpful and reduced some of her negative thinking. Progress noted. Benefited from group support, encouragement, and feedback. Will continue in IOP to promote mood stability, reinforce healthy coping skills, and further reduce anxiety. Narrative Note: []
--- NOTE | 2024-08-27 10:15 | BH.SGPN.GN ---
Behaviors/Verbalizations/Mental Status: []Pt alert and oriented, casually dressed and groomed. Eye contact good. Motor activity appropriate. Speech within normal limits. Affect congruent, mood dysthymic. Thoughts linear, logical, no signs of hallucinations or delusions. ? Client Response/Progress/Benefit: []Pt responded well to session, attentive and engaged. Pt participated in activity where pts had to guess the celebrity with a known mental health diagnosis and this led to discussion on self-stigma. Group participated in the discussion defining stigma as well as what stigma has kept pt's from doing in their lives. Pt stated mental health stigma has led pt to not open up to her more about her mental health. Pt admits that she assumes others will not understand or view her differently. Pt worked with peers to begin discussion of what reinforces stigma and this was discussed further in the next group. Pt appeared to benefit from learning about the different types of stigma as well as gaining awareness of how stigma has personally impacted pt. Pt will continue IOP tx to promote mood stability, increase use of healthy coping skills, and prevent decompensation. Narrative Note: []
--- NOTE | 2024-08-27 11:15 | BH.SGPN.GN ---
Behaviors/Verbalizations/Mental Status: []Pt alert and oriented, neatly dressed and groomed. Eye contact good. Motor activity appropriate. Speech within normal limits. Affect congruent, mood euthymic. Thoughts linear, logical, no signs of hallucinations or delusions. Client Response/Progress/Benefit: [] Pt engaged participant AEB participating in the activity, providing input during small group discussion, and listening attentively to others. Pt appeared to connect with discussion in the benefits of addressing mental health stigma which included: improved relationships, increased willingness to seek help, increased happiness, and improved confidence. Group brainstormed strategies to combat social and perceived stigma. Pt shared one thing pt can do to combat stigma is ?stop apologizing for having struggles.? Appeared to benefit from increasing awareness of strategies to combat stigma. Will continue IOP tx to promote healthy coping skills, improve confidence, and prevent decompensation.
--- NOTE | 2024-08-29 09:00 | BH.SGPN.GN ---
Behaviors/Verbalizations/Mental Status: []Pt alert and oriented, neatly dressed and groomed. Eye contact good. Motor activity appropriate. Speech within normal limits. Affect congruent, mood euthymic. Thoughts linear, logical, no signs of hallucinations or delusions. Reviewed pt?s symptom tracker, no risk for suicidal ideation, plan, or intent 08/29/24 Client Response/Progress/Benefit: []Pt was an active participant in group discussions. Attentive. Able to identify mental health wins including going back to work and it being a good experience and voting early which is something I'm really passionate about. 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 Pt stated she is feeling appreciative this morning. Pt receptive to feedback from peers which pt reported was helpful. Progress noted. Benefited from group support, encouragement, and feedback. Will continue in IOP to promote mood stability, increase self-compassion, and improve daily functioning. Narrative Note: []
--- NOTE | 2024-08-29 10:10 | BH.SGPN.GN ---
Behaviors/Verbalizations/Mental Status: [] Eye contact is good. Motor activity is appropriate. Appearance is casual. Speech is Appropriate. Mood is content. Affect is congruent. Thoughts are linear and logical. No evidence of psychosis. Client Response/Progress/Benefit: [] Pt receptive of session, actively engaged throughout AEB taking notes, providing input, and contributing in small group discussion. Appeared to connect with group topic of automatic thoughts and cognitive distortions, as well as the impact of thought patterns on mental health, coping behaviors, and relationships. This particular group is very heavy on psychoeducation and pt appeared to connect with distortions and how they can impact functioning. Identified struggling with overgeneralization distortion. Pt appeared to benefit from gaining insight on distorted thinking patterns and how this impacts overall mental health. Will continue IOP to , improve ability to function and prevent decompensation. Narrative Note: []
--- NOTE | 2024-08-29 11:10 | BH.SGPN.GN ---
Behaviors/Verbalizations/Mental Status: [] Eye contact is good. Motor activity is appropriate. Appearance is casual. Speech is Appropriate. Mood is content. Affect is congruent. Thoughts are linear and logical. No evidence of psychosis. Client Response/Progress/Benefit: [] Pt was an active participant during group discussion. Pt was placed in a smaller group and participated in combatting example distortions with peers. Pt was engaged in the smaller group, participated in group interactions to brainstorm answers, and appeared to be comprehending cognitive distortions. Pt stated could connect with many of the distortions covered in group. Pt stated they have learned from group today that they can have a mental illness and still have a good life. That they have the skills and are using them daily and things will get easier. Benefited from gaining further insight and awareness of cognitive distortions as well as practicing ways to reframe and challenge thoughts. Will continue in IOP tx to increase functioning and prevent decompensation. Narrative Note: []
--- NOTE | 2024-09-02 09:01 | BH.SGPN.GN ---
Behaviors/Verbalizations/Mental Status: [] Client alert and oriented, casual appearance. Eye contact good. Motor activity appropriate. Speech within normal limits. Affect congruent, mood euthymic and positive. Thoughts linear, logical, no signs of hallucinations or delusions. Reviewed client's symptom tracker, no risk for suicidal ideation, plan, or intent. Client Response/Progress/Benefit: [] Client responded well to session AEB listening to others and sharing thoughts/feelings. Client reported a stressor over the weekend was experiencing panicky symptoms on Monday when she started to feel overwhelmed while getting their house on the joshi ready to sell . Client stated stress returning to a positive because she chose to take a break and listen to guided meditation which she reported significantly helped decrease her anxiety. Client stated during reflection she realized she was having a lot of distorted thought patterns especially with catastrophizing. Client reported she has herself for evidence for and against the anxious thoughts which helped challenge her perspective and allowed her to return to the tasks that need to be done. Client stated she also did not let this moment of high anxiety impact the rest of her day or weekend. Client noted progress with ability to manage her anxiety and move on in a much more timely way compared to previously. Appeared to benefit from support from peers. Will continue IOP tx to promote utilization of healthy coping skills, challenge negative and distorted thoughts, and prevent decompensation. Narrative Note: []
--- NOTE | 2024-09-02 10:10 | BH.SGPN.GN ---
Behaviors/Verbalizations/Mental Status: []Patient was alert and oriented, casually dressed and groomed. Eye contact good. motor activity congruent. speech within normal limits. Affect congruent, mood euthymic. Thoughts linear, logical, no signs of hallucinations or delusion. Client Response/Progress/Benefit: []Pt participated in the group discussions AEB nodding and taking notes. Attentive during psychoeducation Goal Setting. Participated during the discussion on common barriers and pt identified some personal barriers as negative thoughts and fear of failure. Group also identified benefits of goals as sense of purpose, improved self-confidence, more motivation for other goals, and improved mental health. Pt identified personal benefits to goal setting. Benefited from increased awareness of mental health benefits of goals as well as psychoeducation on SMART goal criteria. Will continue in IOP to challenge distortions, promote healthy coping skills/strategies, and prevent decompensation.
--- NOTE | 2024-09-02 11:15 | BH.SGPN.GN ---
Behaviors/Verbalizations/Mental Status: []Pt alert and oriented, casually dressed and groomed. Eye contact good. Motor activity appropriate. Speech within normal limits. Affect congruent, mood content. Thoughts linear, logical, no signs of hallucinations or delusions. Client Response/Progress/Benefit: [] Pt was engaged during discussion and willing to complete the worksheet challenging them to develop a personal SMART goal. Pt chose the goal of identifying and reframing distortions at least once a day over the next week. Pt stated procrastination as a potential barrier. Identified solutions of informing her of the goal and checking-in at the end of each day with him and herself. Benefited from this group by developing a short-term SMART goal related to mental health. Will continue IOP tx to increase consistent use of healthy coping skills, challenge distortions, reduce anxiety, and prevent decompensation. Narrative Note: []
--- NOTE | 2024-09-03 10:15 | BH.SGPN.GN ---
Behaviors/Verbalizations/Mental Status: [] Eye contact is good. Motor activity is appropriate. Appearance is casual. Speech is Appropriate. Mood is anxious. Affect is congruent. Thoughts are linear and logical. No evidence of psychosis. Client Response/Progress/Benefit: [] Pt was an engaged participant AEB listening attentively to others, taking notes, and providing feedback in small group discussions. Attentive during psychoeducation AEB by note taking and providing some input. Pt worked along with peers in small groups to define inappropriate guilt and appropriate guilt. Interactive discussion on examples of both inappropriate and appropriate guilt. Worked well in small group with peers where they identified example of inappropriate vs appropriate guilt and the impact inappropriate guilt can have on MH. Benefited from increased awareness of guilt and the differences between appropriate and inappropriate guilt. Plan is to continue in IOP to prevent decompensation, increase healthy coping, decrease panic attacks, and improve functioning. Narrative Note: []
--- NOTE | 2024-09-03 10:37 | PCM.BH.PN_ITS ---
Progress Note Progress Note: History of Present Illness/Interim History: The patient is a 59-year-old female with a history of anxiety and depression who is seen in follow- up at the [facility] behavioral health IOP. I last saw the patient 2 weeks ago and at that time her Prozac was increased to 40 mg daily. She has tolerated this increase well and reports that she is feeling better and has a sense of hope and optimism. She has not had any full-blown panic attacks in the past 2 weeks. She has had minor panic attacks a few times but she has use guided meditation to ground herself and abort these. She is taking the hide hydroxyzine only several days a week now. Trazodone has helped her sleep and she is getting about 7 hours of rest tonight. She is no longer having flashbacks or nightmares. She is now able to leave the house to do daily tasks such as grocery shopping without experiencing anxiety. She has also been able to go into the office once a week for the past 2 weeks without any issues. She denies hopelessness, passive thoughts of , anhedonia, thoughts of self- harm, suicidal ideation, plan for suicide, homicidal ideation, hallucinations or delusions. 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 The patient feels the therapy and group experience along with the medication changes have really benefited her. Current Psychiatric Medications: [] Prozac 40 mg p.o. daily (x 2 weeks now at this dose); hydroxyzine 25 mg as needed for panic attacks; Zyprexa 2.5 mg p.o. nightly; propranolol 10 mg p.o. twice daily; trazodone 50 to 100 mg at bedtime as needed for sleep. Mental Status Examination: [] The patient is a 59-year-old obese, , female who appears normal for stated age and is casually dressed and groomed with good hygiene. She is ambulatory with a normal gait and has no psychomotor agitation or retardation. She is cooperative and pleasant during the interview. Eye contact is good and speech is normal rate and rhythm and fluent with no pressure. Mood is hopeful and optimistic. Affect is full and normal. Thought process is goal-directed and organized. Thought content: The patient is hopeful for the future and feels good about the progress she has made. There is no evidence of passive thoughts of , suicidal ideation, plan for suicide, homicidal ideation, hallucinations or delusions. Reality testing is intact. Judgment is intact. Insight is good. Impulsivity is low. Diagnoses: [] 1. Major depressive disorder, in full remission 2. Panic disorder 3. PTSD 4. Generalized anxiety disorder 5. Primary support and financial issues Plan: [] The patient will continue the IOP as the structure, support, education and group therapy has been helping the patient improve her mental health issues. She felt safe during the interview and she agrees that if it anytime she does not feel safe she will let us know or go to the emergency room. The risk, options, possible complications and side effects of the medications or stopping the medications was again discussed with the patient and she understands and accepts this. As planned the patient agrees to continue the medications at their current doses but she will discontinue the Zyprexa and observe to see if the Prozac is enough to handle her anxiety at this point. If her symptoms return or worsen we will we will probably increase the Prozac to 60 mg p.o. daily. She will continue to follow-up with her outpatient providers and I will see the patient in follow-up in 2 weeks.
--- NOTE | 2024-09-03 11:15 | BH.SGPN.GN ---
Behaviors/Verbalizations/Mental Status: []Pt alert and oriented, casually dressed and groomed. Eye contact good. Motor activity appropriate. Speech within normal limits. Affect congruent, mood euthymic. Thoughts linear, logical, no signs of hallucinations or delusions. Client Response/Progress/Benefit: []Pt engaged participant AEB listening attentively to others and providing input throughout group. Pt worked within their small group to identify strategies to manage inappropriate guilt. Identified a personal example of inappropriate guilt as ?feeling bad for setting boundaries?. Provided insight that this cues a feeling of ?fear of disappointing others?. Pt wants to work on combatting inappropriate guilt by correcting the distortions and practicing sitting with the uncomfortable. Pt seemed to benefit from learning about strategies to manage appropriate and inappropriate guilt. Pt to continue IOP level of care to challenge negative thoughts, increase healthy coping skills, and prevent decompensation.
--- NOTE | 2024-09-03 14:09 | BH.MDN_ITS ---
Multi-Disciplinary Note Note 30-min Individual: Time Started:: 09:30 Date: 09/03/24 Purpose of session/treatment goals addressed:: Purpose of session was to address goals 1 and 2 from MTP. Eye Contact:: Good Motor Activity:: Appropriate Appearance:: Neat Speech:: Appropriate Mood:: Anxious Affect:: Congruent Thoughts:: Linear, Logical and No evidence of hallucinations/delusions noted Staff Interventions:: thought challenging, CBT techniques, mindfulness skills, discharge planning, strengths perspective, goal setting and taught coping skills Client Response:: Client reported she struggled over the weekend when she was getting their home ready to sell. Client stated she was trying to organize and pack, but became too overwhelmed with anxiety so had to take a break. Client reported she stepped away for a couple of hours to use skills to help her calm her anxious thoughts and feelings. Client stated she has been battling intrusive thoughts each day, but stated she has been doing better with using her skills to manage anxiety. Client reported she was able to go to the grocery store on her own to get a couple of items on her grocery list. Client stated she was anxious when in the grocery store, but was able to get through it. Client reported she's practicing guided meditation every other day, which she stated has been helpful to decreasing stress and her anxiety. Client stated she does feel anxious when she wakes up in the morning. Client discussed with therapist different strategies to help with adjusting morning routine that could help with interrupting the anxious cycle. Client reported she has noticed not having to ta ke her as needed anxiety medications as often in the last week. Client stated she was taking that medication 3 times a day, but now has gone to about once a day. Client agreed she wants to continue working on anxiety exposure goals so she can continue to make progress with decreasing anxious avoidance. Client stated she is looking forward to family session this week with her because she thinks it will help their relationship for him to better understand her mental health symptoms and how to be supportive of each other. Client stated her heightened anxiety has at times put a wedge in their relationship, but is hopeful since her is wanting to learn about anxiety and better ways to support her. Risks/Concerns:: Denies suicidal ideation, plan, or intention to date. Future oriented. Progress Toward Goals/Plan:: Progress noted with client reporting using healthy calming skills to manage heightened anxiety over the weekend. Although client did report feeling closer to a panic attack this weekend she reported being able to recover faster when compared to how she was doing a few weeks ago. Client continues to report daily intrusive anxious thoughts. Client does report decrease in having to take her as needed anxiety medication on a daily basis. Progress can also be noted with client being able to go into a grocery store on her own and managed her anxiety when picking up a few things. Client agreeable to reach out to provided individual counseling referrals to get established with outpatient counseling. Plan is for client to continue IOP to promote use of healthy coping skills, challenge distorted thought patterns, decrease anxious avoidance, and prevent decompensation. Time Stopped:: 10:00
--- NOTE | 2024-09-05 09:00 | BH.SGPN.GN ---
Behaviors/Verbalizations/Mental Status: [] Pt alert and oriented, neatly dressed and groomed. Eye contact good. Motor activity appropriate. Speech within normal limits. Affect congruent, mood euthymic. Thoughts linear, logical, no signs of hallucinations or delusions. Reviewed pt?s symptom tracker, no risk for suicidal ideation, plan, or intent 09/05/24 Client Response/Progress/Benefit: []Pt was an active participant in group discussions. Attentive. Able to identify mental health wins including having a lot of anxiety yesterday but I rode the wave and didn't use my PRN med. Pt also had a good day with her sister and got to enjoy doing normal things together like getting coffee. Pt's stressor today is that her time in IOP is getting short and pt is anxious about transitioning to outpatient counseling and mood stability with her medication change, but she is also confident. Pt stated she is feeling anxious and hopeful this morning. Pt receptive to feedback from peers which pt reported was helpful. Progress noted. Benefited from group support, encouragement, and feedback. Will continue in IOP to promote mood stability, reinforce healthy coping skills, and monitor medication changes. Narrative Note: []
--- NOTE | 2024-09-05 10:07 | BH.SGPN.GN ---
Behaviors/Verbalizations/Mental Status: [] Eye contact is good. Motor activity is appropriate. Appearance is casual. Speech is Appropriate. Mood is anxious. Affect is congruent. Thoughts are linear and logical. No evidence of psychosis. Client Response/Progress/Benefit: [] Pt receptive to session AEB contributing to group discussion, as well as listening attentively to others, and taking notes. Worked with group to brainstorm the positive and negative aspects of stress on physical and mental health as well as the impact of distress on performance, relationships, and mental health. Pt shared their top stressors to be: finances, mental health, work, and daily responsibilities. Shared when feeling overwhelmed with stress pt tends to stop eating and sleeping and panic. Benefited from increased awareness of positive and negative stress as well as how stress impact individuals. Will continue in IOP to decrease anxious symptoms, increase follow through on self-care practices, and prevent decompensation. Narrative Note: []
--- NOTE | 2024-09-05 11:10 | BH.SGPN.GN ---
Behaviors/Verbalizations/Mental Status: [] Pt alert and oriented, casually dressed and groomed. Eye contact good. Motor activity appropriate. Speech within normal limits. Affect contricted, mood anxious and depressed. Thoughts linear, logical, no signs of hallucinations or delusions. Client Response/Progress/Benefit: [] Pt was an attentive participant in group discussions and actively engaged during experiential activity, doing well to regulate their emotions throughout the activity and work with peers. Attentive during psychoeducation on the 4 A's (Avoid, adapt, alter, accept) of coping with stress. Shared that they would benefit most from accepting her mental health and having self-compassion. Was able to identify the connection between the experiential activity and utilization of stress management skills. Benefited from increased awareness of stress management strategies. Pt will continue IOP to prevent decompensation, increase healthy coping, and improve functioning. Narrative Note: []
--- NOTE | 2024-09-05 14:53 | BH.MDN ---
Multi-Disciplinary Note Note Family: Time Started:: 12:05 Date: 09/05/24 Purpose of session/treatment goals addressed:: Purpose of session was to Eye Contact:: Good Motor Activity:: Appropriate Appearance:: Neat Speech:: Appropriate Mood:: Anxious Affect:: Congruent Thoughts:: Linear, Logical and No evidence of hallucinations/delusions noted Staff Interventions:: thought challenging, psychoeducation on: (anxiety, panic attacks, and depression), mindfulness skills, discharge planning, strengths perspective and taught coping skills Client Response:: Pt?s stated he was hoping to learn more about pt?s anxiety and best ways to support her when she is struggling. Pt?s reported he will have moments of feeling anxious but is able to move on from those anxious thoughts/feelings quickly. Pt shared with him that she can?t stop the anxious thoughts as quickly as he can. This video games storywriter provided psychoeducation to pt?s about symptoms of Generalized Anxiety Disorder and the difference between normal anxiety versus anxiety disorder. This video games storywriter also provided psychoeducation about panic attacks and depression symptoms. Pt shared when her anxiety spikes at home she will often jump to worse case scenarios, which can lead pt?s to feel like pt doesn?t trust his decisions. This video games storywriter provided various communication strategies that pt could use to express what she needs from her instead of becoming slightly agitated with him. Pt?s expressed understanding that it could be helpful to explain to pt his thought process or plan instead of telling her that ?everything will be ok?. Pt agreed she wants to work on using her healthy calming skills like guided meditation and breathing skills before responding to her with her anxious brain. Pt?s stated he has seen progress with pt being able to manage her anxiety better, improved mood, more positive, and starting to joke around more. Pt?s reported she still has moments, like over the weekend, in which her anxiety will take over, but she has been doing better with recovering from her anxiety. This video games storywriter helped facilitate discussion between the pt and pt?s about ways they can support each other. Pt stated she is starting to feel better with improved mood, decreased anxiety, ability to bounce back from high anxiety moments, and feeling more optimistic about the future. Risks/Concerns:: Pt denies current suicidal thoughts, plan, or intention to date. Current concern is closely monitoring how pt responds to being taking off Zyprexa. Team will be monitoring pt's symptoms closely for any dramatic increases in her anxiety or mood instability since being taking off Zyprexa on Monday (09/03/24). Progress Toward Goals/Plan:: Progress noted with client reporting improved daily functioning, improved mood, and pt reporting improved ability to manage her anxious symptoms. Pt did have recent high anxiety over the weekend that lasted about for 2 hours, but client did take space and use breathing skills as well as guided meditation to help her work through the difficult moment. Pt continues to report anxious thoughts, negative thought patterns, and avoidance of going by herself to get a full grocery list on her own. Pt has been working on anxiety exposure goals, but needs continued practice. This video games storywriter and pt discussed discharge plan. Pt expressed tentative discharge date in two weeks to give enough time for her to adjust to no longer being on Zyprexa and to continue working on challenging negative and anxious thoughts. Plan is for client to continue IOP with a tentative discharge date of 09/20/24. Client to continue IOP to promote use of healthy coping skills, continue working on decreasing anxious avoidance, and prevent decompensation. Time Stopped:: 12:45
--- NOTE | 2024-09-09 09:05 | BH.SGPN.GN ---
Behaviors/Verbalizations/Mental Status: [] Eye contact is good. Motor activity is appropriate. Appearance is casual. Speech is Appropriate. Mood is anxious. Affect is constricted. Thoughts are linear and logical. No evidence of psychosis. Reviewed daily check in sheet and no reports of suicidal ideations. Client Response/Progress/Benefit: [] Pt was an active participant in group discussions. ? It was a solid weekend?. Reports that she has stopped taking her ?emergency medication? and has been managing her anxiety ? Ok?. Utilizing skills. Shared that next week is going to be her last week in IOP and she is nervous about losing the additional support. Progress noted. Benefited from group support, encouragement, and feedback. Will continue in IOP to prevent decompensation, stabilize anxiety, and improve functioning. Narrative Note: []
--- NOTE | 2024-09-09 10:15 | BH.SGPN.GN ---
Behaviors/Verbalizations/Mental Status: [] Client alert and oriented, casually dressed and groomed. Eye contact good. Motor activity appropriate. Speech within normal limits. Affect congruent, mood euthymic. Thoughts linear, logical, no signs of hallucinations or delusions. Client Response/Progress/Benefit: [] Client was an active participant AEB contributing to discussion, taking notes, and engaging in group activity. Connected with the topic of pitfalls and listened to group discussion on barriers that prevent from choosing a healthier path to mental wellness. Group worked together to identify examples of personal pitfalls. Pt identified personal pitfalls to include: avoidance, isolation, self-judgement, and shutting down. Client benefited from group as client learned to better identify potential barriers to improving mental health symptoms. Client will continue IOP tx to maintain stability, continue use of healthy coping skills, and prevent decompensation.
--- NOTE | 2024-09-09 11:15 | BH.SGPN.GN ---
Behaviors/Verbalizations/Mental Status: []Client alert and oriented, casually dressed and groomed. Eye contact good. Motor activity appropriate. Speech within normal limits. Affect congruent, mood euthymic. Thoughts linear, logical, no signs of hallucinations or delusions. Client Response/Progress/Benefit: [] Pt receptive of session, engaged throughout AEB Pt actively listening and contributing to discussion as well as taking notes.? Pt participated in the experiential activity and did well to communicate ideas with peers and manage emotions. Pt attentive as group processed how the emotions and perspective of the group impacted the activity. Group worked together to identify different coping skills to help manage pitfalls. Pt identified pitfall they struggle with as trying to control ?every last detail.? Pt plans to work on their pitfall by practicing self-compassion and adapting in the moment. Benefited from identifying personal pitfalls and strategies to overcome these pitfalls. Pt will continue IOP tx to promote mood stability, increase self-compassion, and monitor medication changes. Narrative Note: []
--- NOTE | 2024-09-10 09:00 | BH.SGPN.GN ---
Pt alert and oriented, neatly dressed and groomed. Eye contact good. Motor activity appropriate. Speech within normal limits. Affect congruent, mood euthymic. Thoughts linear, logical, no signs of hallucinations or delusions. Reviewed pt?s symptom tracker, no risk for suicidal ideation, plan, or intent 09/10/24 Client Response/Progress/Benefit: []Pt was an active participant in group discussions. Attentive. Able to identify mental health wins including I'm holding on to an even keel as pt has been more consistently reporting mood stability. Pt stated she feels like she is capable of managing her anxiety much better and that she is actively applying skills. Pt shared her stressor is meeting with a new outpatient therapist today and continuing to wean down from a medication. However, pt reported she feels much more confident in her ability to regulate now compared to at the beginning of IOP. Pt receptive to feedback from peers which pt reported was helpful. Progress noted. Benefited from group support, encouragement, and feedback. Will continue in IOP to promote mood stability, monitor medication changes, and reinforce healthy coping skills. Narrative Note: []
--- NOTE | 2024-09-10 10:15 | BH.SGPN.GN ---
Behaviors/Verbalizations/Mental Status: [] Eye contact is good. Motor activity is appropriate. Appearance is casual. Speech is Appropriate. Mood is euthymic. Affect is congruent. Thoughts are linear and logical. No evidence of psychosis. Client Response/Progress/Benefit: [] Pt was an active participant in group discussions. Attentive during psychoeducation on the 4 communication styles (Passive, Passive-Aggressive, Aggressive, and Assertive) and the obstacles to effective communication. ?Self-identified a barrier they personally struggle with as hint dropping or making assumptions preventing them from communicating what they want to in a manner that gets their needs met. Contributed during interactive discussion on the benefits of communicating effectively which included; having one's needs met, decreases stress and uncertainty, improved relationships, healthier boundaries, and avoids unnecessary conflict. Worked well with peers to identify the benefits and disadvantages to the different communication styles. Benefited from increased understanding of communication styles and how these can impact effective communication. Will continue in IOP to prevent decompensation, maintain mood stability and continue to monitor medication changes. Narrative Note: []
--- NOTE | 2024-09-10 11:10 | BH.SGPN.GN ---
Behaviors/Verbalizations/Mental Status: []Pt alert and oriented, neatly dressed. Eye contact good. Motor activity appropriate. Speech within normal limits. Affect congruent, mood euthymic. Thoughts linear, logical, no signs of hallucinations or delusions. Client Response/Progress/Benefit: [] Pt responded well to session AEB Pt listening attentively to others and providing input during group discussion on the pay offs and costs of the different communication styles. Pt able to connect how current communication style impacts mental health. Connected with peers? comments about importance of using assertive communication. Pt did well with practicing being assertive in the group activity and worked with group to identify potential skills for improving communication skills. Pt stated she will practice being assertive by saying no to things she doesn't want to do instead of always saying yes. Pt seemed to benefit from increasing awareness of healthy strategies to improve communication. Will continue IOP tx to improve boundary setting, promote healthy coping skills, and prevent decompensation.
== END 2024-09-12 23:59 ==
LOC: BHIOP 08:05
PROVIDERS: PCP Family Medicine; Referring Provider Psychiatry & Neurology Psychiatry; Visit Provider Psychiatry & Neurology Psychiatry
DX: F33.1 Major depressive disorder, recurrent, moderate (principal); F41.0 Panic disorder [episodic paroxysmal anxiety]; F43.10 Post-traumatic stress disorder, unspecified; F41.1 Generalized anxiety disorder; Z79.899 Other long term (current) drug therapy
CPT/HCPCS: S9480; 90832; 90834; 90847; 90853

== ENCOUNTER 2024-09-13 07:59 | Outpatient (RCR) | payer OTHER, SELFPAY ==
[2024-09-13 00:39] VITALS: BP 153/88; PULSE 88
--- NOTE | 2024-09-13 10:16 | BH.SGPN.GN ---
Behaviors/Verbalizations/Mental Status: [] Eye contact is good. Motor activity is appropriate. Appearance is casual. Speech is Appropriate. Mood is content. Affect is congruent. Thoughts are linear and logical. No evidence of psychosis. Client Response/Progress/Benefit: [] Pt participated at times during group discussion. Engaged in group activity and attentive during psychoeducation. Along with peers, pt was able to identify barriers to taking action in their life. Identified several symptoms and stressors that pt feels are holding them back from progress such as fear of failure, isolation, and cognitive distortions. Stated these things have kept pt from finding a healthy work/life balance and not advocating for her needs. Benefited from increased self-awareness of obstacles. Will continue IOP tx to prevent decompensation, further stabilize mood, and maintain gains. Narrative Note: []
--- NOTE | 2024-09-13 15:21 | BH.MDN ---
Multi-Disciplinary Note Note 30-min Individual: Time Started:: 09:05 Date: 09/13/24 Purpose of session/treatment goals addressed:: Purpose of session was to address goals 1 and 2 from [facility]. Additional focus was on planning for discharge from [facility] next week. Eye Contact:: Good Motor Activity:: Appropriate Appearance:: Neat Speech:: Appropriate Mood:: Euthymic Affect:: Full Thoughts:: Linear, Logical and No evidence of hallucinations/delusions noted Staff Interventions:: CBT techniques, mindfulness skills, discharge planning, strengths perspective and taught coping skills Client Response:: Client reported she is doing really well with maintaining treatment progress since getting off Zyprexa. Client stated she is also going to go off of her Propanol because she hasn't been needing that two times a day like when she first started IOP. Client reported she is excited to get off the extra medications because she doesn't want to feel over medicated. Client stated she believes she needed the medications in the beginning of the program to help decrease her anxiety so that she could learn and utilize the skills/strategies taught throughout [facility]. Client reported she doesn't think she would've been able to retain any skills if she hadn't been on those medications because the anxiety was impacting ability to function. Client reported she is feeling ready to discharge from [facility], but is anxious she won't be able to maintain once she doesn't have the support of the program. Client worked with therapist to develop a list of behaviors/actions that indicate she is feeling stable. Client agreed having this list would be helpful to look at after the program is completed to keep herself in check with what helps her feel stable. Client stated being social will be very helpful in her ability to maintain gains. Client reported looking back she can see how her isolative behaviors really kept her stuck and worsened both anxiety and depression. Client stated this weekend she is going away with some family to have some time for connection and getting out of town for a couple of days. Client agreeable for homework to reflect on skills/strategies, triggers, and self-care activities that would be important to highlight for her maintenance plan that will be completed next week. Risks/Concerns:: Denies suicidal ideation, plan, or intention to date. Future oriented. Progress Toward Goals/Plan:: Progress noted AEB client reporting improved mood, decreased anxiety, increased socialization, and continued use of healthy coping skills like meditation, breathing, and grounding. Client has been slowly getting off the temporary medications she started at the beginning of the program and thus far has been responding well to not having those extra medications. Client stated she's been starting to think about things she can do when IOP is done next week to help with replacing the structure, support, and routine IOP has given her. Plan is for client to discharge from IOP next week. Client has established with an individual therapist and has her second appointment next week. Client wants to do the [facility] Aftercare program once she discharges from IOP. Client to continue IOP to promote use of healthy coping skills, provide support during transition off two medications, and prevent decompensation. Time Stopped:: 09:35
--- NOTE | 2024-09-16 09:00 | BH.SGPN.GN ---
Behaviors/Verbalizations/Mental Status: [] Eye contact is good. Motor activity is appropriate. Appearance is casual. Speech is Appropriate. Mood is euthymic. Affect is full. Thoughts are linear and logical. No evidence of psychosis. Reviewed daily check in sheet and no reports of suicidal ideations or intent. Client Response/Progress/Benefit: [] Pt was an active participant in group discussions. Attentive. Daily symptom tracker notes minimal distress and she believes her mood and functioning are better since last visit. She discussed a huge win regarding her anxiety as she spent the weekend away with friends. Six weeks ago I would not have even gone due to my anxiety . Briefly discussed improvements in overall functioning and decreased anxiety. She is set to discharge this week from [facility] and while apprehensive is able to see the progress she has made. Progress noted. Benefited from group support, encouragment, and feedback. Will continue in [facility] to maintain gains. Narrative Note: []
--- NOTE | 2024-09-16 11:15 | BH.SGPN.GN ---
Behaviors/Verbalizations/Mental Status: [] Client alert and oriented, casually dressed and groomed. Eye contact good. Motor activity appropriate. Speech within normal limits. Affect congruent, mood anxious and content. Thoughts linear, logical, no signs of hallucinations or delusions. Client Response/Progress/Benefit: []Client engaged in discussion reviewing different areas of self-care and completing self-assessment of current self care, as well as providing input throughout discussion. Did well to complete self-care self-assessment worksheet. Client identified current self-care practices and what self-care activities client wants to start using. Client selected emotional and physical self-care to begin practicing more consistently. Client plans to do this by challenging themselves to make a consistent effort to check-in and process current emotions, as well as begin a daily exercise. Appeared to benefit from completing the self-care evaluation and gaining insights into current self-care practices, as well as identifying areas in which client would like to improve upon. Client will continue IOP tx to prevent decompensation, improve mood stability, and increase ability to challenge and replace thought distortions. Narrative Note: []
--- NOTE | 2024-09-18 09:00 | BH.SGPN.GN ---
Behaviors/Verbalizations/Mental Status: [] Eye contact is good. Motor activity is appropriate. Appearance is casual. Speech is Appropriate. Mood is euthymic. Affect is full. Thoughts are linear and logical. No evidence of psychosis. Reviewed daily check in sheet and no reports of suicidal ideations or intent. Client Response/Progress/Benefit: [] Pt was an active participant in group discussions. Attentive. Feels empowered today. States that as she is nearing completion of IOP she is way better than I was . She reports having a solid plan for her aftercare. Tells the group that she couldn't even leave the house several weeks ago and currently feels close to her baseline. A lot of healing here . Progress noted. Benefited from group support, encouragement, and feedback. Will continue in IOP to maintain gains. Plan to discharge successfully tomorrow. Narrative Note: []
--- NOTE | 2024-09-19 09:00 | BH.SGPN.GN ---
Behaviors/Verbalizations/Mental Status: [] Client alert and oriented, casual appearance. Eye contact good. Motor activity appropriate. Speech within normal limits. Affect congruent, mood euthymic and positive. Thoughts linear, logical, no signs of hallucinations or delusions. Reviewed client's symptom tracker, no risk for suicidal ideation, plan, or intent. Client Response/Progress/Benefit: []Client responded well to session AEB listening to others and sharing thoughts/feelings. Client reported mental health positive as meeting her new outpatient therapist earlier this week. Client stated she really enjoyed the therapist and is hopeful it will be a good fit. Client reported additional mental health positive as choosing a yoga studio and plans to go check it out tomorrow. Client reported a mental health positive and stressor as today being her last day in [facility]. Client stated she is nervous about being done because will miss the support, but is more confident she can handle what comes now that she has healthy skills to do so. Appeared to benefit from support from peers. Client will discharge from [facility] today.
--- NOTE | 2024-09-19 11:15 | BH.SGPN.GN ---
Behaviors/Verbalizations/Mental Status: []Client alert and oriented, neatly dressed and groomed. Eye contact good. Motor activity appropriate. Speech within normal limits. Affect congruent, mood euthymic. Thoughts linear, logical, no signs of hallucinations or delusions. Client Response/Progress/Benefit: [] Pt responded well to session, attentive throughout. Did well to actively listen and contributed when prompted as group worked to process activity. Pt worked with group to relate the strategies used to overcome barriers in the activity to managing change in own life. Pt identified a change they would like to make is keeping up with a structure and routine after IOP. Pt identified currently being in the action stage for this change. Pt said being consistent with her aftercare plan can help pt get to the next stage. Appeared to benefit from identifying a change they want and how to progress. Pt will discharge from IOP tx today as pt has accomplished her tx goals and no longer meets criteria for IOP level of care. Narrative Note: []
--- NOTE | 2024-09-19 14:46 | BH.MDN ---
Multi-Disciplinary Note Note 30-min Individual: Time Started:: 10:30 Date: 09/19/24 Purpose of session/treatment goals addressed:: Purpose of session was to review treatment progress, complete maintenance plan, and solidify aftercare plans. Eye Contact:: Good Motor Activity:: Appropriate Appearance:: Neat Speech:: Appropriate Mood:: Euthymic Affect:: Full Thoughts:: Linear, Logical and No evidence of hallucinations/delusions noted Staff Interventions:: CBT techniques, discharge planning, strengths perspective, reviewed DSM-5 and other (completed maintenance plan) Client Response:: Client reported feeling excited about discharging from [facility] today. Client stated she does have a little anxiety about no longer having the program support but recognizes that she has learned some skills that can help benefit her with management of mental health symptoms and future. Client reported she can see so much progress in herself in the time that she has been in IOP. Client reported when she first started IOP she had difficulty functioning with get out of bed, isolating from family and friends, not getting things done around the house, and sleeping as a way to avoid. Client reported she also could not go to many different places outside the home due to her severe anxiety. Client stated learning different kinds of skills to help her manage anxiety really helped her improve her ability to function on a day-to-day basis. Client worked with therapist to complete maintenance plan in which she identified triggers, warning signs, self-care activities, and healthy coping skills. Client therapist also reviewed what kind of behaviors and activities that she engages in that demonstrates that she is in a stable place. Client stated she is feeling more confident about being able to maintain the progress she has made because she has solid aftercare set up with outpatient counseling, outpatient psychiatry, and planning to start [facility] aftercare program next week. Risks/Concerns:: Denies suicidal ideation, plan, intention. Future oriented. Progress Toward Goals/Plan:: Progress can be noted as evidenced by DSM-5 cross cutting scale scores at discharge. Per DSM-5 client's depression has decreased by 57%, anxiety has decreased by 67%, and overall mental symptoms have decreased by 74% when compared to admission DSM-5 scores. Client able to note as stated above in client response significant treatment progress with improved daily functioning, reduced depression, reduced anxiety, improved knowledge and awareness of healthy coping skills, and improved socialization. Plan is for client to discharge from [facility] today. Client is established with an outpatient counselor, Kaz Bertrand, from [facility]. Client reported next counseling appointment is 09/24/24. Client will start [facility] Aftercare program on 09/26/24. Client's next appointment with her medication provider is in October 2024. Plan is for client to discharge from [facility] today. Time Stopped:: 11:00
--- NOTE | 2024-09-19 15:14 | BH.DS_ITS ---
Discharge Summary Demographics Date of Admission:: 08/06/24 Discharge Date: 09/19/24 Presenting Problems at Admission:: At admission pt reported being referred to [facility] by her outpatient nurse practitioner, Rosemary Mondragon, due to worsening anxiety, depression, and almost daily panic attacks. Pt stated she's been struggling off and on since she changed her medications about two years ago. Pt shared at one point she was on no medications and went into a rage state for about a month. Pt stated during this time she would have several days of feeling enraged in which she would cuss at others, be snappy, and pushed others away. Pt reported once she was put on Vraylar about 6 months ago is when her rage went away. Pt stated she had to get off Vraylar 6 weeks ago because was having issues with breathing. Pt reported she her anxiety has significantly worsened in the last six weeks. Pt stated she has almost daily panic attacks. Pt stated she went to the ER last Monday after having the worst panic attack ever . Pt reported she also went to the ER yesterday because of another bad panic attack. In addition to daily anxiety pt endorses poor concentration, depressed mood, low motivation, low energy, poor appetite, memory issues, sleeping too much, avoidance, feelings of hopelessness, and worthlessness. 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 Pt reports passive thoughts of like I wouldn't care if I didn't wake up . Pt denies active suicidal ideation, plan, or intention to date. Discharge Diagnoses:: 1. Major depressive disorder, recurrent, moderate F33.1 2. Panic disorder 3. PTSD 4. Generalized anxiety disorder Reason for Discharge:: Pt has made significant treatment progress on her goals and no longer meets criteria for [facility] level of care. Client verbalizes being ready to step down to once a week counseling and once a week aftercare group program. Treatment Progress During Treatment & Response: Progress can be noted as evidenced by DSM- 5 cross cutting scale scores at discharge. Per DSM-5 client's depression has decreased by 57%, anxiety has decreased by 67%, and overall mental symptoms have decreased by 74% when compared to admission DSM-5 scores. Client reports significant treatment progress with improved daily functioning, reduced depression, reduced anxiety, improved knowledge and awareness of healthy coping skills, and improved socialization. Client reports not having a panic attack in several weeks. Client has not been to the ER since she started IOP. Client has made moments in which she would feel heightened anxiety, but by using her healthy calming skills she's been able to stop herself from going into a full panic attack. Client also has been able to go work in person on several occasions and plans to go in person 2 times a week moving forward. Pt responded well to treatment AEB consistent attendance, contributions during group discussions, and follow through with using healthy coping skills/strategies outside treatment environment. Issues Still to be Addressed:: Client could benefit from continued reinforcement of healthy coping skills, reinforcement of maintenance plan, and formation of a weekly routine/structure. Discharge Recommendations/Instructions:: [facility], Kaz Bertrand, from [facility]. Client reported next counseling appointment is 09/24/24. Client will start [facility] Aftercare program on 09/26/24. Client's next appointment with her medication provider is in October 2024. Discharge Handout
== END 2024-09-19 12:17 | disposition home or self-care (01) ==
LOC: BHIOP 07:59
PROVIDERS: PCP Family Medicine; Referring Provider Psychiatry & Neurology Psychiatry; Visit Provider Psychiatry & Neurology Psychiatry
DX: F33.1 Major depressive disorder, recurrent, moderate (principal); F41.1 Generalized anxiety disorder; F43.10 Post-traumatic stress disorder, unspecified; F41.0 Panic disorder [episodic paroxysmal anxiety]; Z79.899 Other long term (current) drug therapy
CPT/HCPCS: S9480; 90832; 90853

== ENCOUNTER 2024-09-26 15:19 | Outpatient (RCR) | payer OTHER, SELFPAY ==
--- NOTE | 2024-09-26 16:08 | BH.MTP ---
Master Treatment Plan Patient Information Program Physician:: Dr. Chloe Marquis Primary Therapist:: Elizabeth FONTENOT Psychiatric Diagnoses Psychiatric Diagnoses:: Major depressive disorder, recurrent, moderate F33.1; Panic disorder; PTSD; Generalized anxiety disorder Diagnosis Code(s):: F 33.1 Estimated LOS Estimated LOS (in weeks):: 8 Problem/Goal #1 Problem/Goal #1 Stated Goal:: client will maintain or see a reduction in symptoms AEB client score on the DSM 5 cross-cutting measure and improve client's daily functioning. Objectives Objective #1: Stated Objective: Client will continue to consistently apply healthy coping skills to maintain progress made in IOP tx. Interventions: Through group therapy, client will review warning signs and triggers as well as healthy coping skills learned in IOP tx to successfully maintain gains while transitioning into outpatient therapy. Discharge Criteria: Client will have accomplished this goal when client's score on the DSM-5 cross-cutting measure has maintained or reduced over a 8 week period. Target Date: 11/21/24 Review Date: 10/17/24 Status: open Objective #2: Stated Objective: Client will learn and utilize 2-3 maintenance strategies to prevent decompensation from original IOP DSM-5 scores. Interventions: Through group therapy, client will be provided with education on healthy maintenance behaviors, relapse prevention techniques, and healthy coping strategies. Discharge Criteria: Client will have accomplished this goal when can report using at least 2 maintenance skills to prevent decompensation compared to original IOP DSM-5 scores Target Date: 11/21/24 Review Date: 10/17/24 Status: open
== END 2024-10-12 23:59 ==
LOC: BHOG 15:19
PROVIDERS: PCP Family Medicine; Visit Provider Psychiatry & Neurology Psychiatry
DX: F33.1 Major depressive disorder, recurrent, moderate (principal); F41.0 Panic disorder [episodic paroxysmal anxiety]; F43.10 Post-traumatic stress disorder, unspecified; F41.1 Generalized anxiety disorder; Z79.899 Other long term (current) drug therapy
CPT/HCPCS: 90853

== ENCOUNTER → 2024-10-04 | Outpatient (CLI) | payer OTHER, SELFPAY ==
[2024-10-04 16:05] LABS: Mucous, Urine 0 SEEN /hpf (<or=2+); Red Blood Cells-Urine 0 SEEN /hpf (0-5); Squamous Epithelial Cells - UA 0 SEEN /hpf (5-10)
[2024-10-04 17:32] LABS: Absolute Lymphocyte Count 2.93 X10^3/uL (0.83-4.51); Absolute Neutrophil Count 4.1 X10^3/uL (2.0-7.7); Basophil# 0.05 X10^3/uL; Basophil% 0.6 % (0-1); Eosinophil# 0.14 X10^3/uL; Eosinophils% 1.7 % (0-5); Hematocrit 43.9 % (37-47); Hemoglobin 13.9 g/dL (12.0-15.0); Lymphocyte # 2.93 X10^3/ul (0.83-4.51); Lymphocyte % 36.3 % (19-41); Mean Corp Hgb Conc 31.7 g/dL (32-36); Mean Corpuscular Hgb 26.5 pg (27.0-32.0); Mean Corpuscular Volume 83.8 fL (81-99); Monocyte# 0.82 X10^3/uL; Monocyte% 10.1 % (0-10); NRBC Flagged by Analyzer 0 % (0-5); Neutrophil # 4.12 X10^3/uL (2.7-7.7); Neutrophil % 51.1 % (47-70); Platelet Count 446 K/mm3 (150-450); RBC Distribution Width CV 14.1 % (11.6-14.6); RBC Distribution Width SD 43.3 fl (35.1-43.9); Red Blood Count 5.24 M/mm3 (4.2-5.4); White Blood Count 8.1 K/mm3 (4.4-11.0)
[2024-10-04 17:39] LABS: Color, Urine Straw (Yellow); Glucose, Dipstick Normal (Normal); Ketone-Dipstick Negative (Negative); Leukocyte Esterase-Dipstick 25 /ul (Negative); Nitrite-Dipstick Negative (Negative); Occult Blood-Urine Negative /ul (Negative); Protein-Dipstick Negative (Negative); Urine Bilirubin Dipstick Negative (Negative); Urine Clarity Sl. Cloudy (Clear); Urine Urobilinogen Normal (Normal); Urine pH 6.5 (5.0 - 8.0)
[2024-10-04 17:51] LABS: Bacteria RARE /hpf (None Seen); PTHIN 57.8 pg/mL (18.4-80.1); White Blood Cells 0-5 SEEN /hpf (0-5)
[2024-10-04 17:56] LABS: ALB/GLOB Ratio 0.9 RATIO (0.9-2.4); AST(SGOT) 18 U/L (15-37); Alanine Aminotransfer ALT/SGPT 22 U/L (13-56); Albumin, Serum 3.7 g/dL (3.2-5.0); Alkaline Phosphatase 88 U/L (45-117); Anion Gap 6 (5-15); BUN 9 mg/dL (7-18); BUN/Creat Ratio 8.3 RATIO (10-20); Calcium,Total 9.5 mg/dL (8.5-10.1); Chloride 106 mmol/L (98-107); Cholesterol 249 mg/dL (200); Creatinine, Serum 1.08 mg/dL (0.55-1.02); EST Glomerular Filtration Rate 55 mL/min (>60); Est Glom Filt Rate - Afr Amer 67 mL/min (>60); Glucose 65 mg/dL (74-106); High Density Lipoprotein 63 mg/dL; Phosphorus 2.7 mg/dL (2.5-4.9); Potassium 3.8 mmol/L (3.5-5.1); Protein, Total 7.7 g/dL (6.4-8.2); Sodium Level 137 mmol/L (136-145); T4 Free Direct 1.14 ng/dL (0.76-1.46); Triglycerides 114 mg/dL; Very Low Density Lipoprotein 23 mg/dL (5-40); Vitamin D,25 Hydroxy 72.9 ng/mL
[2024-10-04 18:17] LABS: Protein, Urine (Random) < 6.0 mg/dL (<11.9)
== END | disposition home or self-care (01) ==
LOC: MFPLAB 16:01
PROVIDERS: PCP Family Medicine; Referring Provider Family Medicine; Visit Provider Family Medicine
DX: I12.9 Hypertensive chronic kidney disease with stage 1 through stage 4 chronic kidney disease, or unspecified chronic kidney disease (principal); N18.30 Chronic kidney disease, stage 3 unspecified; E55.9 Vitamin D deficiency, unspecified; E03.9 Hypothyroidism, unspecified
CPT/HCPCS: 36415; 80053; 80061; 81001; 82306; 82570; 83970; 84100; 84156; 84439; 84443; 85025

== ENCOUNTER 2024-10-14 07:10 | Outpatient (RCR) | payer OTHER, SELFPAY ==
--- NOTE | 2024-10-17 14:00 | BH.SGPN.GN ---
Behaviors/Verbalizations/Mental Status: []Pt alert and oriented, neatly dressed and groomed. Eye contact good. Motor activity appropriate. Speech within normal limits. Affect congruent, mood euthymic. Thoughts linear, logical, no signs of hallucinations or delusions. Client Response/Progress/Benefit: [] Pt responded well to session, attentive and providing input. Pt shared she met with her therapist, her psych provider, and she is taking her medications consistently. Pt reports using delay, distract, decide, yoga, and gratitude to cope with stressors. With peers, pt discussed things that would sabotage one's mental health wellness and added it to the garden metaphor. Pt identified things pt personally does to sabotage as ?poisoning myself with negative thoughts?, isolating, and shutting down. Pt attentive during psychoeducation on ways to reduce self-sabotage and pt selected being aware of her self-sabotage behaviors and communicating them to her spouse as the skill pt is going to use. Pt appeared to benefit from learning skills and gaining awareness of self-sabotaging behaviors. Pt will continue IOP aftercare to promote utilization of healthy coping skills to improve mood stability. Narrative Note: []
--- NOTE | 2024-10-31 15:35 | BH.MTP_ITS ---
Treatment Plan Review Demographics Date of Admission:: 09/26/24 Date of Treatment Plan Review:: 10/31/24 Admitting Diagnoses:: Major depressive disorder, recurrent, moderate F33.1; Panic disorder; PTSD; Generalized anxiety disorder Current Diagnoses:: Major depressive disorder, recurrent, moderate F33.1; Panic disorder; PTSD; Generalized anxiety disorder Patient Status Patient's Response to Treatment:: Pt continues to respond well to treatment AEB pt's consistent attendance, ongoing attentiveness and engagement in group discussions, and continued reporting use of skills outside treatment environ ment. Pt's symptoms are still 76% lower than they were at IOP admission. Status of Current Problems and Symptoms: Pt's symptoms are continuing to decrease since IOP discharge and pt reports benefitting from the maintenance and accountability of aftercare group. Pt has ongoing stressors with anxiety flare ups as well as negative thinking, but pt reports she continues to challenge herself. Progress Problem #1: Problem Name:: Pt will maintain or see a reduction in sx Status of Goals:: Obj 1 - Complete with maintenance encouraged. Pt's depression decreased by 71% compared to IOP admission and anxiety has decreased by 92% compared to IOP admission. Obj 2 - complete with ongoing work encouraged. Pt had been reporting using opposite action, self-compassion, affirmations, and dialectical thinking. Pt is also working on catching distortions and combating them. Team Recommendations:: Recommended client continue IOP aftercare group in addition to attending regular outpatient counseling in order to maintain gains. Pt also recommended to continue working on self-compassion, practice self-care, and setting realistic goals.
== END 2024-11-12 23:59 ==
LOC: BHOG 07:10
PROVIDERS: PCP Family Medicine; Visit Provider Psychiatry & Neurology Psychiatry
DX: F33.1 Major depressive disorder, recurrent, moderate (principal); F41.0 Panic disorder [episodic paroxysmal anxiety]; F43.10 Post-traumatic stress disorder, unspecified; F41.1 Generalized anxiety disorder; Z79.899 Other long term (current) drug therapy
CPT/HCPCS: 90853

== ENCOUNTER → 2024-10-22 | Outpatient (CLI) | payer OTHER, SELFPAY ==
[2024-10-22 08:12] LABS: Bacteria 0 SEEN /hpf (None Seen); Mucous, Urine 0 SEEN /hpf (<or=2+); Red Blood Cells-Urine 0 SEEN /hpf (0-5); White Blood Cells 0 SEEN /hpf (0-5)
[2024-10-22 10:09] LABS: Absolute Lymphocyte Count 1.97 X10^3/uL (0.83-4.51); Absolute Neutrophil Count 3.3 X10^3/uL (2.0-7.7); Basophil# 0.03 X10^3/uL; Basophil% 0.5 % (0-1); Eosinophil# 0.14 X10^3/uL; Eosinophils% 2.3 % (0-5); Hematocrit 42.8 % (37-47); Hemoglobin 13.3 g/dL (12.0-15.0); Lymphocyte # 1.97 X10^3/ul (0.83-4.51); Mean Corp Hgb Conc 31.1 g/dL (32-36); Mean Corpuscular Hgb 26.2 pg (27.0-32.0); Mean Corpuscular Volume 84.4 fL (81-99); Mean Platelet Vol. 9.8 fl (6.2-12.0); Monocyte# 0.49 X10^3/uL; Monocyte% 8.2 % (0-10); NRBC Flagged by Analyzer 0 % (0-5); Neutrophil # 3.32 X10^3/uL (2.7-7.7); Neutrophil % 55.7 % (47-70); Platelet Count 371 K/mm3 (150-450); RBC Distribution Width CV 14.4 % (11.6-14.6); Red Blood Count 5.07 M/mm3 (4.2-5.4)
[2024-10-22 10:13] LABS: Color, Urine Straw (Yellow); Glucose, Dipstick Normal (Normal); Ketone-Dipstick Negative (Negative); Leukocyte Esterase-Dipstick Negative /ul (Negative); Nitrite-Dipstick Negative (Negative); Occult Blood-Urine Negative /ul (Negative); Protein-Dipstick Negative (Negative); Specific Gravity, Urine 1.005 (1.002-1.030); Urine Bilirubin Dipstick Negative (Negative); Urine Clarity Clear (Clear); Urine Urobilinogen Normal (Normal)
[2024-10-22 10:28] LABS: Vitamin D,25 Hydroxy 77.2 ng/mL
[2024-10-22 10:33] LABS: Squamous Epithelial Cells - UA 0-5 SEEN /hpf (5-10)
[2024-10-22 10:49] LABS: PTHIN 53.7 pg/mL (18.4-80.1)
[2024-10-22 11:01] LABS: Protein, Urine (Random) < 6.0 mg/dL (<11.9); Protein:Creat Ratio 310 mg/g CRE (0-200)
[2024-10-22 11:02] LABS: ALB/GLOB Ratio 0.9 RATIO (0.9-2.4); AST(SGOT) 19 U/L (15-37); Alanine Aminotransfer ALT/SGPT 19 U/L (13-56); Albumin, Serum 3.6 g/dL (3.2-5.0); Alkaline Phosphatase 98 U/L (45-117); Anion Gap 6 (5-15); BUN 13 mg/dL (7-18); BUN/Creat Ratio 12.1 RATIO (10-20); Calcium,Total 9.5 mg/dL (8.5-10.1); Chloride 106 mmol/L (98-107); Cholesterol 236 mg/dL (200); Creatinine, Serum 1.07 mg/dL (0.55-1.02); EST Glomerular Filtration Rate 56 mL/min (>60); Est Glom Filt Rate - Afr Amer 68 mL/min (>60); Globulin 3.8 g/dL (2.2-4.2); Glucose 94 mg/dL (74-106); High Density Lipoprotein 58 mg/dL; Phosphorus 3.1 mg/dL (2.5-4.9); Potassium 4.3 mmol/L (3.5-5.1); Protein, Total 7.4 g/dL (6.4-8.2); Sodium Level 137 mmol/L (136-145); T4 Free Direct 1.26 ng/dL (0.76-1.46); Triglycerides 92 mg/dL; Very Low Density Lipoprotein 18 mg/dL (5-40)
== END | disposition home or self-care (01) ==
LOC: MFPLAB 08:03
PROVIDERS: PCP Family Medicine; Visit Provider Family Medicine
DX: I12.9 Hypertensive chronic kidney disease with stage 1 through stage 4 chronic kidney disease, or unspecified chronic kidney disease (principal); N18.30 Chronic kidney disease, stage 3 unspecified; E03.9 Hypothyroidism, unspecified; E55.9 Vitamin D deficiency, unspecified
CPT/HCPCS: 36415; 80053; 80061; 81001; 82306; 82570; 83970; 84100; 84156; 84439; 84443; 85025

== ENCOUNTER 2024-11-14 07:09 | Outpatient (RCR) | payer OTHER, SELFPAY ==
--- NOTE | 2024-11-21 14:00 | BH.SGPN.GN ---
= Behaviors/Verbalizations/Mental Status: []Pt alert and oriented, casually dressed and groomed. Eye contact good. Motor activity appropriate. Speech within normal limits. Affect congruent, mood happy. Thoughts linear, logical, no signs of hallucinations or delusions. Client Response/Progress/Benefit: []Pt responded well to session AEB sharing and listening attentively to others. Pt has scheduled outpatient mental health appointments for weekly counseling and regular med management and reports consistent medication compliance. Pt reports using skills of healthy distraction, slef-love, yoga, and boundaries maintain mood stability. Pt participated in group discussion defining affirmations and why they are important. Pt provided insight throughout clinician?s presentation of tips for writing personal affirmations and wrote their own affirmations, including ?I am the author of my own story?, ?I am resilient? and ?I am having a difficult day and that's okay. I don't have to stay here, I have the power to change it?. Pt appeared to benefit from increased knowledge of affirmation writing skills and creating their own affirmation statements to remind themselves of outside tx environment. Will continue aftercare tx to promote consistent mental health maintenance and prevent decompensation. Narrative Note: []
--- NOTE | 2024-11-28 14:00 | BH.SGPN.GN ---
Behaviors/Verbalizations/Mental Status: []Client alert and oriented, neatly dressed and groomed. Eye contact good. Motor activity appropriate. Speech within normal limits. Affect congruent, mood euthymic. Thoughts linear, logical, no signs of hallucinations or delusions. Client Response/Progress/Benefit: []Pt responded well to session, providing support to peers and contributing. Pt reports meeting with her therapist, taking her meds, and using healthy coping skills. Pt reported using skills such as; guided meditation, catching negative thinking, and affirmations to cope with stressors. Pt engaged in discussion of problem-solving, learned the ABCDEs of problem-solving, and participated in the activity. Pt, along with peers, had to use outside of the box thinking and team work to accomplish the goal. Pt shared she learned that she tends to struggle with shutting down when she is faced with a problem, so pt benefitting from advocating for herself and asking for direction. Pt will work on problem-solving skills for homework. Pt will discharge from [facility] aftercare today as pt has met her tx goals and no longer meets criteria. Narrative Note: []
--- NOTE | 2024-11-29 16:12 | BH.DS ---
Discharge Summary Demographics Date of Admission:: 09/26/24 Discharge Date: 11/29/24 Presenting Problems at Admission:: At IOP admission pt reported being referred to [facility] by her outpatient nurse practitioner, Rosemary Mondragon, due to worsening anxiety, depression, and almost daily panic attacks. Pt stated she's been struggling off and on since she changed her medications about two years ago. Pt shared at one point she was on no medications and went into a rage state for about a month. Pt reported she also went to the ER yesterday because of another bad panic attack. In addition to daily anxiety pt endorses poor concentration, depressed mood, low motivation, low energy, poor appetite, memory issues, sleeping too much, avoidance, feelings of hopelessness, and worthlessness. 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 At aftercare admission pt reporting significant improvement in daily functioning and decrease in anxiety and depression. Client could benefit from aftercare program to help with maintenance of skills and progress. Discharge Diagnoses:: Major depressive disorder, recurrent, moderate F33.1; Panic disorder; PTSD; Generalized anxiety disorder Reason for Discharge:: Pt has accomplished tx goals AEB ability to maintain mood stability and gains made in IOP. Pt's DSM-5 scores remain 79% lower than her IOP admission scores. Pt will transition to traditional outpatient counseling. Treatment Progress During Treatment & Response: Pt responded well and made progress in [facility] aftercare as evidenced by pt's participation in group discussions and self-report of consistently applying coping skills. Pt's overall DSM-5 scores decreased by 79% from IOP admission. Pt?s depression decreased by 71% since original IOP admission and pt's scores for anxiety decreased by 75% compared to original IOP scores. Issues Still to be Addressed:: Client could benefit from continued reinforcement of healthy coping skills, reinforcement of maintenance plan, and formation of a weekly routine/structure. Discharge Recommendations/Instructions:: Client is established with an outpatient counselor, Kaz Bertrand, from [facility]. Discharge Handout
== END 2024-11-29 06:56 | disposition home or self-care (01) ==
LOC: BHOG 07:09
PROVIDERS: PCP Family Medicine; Visit Provider Psychiatry & Neurology Psychiatry
DX: F33.1 Major depressive disorder, recurrent, moderate (principal); F41.0 Panic disorder [episodic paroxysmal anxiety]; F41.1 Generalized anxiety disorder; F43.10 Post-traumatic stress disorder, unspecified
CPT/HCPCS: 90853

== ENCOUNTER → 2025-01-03 | Outpatient (CLI) | payer OTHER, SELFPAY ==
[2025-01-03 10:15] LABS: Absolute Lymphocyte Count 2.08 X10^3/uL (0.83-4.51); Absolute Neutrophil Count 3.1 X10^3/uL (2.0-7.7); Basophil# 0.04 X10^3/uL; Basophil% 0.7 % (0-1); Eosinophil# 0.11 X10^3/uL; Eosinophils% 1.9 % (0-5); Hemoglobin 13.8 g/dL (12.0-15.0); Lymphocyte # 2.08 X10^3/ul (0.83-4.51); Lymphocyte % 36.3 % (19-41); Mean Corp Hgb Conc 31.4 g/dL (32-36); Mean Corpuscular Hgb 26.7 pg (27.0-32.0); Mean Corpuscular Volume 85.3 fL (81-99); Mean Platelet Vol. 9.5 fl (6.2-12.0); Monocyte# 0.43 X10^3/uL; Monocyte% 7.5 % (0-10); NRBC Flagged by Analyzer 0 % (0-5); Neutrophil # 3.05 X10^3/uL (2.7-7.7); Neutrophil % 53.3 % (47-70); Platelet Count 451 K/mm3 (150-450); RBC Distribution Width CV 15.2 % (11.6-14.6); RBC Distribution Width SD 46.8 fl (35.1-43.9); Red Blood Count 5.16 M/mm3 (4.2-5.4); White Blood Count 5.7 K/mm3 (4.4-11.0)
[2025-01-03 10:24] LABS: Vitamin D,25 Hydroxy 75.3 ng/mL
[2025-01-03 11:08] LABS: ALB/GLOB Ratio 0.9 RATIO (0.9-2.4); AST(SGOT) 22 U/L (15-37); Alanine Aminotransfer ALT/SGPT 23 U/L (13-56); Albumin, Serum 3.6 g/dL (3.2-5.0); Alkaline Phosphatase 96 U/L (45-117); Anion Gap 7 (5-15); BUN 11 mg/dL (7-18); BUN/Creat Ratio 11.6 RATIO (10-20); Calcium,Total 9.5 mg/dL (8.5-10.1); Chloride 107 mmol/L (98-107); Cholesterol 243 mg/dL (200); Creatinine, Serum 0.94 mg/dL (0.55-1.02); EST Glomerular Filtration Rate 64 mL/min (>60); Est Glom Filt Rate - Afr Amer 78 mL/min (>60); Globulin 4.1 g/dL (2.2-4.2); Glucose 86 mg/dL (74-106); High Density Lipoprotein 67 mg/dL; Potassium 4.1 mmol/L (3.5-5.1); Protein, Total 7.7 g/dL (6.4-8.2); Sodium Level 136 mmol/L (136-145); T4 Free Direct 1.27 ng/dL (0.76-1.46); Triglycerides 124 mg/dL; Very Low Density Lipoprotein 25 mg/dL (5-40)
[2025-01-03 11:12] LABS: Protein, Urine (Random) < 6.0 mg/dL (<11.9)
[2025-01-07 07:07] LABS: Deamidated Gliadin IgA 3 units (0-19); Deamidated Gliadin IgG 2 units (0-19); Endomysial Antibody IgA Negative (Negative); Immunoglobulin A 228 mg/dL (87-352); t-Transglutaminase IgA <2 U/mL (0-3)
== END | disposition home or self-care (01) ==
LOC: MFPLAB 08:27
PROVIDERS: PCP Family Medicine; Referring Provider Family Medicine; Visit Provider Family Medicine
DX: E03.9 Hypothyroidism, unspecified (principal); N18.30 Chronic kidney disease, stage 3 unspecified; R19.7 Diarrhea, unspecified
CPT/HCPCS: 36415; 80053; 80061; 82306; 82570; 82784; 83516; 83970; 84156; 84439; 84443; 85025; 86255

== ENCOUNTER → 2025-07-24 | Outpatient (CLI) | payer OTHER, SELFPAY ==
[2025-07-24 12:27] LABS: Hematocrit 41.5 % (37-47); Hemoglobin 13.5 g/dL (12.0-15.0); Immature Granulocytes Count 0.030 X10^3/uL (0.0-0.0); Mean Corp Hgb Conc 32.5 g/dL (32-36); Mean Corpuscular Volume 87.9 fL (81-99); Mean Platelet Vol. 10.0 fl (6.2-12.0); NRBC Flagged by Analyzer 0 % (0-5); Platelet Count 404 K/mm3 (150-450); RBC Distribution Width CV 14.4 % (11.6-14.6); RBC Distribution Width SD 46.5 fl (35.1-43.9); Red Blood Count 4.72 M/mm3 (4.2-5.4); White Blood Count 8.1 K/mm3 (4.4-11.0)
[2025-07-24 13:07] LABS: AST(SGOT) 22 U/L (<=31); Alanine Aminotransfer ALT/SGPT 17 U/L (<=34); Albumin, Serum 4.0 g/dL (3.5-5.0); Alkaline Phosphatase 84 U/L (35-104); Anion Gap 11 (5-15); BUN 10 mg/dL (4-19); BUN/Creat Ratio 11.6 RATIO (10-20); Calcium,Total 9.1 mg/dL (7.6-11.0); Carbon Dioxide 20.0 mmol/L (21.0-32.0); Chloride 106 mmol/L (98-108); Cholesterol 206 mg/dL (<=200); Globulin 3.0 g/dL (2.2-4.2); Glucose 81 mg/dL (70-99); Low Density Lipoprotein Calc. 121 mg/dL; Magnesium 2.3 mg/dL (1.5-2.2); Potassium 4.3 mmol/L (3.3-5.1); Triglycerides 155 mg/dL; Very Low Density Lipoprotein 31 mg/dL (5-40); Vitamin D,25 Hydroxy 52.7 ng/mL (30-100); cholesterol:hdl ratio screen 3.83
== END | disposition home or self-care (01) ==
LOC: MFPLAB 09:52
PROVIDERS: PCP Family Medicine; Visit Provider Family Medicine
DX: E03.9 Hypothyroidism, unspecified (principal); I10 Essential (primary) hypertension
CPT/HCPCS: 36415; 80053; 80061; 82306; 83735; 84439; 84443; 85025